=== PATIENT | male | born 1940 | race Caucasian/White ===

== ENCOUNTER 2020-01-30 09:49 | Observation (INO) ==
--- NOTE | 2020-01-30 10:21 | Emergency Department Note ---
Impression & Plan Atypical chest pain, HERNÁNDEZ (dyspnea on exertion), Hypophosphatemia, Hypocalcemia ED Provider Note NAME: JUAN FRANCISCO LOVE AGE: 79 SEX: M : 1940 ARRIVES VIA: Walk-In INFORMANT: Patient, ED PROVIDER(S): Puma Key MD Chief Complaint: Shortness of breath, fever HPI: Patient presents as he was concern for shortness of breath and the possibility of fever. The patient had initially gone to his chiropractor this morning for chronic low back pain for which she denies any change no bowel or bladder incontinence or urinary symptoms. He was told that he had a fever so [facility]. The patient states that he has had shortness of breath. Patient states he had chronic shortness of breath with difficulty I was getting the top of a set of stairs. More recently in the last 3 to 4 days though he has noticed that it is difficult he does take several steps and gets winded. Patient does have some chest tightness which she has noticed in the last 24 hours. He has had no lower extremity edema, increase in salt, or orthopnea. Patient does state he has had a mild productive cough that is colored in nature. Never smoker. No history DVT or PE or heart disease. Patient denies nausea vomiting or diaphoresis. Patient does not present with chills, coronavirus contacts, coronavirus testing, or recent travel. ROS: See HPI for pertinent positives and negatives. A total of 10 systems were reviewed and otherwise negative. Past medical history: See below Surgical history: See below Social history: See below Physical Exam: GENERAL: NAD, non-toxic. Wearing a mask. EYE EXAM: Normal conjunctiva. PERRL, no anisocoria and EOM's grossly intact w/o pain. NECK: Supple, no nuchal rigidity, no adenopathy, non-tender. No signs of meningismus. LUNGS: Clear to auscultation. Normal chest wall mechanics. HEART: NSR, no MRG. ABDOMEN: Abdomen soft, non-tender, normo-active bowel sounds, no masses, no rebound or guarding. BACK: No CVA TTP. SKIN: No rashes and no bruising. UPPER EXTREMITIES: Upper extremities are grossly normal. LOWER EXTREMITIES: Grossly normal, no edema. Negative Homans sign bilaterally. NEURO EXAM: A&O x3, cranial nerves II-XII grossly intact, normal speech, moves all 4 extremities on command w/o issue. Differential diagnoses: Reactive airway disease, pneumonia, pneumothorax, COPD, CHF, infections, cardiac ischemia, pulmonary embolism, musculoskeletal, gastrointestinal, as well as other pathologies. Course: Patient was seen and evaluated the bedside. Full history physical exam was performed. EKG: Indication: Shortness of breath Normal sinus rhythm, rate 82, normal intervals, left axis deviation, T wave inversion in aVL and V2. No obvious ST changes. T wave inversions are new from July 09, 1997 comparison EKG. Imaging Studies: Radiology results as stated below per my review in the radiologist's inte rpretation: XR chest 1V portable CLINICAL HISTORY: Dyspnea COMPARISON STUDY: No previous studies for comparison. FINDINGS: Kyphotic positioning is noted. Lung volumes are diminished. There is no evidence for pulmonary edema. No consolidation is identified. Linear right midlung opacity suggests atelectasis. IMPRESSION: 1. No acute findings. Linear right basilar opacity suggestive of atelectasis. 3. Low lung volumes. Kyphotic positioning. ACT 112: Negative or not required by law. Electronically signed by: Dylan Moscoso M.D. 01/30/2020 11:08 AM Dictated: 01/30/20 1107 Transcribed: 01/30/20 110 Cardiac monitoring: An order was placed for continuous cardiac monitoring. The monitor shows a rate of 84 with sinus rhythm. MDM: Patient does present with concern for shortness of breath and chest pain. Patient has clear breath sounds and not appear to be in heart failure. Blood work was obtained along with an EKG troponin and the patient did receive some aspirin given his chest tightness. Patient blood work shows a normal white count. Trace anemia is present. P atmeg has normal kidney function. Mild hypocalcemia and hypophosphatemia which were ordered for repleted. Patient states that he did feel improved upon reassessment after being given a full dose aspirin. EKG does show T wave inversion anteriorly and high laterally. These are new but the comparison EKG is quite old from 1996. Given the patient's exertional dyspnea and associated EKG changes with an elevated heart score I did speak with the medicine service agreed to further evaluate treat the patient. I did speak with Dr. Nely MD, [facility] hospitalist. He will further evaluate treat the patient. Patient was admitted to the medicine service. Past Med/Surg History Medical History (Updated 01/30/20 @ 13:06 by Puma Key MD) Hyperlipidemia Hypertension Surgical History (Updated 01/30/20 @ 12:50 by Puma Key MD) No pertinent past surgical history Social History (Updated 01/30/20 @ 12:50 by Puma Key MD) Preferred Language: Nepalese Communication Ability: Effective Current Living Situation: Spouse current occupational status: retired Feels Safe at Home: Yes Smoking Status: Former smoker Hx Alcohol Use: No Hx Substance Use: No Allergies Allergies Allergy/AdvReac Type Severity Reaction Status Date / Time No Known Allergies Allergy Unverified 01/30/20 11:18 Home Meds Home Medications Medication Instructions Recorded Confirmed aspirin [Aspir-81] 81 mg PO QA 01/30/20 01/30/20 docusate sodium [Stool Softener] 50 mg PO QA 01/30/20 01/30/20 gabapentin 300 mg PO BID 01/30/20 01/30/20 ibuprofen 200 mg PO Q6H PRN 01/30/20 01/30/20 levothyroxine 150 mcg PO DAILY@0630 01/30/20 01/30/20 lisinopril 10 mg PO QA 01/30/20 01/30/20 magnesium 250 mg PO [facility] 01/30/20 01/30/20 metoprolol tartrate 12.5 mg PO BID 01/30/20 01/30/20 omeprazole 20 mg PO BID 01/30/20 01/30/20 potassium gluconate 595 mg PO QA 01/30/20 01/30/20 prazosin 10 mg PO HS 01/30/20 01/30/20 sertraline 100 mg PO QAM 01/30/20 01/30/20 simvastatin 40 mg PO HS 01/30/20 01/30/20 trazodone 150 mg PO 01/30/20 01/30/20 Results & Data (ED) Vital Signs Vital Signs - 24 hr 01/30/20 10:00 01/30/20 11:33 01/30/20 11:34 Temperature 36.8 C Temperature Source Oral Pulse Rate 84 Pulse Rate [Apical] 63 Pulse Rhythm [Apical] Regular Respiratory Rate 20 18 Respiratory Effort / Characteristics Non-Labored Spontaneous Non-Labored Spontaneous Non-Labored Spontaneous Respiratory Depth Normal Normal Normal Respiratory Pattern Regular Blood Pressure 136/76 Blood Pressure [Right Arm] 137/73 Blood Pressure Mean 96 Blood Pressure Mean [Right Arm] 94 Blood Pressure Position Sitting Pulse Oximetry 96 94 Oxygen Delivery Method Room Air Room Air Room Air Sepsis Recent Fever Within 48 Hours No Sepsis Action Taken by Nursing No Action Required Home Medications Current Medication List: was personally reviewed by me Laboratory Data Attestation: I reviewed the patient's lab results. Result diagrams: 01/30/20 10:37 01/30/20 10:37 Lab Results 01/30/20 01/30/20 01/30/20 Range/Units 10:37 10:37 10:37 WBC 5.23 (4.8-10.8) K/uL RBC 4.31 L (4.7-6.1) M/uL Hgb 12.6 L (14.0-18.0) g/dL Hct 41.6 L (42-52) % MCV 96.5 (80-100) fL MCH 29.2 (25-34) pg MCHC 30.3 L (32-36) g/dL RDW Std Deviation 51.0 H (36.4-46.3) fL RDW Coeff of Bisi 14.3 (11.5-14.5) % Plt Count 168 (130-400) K/uL MPV 9.5 (7.4-10.4) fL Immature Gran % (Auto) 0.2 % Neut % (Auto) 71.3 % Lymph % (Auto) 17.8 % Buchanan % (Auto) 8.4 % Eos % (Auto) 2.1 % Baso % (Auto) 0.2 % Immature Gran # (Auto) 0.01 (0.00-0.02) K/uL Neut # (Auto) 3.73 (1.4-6.5) K/uL Lymph # (Auto) 0.93 L (1.2-3.4) K/uL Buchanan # (Auto) 0.44 (0.11-0.59) K/uL Eos # (Auto) 0.11 (0-0.5) K/uL Baso # (Auto) 0.01 (0-0.2) K/uL PT 10.7 (9.0-12.0) Seconds INR 1.0 (0.9-1.1) APTT 30.0 (21.0-31.0) Seconds PTT Ratio 1.1 Sodium 138 (136-145) mmol/L Potassium 4.5 (3.5-5.1) mmol/L Chloride 105 (98-107) mmol/L Carbon Dioxide 29 (21-32) mmol/L Anion Gap 4.0 (3-11) BUN 12 (7-18) mg/dl Creatinine 0.99 (0.6-1.4) mg/dl Est Cr Clr Drug Dosing 69.4 ml/min Est GFR ( Amer) 83.0 Est GFR (Non-Af Amer) 71.6 BUN/Creatinine Ratio 12.1 (10-20) Glucose 95 (70-99) mg/dl Calcium 8.3 L (8.5-10.1) mg/dl Phosphorus 2.2 L (2.5-4.9) mg/dl Magnesium 2.0 (1.8-2.4) mg/dl Total Bilirubin 0.4 (0.2-1) mg/dl AST 17 (15-37) U/L ALT 21 (12-78) U/L Alkaline Phosphatase 60 (45-117) U/L Troponin I < 0.015 (0-0.045) ng/ml Total Protein 6.9 (6.4-8.2) gm/dl Albumin 3.5 (3.4-5.0) gm/dl Globulin 3.4 (2.5-4.0) gm/dl Albumin/Globulin Ratio 1.0 (0.9-2) Administered Medications Discontinued Medications Aspirin (Aspirin) 324 mg PO NOW STA Stop: 01/30/20 10:57 Last Admin: 01/30/20 11:31 Dose: 324 mg Documented by: [id number] Discharge Plan Visit Data Chief Complaint: Shortness of Breath/Dyspnea Stated Complaint: SOB,HEADACHES,WEAKNESS ED Provider: Puma Key Discharge Problem: Atypical chest pain, HERNÁNDEZ (dyspnea on exertion), Hypophosphatemia, Hypocalcemia Forms Stand Alone Forms: [employer] Prescriptions Prescriptions: No Action sertraline 100 mg Tablet 100 mg PO QAM RF: 0 Stool Softener 50 mg Capsule 50 mg PO QAM RF: 0 aspirin [Aspir-81] 81 mg Tablet,Delayed Release (Dr/Ec) 81 mg PO QAM RF: 0 simvastatin 40 mg Tablet 40 mg PO HS RF: 0 prazosin 5 mg Capsule 10 mg PO HS RF: 0 trazodone 150 mg Tablet 150 mg PO HS RF: 0 lisinopril 10 mg Tablet 10 mg PO QAM RF: 0 levothyroxine 150 mcg Tablet 150 mcg PO DAILY@0630 RF: 0 ibuprofen 200 mg Tablet 200 mg PO Q6H PRN (Reason: Pain) RF: 0 gabapentin 300 mg Capsule 300 mg PO BID RF: 0 magnesium 250 mg Tablet 250 mg PO QAM RF: 0 potassium gluconate 595 mg (99 mg) Tablet 595 mg PO QAM RF: 0 omeprazole 20 mg Tablet,Delayed Release (Dr/Ec) 20 mg PO BID RF: 0 metoprolol tartrate 25 mg Tablet 12.5 mg PO BID RF: 0
[2020-01-30] MEDS ORDERED: ASPIRIN CHEW 324 MG PO STA (10:56)
--- NOTE | 2020-01-30 11:10 | XRay Report ---
XR chest 1V portable CLINICAL HISTORY: Dyspnea COMPARISON STUDY: No previous studies for comparison. FINDINGS: Kyphotic positioning is noted. Lung volumes are diminished. There is no evidence for pulmon kimmie edema. No consolidation is identified. Linear right midlung opacity suggests atelectasis. IMPRESSION: 1. No acute findings. Linear right basilar opacity suggestive of atelectasis. 3. Low lung volumes. Kyphotic positioning. ACT 112: Negative or not required by law. Electronically signed by: Dylan Moscoso M.D. 01/30/2020 11:08 AM
[2020-01-30 11:22] LABS: Basophils # (auto) 0.01 K/uL (0-0.2); Basophils % (auto) 0.2 %; Eosinophils # (auto) 0.11 K/uL (0-0.5); Eosinophils % (auto) 2.1 %; Hematocrit (blood only) 41.6 % (42-52); Hemoglobin 12.6 g/dL (14.0-18.0); Immature Granulocytes # (auto) 0.01 K/uL (0.00-0.02); Immature Granulocytes % (auto) 0.2 %; Lymphocytes # (auto) 0.93 K/uL (1.2-3.4); Lymphocytes % (auto) 17.8 %; Mean Corpuscular Hemoglobin 29.2 pg (25-34); Mean Corpuscular Hgb Conc 30.3 g/dL (32-36); Mean Corpuscular Volume 96.5 fL (80-100); Mean Platelet Volume 9.5 fL (7.4-10.4); Monocytes # (auto) 0.44 K/uL (0.11-0.59); Monocytes % (auto) 8.4 %; Neutrophils # (auto) 3.73 K/uL (1.4-6.5); Neutrophils % (auto) 71.3 %; Platelet Count 168 K/uL (130-400); RDW Coefficient of Variation 14.3 % (11.5-14.5); Red Blood Count 4.31 M/uL (4.7-6.1); White Blood Count 5.23 K/uL (4.8-10.8)
[2020-01-30 11:29] LABS: Alanine Aminotransferase 21 U/L (12-78); Albumin Level 3.5 gm/dl (3.4-5.0); BUN Creatinine Ratio 12.1 (10-20); Blood Urea Nitrogen 12 mg/dl (7-18); Calcium 8.3 mg/dl (8.5-10.1); Carbon Dioxide 29 mmol/L (21-32); Chloride 105 mmol/L (98-107); Creatinine Clr Calc Pharmacy 69.4 ml/min; Est GFR (Non-African American) 71.6; Glucose 95 mg/dl (70-99); Potassium 4.5 mmol/L (3.5-5.1); Sodium 138 mmol/L (136-145)
[2020-01-30 11:34] LABS: Partial Thromboplastin Ratio 1.1; Prothrombin Time 10.7 Seconds (9.0-12.0)
[2020-01-30 11:36] LABS: Alkaline Phosphatase 60 U/L (45-117); Aspartate Aminotransferase 17 U/L (15-37); Bilirubin,Total 0.4 mg/dl (0.2-1); Globulin 3.4 gm/dl (2.5-4.0); Phosphorus 2.2 mg/dl (2.5-4.9); Total Protein 6.9 gm/dl (6.4-8.2); Troponin I < 0.015 ng/ml (0-0.045)
[2020-01-30] MEDS ORDERED: CALCIUM CARBONATE 500 MG CHEWABLE TAB PO STA (12:47)
[2020-01-30] MEDS ORDERED: POT PHOSPHATE MONOBASIC W/ SOD TAB PO STA (12:47)
--- NOTE | 2020-01-30 13:49 | History & Physical Report ---
Date of Service January 30, 2020 Assessment & Plan (1) Atypical chest pain: Patient's chest pain is atypical but given his age and risk factors it could be cardiogenic in nature. The patient will have telemetry monitoring and serial troponin testing. Echocardiogram will be performed when available Patient is maintained on his chronic daily aspirin, patient continues on risk reduction Zocor therapy for dyslipidemia (2) HERNÁNDEZ (dyspnea on exertion): Patient is dyspnea on exertion could be related to unstable angina, systolic heart failure, or pulmonary infection. He has no other signs or symptoms such as productive cough. His fever is antidotal is with describe to providers offices and not recorded here but will continue to watch him for fever. He has no definite infiltrates on chest x-ray and has not had recent travel. However with dyspnea and a fever to physician offices we will check a COVID-19 test (3) Hypertension: Patient's hypertension is typically treated with metoprolol lisinopril the se will be maintained (4) Low back pain: Patient has chronic daily low back pain for which she takes gabapentin as needed oxycodone will be added (5) Depression: Patient continues on Zoloft and trazodone although trazodone has helpful for his insomnia (6) Hypothyroidism: Patient remains in his Synthroid at 150 mcg a day (7) DVT prophylaxis: Heparin will be chosen for DVT prevention (8) Hypophosphatemia: will augment his low potassium on admission History of Present Illness Chief Complaint: Fever, shortness of breath and chest pressure Primary Care Provider: NO PCP 79-year-old male presents emergency room after referral from 2 providers offices for fever. Patient initially was going to his chiropractor office for back pain when he was turned away due to high temperature and referred to his primary care office at the [facility]. At the [facility] the patient once again had a fever which was checked both in his forehead and in his ear he was then recommended to go to the emergency department. Patient's back pain was initial reason for his visit although he says he has been having feelings of being sick weak tired and fatigued over the last few days. Patient also has had some dyspnea which is been with associated chest tightness he is vague about the exact duration of the symptoms and there correlation with the feelings of generalized illness. Patient states that he has no nausea with his chest tightness and shortness of breath. He says that they are not always associated together the chest tightness and shortness of breath. And he has no diaphoresis associated with this. Patient does not have a tobacco use history but did have some secondhand smoke. Patient typically has dyslipidemia and hypertension. Patient denies travel out of the state or ill contacts he however was visiting [facility] to get his household supplies and did go to a [employer] market type setting in the last few days. In the ER he has negative laboratories he has some minor T wave inversions on EKG which are different from an EKG from 1997. He has some mild changes on his chest x-ray which are read as atelectasis Patient is agreeable to observation patient will have a COVID test Allergies Allergy/AdvReac Type Severity Reaction Status Date / Time No Known Allergies Allergy Unverified 01/30/20 11:18 Home Medications Home Medications Medication Instructions Recorded Confirmed Type Stool Softener 50 mg PO QAM 01/30/20 01/30/20 History aspirin [Aspir-81] 81 mg PO QA 01/30/20 01/30/20 History gabapentin 300 mg PO BID 01/30/20 01/30/20 History ibuprofen 200 mg PO Q6H PRN 01/30/20 01/30/20 History levothyroxine 150 mcg PO DAILY@0630 01/30/20 01/30/20 History lisinopril 10 mg PO QAM 01/30/20 01/30/20 History magnesium 250 mg PO QAM 01/30/20 01/30/20 History metoprolol tartrate 12.5 mg PO BID 01/30/20 01/30/20 History omeprazole 20 mg PO BID 01/30/20 01/30/20 History potassium gluconate 595 mg PO QAM 01/30/20 01/30/20 History prazosin 10 mg PO HS 01/30/20 01/30/20 History sertraline 100 mg PO QAM 01/30/20 01/30/20 History simvastatin 40 mg PO HS 01/30/20 01/30/20 History trazodone 150 mg PO HS 01/30/20 01/30/20 History Past Med/Surg History Medical History (Updated 01/30/20 @ 13:49 by All Mckay MD) Hyperlipidemia Hypertension Surgical History (Updated 01/30/20 @ 12:50 by Puma Key MD) No pertinent past surgical history Social History (Updated 01/30/20 @ 12:50 by Puma Key MD) Preferred Language: Omani Communication Ability: Effective 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 Beliefs That Will Affect Care: None marital status: Current Living Situation: Spouse current occupational status: retired Other Information That Helps Us Care for You: No Feels Safe at Home: Yes Safety Concerns: Feels Safe At This Time Smoking Status: Never smoker Hx Alcohol Use: No Hx Substance Use: No Review of Systems Review of Systems: Mild distress and fatigue no headache, blurry or double vision no speech or swallowing issues Complains of chest pressure no sensation of palpitations Dyspnea on exertion nonproductive cough but no wheezes no abdominal pain, nausea or vomiting, diarrhea or constipation no dysuria, hematuria or frequency no focal joint pain or swelling Low back pain which is chronic for him but no CVA tenderness or radicular pain no bruising, bleeding or rashes no focal signs of weakness or numbness or altered sensation no complaints or anxiety or depression Physical Exam Physical Exam: The patient appeared well nourished and normally developed. Vital signs as documented. Head exam is normocephalic atraumatic no scleral icterus Neck is without JVD, thyromegaly, or carotid bruits. Lungs are clear to auscultation, with exception of fine rales at the base Cardiac exam, Rhythm is regular.. No murmurs, rubs or gallops. Abdominal exam reveals normal bowel sounds, soft non tender, no masses Extremities are nonedematous and both pedal pulses are normal. Neurologic exam is alert and oriented, no focal loss of strength or sensation Skin is without bruises or rashes Psychologically is without concerns for anxiety or depression Results & Data Results & Data ([facility]) Vital Signs (Past 12 Hours) Vital Signs Negative troponin in the ER EKG nondiagnostic sinus rhythm Chest x-ray without infiltrates or overt heart failure Temp Pulse Pulse Resp BP BP Pulse Ox 01/30/20 13:00 73 20 153/86 H 94 01/30/20 11:33 63 18 137/73 94 01/30/20 10:00 98.2 F 84 20 136/76 96 Code Status & VTE Plan VTE Prophylaxis Plan VTE Prophylaxis will be ordered: Yes PG Care Time/CCT Total # of Minutes Spent Total Time Spent with Patient: Total time spent is greater than 50% in coordination of care (as documented) at patient's floor/unit and/or counseling patient: Coding Level of Care Code 38727 Initial Inpt Care Lvl 3 Diagnoses Atypical chest pain R07.89 HERNÁNDEZ (dyspnea on exertion) R06.00 Hypertension I10 Low back pain M54.5 Depression F32.9 Hypothyroidism E03.9 DVT prophylaxis Z29.9 Hypophosphatemia E83.39
--- NOTE | 2020-01-30 15:54 | Electrocardiogram Report ---
Test Reason : Blood Pressure : / mmHG Vent. Rate : 082 BPM Atrial Rate : 082 BPM P-R Int : 194 ms QRS Dur : 084 ms QT Int : 346 ms P-R-T Axes : 069 -40 084 degrees QTc Int : 404 ms Normal sinus rhythm Left axis deviation Abnormal ECG When compared with ECG of 09-JUL-1997 08:00, QRS axis Shifted left ST now depressed in Inferior leads T wave inversion now evident in Lateral leads Confirmed by Rashawn Sandhu ([id number]) on 01/30/2020 3:54:00 PM Referred By: REFERRED SELF Confirmed By:Fred Sandhu
[2020-01-30] MEDS ORDERED: NITROGLYCERIN SL 0.4 MG/TAB TAB SL PRN (16:21)
[2020-01-30] MEDS ORDERED: ACETAMINOPHEN 325 MG TAB PO PRN (16:21)
[2020-01-30] MEDS ORDERED: IBUPROFEN 200 MG TAB PO PRN (16:21)
[2020-01-30] MEDS ORDERED: ALUMINUM/MAGNESIUM SUSP 30 ML UDC PO PRN (16:21)
[2020-01-30] MEDS ORDERED: OXYCODONE HCL IR 5 MG TAB (IMMEDIATE RELEASE) PO PRN (16:21)
[2020-01-30] MEDS ORDERED: POLYETHYLENE (MIRALAX) 17 GM PACK PO PRN (16:21)
[2020-01-30] MEDS ORDERED: ONDANSETRON INJ 2 MG/ML 2 ML VIAL IV PRN (16:21)
[2020-01-30] MEDS ORDERED: POT PHOSPHATE MONOBASIC W/ SOD TAB PO ONE (16:21)
[2020-01-30] MEDS ORDERED: FUROSEMIDE 40 MG/4 ML VIAL IV ONE (16:21)
[2020-01-30] MEDS ORDERED: MoRPHine SULFATE 2 MG/ML CARP IV PRN (16:21)
[2020-01-30] MEDS ORDERED: FUROSEMIDE 20 MG in SYRINGE 0 ML IV ONE (17:00)
[2020-01-30] MEDS: METOPROLOL TARTRATE 25 MG TAB PO SCH (20:03)
[2020-01-30] MEDS: PANTOprazole 40 MG TAB PO SCH (20:03)
[2020-01-30] MEDS: GABAPENTIN 300 MG CAP PO SCH (20:04)
[2020-01-30] MEDS: HEPARIN SOD 5,000 UNIT/0.5 ML VIAL SQ SCH (20:06)
[2020-01-30] MEDS ORDERED: SIMVASTATIN 40 MG TAB PO SCH (21:00)
[2020-01-30] MEDS ORDERED: PRAZOSIN HCL 1 MG CAP PO SCH (21:00)
[2020-01-30] MEDS ORDERED: TRAZODONE HCL 50 MG TAB PO SCH (21:00)
[2020-01-31] MEDS ORDERED: LEVOTHYROXINE SODIUM 150 MCG TABLET PO SCH (06:30)
[2020-01-31] MEDS ORDERED: PERFLUTREN LIPID MICROSPHERE (DEFINITY) IV ONE (08:09)
[2020-01-31] MEDS: HEPARIN SOD 5,000 UNIT/0.5 ML VIAL SQ SCH (08:18)
[2020-01-31] MEDS: GABAPENTIN 300 MG CAP PO SCH (08:18)
[2020-01-31] MEDS: METOPROLOL TARTRATE 25 MG TAB PO SCH (08:18)
[2020-01-31] MEDS: PANTOprazole 40 MG TAB PO SCH (08:18)
[2020-01-31 08:30] LABS: Calcium 9.1 mg/dl (8.5-10.1); Creatinine Clr Calc Pharmacy 64.2 ml/min; Est GFR (African American) 75.6; Est GFR (Non-African American) 65.2; Potassium 4.7 mmol/L (3.5-5.1)
[2020-01-31] MEDS ORDERED: ASPIRIN 81 MG ECTAB PO SCH (09:00)
[2020-01-31] MEDS ORDERED: SERTRALINE HCL 100 MG TABLET PO SCH (09:00)
[2020-01-31] MEDS ORDERED: NON-FORMULARY MEDICATION (Potassium Gluconate 595 MG) PO SCH (09:00)
[2020-01-31] MEDS ORDERED: MAGNESIUM OXIDE 400 MG TAB PO SCH (09:00)
[2020-01-31] MEDS ORDERED: lisinopriL 10 MG TAB PO SCH (09:00)
[2020-01-31] MEDS ORDERED: DOCUSATE SODIUM SYRUP 20MG/5ML 480ML PO SCH (09:00)
--- NOTE | 2020-01-31 12:29 | XCELERA ---
[id number]
--- NOTE | 2020-01-31 17:17 | Discharge Summary ---
Date of Service I feel entirely discharged outMay 2019 Admission HPI Per Admitting Provider 79-year-old male presents emergency room after referral from 2 providers offices for fever. Patient initially was going to his chiropractor office for back pain when he was turned away due to high temperature and referred to his primary care office [facility] the [facility]. At the [facility] the patient once again had a fever which was checked both in his forehead and in his ear he was then recommended to go to the emergency department. Patient's back pain was initial reason for his visit although he says he has been having feelings of being sick weak tired and fatigued over the last few days. Patient also has had some dyspnea which is been with associated chest tightness he is vague about the exact duration of the symptoms and there correlation with the feelings of generalized illness. Patient states that he has no nausea with his chest tightness and shortness of breath. He says that they are not always associated together the chest tightness and shortness of breath. And he has no diaphoresis associated with this. Patient does not have a tobacco use history but did have some secondhand smoke. Patient typically has dyslipidemia and hypertension. Patient denies travel out of the state or ill contacts he however was visiting [facility] to get his household supplies and did go to a [employer] market type setting in the last few days. In the ER he has negative laboratories he has some minor T wave inversions on EKG which are different from an EKG from 1997. He has some mild changes on his chest x-ray which are read as atelectasis Patient is agreeable to observation patient will have a COVID test Principal Diagnosis non cardiac chest pain negative covid normal cardiac echo Discharge Exam The patient appeared well nourished and normally developed. Vital signs as documented. Head exam is normocephalic atraumatic no scleral icterus Neck is without JVD, thyromegaly, or carotid bruits. Lungs are clear to auscultation, no focal loss of breath sounds Cardiac exam, Rhythm is regular.. No murmurs, rubs or gallops. Abdominal exam reveals normal bowel sounds, soft non tender, no masses Extremities are nonedematous and both pedal pulses are normal. Discharge Data Allergies Allergy/AdvReac Type Severity Reaction Status Date / Time No Known Allergies Allergy Unverified 01/30/20 11:18 Consultations 01/30/20 12:47 ED Decision to Admit Stat Hospital Course (1) Atypical chest pain: Patient's chest pain is atypical but given his age and risk factors it could be cardiogenic in nature. negative troponon x 3 normal echocardiogram Patient is maintained on his chronic daily aspirin, patient continues on risk reduction Zocor therapy for dyslipidemia (2) HERNÁNDEZ (dyspnea on exertion): Patient is dyspnea on exertion negative COVID-19 test no pneumonia no further fever normal EF% (3) Hypertension: Patient's hypertension is typically treated with metoprolol lisinopril these will be maintained (4) Low back pain: Patient has chronic daily low back pain for which she takes gabapentin (5) Depression: Patient continues on Zoloft and trazodone (6) Hypothyroidism: Patient remains in his Synthroid at 150 mcg a day (7) Hypophosphatemia: will augment his low potassium on admission Total Time Total Time Spent Total Time Spent (In Minutes): greater than 30 minutes were required for discharge Discharge Plan Discharge Items Patient Disposition: Home - Self-Care Reason For Visit: CHEST PAIN Discharge Diagnosis: non typical chest pain negative COVID testing Activity: Per Instructions section Activity Comment: limit intentional exertion until you see your [facility] doctor Non-emergency contact: Primary Care Provider Call non-emergency contact if: you have any medication questions and your symptoms worsen Follow-up/Referrals: PCP,NO [Primary Care Provider] - Diet: Low Sodium (2gm) Addtl Attending Provider Instructions: Please follow up with your [facility] primary care doctor and consider discussing outpatient cardiac stress testing and pulmonary function testing Pending Studies at Discharge: No Stand-Alone Forms: My [employer], Smoking Cessation Medications and DC Order Prescriptions: Continued sertraline 100 mg Tablet 100 mg PO QAM RF: 0 Stool Softener 50 mg Capsule 50 mg PO QAM RF: 0 aspirin [Aspir-81] 81 mg Tablet,Delayed Release (Dr/Ec) 81 mg PO QAM RF: 0 simvastatin 40 mg Tablet 40 mg PO HS RF: 0 prazosin 5 mg Capsule 10 mg PO HS RF: 0 trazodone 150 mg Tablet 150 mg PO HS RF: 0 lisinopril 10 mg Tablet 10 mg PO QAM RF: 0 levothyroxine 150 mcg Tablet 150 mcg PO DAILY@0630 RF: 0 ibuprofen 200 mg Tablet 200 mg PO Q6H PRN (Reason: Pain) RF: 0 gabapentin 300 mg Capsule 300 mg PO BID RF: 0 magnesium 250 mg Tablet 250 mg PO QAM RF: 0 potassium gluconate 595 mg (99 mg) Tablet 595 mg PO QAM RF: 0 omeprazole 20 mg Tablet,Delayed Release (Dr/Ec) 20 mg PO BID RF: 0 metoprolol tartrate 25 mg Tablet 12.5 mg PO BID RF: 0 Discharge Orders: Discharge Order (Routine); Ordered 01/31/20 Ordered By: All Mckay Admission Data Admit Date/Time: 01/30/20 12:57 Attending Provider: All Mckay Admit Provider: All Mckay Primary Care Provider: PCP,NO Other Providers: All Mckay Other Interventions: Discharge Summary Assessment (RN) Last Done: 01/31/20 12:18 DC Date/Time DO NOT enter until pt leaves facility: 01/31/20 12:35 Coding Level of Care Code 75944 OBS Care - Discharge Diagnoses Atypical chest pain R07.89 HERNÁNDEZ (dyspnea on exertion) R06.00 Hypertension I10 Low back pain M54.5 Depression F32.9 Hypothyroidism E03.9 Hypophosphatemia E83.39
== END 2020-01-31 12:35 | disposition home or self-care (01) ==
LOC: 2S 09:49 → ED 09:49 → 2S 15:41

== ENCOUNTER 2022-06-11 11:42 | Inpatient (IN) ==
--- NOTE | 2022-05-08 15:38 | PAT Medication Instructions ---
Medication Instructions Date of Service May 08, 2022 Home Medications docusate sodium 50 mg capsule (Stool Softener) 50 mg PO QAM ibuprofen 200 mg tablet 200 mg PO Q6H PRN levothyroxine 150 mcg tablet 150 mcg PO DAILY magnesium 250 mg tablet 250 mg PO QAM prazosin 5 mg capsule 10 mg PO HS sertraline 100 mg tablet 100 mg PO QAM lidocaine 5 % topical patch 1 patch topical DAILY PRN lisinopril 10 mg tablet 10 mg PO QAM simvastatin 40 mg tablet 80 mg PO HS trazodone 100 mg tablet 200 mg PO HS albuterol sulfate 90 mcg/actuation breath activated powder inhaler 1 inh inhalation BID PRN naproxen 500 mg tablet,delayed release 500 mg PO BID PRN calcium 600 mg capsule 600 mg PO QAM cholecalciferol (vitamin D3) 25 mcg (1,000 unit) tablet (Vitamin D3) 25 mcg PO QPM fluticasone 500 mcg-salmeterol 50 mcg/dose blistr powdr for inhalation (Wixela Inhub) 1 inh inhalation BID [id number] tablet (Multivitamin 50 Plus tablet) 1 tab PO QAM potassium 99 mg tablet 99 mg PO QAM tiotropium bromide 2.5 mcg/actuation mist for inhalation 2 inh inhalation BID ASK your surgeon for instructions ibuprofen 200 mg tablet 200 mg PO Q6H PRN lidocaine 5 % topical patch 1 patch topical DAILY PRN (do not apply on or near surgical site) naproxen 500 mg tablet,delayed release 500 mg PO BID PRN DO NOT take the morning of surgery docusate sodium 50 mg capsule (Stool Softener) 50 mg PO QAM magnesium 250 mg tablet 250 mg PO QAM lisinopril 10 mg tablet 10 mg PO QAM calcium 600 mg capsule 600 mg PO QAM eqgqdicnqpmf-adkfoebr-osnces tablet (Multivitamin 50 Plus tablet) 1 tab PO QAM potassium 99 mg tablet 99 mg PO QAM Take morning of surgery With a small sip of water, OTHERWISE NOTHING TO EAT OR DRINK AFTER MIDNIGHT: levothyroxine 150 mcg tablet 150 mcg PO DAILY sertraline 100 mg tablet 100 mg PO QAM albuterol sulfate 90 mcg/actuation breath activated powder inhaler 1 inh inhalation BID PRN(use if needed; please bring with you to hospital day of surgery if possible) fluticasone 500 mcg-salmeterol 50 mcg/dose blistr powdr for inhalation (Wixela Inhub) 1 inh inhalation BID tiotropium bromide 2.5 mcg/actuation mist for inhalation 2 inh inhalation BID Take evening before surgery prazosin 5 mg capsule 10 mg PO HS simvastatin 40 mg tablet 80 mg PO HS trazodone 100 mg tablet 200 mg PO HS albuterol sulfate 90 mcg/actuation breath activated powder inhaler 1 inh inhalation BID PRN(if needed) cholecalciferol (vitamin D3) 25 mcg (1,000 unit) tablet (Vitamin D3) 25 mcg PO QPM fluticasone 500 mcg-salmeterol 50 mcg/dose blistr powdr for inhalation (Wixela Inhub) 1 inh inhalation BID tiotropium bromide 2.5 mcg/actuation mist for inhalation 2 inh inhalation BID Other Notes If you have any questions please call us at [phone] or [phone] or [phone] or [phone]
--- NOTE | 2022-05-15 11:40 | Anesthesiology Consultation ---
Date of Service May 15, 2022 Assessment & Plan (1) Encounter for pre-operative examination: - Patient acceptable risk for surgery pending surgeon-ordered PCP preop evaluation (Dr. Bell/[facility]). - COVID screening: Per assessment on 05/15: No known COVID-19 positive contacts or current COVID-19 related symptoms. Travel screen negative. Patient vaccinated. At surgeon discretion if preop Covid testing being done. - Outpatient joint assessment: Pt currently scheduled for inpatient pathway. If surgeon requests review for outpatient joint pathway, patient is not candidate for outpatient joint program from anesthesia standpoint. - Possible difficult intubation: d/t anatomy - Hemidiaphragm elevation: Preop CXR noted unchanged left hemidiaphragm elevation (same side as upcoming shoulder surgery). Chart Review Chart Review: Patient seen in Pre Admission Testing Teaching & Discussion Pre-Anesthesia Teaching/Discussion Notes: Instructed NPO after midnight before surgery,except medications with 15 cc of water. Medication instructions provided according to the PAT guidelines. History Surgery Operation Date: 06/11/22 12:05 Proposed Procedures p Left Total Shoulder Arthroplasty Reverse - Josep Ingram MD Height/Weight Height: 5 ft 7.5 in Weight: 96.8 kg Allergies Allergy/AdvReac Type Severity Reaction Status Date / Time No Known Allergies Allergy Verified 05/08/22 10:39 Medications Home Medications Medication Instructions Recorded Confirmed Last Taken docusate sodium 50 mg capsule 50 mg PO QAM 01/30/20 05/08/22 01/30/20 (Stool Softener) ibuprofen 200 mg tablet 200 mg PO Q6H PRN Pain 01/30/20 05/08/22 01/30/20 07:00 600 mg levothyroxine 150 mcg tablet 150 mcg PO DAILY@0630 01/30/20 05/08/22 01/30/20 magnesium 250 mg tablet 250 mg PO QAM 01/30/20 05/08/22 01/30/20 prazosin 5 mg capsule 10 mg PO HS 01/30/20 05/08/22 01/29/20 sertraline 100 mg tablet 100 mg PO QAM 01/30/20 05/08/22 01/30/20 lidocaine 5 % topical patch 1 patch topical DAILY PRN Pain 03/12/20 05/08/22 Unknown lisinopril 10 mg tablet 10 mg PO QAM 06/26/20 05/08/22 Unknown simvastatin 40 mg tablet 80 mg PO HS 06/26/20 05/08/22 Unknown trazodone 100 mg tablet 200 mg PO HS 12/11/20 05/08/22 Unknown albuterol sulfate 90 mcg/actuation 1 inh inhalation BID PRN sob 03/27/21 05/08/22 Unknown breath activated powder inhaler naproxen 500 mg tablet,delayed 500 mg PO BID PRN Pain 05/30/21 05/08/22 Unknown release calcium 600 mg capsule 600 mg PO QAM 05/08/22 05/08/22 Unknown cholecalciferol (vitamin D3) 25 25 mcg PO QPM 05/08/22 05/08/22 Unknown mcg (1,000 unit) tablet (Vitamin D3) fluticasone 500 mcg-salmeterol 50 1 inh inhalation BID 05/08/22 05/08/22 Unknown mcg/dose blistr powdr for inhalation (Wixela Inhub) [id number]-wrnsvreu-sgrqmr 1 tab PO QAM 05/08/22 05/08/22 Unknown tablet (Multivitamin 50 Plus tablet) potassium 99 mg tablet 99 mg PO QAM 05/08/22 05/08/22 Unknown tiotropium bromide 2.5 2 inh inhalation BID 05/08/22 05/08/22 Unknown mcg/actuation mist for inhalation Past Medical History Medical History Aneurysm Per remote [facility], hx of questionable [facility], no recent issues/not noted on 2019 echo COPD (chronic obstructive pulmonary disease) Stable DDD (degenerative disc disease) Hearing deficit Hyperlipidemia Hypertension Hypothyroidism Lumbar spondylosis Obesity Osteoarthritis Osteoporosis Sleep apnea No device Spinal stenosis of thoracolumbar region Spinal stenosis, lumbar region with neurogenic claudication Exercise / Class Metabolic Activity III < 4 Walking/Shop/Light housework Past Family History Family History Other No family history of adverse response to anesthesia Past Surgical History Surgical History History of cataract surgery R/L History of elbow surgery Right Past Anesthesia History No Hx of Anesthesia Complications History of PONV No Hx of PONV and No Hx of Motion Sickness Social History Smoking Status: Never smoker Do You Dip or Chew Tobacco: No Hx Alcohol Use: No Hx Substance Use: No substance use type: does not use Review of Systems Patient denies chest pain, shortness of breath, dyspnea on exertion, fever, chills, cough, wheezing, palpitations. Physical Exam Vital Signs VITALS BP 141/65 P 99-104 TEMP 98.3 SP02 97%RA RESP 16 PHYSICAL Full cervical extension range of motion. Full TMJ range of motion. TMD 3 finger breaths Mallampati Score 4 (small oral opening) Dentition: upper/lower dentures Lungs: clear throughout to auscultation Cardiac: regular rate and rhythm, no murmurs noted Spine: normal Carotid arteries: negative bruit Extremities: no edema Lab Results Anesthesia Preop Results Results Anesthesia Widget: WBC 5.83 K/ul (4.8-10.8) 05/15/22 Hgb 12.5 g/dl (14.0-18.0) L 05/15/22 Hct 39.6 % (40.1-51.0) L 05/15/22 Plt 182 K/uL (130-400) 05/15/22 Na 136 mmol/L (136-145) 05/15/22 K 5.0 mmol/L (3.5-5.1) 05/15/22 Cl 100 mmol/L (98-107) 05/15/22 CO2 33 mmol/L (21-32) H 05/15/22 BUN 16 mg/dl (6-23) 05/15/22 Creat 1.02 mg/dl (0.6-1.4) 05/15/22 Glucose Level 89 mg/dl (70-99(Fasting)) 05/15/22 PT 10.9 Seconds (9.0-12.0) 05/15/22 PTT 29.1 Seconds (21.0-31.0) 05/15/22 INR 1.0 (0.9-1.1) 05/15/22 HA1c 5.9 % (4.5-5.6) H 05/15/22 Urine Color Yellow 05/15/22 Urine Appearance Clear (Clear) 05/15/22 Urine pH 7.0 (4.5-7.5) 05/15/22 Urine Specific [place] 1.011 (1.000-1.030) 05/15/22 Urine Protein Negative (Negative) 05/15/22 Urine Glucose (UA) Negative (Negative) 05/15/22 Urine Ketones Negative (Negative) 05/15/22 Urine Blood Negative (Negative) 05/15/22 Urine Nitrite Negative (Negative) 05/15/22 Urine Bilirubin Negative (Negative) 05/15/22 Urine Urobilinogen Negative (Negative) 05/15/22 Urine Leukocyte Esterase Negative (Negative) 05/15/22 Blood Type O Negative 05/15/22 Antibody Screen NEGATIVE 05/15/22 Testing Electrocardiogram Date: 05/15/22 ST at 103bpm. Otherwise normal ECG. No significant change compared to 01/30/2020 per yard pilot review. Chest X-Ray Date: 05/15/22 FINDINGS: Lung volumes are diminished. This is unchanged. Elevation of the left hemidiaphragm is unchanged. No pneumothorax or pleural effusion is present. There is no evidence for pulmonary edema. No consolidation to suggest pneumonia. Cardiomediastinal silhouette is stable. IMPRESSION: No acute cardiopulmonary findings. No change in appearance of the chest. Echocardiogram Date: 01/31/20 EF 60-65%. No RWMA. Mild to moderate mitral annular calcification. No significant valvular disease. Moderate AV sclerosis. Mild aortic root dilatation. Stress Test Date: 09/01/21 Type: nuclear The SPECT perfusion images are considered to be within normal limits. Post-rest 74%. No significant ischemia/infarct. 71% MPHR. Negative ECG response to regadenoson. COVID-19 Risk Screen Screening Information COVID-19 Screen Date: 05/15/22 Exposure 21 Days Family/Household +COVID Last 21 Days: No Exposure 10 Days Any COVID Exposure Last 10 Days: No Symptoms Last 10 Days Experienced COVID Sx Last 10 Days: No + COVID 0-90 Days COVID + in Last 0-90 Days: No
--- NOTE | 2022-06-10 18:11 | History & Physical Report ---
Date of Service June 10, 2022 Assessment & Plan (1) Rotator cuff arthropathy of left shoulder: Plan: Treatment discussed with the patient. Recommend surgical intervention. Risks, benefits and alternatives to surgery including but not limited to infection, DVT, pain, stiffness, need for revision surgery, damage to blood vessels, damage to nerves, PE, , were discussed with the patient and they wish to proceed. Plan for left reverse total shoulder arthroplasty scheduled for June 11 at [facility] with Dr. Ingram. All questions answered. History of Present Illness Chief Complaint: Left shoulder Primary Care Provider: Stacy Alonso PA-C 82-year-old male with past medical history significant for COPD, hypothyroidism, hypertension who presents with ongoing left shoulder pain. He has significant difficulty with daily activities due to his pain. He has failed conservative measures. He would like to proceed with surgical intervention. Patient denies headaches, sweats, fevers, chills, double vision, blurred vision, cough, sore throat, dysphagia, chest pain, sob, wheezing, n/v/d/c, numbness, tingling, fatigue, urinary symptoms, mood disorders. ROS positive for left shoulder pain and stiffness. Allergies Allergy/AdvReac Type Severity Reaction Status Date / Time No Known Allergies Allergy Verified 05/08/22 10:39 Home Medications Medication Instructions Recorded Confirmed Type docusate sodium 50 mg capsule 50 mg PO [facility] 01/30/20 05/08/22 History (Stool Softener) ibuprofen 200 mg tablet 200 mg PO Q6H PRN Pain 01/30/20 05/08/22 History levothyroxine 150 mcg tablet 150 mcg PO DAILY@0630 01/30/20 05/08/22 History magnesium 250 mg tablet 250 mg PO QAM 01/30/20 05/08/22 History prazosin 5 mg capsule 10 mg PO HS 01/30/20 05/08/22 History sertraline 100 mg tablet 100 mg PO [facility] 01/30/20 05/08/22 History lidocaine 5 % topical patch 1 patch topical DAILY PRN Pain 03/12/20 05/08/22 History lisinopril 10 mg tablet 10 mg PO QA 06/26/20 05/08/22 History simvastatin 40 mg tablet 80 mg PO HS 06/26/20 05/08/22 History trazodone 100 mg tablet 200 mg PO HS 12/11/20 05/08/22 History albuterol sulfate 90 mcg/actuation 1 inh inhalation BID PRN sob 03/27/21 05/08/22 History breath activated powder inhaler naproxen 500 mg tablet,delayed 500 mg PO BID PRN Pain 05/30/21 05/08/22 History release calcium 600 mg capsule 600 mg PO QAM 05/08/22 05/08/22 History cholecalciferol (vitamin D3) 25 25 mcg PO QPM 05/08/22 05/08/22 History mcg (1,000 unit) tablet (Vitamin D3) fluticasone 500 mcg-salmeterol 50 1 inh inhalation BID 05/08/22 05/08/22 History mcg/dose blistr powdr for inhalation (Wixela Inhub) [id number]-[id number]-zeuqin 1 tab PO QAM 05/08/22 05/08/22 History tablet (Multivitamin 50 Plus tablet) potassium 99 mg tablet 99 mg PO QAM 05/08/22 05/08/22 History tiotropium bromide 2.5 2 inh inhalation BID 05/08/22 05/08/22 History mcg/actuation mist for inhalation Past Med/Surg History Medical History Aneurysm Per remote [facility], hx of questionable thoracic [facility], no recent issues/not noted on 2019 echo COPD (chronic obstructive pulmonary disease) Stable DDD (degenerative disc disease) Hearing deficit Hyperlipidemia Hypertension Hypothyroidism Lumbar spondylosis Obesity Osteoarthritis Osteoporosis Sleep apnea No device Spinal stenosis of thoracolumbar region Spinal stenosis, lumbar region with neurogenic claudication Surgical History History of cataract surgery R/L History of elbow surgery Right Family History Other No family history of adverse response to anesthesia Social History Smoking Status: Never smoker Tobacco Type: Pipe and Cigars Second Hand Exposure: No; Hx Alcohol Use: No Hx Substance Use: No Preferred Language: Andorran Communication Ability: Effective Visual Impairment: No Limitations Hearing Ability: Hard of Hearing Visual Communications Instructor Required: No Beliefs That Will Affect Care: None marital status: Current Living Situation: Spouse current occupational status: retired Feels Safe at Home: Yes Assistive Devices: Denture - Upper, Denture - Lower and Glasses Review of Systems All systems reviewed & are unremarkable except as noted in HPI & below Physical Exam Constitutional: well developed and well nourished; no acute distress Eyes: PERRL, conjunctivae normal, anicteric sclerae ENMT: external ear and nose normal, oropharynx normal Neck: trachea midline, no thyromegaly Respiratory: normal respiratory effort, lungs clear to auscultation Cardiovascular: RRR, no murmur, no edema Musculoskeletal: Left shoulder: Crepitation. Tenderness anterolateral acromion. He has positive impingement signs. Active painful range of motion. Active abduction to 90 degrees, rotate 90 degrees. Pain and weakness with strength testing. 3/5 abduction, 3+/5 external rotation, 5/5 internal rotation. Marked subacromial creoitation with rom. Skin: no rashes, warm and dry Neurologic: patellar DTR's 2+ bilat, sensation intact Psychiatric: A+Ox3, euthymic affect Results & Data ([place]) Diagnostic Findings Left shoulder radiographs and MRI demonstrates chronic rotator cuff tear with severe rotator cuff tendinopathy. Appears to be very poor tissue quality not amenable to repair. X-rays demonstrate mild to moderate degenerative changes in his shoulder. No significant humeral head elevation.
[~2022-06-11 11:42] MED LIST: ACETAMINOPHEN 500 MG TAB PO SCH; BUPIVACAINE 0.5 % 5 MG/1 ML PF 10ML VIAL ONE; CeleBREX 200 MG CAP PO SCH; FAMOTIDINE 20 MG TAB PO SCH; GABAPENTIN 300 MG CAP PO SCH; LIDOCAINE 2% 20 MG/ML 5 ML SYR IV ONE; LR 15ML/HR IV SCH; METOCLOPRAMIDE HCL 10 MG TABLET PO SCH; MIDAZOLAM HCL 1 MG/ML 2ML VIAL ONE; PROPOFOL IV EMULSION 10 MG/ML 20 ML VIAL IV ONE; ROCURONIUM BROMIDE 10 MG/ML 5 ML VIAL IV ONE; TRANEXAMIC ACID 1,000 MG **IV Intra-op IV SCH; TRANEXAMIC ACID 1,000 MG **IV Pre-op IV SCH; ceFAZolin 2000MG 2,000 MG/15 ML SYR IV SCH; dexAMETHasone 4 MG TAB PO SCH; fentaNYL citrate 100 MCG/2 ML VIAL ONE
[2022-06-11] MEDS ORDERED: ePHEDrine sulfate 50 MG/ML AMP IV PRN (12:45)
[2022-06-11] MEDS ORDERED: fentaNYL citrate 100 MCG/2 ML VIAL IV PRN (12:45)
[2022-06-11] MEDS ORDERED: ATROPINE SULFATE 0.1 MG/ML 10ML SYR IV PRN (12:45)
[2022-06-11] MEDS ORDERED: HYDROmorphone INJ 1 MG/ML SYRINGE IV PRN (12:45)
[2022-06-11] MEDS ORDERED: ONDANSETRON INJ 2 MG/ML 2 ML VIAL IV PRN ×2 (12:45→17:33)
--- NOTE | 2022-06-11 13:27 | History & Physical Bridge Note ---
Date of Service June 11, 2022 History & Physical Bridge Note I have examined the patient, reviewed the History & Physical and in the interval since the performance of the History & Physical I have noted the following changes of clinical significance: no changes noted
[2022-06-11] MEDS ORDERED: PROPOFOL IV EMULSION 10 MG/ML 20 ML VIAL IV ONE (15:21)
[2022-06-11] MEDS ORDERED: ROCURONIUM BROMIDE 10 MG/ML 5 ML VIAL IV ONE ×2 (15:21)
[2022-06-11] MEDS ORDERED: GLYCOPYRROLATE 0.2 MG/ML VIAL ONE (15:22)
[2022-06-11] MEDS ORDERED: ONDANSETRON INJ 2 MG/ML 2 ML VIAL ONE (15:22)
[2022-06-11] MEDS ORDERED: NEOSTIGMINE METHYLSULFATE 1 MG/ML 10ML VIAL ONE (15:22)
--- NOTE | 2022-06-11 16:13 | Operative Report ---
Post Operative Report Pre & Post Diagnosis Operation Date: 06/11/22 14:05 Pre-Op Diagnosis: Left shoulder rotator cuff and biceps tendinopathy, with irreparable rotator cuff tear. Post-Op Diagnosis: Left shoulder rotator cuff and biceps tendinopathy with irreparable rotator cuff tear I identified the patient and participated in the time-out.: Yes Procedure Operation Date: 06/11/22 14:05 Actual Procedures p Left reversed total Shoulder Arthroplasty, Biceps Tenodesis(Left) - Josep Ingram MD Surgeon Josep Ingram MD Engineering Project Manager Patrice ANTHONY Estimated Blood Loss 45 (per surgeon.) Findings Consistent with Post-Op Diagnosis Specimens Bone cuts Drains 2 Hemovac Anesthesia Type General Regional Complications none Disposition Disposition: Recovery Room Indications 82-year-old male with chronic left shoulder pain failed conservative management. X-rays and MRI demonstrate chronic rotator cuff tear with significant tendinopathy with poor prognosis for rotator cuff repair with the condition of the tendon tissue and patient's age. Patient also has biceps tendinopathy. Description of Procedure The patient was taken to the operating room and anesthetized under regional block and general anesthetic. The patient was positioned on the operating table in a 30 beach chair position with a towel roll under the medial border of the left scapula. The arm was draped free to be able to manipulate the shoulder as needed. The left upper extremity was prepped and draped in usual sterile fashion. Exam demonstrated moderately obese arm with forward flexion of 170 degrees abduction 90 degrees external rotation 60 degrees internal rotation 90 degrees. An anterior deltopectoral approach was performed. A longitudinal incision was made in the deltopectoral interval. The skin was incised sharply. Subcutaneous flaps were elevated off the fascia. The cephalic vein was dissected out and retracted lateral with the deltoid. The clavipectoral fascia was divided at the lateral margin of the conjoined tendon and extended up to the CA ligament. The following findings were noted: There was biceps tendinopathy from the bicipital groove down to the upper pec tendon. The biceps was scarred down into the bicipital groove proximally. The subscapularis tendon had tendinopathy and thinning partial intra-articular tearing of the upper border upper third. There is large rotator cuff tear with supraspinatus and infraspinatus torn and retracted with intact teres minor the rotator cuff tissue had tendinopathy.. The upper centimeter of the pectoralis was released for inferior exposure. A self-retaining retractor was placed. the biceps tendon was tenodesed to the pectoralis tendon with #2 FiberWire. The proximal biceps was resected. The subscapular muscle fibers were split longitudinally at the level of the circumflex vessels. The circumflex vessels were identified and tied off with silk ties and divided laterally. A Kitner elevator was used to free up the inferior fibers of the subscapularis off of the capsule. The axillary nerve was identified with a tug test and protected with a blunt Zora retractor between the nerve and the capsule. The subscapularis tendon was then taken down off of the lesser tuberosity subperiosteally, a Vicryl traction suture was placed and a subperiosteal dissection was performed along the neck of the humerus as the arm was gradually externally rotated exposing the humeral head. The humeral head findings demonstrated mild osteoarthritic changes with some superficial articular wear only. A Dos Santos elevator was used to assist in releasing the capsule of the neck of the humerus. The capsule was divided with Gardner scissors down to the glenoid released off the anterior glenoid and the rotator interval was released to meet the capsular release and a 360 release of the subscapularis was accomplished. A Fukuda retractor was placed into the joint retracting the humeral head posterior. Glenoid findings demonstrated intact articular surface with chronic superior labral degenerative tearing and remnants of the supraspinatus and infraspinatus tendon superiorly and intact articular cartilage on the glenoid surface. There was an absent biceps tendon. The labrum was resected. an anterior-inferior and posterior inferior capsular release were performed with electrocautery and a Dos Santos elevator on bone with the axillary nerve protected inferiorly by the retractor. Attention was then taken to the humeral preparation. The cutting guide was placed into the humeral head. It was positioned at 20 of retroversion. Oscillating saw was used to resect the humeral head giving the cut above the level of the posterior rotator cuff insertion site. The humerus was then prepared for the stem. I used the ascend flex stem from [employer]. The sizing broaches were used followed by trial broaches up to a size 5B long which had the appropriate fit and fill. The appropriate sized cut protector was placed. The humerus was then retracted posterior to the glenoid. The glenoid was sized for a 29 baseplate. The guide for the baseplate was positioned in a 10 inferior tilt and the central drill hole was made. The reamer for the 29 baseplate was used. The central drill was widened for the peg. The Tornier hydroxyapatite coated standard post length baseplate with hydroxyapatite coating was impacted into position. The base plate was transfixed with superior and inferior locking screws and anterior and posterior compression screws with stable fixation. The fan reamer was used for the 42 millimeter glenoid sphere. After irrigation the 42 glenoid sphere was impacted onto the baseplate and the security screw was tightened. Attention was taken back to the humerus. The cut protector was removed and the +0 high offset humeral tray trial was assembled to the trial stem rotated appropriately to get bony coverage and then screwed in position. A trial reduction was performed. A +6, 42 reversed trial insert demonstrated good stability and no shuck. The trials were removed. 3 drill holes are made into the harder bone in the bicipital groove area and 3 #5 FiberWire sutures were placed transosseously. The canal was irrigated with antibiotic solution with bacitracin. The final component was assembled. The final component was 5B long PTC ascend flex stem assembled to plus or high offset tray with a +6, 42 reversed polyethylene insert. This was then impacted into the humerus with a tight press-fit. It was reduced to the glenoid sphere. Stability was verified. Subscapularis was repaired with the #5 FiberWire sutures using Chema-Seamus suture technique. Lateral row soft tissue repair was performed with #2 FiberWire [id number] sutures both soft tissue and transosseous. The pectoralis was repaired with #2 FiberWire [id number] sutures reinforcing the biceps tendon tenodesis. The arm was taken through a range of motion which demonstrated 150 degrees forward flexion 90 degrees abduction and and 40 degrees external rotation and 80 degrees of internal rotation without tension on repair. The implant was stable through the range of motion tested. The wound was copiously irrigated. 2 Hemovac drains were placed. The deltopectoral interval was closed with [id number] #1 Vicryl sutures. The subcutaneous tissues were closed with 2-0 Vicryl sutures. The skin was closed with lindy. Sterile dressings were applied and a shoulder immobilizer. Patrice Oconnor my physician assistant analyst acted as certified first assistant throughout the procedure .He performed functions including patient positioning, arm positioning, prepping and draping, soft tissue retraction, instrument management, suture management and performed the subcutaneous and skin closure and will participate in the postoperative care of the patient. I attest to the content of the Intraoperative Record and any orders documented therein. Any exceptions are noted below.
--- NOTE | 2022-06-11 16:59 | Anesthesiology Progress Note ---
Date of Service June 11, 2022 Anesthesia Post Procedure Vital Signs Vital Signs: Temp Pulse Pulse Resp BP Pulse Ox O2 Del Method 06/11/22 16:45 36.9 C 95 H 22 119/85 97 Nasal Cannula 06/11/22 16:35 97 H 21 129/70 89 L Room Air 06/11/22 16:25 100 H 18 132/71 99 Oxymask 06/11/22 16:15 36.2 C L 99 H 23 134/88 94 Oxymask 06/11/22 12:06 37 C 106 H 20 149/99 H 96 Room Air O2 Flow Rate 06/11/22 16:45 2 06/11/22 16:35 06/11/22 16:25 6 06/11/22 16:15 6 06/11/22 12:06 Pain Intensity Left Shoulder: Pain Intensity: 4 Transfer of Care Handoff Completed per policy Notes Mental Status: alert / awake / arousable and participated in evaluation Patient Amnestic to Procedure: Yes Nausea / Vomiting: adequately controlled Pain: adequately controlled Airway Patency, RR, SpO2: stable & adequate BP & HR: stable & adequate Hydration State: stable & adequate Anesthetic Complications: no major complications apparent and Pt Satisfied with anesthetic care
[2022-06-11] MEDS ORDERED: NALOXONE HCL 0.4 MG/1 ML VIAL/CARP IV PRN (17:33)
[2022-06-11] MEDS ORDERED: HYDROmorphone INJ 0.5 MG/0.5 ML SYR IV PRN (17:33)
[2022-06-11] MEDS ORDERED: bisacodyL 10 MG SUPP PR PRN (17:33)
[2022-06-11] MEDS ORDERED: MAGNESIUM HYDROXIDE SUSP 30 ML UDC PO PRN (17:33)
[2022-06-11] MEDS ORDERED: METOCLOPRAMIDE HCL INJ 5 MG/ML 2 ML VIAL IV PRN (17:33)
[2022-06-11] MEDS ORDERED: TAMSULOSIN HCL 0.4 MG CAP PO PRN (17:33)
[2022-06-11] MEDS: SODIUM CHLORIDE 0.9% 1000ML 1,000 ML IV SCH (17:59)
[2022-06-11] MEDS ORDERED: ALBUTEROL HFA 8 GM INHALER INH PRN (18:14)
[2022-06-11] MEDS ORDERED: COUGH DROP (SUGAR FREE) LOZ 24 LOZ/1 BOX BUCCAL ONE (19:36)
[2022-06-11] MEDS: CHOLECALCIFEROL 1,000 UNITS 25 MCG TAB PO SCH (19:49)
[2022-06-11] MEDS: DOCUSATE SODIUM 100 MG CAP PO SCH (19:50)
[2022-06-11] MEDS: PRAZOSIN HCL 1 MG CAP PO SCH (19:50)
[2022-06-11] MEDS: SENNA 8.6 MG TAB PO SCH (19:50)
[2022-06-11] MEDS: traZODone HCL 100 MG TAB PO SCH (19:51)
[2022-06-11] MEDS: SIMVASTATIN 80 MG TAB PO SCH (19:51)
[2022-06-11] MEDS: oxyCODONE HCL IR 5 MG TAB (IMMEDIATE RELEASE) PO PRN (19:55)
--- NOTE | 2022-06-11 20:42 | Hospitalist Consultation ---
Date of Consultation June 11, 2022 Assessment & Plan (1) Rotator cuff arthropathy of left shoulder: - POD #0. EBL 45 cc. [address] No complications. Patient w/o any complaints - Pain/ABX/IVF/diet/drain management/transfusion needs/activity per primary team - Rescue Narcan ordered for over sedation PRN - VTE prophylaxis per primary service- SCDs in place - CBC and BMP in AM. - Baseline renal function: Cr 1.02, GFR 67 on 05/15/22 - Baseline Hgb: 12.5 on 05/15/22 (2) COPD (chronic obstructive pulmonary disease): - Severe emphysema. Also with JAH but CPAP intolerant. - No evidence of acute exacerbation. Still on NC, however weaning down and only on 1 L NC with SpO2 95%. No O2 requirement at home. - Without SOB or cough. - Continue home inhalers. - Encourage incentive spirometer. (3) Hypertension: - Ideally, would hold lisinopril until POD #2, however given adequate renal function on a.m. labs, may restart tomorrow POD #1 patient is significantly hypertensive. (4) Hypothyroidism: - Continue levothyroxine. Per medical clearance note from 05/20, patient's dose was to be reduced to 112 mcg daily. - TSH <0.1 on 05/15/2022. (5) CAD (coronary artery disease): - Moderate non-obstructive. - Continue statin, lisinopril to resume on POD#2. - [facility]op[facility], not on medication list here. Patient unsure if he takes this/what the dose may be. - Okay to miss this dose if he does take it as long as he is d'c'd home tomorrow and can resume home meds. (6) Hyperlipidemia: - Continue simvastatin 80 mg at night. (7) Osteoporosis: - Continue alendronate weekly, daily vitamin D and calcium supplementation. (8) Depression: - With insomnia/PTSD/nightmares. - Continue sertraline 100 mg daily. - Continue prazosin 2 mg and trazodone 200 mg at night. - Venlafaxine [facility] as medication [facility], patient unsure if he takes this/what dose he is on. Okay to miss this dose if he does take it as long as he is d'c'd home tomorrow and can resume home meds. (9) Tobacco dependence: - No longer smoking or chewing tobacco. Plan - Admitted to me/surg per primary team. - SCDs ordered per primary team. - Full Code. Supervising Physician Co-Signing Physician Notes I personally saw and examined the patient. I verified all burr points and agree with Felicita Nix PA-C with the following exceptions and/or additions: Discussed patient's medications and medical conditions with the patient. He is unsure the exact medications he is on. Reports doing well post operatively. No concerns or questions from the patient at this time. Will have to watch BP with his prazosin and agree with holding his lisinopril. Thanks you for the consult we will continue to follow this patient along with you. History of Present Illness Reason for Consultation: post op medication management Requesting Physician: Josep Ingram MD Attending Physician: Josep Ingram MD History of Present Illness Franci Veloz is an 82-year-old male with past medical history significant for COPD, hypertension, hyperlipidemia, hypothyroidism, obesity, sleep apnea, spinal stenosis who was admitted today, 06/11 for a left-sided shoulder arthroplasty reverse with Dr. Ingram after failing outpatient conservative management. Hospital service was consulted for post operative medical management. Today, he is POD#0 and feels well. He has been mildly tachycardic with HR 100s, still weaning off oxygen, currently 95% on 1 L. He is having low back pain, which is chronic and usual for him. He denies fever/chills, weakness, chest pain, palpitations, shortness of breath, cough, orthopnea, abdominal pain, nausea, vomiting. At the time of visit, patient is resting comfortably in bed. Of note, there are several medications listed on patient's medical clearance visit at the [facility] that are not listed on his medication list here. Those include metoprolol, venlafaxine, and Keppra. Patient is unable to confirm whether or not he takes these and what doses he is taking. He did tell me he takes a medication for "jerking movements", but denies seizure disorder. He thinks he might be "something with an L, maybe that" when I suggest levetiracetam. He is not confident that this is definitely the medication he is on and would not know thd margarette he takes regardless. If patient is discharged home tomorrow then he wou ld be able to resume home medications at that time and it would not be harmful for him to have missed one day's worth of these. If patient remains hospitalized, we will have to [facility] to obtain an accurate list of his current medications. Allergies Allergy/AdvReac Type Severity Reaction Status Date / Time No Known Allergies Allergy Verified 06/11/22 12:11 Home Medications Medication Instructions Recorded Confirmed Type docusate sodium 50 mg capsule 50 mg PO QAM 01/30/20 06/11/22 History (Stool Softener) ibuprofen 200 mg tablet 200 mg PO Q6H PRN Pain 01/30/20 06/11/22 History levothyroxine 150 mcg tablet 150 mcg PO DAILY@0630 01/30/20 06/11/22 History magnesium 250 mg tablet 250 mg PO QAM 01/30/20 06/11/22 History prazosin 5 mg capsule 10 mg PO HS 01/30/20 06/11/22 History sertraline 100 mg tablet 100 mg PO QAM 01/30/20 06/11/22 History lidocaine 5 % topical patch 1 patch topical DAILY PRN Pain 03/12/20 06/11/22 History lisinopril 10 mg tablet 10 mg PO QAM 06/26/20 06/11/22 History simvastatin 40 mg tablet 80 mg PO HS 06/26/20 06/11/22 History trazodone 100 mg tablet 200 mg PO HS 12/11/20 06/11/22 History albuterol sulfate 90 mcg/actuation 1 inh inhalation BID PRN sob 03/27/21 06/11/22 History breath activated powder inhaler naproxen 500 mg tablet,delayed 500 mg PO BID PRN Pain 05/30/21 06/11/22 History release calcium 600 mg capsule 600 mg PO QAM 05/08/22 06/11/22 History cholecalciferol (vitamin D3) 25 25 mcg PO QPM 05/08/22 06/11/22 History mcg (1,000 unit) tablet (Vitamin D3) fluticasone 500 mcg-salmeterol 50 1 inh inhalation BID 05/08/22 06/11/22 History mcg/dose blistr powdr for inhalation (Wixela Inhub) [id number] 1 tab PO QAM 05/08/22 06/11/22 History tablet (Multivitamin 50 Plus tablet) potassium 99 mg tablet 99 mg PO QAM 05/08/22 06/11/22 History tiotropium bromide 2.5 2 inh inhalation BID 05/08/22 06/11/22 History mcg/actuation mist for inhalation acetaminophen 500 mg tablet 1,000 mg PO Q8 14 days #84 tabs 06/12/22 Rx (Tylenol Extra Strength) aspirin 81 mg tablet,delayed 81 mg PO DAILY 30 days #30 tabs 06/12/22 Rx release (Ecotrin Low Strength) oxycodone 5 mg tablet 5 mg PO Q4H PRN pain #30 tabs 06/12/22 Rx metoprolol tartrate 25 mg tablet 25 mg PO BID 06/14/22 06/14/22 History venlafaxine 150 mg 150 mg PO QAM 06/14/22 06/14/22 History capsule,extended release 24 hr Patient History Medical History (Updated 06/14/22 @ 07:22 by Ronal Davis MD) Aneurysm Per remote [facility] records, hx of questionable thoracic aortic aneurysm [facility]-3 years, no recent issues/not noted on 2019 echo COPD (chronic obstructive pulmonary disease) Stable DDD (degenerative disc disease) Hearing deficit Hyperlipidemia Hypertension Hypothyroidism Lumbar spondylosis Obesity Osteoarthritis Osteoporosis Sleep apnea No device Spinal stenosis of thoracolumbar region Spinal stenosis, lumbar region with neurogenic claudication Surgical History History of cataract surgery R/L History of elbow surgery Right Family History Other No family history of adverse response to anesthesia Social History Smoking Status: Never smoker Tobacco Type: Pipe and Cigars Second Hand Exposure: No; Do You Dip or Chew Tobacco: No; Hx Alcohol Use: No Hx Substance Use: No Preferred Language: Vietnamese Communication Ability: Effective Visual Impairment: No Limitations Hearing Ability: Hard of Hearing Fisher Spear Required: No Beliefs That Will Affect Care: None marital status: Current Living Situation: Spouse current occupational status: retired Feels Safe at Home: Yes Safety Concerns: Feels Safe At This Time Assistive Devices: None Review of Systems Review of Systems: Constitutional: No fever/chills, weakness, fatigue, myalgias, anorexia, night sweats Eyes: No diplopia, no worsening or blurred vision ENT: normal hearing, no trouble swallowing Respiratory: No cough, sputum, dyspnea at rest or on exertion Cardiovascular: No chest pain, tightness or palpitations Abdomen: No pain, nausea, vomiting, diarrhea or constipation : Denies dysuria, hematuria, increased urgency/frequency, urinary retention Musculoskeletal: No joint pain, calf pain, swelling Neurologic: No weakness, numbness/tingling, or balance problems Psychiatric: No anxiety or depression Skin: No rash or itch Physical Exam Physical Exam: General: awake, alert, no apparent distress Head: Normocephalic, atraumatic ENT: PERRL, EOMI, no pharyngeal exudate, mucous membranes moist Chest: Clear to auscultation, on 1 L NC; mild, scattered wheezing heard in upper lung harris Cardiac: Regular rate and rhythm, no murmur, no JVD, normal peripheral pulses, good capillary refill Abdominal: NABS x 4 quadrants, soft, nontender to palpation, no rebound, guarding or tenderness Extremities: right arm in sling; movement in b/l UEs with pulses intact b/l and limbs warm; Normal inspection, no peripheral edema or erythema, calfs nontender to palpation Psych: Normal mood and affect Neuro: AAO x 3, strength intact bilaterally and rated 5/5, no motor deficits, speech is clear, no peripheral sensory deficits Skin: no rash or erythema Results & Data Results & Data ([facility]) Vital Signs (Past 12 Hours) Vital Signs Temp Pulse Pulse Resp BP Pulse Ox O2 Del Method 06/11/22 20:21 36.8 C 109 H 18 116/71 95 Nasal Cannula 06/11/22 19:21 105 H 20 95 Nasal Cannula 06/11/22 19:20 36.8 C 109 H 20 118/66 80 L Room Air 06/11/22 18:46 36.7 C 109 H 18 147/77 H 93 Room Air 06/11/22 17:33 Nasal Cannula 06/11/22 17:20 36.5 C 98 H 18 122/75 96 Nasal Cannula 06/11/22 17:15 101 H 20 132/81 94 Nasal Cannula 06/11/22 16:45 36.9 C 95 H 22 119/85 97 Nasal Cannula 06/11/22 16:35 97 H 21 129/70 89 L Room Air 06/11/22 16:25 100 H 18 132/71 99 Oxymask 06/11/22 16:15 36.2 C L 99 H 23 134/88 94 Oxymask 06/11/22 12:06 37 C 106 H 20 149/99 H 96 Room Air O2 Flow Rate 06/11/22 20:21 1.0 06/11/22 19:21 2.5 06/11/22 19:20 06/11/22 18:46 06/11/22 17:33 2 06/11/22 17:20 2 06/11/22 17:15 2 06/11/22 16:45 2 06/11/22 16:35 06/11/22 16:25 6 06/11/22 16:15 6 06/11/22 12:06 PG Care Time/CCT Total # of Minutes Spent Total Time Spent with Patient: Total time spent is greater than 50% in coordination of care (as documented) at patient's floor/unit and/or counseling patient: Coding Level of Care Code 61291 Inpt Consult Level 5 Diagnoses Rotator cuff arthropathy of left shoulder M12.812 COPD (chronic obstructive pulmonary disease) J44.9 Hypertension I10 Hypothyroidism E03.9 CAD (coronary artery disease) I25.10 Hyperlipidemia E78.5 Osteoporosis M81.0 Depression F32.9 Tobacco dependence F17.200
[2022-06-11] MEDS: ACETAMINOPHEN 500 MG TAB PO SCH (21:13)
[2022-06-11] MEDS: FLUTICASONE/VILANTEROL 200/25MCG 14 PUFFS/INHALER INH SCH (21:13)
[2022-06-11] MEDS: UMECLIDINIUM BROMIDE 62.5MCG/BLISTER 7 PUFFS/INHALER INH SCH (21:14)
[2022-06-11] MEDS: ceFAZolin 2000MG 2,000 MG/15 ML SYR IV SCH (21:14)
--- NOTE | 2022-06-11 21:49 | XRay Report ---
LEFT SHOULDER 2 VIEWS CLINICAL HISTORY: Postoperative examination. FINDINGS: 2 portable views of the left shoulder are obtained. The skeletal structures are osteopenic. A left shoulder arthroplasty is in near anatomic alignment. No acute fracture seen. Skin clips, a hassan rgical drain, soft tissue swelling, and subcutaneous gas overlying the shoulder are expected postoper ative changes. The visualized left lung parenchyma appears clear. IMPRESSION: Expected postoperative findings status post left shoulder arthroplasty. No fracture seen. Electronically signed by: Anthony Thornton M.D. 06/11/2022 9:47 PM
[2022-06-12] MEDS: SODIUM CHLORIDE 0.9% 1000ML 1,000 ML IV SCH (03:44)
[2022-06-12] MEDS: ACETAMINOPHEN 500 MG TAB PO SCH ×3 (05:41→21:49)
[2022-06-12] MEDS: ceFAZolin 2000MG 2,000 MG/15 ML SYR IV SCH (05:41)
[2022-06-12] MEDS: LEVOTHYROXINE SODIUM 112 MCG TABLET PO SCH (05:41)
[2022-06-12] MEDS ORDERED: LEVOTHYROXINE SODIUM 150 MCG TABLET PO SCH (06:30)
[2022-06-12 06:50] LABS: Basophils # (auto) 0.01 K/uL (0-0.2); Basophils % (auto) 0.1 %; Hematocrit (blood only) 33.6 % (40.1-51.0); Hemoglobin 11.3 g/dl (14.0-18.0); Immature Granulocytes # (auto) 0.02 K/uL (0.00-0.02); Immature Granulocytes % (auto) 0.2 %; Lymphocytes # (auto) 0.68 K/uL (1.2-3.4); Lymphocytes % (auto) 7.3 %; Mean Corpuscular Hemoglobin 32.3 pg (25.0-34.0); Mean Corpuscular Hgb Conc 33.6 g/dL (32.0-36.0); Mean Platelet Volume 9.4 fL (9.4-12.4); Monocytes # (auto) 0.81 K/uL (0.24-0.82); Monocytes % (auto) 8.7 %; Neutrophils # (auto) 7.84 K/uL (1.4-6.5); Neutrophils % (auto) 83.7 %; Platelet Count 151 K/uL (130-400); RDW Coefficient of Variation 14.5 % (11.5-14.5); RDW Standard Deviation 50.8 fL (36.4-46.3); White Blood Count 9.36 K/ul (4.8-10.8)
[2022-06-12 07:20] LABS: BUN Creatinine Ratio 17.1 (10-20); Creatinine Clr Calc Pharmacy 59.8 ml/min; Est GFR (African American) 75.7 ml/min; Est GFR (Non-African American) 65.3 ml/min; Potassium 5.1 mmol/L (3.5-5.1)
[2022-06-12] MEDS: CEROVITE ADV FORMULA TAB PO SCH (08:37)
[2022-06-12] MEDS: DOCUSATE SODIUM 100 MG CAP PO SCH ×2 (08:37→21:49)
[2022-06-12] MEDS: SERTRALINE HCL 100 MG TABLET PO SCH (08:37)
[2022-06-12] MEDS: CALCIUM CARBONATE 1250MG TAB PO SCH (08:37)
[2022-06-12] MEDS: MAGNESIUM OXIDE 400 MG TAB PO SCH (08:37)
[2022-06-12] MEDS ORDERED: lisinopril 10 MG TAB PO SCH (09:00)
[2022-06-12] MEDS ORDERED: MULTIVITAMIN TAB PO SCH (09:00)
[2022-06-12] MEDS ORDERED: NON-FORMULARY MEDICATION (Potassium 99 mg Tablet) PO SCH (09:00)
--- NOTE | 2022-06-12 09:50 | Orthopedic Progress Note ---
Date of Service June 12, 2022 Assessment & Plan (1) Rotator cuff arthropathy of left shoulder: Plan: Postop day 1 status post left reverse total shoulder arthroplasty. PT/OT protocols. Nonweightbearing left upper extremity. DVT prophylaxis-aspirin daily Pain management as written. Patient currently on 2 L of O2. Plan to recheck his O2 saturations level later this morning to make sure he is not requiring oxygen. DC planning-patient be discharged to home. No denies therapy at this time for the left shoulder. Patient will need to follow the action is for basic exercises at this time. Admission and Anticipated Discharge Date Admission Date: June 11, 2022 Subjective Postop day 1 Patient sitting in his chair at the bedside eating breakfast. Having some mild discomfort this morning in the shoulder but otherwise doing well. No other complaints this morning. He states that he is still using his oxygen and is hoping to get off of it. He is using his spirometry regularly. Denies using oxygen at home. We discussed the fact that the nerve block that he received could also be slightly affecting his breathing. Currently denies shortness of breath, chest pain, lightheadedness. Physical Exam Physical Exam: Dressings are clean, dry, and intact. He is moving his fingers well but has decreased sensation in most of them. Capillary refill is less than 2 seconds. He has good wrist range of motion at this time. Results & Data ([facility]) Vital Signs (Past 12 Hours) Vital Signs Temp Pulse Resp BP Pulse Ox O2 Del Method O2 Flow Rate 06/12/22 07:47 36.7 C 97 H 18 105/53 L 96 Nasal Cannula 2 06/12/22 03:04 36.8 C 95 H 16 102/61 92 Room Air Laboratory Results Laboratory Results WBC 9.36 K/ul (4.8-10.8) 06/12/22 06:23 RBC 3.50 M/uL (4.63-6.08) L 06/12/22 06:23 Hgb 11.3 g/dl (14.0-18.0) L 06/12/22 06:23 Hct 33.6 % (40.1-51.0) L 06/12/22 06:23 MCV 96.0 fL (80.0-100.0) 06/12/22 06:23 MCH 32.3 pg (25.0-34.0) 06/12/22 06:23 MCHC 33.6 g/dL (32.0-36.0) 06/12/22 06:23 RDW Std Deviation 50.8 fL (36.4-46.3) H 06/12/22 06:23 RDW Coeff of Bisi 14.5 % (11.5-14.5) 06/12/22 06:23 Plt Count 151 K/uL (130-400) 06/12/22 06:23 MPV 9.4 fL (9.4-12.4) 06/12/22 06:23 Immature Gran % (Auto) 0.2 % 06/12/22 06:23 Neut % (Auto) 83.7 % 06/12/22 06:23 Lymph % (Auto) 7.3 % 06/12/22 06:23 Noble % (Auto) 8.7 % 06/12/22 06:23 Eos % (Auto) 0.0 % 06/12/22 06:23 Baso % (Auto) 0.1 % 06/12/22 06:23 Neut # (Auto) 7.84 K/uL (1.4-6.5) H 06/12/22 06:23 Lymph # (Auto) 0.68 K/uL (1.2-3.4) L 06/12/22 06:23 Noble # (Auto) 0.81 K/uL (0.24-0.82) 06/12/22 06:23 Eos # (Auto) 0.00 K/uL (0-0.50) 06/12/22 06:23 Baso # (Auto) 0.01 K/uL (0-0.2) 06/12/22 06:23 Immature Gran # (Auto) 0.02 K/uL (0.00-0.02) 06/12/22 06:23 Sodium 131 mmol/L (136-145) L 06/12/22 06:23 Potassium 5.1 mmol/L (3.5-5.1) 06/12/22 06:23 Chloride 99 mmol/L (98-107) 06/12/22 06:23 Carbon Dioxide 29 mmol/L (21-32) 06/12/22 06:23 Anion Gap 3 (3-11) 06/12/22 06:23 BUN 18 mg/dl (6-23) 06/12/22 06:23 Creatinine 1.05 mg/dl (0.6-1.4) 06/12/22 06:23 Est Cr Clr Drug Dosing 59.8 ml/min 06/12/22 06:23 Est GFR ( Amer) 75.7 ml/min 06/12/22 06:23 Est GFR (Non-Af Amer) 65.3 ml/min 06/12/22 06:23 BUN/Creatinine Ratio 17.1 (10-20) 06/12/22 06:23 Glucose 121 mg/dl (70-99(Fasting)) H 06/12/22 06:23 Calcium 8.0 mg/dl (8.5-10.1) L 06/12/22 06:23 SARS-CoV-2, RNA, NAAT NEGATIVE (NEGATIVE) 06/11/22 12:00 Impressions Shoulder X-Ray 06/11/22 16:17 LEFT SHOULDER 2 VIEWS CLINICAL HISTORY: Postoperative examination. FINDINGS: 2 portable views of the left shoulder are obtained. The skeletal structures are osteopenic. A left shoulder arthroplasty is in near anatomic alignment. No acute fracture seen. Skin clips, a surgical drain, soft tissue swelling, and subcutaneous gas overlying the shoulder are expected postoperative changes. The visualized left lung parenchyma appears clear. IMPRESSION: Expected postoperative findings status post left shoulder arthroplasty. No fracture seen. Electronically signed by: Anthony Thornton M.D. 06/11/2022 9:47 PM
[2022-06-12] MEDS ORDERED: SODIUM CHLORIDE 0.9% 1000ML 500 ML IV ONE (11:13)
--- NOTE | 2022-06-12 12:09 | Hospitalist Progress Note ---
Date of Service June 12, 2022 Assessment & Plan (1) Rotator cuff arthropathy of left shoulder: Plan: - POD #0. EBL 45 cc. [address] No complications. Patient w/o any complaints - Pain/ABX/IVF/diet/drain management/transfusion needs/activity per primary team - Rescue Narcan ordered for over sedation PRN - VTE prophylaxis per primary service- SCDs in place - Baseline renal function: Cr 1.02, GFR 67 on 05/15/22 - Baseline Hgb: 12.5 on 05/15/22 (2) COPD (chronic obstructive pulmonary disease): Plan: - Severe emphysema. Also with JAH but CPAP intolerant. No wheezing on exam today. Weaning nasal cannula. No shortness of breath or cough Residual hypoxia with difficult wean, CXR pending - Continue home inhalers. - Encourage incentive spirometer. DuoNebs as needed for wheezing (3) Hypertension: Plan: - May restart lisinopril tomorrow (4) Hypothyroidism: Plan: - Continue levothyroxine. Per medical clearance note from 05/20, patient's dose was to be reduced to 112 mcg daily. - TSH <0.1 on 05/15/2022. (5) CAD (coronary artery disease): Plan: - Moderate non-obstructive. - Continue statin, lisinopril to resume on POD#2. - Metoprolol [facility], not on medication list here. Patient unsure if he takes this/what the dose may be. -Mildly hypotensive today, may resume when returning home if normotensive (6) Hyperlipidemia: Plan: - Continue simvastatin 80 mg at night. (7) Osteoporosis: Plan: - Continue alendronate weekly, daily vitamin D and calcium supplementation. (8) Depression: Plan: - With insomnia/PTSD/nightmares. - Continue sertraline 100 mg daily. - Continue prazosin 2 mg and trazodone 200 mg at night. - Venlafaxine listed as medication [facility], resume when home (9) Tobacco dependence: Plan: - No longer smoking or chewing tobacco. Plan - Admitted to me/surg per primary team. - SCDs ordered per primary team. - Full Code. Admission and Anticipated Discharge Date Admission Date: June 11, 2022 Subjective Seen at bedside, feels he is overall doing well. Had some numbness in his left fingertips, but this is quickly receding with only some residual tingling/numbness in his thumb and index finger. Denies shortness of breath/difficulty breathing while on oxygen, notes he does not use oxygen at home. Did ambulate to the bathroom this morning and felt generally okay and did well with PT. No desaturations with PT this morning. Denies fever, chills, cough, chest pain, chest pressure, lightheadedness, dizziness, nausea, vomiting. Denies leg swelling. Drain in place Review of Systems Review of Systems: All systems reviewed & are unremarkable except as noted in Subjective Physical Exam Physical Exam: General: A&Ox3. NAD. Cooperative. HEENT: Atraumatic, normocephalic. Vision/hearing grossly intact. Pulm: CTAB A&P. -wheezes, -rales, -rhonchi. Symmetrical chest rise. No increase in work of breathing. No respiratory distress. Cardiac: RRR, -mrg. Radial pulses intact and symmetrical. Abdominal: Nontender, nondistended, soft. BS present. Extremities: Left shoulder dressing C/D/I. Intact but decreased sensation of left hand digits 35, intact but greatly decreased sensation to soft touch in index finger and thumb. Radial pulses intact. Plant Electrician strength 5/5. No calf asymmetry. Results & Data Results & Data ([facility]) Vital Signs (Past 12 Hours) Vital Signs Temp Pulse Resp BP Pulse Ox O2 Del Method O2 Flow Rate 06/12/22 11:00 36.9 C 117 H 18 95/64 L 91 Room Air 06/12/22 07:15 Nasal Cannula 2 06/12/22 10:30 92 Room Air 06/12/22 07:47 36.7 C 97 H 18 105/53 L 96 Nasal Cannula 2 06/12/22 03:04 36.8 C 95 H 16 102/61 92 Room Air PG Care Time/CCT Total # of Minutes Spent Total Time Spent with Patient: Total time spent is greater than 50% in coordination of care (as documented) at patient's floor/unit and/or counseling patient: Coding Level of Care Code 87836 Subseq Hosp Care Lvl 2 Diagnoses Rotator cuff arthropathy of left shoulder M12.812 COPD (chronic obstructive pulmonary disease) J44.9 Hypertension I10 Hypothyroidism E03.9 CAD (coronary artery disease) I25.10 Hyperlipidemia E78.5 Osteoporosis M81.0 Depression F32.9 Tobacco dependence F17.200
--- NOTE | 2022-06-12 13:27 | XRay Report ---
XR chest 1V portable CLINICAL HISTORY: hypoxia TECHNIQUE: Single frontal radiograph of the chest was obtained. Comparison: Comparison is made to chest radiograph 05/15/2022 and shoulder radiographs 06/11/2022 FINDINGS: No lines and tubes are seen. The cardiomediastinal silhouette is stable. Lungs are underinflated but clear. Focal atelectasis is seen bilaterally. No evidence of pleural effusion or pneumothorax. Again noted are postsurgical changes of left shoulder reverse arthroplasty. IMPRESSION: Again noted is underinflation of the lungs without acute abnormality. Atelectasis versus scarring is seen bilaterally. ACT 112: Negative or not required by law. Electronically signed by: Ernie Brown M.D. 06/12/2022 1:26 PM
[2022-06-12] MEDS: oxyCODONE HCL IR 5 MG TAB (IMMEDIATE RELEASE) PO PRN ×2 (14:37→21:53)
[2022-06-12] MEDS ORDERED: OPTIRAY 300 500mL IV ONE (16:29)
--- NOTE | 2022-06-12 16:46 | CT Scan Report ---
CT angio chest PE protocol CLINICAL HISTORY: PE TECHNIQUE: Multidetector row helical CT of the chest was performed with angiographic protocol. Olvera l and sagittal reformations were obtained. Coronal and sagittal MIPS were obtained from the axial yolanda a set and were submitted for review. Automated dose lowering techniques and/or adjustment according to patient size were utilized for this exam. CT DOSE: 907.02 mGy.cm Comparison: Comparison is made to chest radiograph 06/12/2022 FINDINGS: Lungs and pleura: Atelectasis is noted in the bilateral lung bases. No suspicious nodules. Heart and pericardium: Heart size is normal. No pericardial effusion. Vessels: No evidence of pulmonary embolism. The pulmonary trunk measures 35 mm. Mediastinum and mary jo: Unremarkable. Chest wall and lower neck: Subcutaneous emphysema and soft tissue swelling is seen on the left. Abdomen: Right renal cysts are seen. Bones: Postsurgical changes of left reverse shoulder arthroplasty again seen. Compression deformities in the midthoracic spine noted. IMPRESSION: 1. No evidence of pulmonary embolism. 2. Postsurgical changes of left reverse arthroplasty. ACT 112: Negative or not required by law. Electronically signed by: Ernie Brown M.D. 06/12/2022 4:44 PM
[2022-06-12] MEDS: traZODone HCL 100 MG TAB PO SCH (21:43)
[2022-06-12] MEDS: SIMVASTATIN 80 MG TAB PO SCH (21:45)
[2022-06-12] MEDS: FLUTICASONE/VILANTEROL 200/25MCG 14 PUFFS/INHALER INH SCH (21:45)
[2022-06-12] MEDS: CHOLECALCIFEROL 1,000 UNITS 25 MCG TAB PO SCH (21:46)
[2022-06-12] MEDS: UMECLIDINIUM BROMIDE 62.5MCG/BLISTER 7 PUFFS/INHALER INH SCH (21:47)
[2022-06-12] MEDS: PRAZOSIN HCL 1 MG CAP PO SCH (21:49)
[2022-06-12] MEDS: SENNA 8.6 MG TAB PO SCH (21:50)
--- NOTE | 2022-06-12 22:27 | Electrocardiogram Report ---
Test Reason : Blood Pressure : / mmHG Vent. Rate : 106 BPM Atrial Rate : 106 BPM P-R Int : 184 ms QRS Dur : 094 ms QT Int : 334 ms P-R-T Axes : 051 -19 082 degrees QTc Int : 443 ms Sinus tachycardia When compared with ECG of 15-MAY-2022 12:04, No significant change Confirmed by Danis Fermin ([id number]) on 06/12/2022 10:27:11 PM Referred By: Josep Ingram Confirmed By:Danis Fermin
[2022-06-13] MEDS: oxyCODONE HCL IR 5 MG TAB (IMMEDIATE RELEASE) PO PRN ×2 (04:44→12:24)
[2022-06-13] MEDS: ACETAMINOPHEN 500 MG TAB PO SCH ×3 (05:58→21:18)
[2022-06-13] MEDS: LEVOTHYROXINE SODIUM 112 MCG TABLET PO SCH (05:58)
--- NOTE | 2022-06-13 06:08 | Orthopedic Progress Note ---
Date of Service June 13, 2022 Assessment & Plan (1) Rotator cuff arthropathy of left shoulder: Plan: Postop day 2 status post left reverse total shoulder arthroplasty. PT/OT protocols. Nonweightbearing left upper extremity. DVT prophylaxis-aspirin daily Pain management as written. monitor 02 sats this am, if remains stable can be d/c home DC planning-patient be discharged to home, patient reevaluated and has no significant pain and is breathing well off O2 with 90% sat. No substantial anemia or dehydration however still has tachycardia of 120 etiology unclear. Patient will need further evaluation by medical team prior to considering any discharge. Admission and Anticipated Discharge Date Admission Date: June 11, 2022 Subjective POD #2 s/p Left reversed total Shoulder Arthroplasty, Biceps Tenodesis Review of Systems Constitutional: no fever and no chills Respiratory: no cough and no dyspnea Cardiovascular: no chest pain, no dyspnea and no orthopnea Gastrointestinal: no abdominal pain, no nausea and no vomiting Physical Exam Physical Exam: Dressings are clean, dry, and intact. rad/med/uln nerves intact, rad +2, CR less than 2 seconds Results & Data ([facility]) Vital Signs (Past 12 Hours) Vital Signs Temp Pulse Resp BP Pulse Ox O2 Del Method 06/13/22 01:52 36.8 C 119 H 19 149/75 H 93 Room Air 06/12/22 21:29 37.0 C 121 H 17 154/79 H 94 Room Air
[2022-06-13] MEDS: SERTRALINE HCL 100 MG TABLET PO SCH (08:39)
[2022-06-13] MEDS: MAGNESIUM OXIDE 400 MG TAB PO SCH (08:39)
[2022-06-13] MEDS: CEROVITE ADV FORMULA TAB PO SCH (08:39)
[2022-06-13] MEDS: CALCIUM CARBONATE 1250MG TAB PO SCH (08:39)
[2022-06-13] MEDS: DOCUSATE SODIUM 100 MG CAP PO SCH ×2 (08:39→20:36)
[2022-06-13] MEDS ORDERED: lisinopril 10 MG TAB PO SCH (09:00)
--- NOTE | 2022-06-13 13:03 | Electrocardiogram Report ---
Test Reason : Blood Pressure : / mmHG Vent. Rate : 115 BPM Atrial Rate : 115 BPM P-R Int : 172 ms QRS Dur : 094 ms QT Int : 308 ms P-R-T Axes : 061 -25 094 degrees QTc Int : 426 ms Sinus tachycardia T wave abnormality, consider lateral ischemia Abnormal ECG When compared with ECG of 12-JUN-2022 12:21, Questionable change in initial forces of Septal leads Confirmed by Rashawn Sandhu ([id number] on 06/13/2022 1:03:40 PM Referred By: Josep Ingram Confirmed By:Fred Sandhu
[2022-06-13] MEDS ORDERED: SODIUM CHLORIDE 0.9% 1000ML 1,000 ML IV SCH (16:15)
[2022-06-13] MEDS: SIMVASTATIN 80 MG TAB PO SCH (20:36)
[2022-06-13] MEDS: CHOLECALCIFEROL 1,000 UNITS 25 MCG TAB PO SCH (20:36)
[2022-06-13] MEDS: SENNA 8.6 MG TAB PO SCH (20:37)
[2022-06-13] MEDS: PRAZOSIN HCL 1 MG CAP PO SCH (20:37)
[2022-06-13] MEDS: traZODone HCL 100 MG TAB PO SCH (20:37)
[2022-06-13] MEDS: FLUTICASONE/VILANTEROL 200/25MCG 14 PUFFS/INHALER INH SCH (20:38)
[2022-06-13] MEDS: UMECLIDINIUM BROMIDE 62.5MCG/BLISTER 7 PUFFS/INHALER INH SCH (20:38)
[2022-06-14] MEDS: ACETAMINOPHEN 500 MG TAB PO SCH ×3 (05:55→21:58)
[2022-06-14] MEDS: LEVOTHYROXINE SODIUM 112 MCG TABLET PO SCH (05:55)
--- NOTE | 2022-06-14 06:53 | Orthopedic Progress Note ---
Date of Service June 14, 2022 Assessment & Plan (1) Rotator cuff arthropathy of left shoulder: Plan: Postop day 3 status post left reverse total shoulder arthroplasty. PT/OT protocols. Nonweightbearing left upper extremity. DVT prophylaxis-aspirin daily Pain management as written. Patient O2 sats down to 77% earlier this morning on room air, he is currently on 2 L nasal cannula. We will continue to monitor. May need supplemental oxygen at home. Will await evaluation by medical team Admission and Anticipated Discharge Date Admission Date: June 11, 2022 Subjective POD #3 s/p Left reversed total Shoulder Arthroplasty, Biceps Tenodesis Physical Exam Physical Exam: Dressings are clean, dry, and intact. rad/med/uln nerves intact, rad +2, CR less than 2 seconds Results & Data ([facility]) Vital Signs (Past 12 Hours) Vital Signs Temp Pulse Resp BP Pulse Ox O2 Del Method O2 Flow Rate 06/13/22 21:00 Room Air 06/14/22 02:39 95 Nasal Cannula 2 06/14/22 02:36 77 L Room Air 06/13/22 20:38 97 H 21 92 Room Air 06/13/22 20:33 37.1 C 108 H 24 120/63 87 L Room Air
--- NOTE | 2022-06-14 07:20 | Hospitalist Progress Note ---
Date of Service June 13, 2022 Assessment & Plan (1) Rotator cuff arthropathy of left shoulder: Plan: - POD #2 EBL 45 cc. No complications. Patient w/o any complaints - Pain/ABX/IVF/diet/drain management/transfusion needs/activity per primary team - Rescue Narcan ordered for over sedation PRN - VTE prophylaxis per primary service- SCDs in place - CBC and BMP in AM. - Baseline renal function: Cr 1.02, GFR 67 on 05/15/22 - Baseline Hgb: 12.5 on 05/15/22 (2) Sinus tachycardia: Plan: This appears to be getting worse therefore would not advise discharge today. Unclear reason why but he was started on his lisinopril this morning therefore may justs be compensatory for his low blood pressure. No PE on CT angiogram. The patient is otherwise well and infection not suspected. He is not significantly anemic. I suspect it is somewhat just postoperative with a patient on prazosin which should continue for his mental health. Severe COPD also contributing and possibility of over treated thyroid given pre- op low TSH. Will give another 1L NSS overnight and reassess. (3) COPD (chronic obstructive pulmonary disease): Plan: Does not appear to be having an exacerbation with lungs clear to auscultation - Severe emphysema. Also with JAH but CPAP intolerant. - No evidence of acute exacerbation. Still on NC, however weaning down and only on 1 L NC with SpO2 95%. No O2 requirement at home. - Without SOB or cough. - Continue home inhalers. - Encourage incentive spirometer. (4) Hypertension: Plan: Will hold lisinopril as may be contributing towards sinus tachycardia (5) Hypothyroidism: Plan: - Continue levothyroxine. Per medical clearance note from 05/20, patient's dose was to be reduced to 112 mcg daily. - TSH <0.1 on 05/15/2022. (6) CAD (coronary artery disease): Plan: - Moderate non-obstructive. - Continue statin, lisinopril to resume on POD#2. - Metoprolol [facility] as medicine [facility], not on medication list here. Patient unsure if he takes this/what the dose may be. (7) Hyperlipidemia: Plan: - Continue simvastatin 80 mg at night. (8) Osteoporosis: Plan: - Continue alendronate weekly, daily vitamin D and calcium supplementation. (9) Depression: Plan: - With insomnia/PTSD/nightmares. - Continue sertraline 100 mg daily. - Continue prazosin 2 mg and trazodone 200 mg at night. - Venlafaxine listed as medication [facility] medical [facility], patient unsure if he takes this/what dose he is on. Okay to miss this dose if he does take it as long as he is d'c'd home tomorrow and can resume home meds. (10) Tobacco dependence: Plan: - No longer smoking or chewing tobacco. Plan - Admitted to med/surg per primary team. - SCDs ordered per primary team. - Full Code. Admission and Anticipated Discharge Date Admission Date: June 11, 2022 Subjective Patient reports no significant change in symptoms. He remains tachycardic in fact it has increased since yesterday - previously 90-100, now 120s. No pulmonary embolism on CT angio yesterday. He does report some mild chest pain which is worse on palpation. No leg swelling. He is chronically short of breth which is no worse than usual. Review of Systems Review of Systems: All systems reviewed & are unremarkable except as noted in HPI & below Physical Exam Constitutional: WD/WN, vitals as above ENMT: external ear and nose normal, oropharynx normal Respiratory: normal respiratory effort, lungs clear to auscultation Cardiovascular: Rate/Rhythm: regular rhythm and + tachycardic Heart Sounds: no murmur Results & Data Results & Data ([facility]) Vital Signs (Past 12 Hours) Vital Signs Temp Pulse Resp BP Pulse Ox O2 Del Method O2 Flow Rate 06/13/22 21:00 Room Air 06/14/22 02:39 95 Nasal Cannula 2 06/14/22 02:36 77 L Room Air 06/13/22 20:38 97 H 21 92 Room Air 06/13/22 20:33 37.1 C 108 H 24 120/63 87 L Room Air PG Care Time/CCT Total # of Minutes Spent Total Time Spent with Patient: Total time spent is greater than 50% in coordination of care (as documented) at patient's floor/unit and/or counseling patient: Coding Level of Care Code 52147 Subseq Hosp Care Lvl 2 Diagnoses Rotator cuff arthropathy of left shoulder M12.812 Sinus tachycardia R00.0 COPD (chronic obstructive pulmonary disease) J44.9 Hypertension I10 Hypothyroidism E03.9 CAD (coronary artery disease) I25.10 Hyperlipidemia E78.5 Osteoporosis M81.0 Depression F32.9 Tobacco dependence F17.200
[2022-06-14] MEDS: oxyCODONE HCL IR 5 MG TAB (IMMEDIATE RELEASE) PO PRN ×2 (07:29→14:44)
[2022-06-14 07:51] LABS: Hematocrit (blood only) 31.1 % (40.1-51.0); Hemoglobin 10.1 g/dl (14.0-18.0); Mean Corpuscular Hemoglobin 31.9 pg (25.0-34.0); Mean Corpuscular Hgb Conc 32.5 g/dL (32.0-36.0); Mean Corpuscular Volume 98.1 fL (80.0-100.0); Mean Platelet Volume 9.3 fL (9.4-12.4); Platelet Count 138 K/uL (130-400); RDW Coefficient of Variation 14.5 % (11.5-14.5); RDW Standard Deviation 52.8 fL (36.4-46.3); Red Blood Count 3.17 M/uL (4.63-6.08); White Blood Count 6.77 K/ul (4.8-10.8)
[2022-06-14 08:12] LABS: BUN Creatinine Ratio 20.1 (10-20); Calcium 8.4 mg/dl (8.5-10.1); Creatinine Clr Calc Pharmacy 40.8 ml/min; Est GFR (African American) 47.6 ml/min; Est GFR (Non-African American) 41.1 ml/min; Potassium 4.7 mmol/L (3.5-5.1)
[2022-06-14 08:18] LABS: Troponin I High Sensitivity 46.9 pg/ml (0-20)
[2022-06-14 08:28] LABS: Thyroid Stimulating Hormone 0.246 uIu/ml (0.300-4.500)
[2022-06-14 08:59] LABS: T4 Free Thyroxine 1.41 ng/dl (0.61-1.60)
[2022-06-14] MEDS ORDERED: METOPROLOL TARTRATE 25 MG TAB PO SCH ×2 (09:00)
[2022-06-14] MEDS: VENLAFAXINE HCL XR 150 MG CAPXR PO SCH (09:06)
[2022-06-14] MEDS: DOCUSATE SODIUM 100 MG CAP PO SCH ×2 (09:06→21:56)
[2022-06-14] MEDS: MAGNESIUM OXIDE 400 MG TAB PO SCH (09:06)
[2022-06-14] MEDS: CALCIUM CARBONATE 1250MG TAB PO SCH (09:06)
[2022-06-14] MEDS: CEROVITE ADV FORMULA TAB PO SCH (09:06)
[2022-06-14] MEDS ORDERED: SODIUM CHLORIDE 0.9% 1000ML 1,000 ML IV ONE (10:38)
--- NOTE | 2022-06-14 13:26 | Hospitalist Progress Note ---
Date of Service June 14, 2022 Assessment & Plan (1) Rotator cuff arthropathy of left shoulder: Plan: - POD #3 EBL 45 cc. No complications. Patient w/o any complaints - Pain/ABX/IVF/diet/drain management/transfusion needs/activity per primary team - Rescue Narcan ordered for over sedation PRN - VTE prophylaxis per primary service- SCDs in place - BMP in AM - Baseline renal function: Cr 1.02, GFR 67 on 05/15/22 - Baseline Hgb: 12.5 on 05/15/22 (2) Sinus tachycardia: Plan: No PE on CT angiogram. The patient is otherwise well and infection not suspected. He is not significantly anemic. Secondary to patient not receiving his usual metoprolol (was missed off pre-op med list), 25mg PO this morning dropped his BP so will reduce to 12.5mg PO BID (he is either taking 25 or 12.5mg at home) Cr up this morning. Will give another 1L NSS today bolus and repeat in AM. This may also be contributing Hold his usual prazosin - can likely restart with his PCP. Serial troponins elevated but stable - do not suspect ACS (3) Orthostatic hypotension: Plan: Stop lisinopril and prazosin 1L NSS bolus today (4) COPD (chronic obstructive pulmonary disease): Plan: Does not appear to be having an exacerbation with lungs clear to auscultation - Severe emphysema. Also with JAH but CPAP intolerant. - No evidence of acute exacerbation. - However patient likely with some atelectasis given his ongoing O2 requirement therefore will use incentive spirometer, flutter valve and le valbuterol/ipratropium nebs given his ongoing cough - If no ongoing improvement may benefit from a short course of prednisone (5) Hypertension: Plan: Will hold lisinopril as may be contributing towards sinus tachycardia and hypotension (6) Hypothyroidism: Plan: - Continue levothyroxine. Per medical clearance note from 05/20, patient's dose was to be reduced to 112 mcg daily. - TSH <0.1 on 05/15/2022. - TSH now improved to 0.246 - continue to follow up with PCP for this, no adjustments required this admission (7) CAD (coronary artery disease): Plan: - Moderate non-obstructive. - Continue statin - Metoprolol 12.5mg PO BID as above (8) Hyperlipidemia: Plan: - Continue simvastatin 80 mg at night. (9) Osteoporosis: Plan: - Continue alendronate weekly, daily vitamin D and calcium supplementation. (10) Depression: Plan: - With insomnia/PTSD/nightmares. - Continue sertraline 100 mg daily. - Continue prazosin 2 mg (on hold due to hypotension) and trazodone 200 mg at night. - He appears to be taking venlafaxine as far as I can tell and I can find no evidence except for the med rec he is taking sertraline, we will therefore make this switch (11) Tobacco dependence: Plan: - No longer smoking or chewing tobacco. (12) GLADYS (acute kidney injury): Plan: Repeat BMP with AM labs. Additional 1L NSS bolus given today. Plan - Admitted to med/surg per primary team. - SCDs ordered per primary team. - Full Code. Admission and Anticipated Discharge Date Admission Date: June 11, 2022 Subjective 2 step performed this morning with patient requiring 2 LPM O2 on exertion but none at rest. Has a productive cough or clear sputum. Short of breath on exertion he reports is only slightly worse than his baseline. No chest pain. Dizziness on standing. Extensive conversation with the patient, his over the phone and his daughter over the phone to try and get his medications right today. Still unclear the dosing of his metoprolol but he definitely seems to be taking this. 25mg PO given this morning appeared to drop his blood pressure. Review of Systems Review of Systems: All systems reviewed & are unremarkable except as noted in Subjective Physical Exam Constitutional: WD/WN, vitals as above ENMT: external ear and nose normal, oropharynx normal Respiratory: normal respiratory effort, lungs clear to auscultation Cardiovascular: Rate/Rhythm: regular rate and regular rhythm Heart Sounds: no murmur Extremities: no pedal edema Gastrointestinal (Abdomen): normal bowel sounds, soft, nontender, no hepatosplenomegaly Psychiatric: A+Ox3, euthymic affect Results & Data Results & Data ([facility]) Vital Signs (Past 12 Hours) Vital Signs Temp Pulse Pulse Pulse Pulse Pulse Resp 06/14/22 07:15 06/14/22 10:33 97 H 06/14/22 08:13 113 H 127 H 113 H 111 H 06/14/22 07:19 36.8 C 101 H 18 06/14/22 02:39 06/14/22 02:36 Resp Resp Resp Resp BP Pulse Ox Pulse Ox 06/14/22 07:15 06/14/22 10:33 89/57 L 97 06/14/22 08:13 24 24 18 18 92 06/14/22 07:19 106/62 97 06/14/22 02:39 95 06/14/22 02:36 77 L Pulse Ox Pulse Ox Pulse Ox O2 Del Method O2 Flow Rate O2 Flow Rate 06/14/22 07:15 Nasal Cannula 2 06/14/22 10:33 Nasal Cannula 2 06/14/22 08:13 85 L 92 94 2 06/14/22 07:19 Nasal Cannula 1.5 06/14/22 02:39 Nasal Cannula 2 06/14/22 02:36 Room Air PG Care Time/CCT Total # of Minutes Spent Total Time Spent: 70 Total Time Spent with Patient: Total time spent is greater than 50% in coordination of care (as documented) at patient's floor/unit and/or counseling patient: Coding Level of Care Code 35818 Subseq Hosp Care Lvl 3 Diagnoses Rotator cuff arthropathy of left shoulder M12.812 Sinus tachycardia R00.0 Orthostatic hypotension I95.1 COPD (chronic obstructive pulmonary disease) J44.9 Hypertension I10 Hypothyroidism E03.9 CAD (coronary artery disease) I25.10 Hyperlipidemia E78.5 Osteoporosis M81.0 Depression F32.9 Tobacco dependence F17.200 GLADYS (acute kidney injury) N17.9
[2022-06-14] MEDS: guaiFENesin 600 MG TABCR PO SCH ×2 (14:42→21:54)
[2022-06-14] MEDS: IPRATROPIUM BROMIDE NEB SOLN 0.02% 2.5 ML VIAL INH SCH ×2 (15:19→20:18)
[2022-06-14] MEDS: LEVALBUTEROL HCL 0.63 MG/3 ML NEB NEB SCH ×2 (15:19→20:18)
[2022-06-14 18:27] LABS: BUN Creatinine Ratio 23.2 (10-20); Calcium 8.3 mg/dl (8.5-10.1); Creatinine Clr Calc Pharmacy 40.5 ml/min; Est GFR (African American) 47.3 ml/min; Est GFR (Non-African American) 40.8 ml/min; Potassium 4.9 mmol/L (3.5-5.1)
[2022-06-14] MEDS ORDERED: XOPENEX/ATROVENT 0.63mg/0.5MG NEB COMBO NEB SCH (19:00)
[2022-06-14] MEDS: SENNA 8.6 MG TAB PO SCH (21:54)
[2022-06-14] MEDS: CHOLECALCIFEROL 1,000 UNITS 25 MCG TAB PO SCH (21:55)
[2022-06-14] MEDS: METOPROLOL TARTRATE 25 MG TAB PO SCH (21:55)
[2022-06-14] MEDS: traZODone HCL 100 MG TAB PO SCH (21:55)
[2022-06-14] MEDS: SIMVASTATIN 80 MG TAB PO SCH (21:56)
[2022-06-14] MEDS: UMECLIDINIUM BROMIDE 62.5MCG/BLISTER 7 PUFFS/INHALER INH SCH (21:57)
[2022-06-14] MEDS: FLUTICASONE/VILANTEROL 200/25MCG 14 PUFFS/INHALER INH SCH (21:57)
[2022-06-15] MEDS: IPRATROPIUM BROMIDE NEB SOLN 0.02% 2.5 ML VIAL INH SCH ×2 (01:00→07:53)
[2022-06-15] MEDS: LEVALBUTEROL HCL 0.63 MG/3 ML NEB NEB SCH ×2 (01:00→07:53)
[2022-06-15] MEDS: LEVOTHYROXINE SODIUM 112 MCG TABLET PO SCH (06:02)
[2022-06-15] MEDS: ACETAMINOPHEN 500 MG TAB PO SCH (06:02)
--- NOTE | 2022-06-15 06:59 | Orthopedic Progress Note ---
Date of Service June 15, 2022 Assessment & Plan (1) Rotator cuff arthropathy of left shoulder: Plan: Postop day 4 status post left reverse total shoulder arthroplasty. PT/OT protocols. Nonweightbearing left upper extremity. DVT prophylaxis-aspirin daily Pain management as written. Patient's shortness of breath is at baseline. Pain is controlled. His heart rate has improved. Patient hoping to go home today. We will plan on discharge if okay with medicine. Admission and Anticipated Discharge Date Admission Date: June 11, 2022 Subjective Patient is postop day 4 left reverse total shoulder arthroplasty. He is doing well this morning. States his shortness of breath is at his baseline. His heart rate has come down some was 90 overnight with O2 saturations at 93 on room air. Patient hoping to go home today. Denies chest pain, dizziness, lightheadedness, nausea/vomiting/diarrhea. Review of Systems Review of Systems: All systems reviewed & are unremarkable except as noted in HPI & below Physical Exam Physical Exam: Left Shoulder: Sling in place. Dressing is clean, dry and intact. Incision is well approximated with no erythema or drainage. Sensation to axillary nerve distribution intact. Distally patient's neurovascular status and sensation is intact. He has good blueprint processor strength. Constitutional: well developed and well nourished; no acute distress Results & Data ([facility]) Vital Signs (Past 12 Hours) Vital Signs Temp Pulse Resp BP Pulse Ox O2 Del Method 06/14/22 21:50 Room Air 06/14/22 21:52 36.8 C 90 20 102/65 93 Room Air
[2022-06-15 07:08] LABS: BUN Creatinine Ratio 26.7 (10-20); Calcium 8.4 mg/dl (8.5-10.1); Creatinine Clr Calc Pharmacy 54.1 ml/min; Est GFR (African American) 67.1 ml/min; Est GFR (Non-African American) 57.9 ml/min
[2022-06-15] MEDS ORDERED: SODIUM CHLORIDE 0.9% 1000ML 500 ML IV ONE (07:12)
[2022-06-15] MEDS: oxyCODONE HCL IR 5 MG TAB (IMMEDIATE RELEASE) PO PRN (07:47)
[2022-06-15 08:16] LABS: Hematocrit (blood only) 27.5 % (40.1-51.0); Hemoglobin 8.9 g/dl (14.0-18.0); Mean Corpuscular Hemoglobin 32.1 pg (25.0-34.0); Mean Corpuscular Hgb Conc 32.4 g/dL (32.0-36.0); Mean Corpuscular Volume 99.3 fL (80.0-100.0); Platelet Count 144 K/uL (130-400); RDW Coefficient of Variation 14.2 % (11.5-14.5); RDW Standard Deviation 52.3 fL (36.4-46.3); Red Blood Count 2.77 M/uL (4.63-6.08); White Blood Count 6.27 K/ul (4.8-10.8)
[2022-06-15] MEDS: VENLAFAXINE HCL XR 150 MG CAPXR PO SCH (08:25)
[2022-06-15] MEDS: DOCUSATE SODIUM 100 MG CAP PO SCH (08:26)
[2022-06-15] MEDS: METOPROLOL TARTRATE 25 MG TAB PO SCH (08:26)
[2022-06-15] MEDS: MAGNESIUM OXIDE 400 MG TAB PO SCH (08:27)
[2022-06-15] MEDS: CEROVITE ADV FORMULA TAB PO SCH (08:27)
[2022-06-15] MEDS: guaiFENesin 600 MG TABCR PO SCH (08:27)
[2022-06-15] MEDS: CALCIUM CARBONATE 1250MG TAB PO SCH (08:27)
--- NOTE | 2022-06-15 11:38 | Hospitalist Progress Note ---
Date of Service June 15, 2022 Assessment & Plan (1) Rotator cuff arthropathy of left shoulder: Plan: - POD #3 EBL 45 cc. No complications. Patient w/o any complaints - Pain/ABX/IVF/diet/drain management/transfusion needs/activity per primary team - Rescue Narcan ordered for over sedation PRN - VTE prophylaxis per primary service- SCDs in place - Baseline renal function: Cr 1.02, GFR 67 on 05/15/22 - Baseline Hgb: 12.5 on 05/15/22 Ok for discharge from an medical stand point - medical discharge instructions written and medication changes finalized (2) Sinus tachycardia: Plan: No PE on CT angiogram. The patient is otherwise well and infection not suspected. He is not significantly anemic. Secondary to patient not receiving his usual metoprolol (was missed off pre-op med list), 25mg PO this morning dropped his BP so will reduce to 12.5mg PO BID (he is either taking 25 or 12.5mg at home) Improved with restarting his usual metoprolol, stopping prazosin and lisinopril (3) Orthostatic hypotension: Plan: Stop lisinopril and prazosin on discharge. Only restart per his PCP on follow up if felt to be necessary (4) COPD (chronic obstructive pulmonary disease): Plan: Does not appear to be having an exacerbation with lungs clear to auscultation - Severe emphysema. Also with JAH but CPAP intolerant. - No evidence of acute exacerbation. - O2 LPM O2 on exertion on discharge - suspect due to post op atelectasis and likely to be able to come off this at his PCP follow up appointment (5) Hypertension: Plan: Will hold lisinopril as may be contributing towards sinus tachycardia and hypotension (6) Hypothyroidism: Plan: - Continue levothyroxine. Per medical clearance note from 05/20, patient's dose was to be reduced to 112 mcg daily. - TSH <0.1 on 05/15/2022. - TSH now improved to 0.246 - continue to follow up with PCP for this, no adjustments required this admission (7) CAD (coronary artery disease): Plan: - Moderate non-obstructive. - Continue statin - Metoprolol 12.5mg PO BID as above (8) Hyperlipidemia: Plan: - Continue simvastatin 80 mg at night. (9) Osteoporosis: Plan: - Continue alendronate weekly, daily vitamin D and calcium supplementation. (10) Depression: Plan: - With insomnia/PTSD/nightmares. - Continue sertraline 100 mg daily. - Continue prazosin 2 mg (on hold due to hypotension) and trazodone 200 mg at night. - He appears to be taking venlafaxine as far as I can tell and I can find no evidence except for the med rec he is taking sertraline, we will therefore make this switch (11) Tobacco dependence: Plan: - No longer smoking or chewing tobacco. (12) GLADYS (acute kidney injury): Plan: Repeat BMP with AM labs. Additional 1L NSS bolus given today. Plan - Admitted to med/surg per primary team. - SCDs ordered per primary team. - Full Code. Admission and Anticipated Discharge Date Admission Date: June 11, 2022 Physical Exam Constitutional: WD/WN, vitals as above ENMT: external ear and nose normal, oropharynx normal Respiratory: normal respiratory effort, lungs clear to auscultation Cardiovascular: Rate/Rhythm: regular rate, regular rhythm and + tachycardic Heart Sounds: no murmur Extremities: no pedal edema Gastrointestinal (Abdomen): normal bowel sounds, soft, nontender, no hepatosplenomegaly Psychiatric: A+Ox3, euthymic affect Results & Data Results & Data ([facility]) Vital Signs (Past 12 Hours) Vital Signs Temp Pulse Pulse Resp BP Pulse Ox O2 Del Method 06/15/22 10:50 36.9 C 82 90 19 144/71 H 92 06/15/22 08:00 Room Air 06/15/22 07:53 82 19 92 Room Air 06/15/22 07:23 36.9 C 83 16 144/71 H 91 Room Air PG Care Time/CCT Total # of Minutes Spent Total Time Spent with Patient: Total time spent is greater than 50% in coordination of care (as documented) at patient's floor/unit and/or counseling patient: Coding Diagnoses Rotator cuff arthropathy of left shoulder M12.812 Sinus tachycardia R00.0 Orthostatic hypotension I95.1 COPD (chronic obstructive pulmonary disease) J44.9 Hypertension I10 Hypothyroidism E03.9 CAD (coronary artery disease) I25.10 Hyperlipidemia E78.5 Osteoporosis M81.0 Depression F32.9 Tobacco dependence F17.200 GLADYS (acute kidney injury) N17.9
--- NOTE | 2022-06-15 14:24 | Discharge Summary ---
Date of Service June 15, 2022 Admission HPI Per Admitting Provider 82-year-old male with past medical history significant for COPD, hypothyroidism, hypertension who presents with ongoing left shoulder pain. He has significant difficulty with daily activities due to his pain. He has failed conservative measures. He would like to proceed with surgical intervention. Patient denies headaches, sweats, fevers, chills, double vision, blurred vision, cough, sore throat, dysphagia, chest pain, sob, wheezing, n/v/d/c, numbness, tingling, fatigue, urinary symptoms, mood disorders. ROS positive for left shoulder pain and stiffness. Admission Exam Per Admitting Provider Constitutional: well developed and well nourished; no acute distress Eyes: PERRL, conjunctivae normal, anicteric sclerae ENMT: external ear and nose normal, oropharynx normal Neck: trachea midline, no thyromegaly Respiratory: normal respiratory effort, lungs clear to auscultation Cardiovascular: RRR, no murmur, no edema Musculoskeletal: Left shoulder: Crepitation. Tenderness anterolateral acromion. He has positive impingement signs. Active painful range of motion. Active abduction to 90 degrees, rotate 90 degrees. Pain and weakness with strength testing. 3/5 abduction, 3+/5 external rotation, 5/5 internal rotation. Marked subacromial creoitation with rom. Skin: no rashes, warm and dry Neurologic: patellar DTR's 2+ bilat, sensation intact Psychiatric: A+Ox3, euthymic affect Principal Diagnosis left shoulder rotator cuff arthropathy Discharge Exam Left Shoulder: Sling in place. Dressing is clean, dry and intact. Incision is well approximated with no erythema or drainage. Sensation to axillary nerve distribution intact. Distally patient's neurovascular status and sensation is intact. He has good heel scorer strength. Constitutional well developed and well nourished; no acute distress Discharge Data Allergies Allergy/AdvReac Type Severity Reaction Status Date / Time No Known Allergies Allergy Verified 06/11/22 12:11 Consultations 06/09/22 10:05 Consult Hospitalist Routine Procedures Performed Operation Date: 06/11/22 14:05 Actual Procedures p Left Total Shoulder Arthroplasty Reverse, Biceps Tenodesis(Left) - Josep Ingram MD Ordered Studies 06/11/22 05:00 US - OR guided needle placemen Routine 06/12/22 15:36 CT angio chest PE protocol Urgent Hospital Course (1) Rotator cuff arthropathy of left shoulder: Postop day 4 status post left reverse total shoulder arthroplasty. PT/OT protocols. Nonweightbearing left upper extremity. DVT prophylaxis-aspirin daily Pain management as written. Patient's shortness of breath is at baseline. Pain is controlled. His heart rate has improved. Patient hoping to go home today. We will plan on discharge if okay with medicine. Postop day 3 status post left reverse total shoulder arthroplasty. PT/OT protocols. Nonweightbearing left upper extremity. DVT prophylaxis-aspirin daily Pain management as written. Patient O2 sats down to 77% earlier this morning on room air, he is currently on 2 L nasal cannula. We will continue to monitor. May need supplemental oxygen at home. Will await evaluation by medical team Postop day 2 status post left reverse total shoulder arthroplasty. PT/OT protocols. Nonweightbearing left upper extremity. DVT prophylaxis-aspirin daily Pain management as written. monitor 02 sats this am, if remains stable can be d/c home DC planning-patient be discharged to home, patient reevaluated and has no significant pain and is breathing well off O2 with 90% sat. No substantial anemia or dehydration however still has tachycardia of 120 etiology unclear. Patient will need further evaluation by medical team prior to considering any discharge. Postop day 1 status post left reverse total shoulder arthroplasty. PT/OT protocols. Nonweightbearing left upper extremity. DVT prophylaxis-aspirin daily Pain management as written. Patient currently on 2 L of O2. Plan to recheck his O2 saturations level later this morning to make sure he is not requiring oxygen. DC planning-patient be discharged to home. No denies therapy at this time for the left shoulder. Patient will need to follow the action is for basic exercises at this time. Lab Results 06/11/22 06/12/22 06/12/22 Range/Units 12:00 06:23 06:23 WBC 9.36 (4.8-10.8) K/ul RBC 3.50 L (4.63-6.08) M/uL Hgb 11.3 L (14.0-18.0) g/dl Hct 33.6 L (40.1-51.0) % MCV 96.0 (80.0-100.0) fL MCH 32.3 (25.0-34.0) pg MCHC 33.6 (32.0-36.0) g/dL RDW Std Deviation 50.8 H (36.4-46.3) fL RDW Coeff of Bisi 14.5 (11.5-14.5) % Plt Count 151 (130-400) K/uL MPV 9.4 (9.4-12.4) fL Immature Gran % (Auto) 0.2 % Neut % (Auto) 83.7 % Lymph % (Auto) 7.3 % [place] % (Auto) 8.7 % Eos % (Auto) 0.0 % Baso % (Auto) 0.1 % Neut # (Auto) 7.84 H (1.4-6.5) K/uL Lymph # (Auto) 0.68 L (1.2-3.4) K/uL [place] # (Auto) 0.81 (0.24-0.82) K/uL Eos # (Auto) 0.00 (0-0.50) K/uL Baso # (Auto) 0.01 (0-0.2) K/uL Immature Gran # (Auto) 0.02 (0.00-0.02) K/uL Sodium 131 L (136-145) mmol/L Potassium 5.1 (3.5-5.1) mmol/L Chloride 99 (98-107) mmol/L Carbon Dioxide 29 (21-32) mmol/L Anion Gap 3 (3-11) BUN 18 (6-23) mg/dl Creatinine 1.05 (0.6-1.4) mg/dl Est Cr Clr Drug Dosing 59.8 ml/min Est GFR ( Amer) 75.7 ml/min Est GFR (Non-Af Amer) 65.3 ml/min BUN/Creatinine Ratio 17.1 (10-20) Glucose 121 H (70-99(Fasting)) mg/dl Calcium 8.0 L (8.5-10.1) mg/dl Troponin I High Sens (0-20) pg/ml TSH (0.300-4.500) uIu/ml Free T4 (0.61-1.60) ng/dl Random Cortisol mcg/dl SARS-CoV-2, RNA, NAAT NEGATIVE (NEGATIVE) 06/14/22 06/14/22 06/14/22 Range/Units 07:28 07:28 07:28 WBC 6.77 (4.8-10.8) K/ul RBC 3.17 L (4.63-6.08) M/uL Hgb 10.1 L (14.0-18.0) g/dl Hct 31.1 L (40.1-51.0) % MCV 98.1 (80.0-100.0) fL MCH 31.9 (25.0-34.0) pg MCHC 32.5 (32.0-36.0) g/dL RDW Std Deviation 52.8 H (36.4-46.3) fL RDW Coeff of Bisi 14.5 (11.5-14.5) % Plt Count 138 (130-400) K/uL MPV 9.3 L (9.4-12.4) fL Immature Gran % (Auto) % Neut % (Auto) % Lymph % (Auto) % [place] % (Auto) % Eos % (Auto) % Baso % (Auto) % Neut # (Auto) (1.4-6.5) K/uL Lymph # (Auto) (1.2-3.4) K/uL [place] # (Auto) (0.24-0.82) K/uL Eos # (Auto) (0-0.50) K/uL Baso # (Auto) (0-0.2) K/uL Immature Gran # (Auto) (0.00-0.02) K/uL Sodium 130 L (136-145) mmol/L Potassium 4.7 (3.5-5.1) mmol/L Chloride 98 (98-107) mmol/L Carbon Dioxide 29 (21-32) mmol/L Anion Gap 3 (3-11) BUN 31 H (6-23) mg/dl Creatinine 1.54 H (0.6-1.4) mg/dl Est Cr Clr Drug Dosing 40.8 ml/min Est GFR ( Amer) 47.6 ml/min Est GFR (Non-Af Amer) 41.1 ml/min BUN/Creatinine Ratio 20.1 H (10-20) Glucose 141 H (70-99(Fasting)) mg/dl Calcium 8.4 L (8.5-10.1) mg/dl Troponin I High Sens 46.9 H (0-20) pg/ml TSH 0.246 L (0.300-4.500) uIu/ml Free T4 1.41 (0.61-1.60) ng/dl Random Cortisol mcg/dl SARS-CoV-2, RNA, NAAT (NEGATIVE) 06/14/22 06/14/22 06/14/22 Range/Units 10:52 10:52 17:40 WBC (4.8-10.8) K/ul RBC (4.63-6.08) M/uL Hgb (14.0-18.0) g/dl Hct (40.1-51.0) % MCV (80.0-100.0) fL MCH (25.0-34.0) pg MCHC (32.0-36.0) g/dL RDW Std Deviation (36.4-46.3) fL RDW Coeff of Bisi (11.5-14.5) % Plt Count (130-400) K/uL MPV (9.4-12.4) fL Immature Gran % (Auto) % Neut % (Auto) % Lymph % (Auto) % [place] % (Auto) % Eos % (Auto) % Baso % (Auto) % Neut # (Auto) (1.4-6.5) K/uL Lymph # (Auto) (1.2-3.4) K/uL [place] # (Auto) (0.24-0.82) K/uL Eos # (Auto) (0-0.50) K/uL Baso # (Auto) (0-0.2) K/uL Immature Gran # (Auto) (0.00-0.02) K/uL Sodium 130 L (136-145) mmol/L Potassium 4.9 (3.5-5.1) mmol/L Chloride 99 (98-107) mmol/L Carbon Dioxide 29 (21-32) mmol/L Anion Gap 2 L (3-11) BUN 36 H (6-23) mg/dl Creatinine 1.55 H (0.6-1.4) mg/dl Est Cr Clr Drug Dosing 40.5 ml/min Est GFR ( Amer) 47.3 ml/min Est GFR (Non-Af Amer) 40.8 ml/min BUN/Creatinine Ratio 23.2 H (10-20) Glucose 121 H (70-99(Fasting)) mg/dl Calcium 8.3 L (8.5-10.1) mg/dl Troponin I High Sens 50.2 H* 40.0 H D (0-20) pg/ml TSH (0.300-4.500) uIu/ml Free T4 (0.61-1.60) ng/dl Random Cortisol 11.53 mcg/dl SARS-CoV-2, RNA, NAAT (NEGATIVE) 06/15/22 06/15/22 Range/Units 05:46 05:49 WBC 6.27 (4.8-10.8) K/ul RBC 2.77 L (4.63-6.08) M/uL Hgb 8.9 L (14.0-18.0) g/dl Hct 27.5 L (40.1-51.0) % MCV 99.3 (80.0-100.0) fL MCH 32.1 (25.0-34.0) pg MCHC 32.4 (32.0-36.0) g/dL RDW Std Deviation 52.3 H (36.4-46.3) fL RDW Coeff of Bisi 14.2 (11.5-14.5) % Plt Count 144 (130-400) K/uL MPV 10.0 (9.4-12.4) fL Immature Gran % (Auto) % Neut % (Auto) % Lymph % (Auto) % [place] % (Auto) % Eos % (Auto) % Baso % (Auto) % Neut # (Auto) (1.4-6.5) K/uL Lymph # (Auto) (1.2-3.4) K/uL [place] # (Auto) (0.24-0.82) K/uL Eos # (Auto) (0-0.50) K/uL Baso # (Auto) (0-0.2) K/uL Immature Gran # (Auto) (0.00-0.02) K/uL Sodium 131 L (136-145) mmol/L Potassium 5.0 (3.5-5.1) mmol/L Chloride 99 (98-107) mmol/L Carbon Dioxide 31 (21-32) mmol/L Anion Gap 1 L (3-11) BUN 31 H (6-23) mg/dl Creatinine 1.16 D (0.6-1.4) mg/dl Est Cr Clr Drug Dosing 54.1 ml/min Est GFR ( Amer) 67.1 ml/min Est GFR (Non-Af Amer) 57.9 ml/min BUN/Creatinine Ratio 26.7 H (10-20) Glucose 109 H (70-99(Fasting)) mg/dl Calcium 8.4 L (8.5-10.1) mg/dl Troponin I High Sens (0-20) pg/ml TSH (0.300-4.500) uIu/ml Free T4 (0.61-1.60) ng/dl Random Cortisol mcg/dl SARS-CoV-2, RNA, NAAT (NEGATIVE) Total Time Total Time Spent Total Time Spent (In Minutes): 20 Discharge Plan Discharge Items Patient Disposition: Home - Self-Care Reason For Visit: [place] Complete Tear of Left Rotator Cuff Discharge Diagnosis: Left shoulder osteoarthritis/rotator cuff arthropathy Activity: Per Instructions section Weightbearing: Left non-weightbearing Non-emergency contact: Surgeon Call non-emergency contact if: you have any medication questions, your pain is not controlled, your temperature is above 101.5, your wound has increased redness and your wound has increased drainage Follow-up/Referrals: Josep Ingram MD [Surgeon] - (Follow-up with Dr. Ingram in 2 weeks from the day of your surgery for your first postoperative visit.) PCP,NO [Physician] - ([facility] PLEASE CALL TO MAKE A HOSPITAL FOLLOW UP APPOINTMENT IN 7-10 DAYS ) Diet: Regular Addtl Attending Provider Instructions: ACTIVITY RECOMMENDATIONS: SELF CARE INSTRUCTIONS AFTER TOTAL SHOULDER ARTHROPLASTY REVERSE A. You may do daily exercises as taught in physical therapy while in hospital. No lifting with the operative arm. B. You are to wear your sling/immobilizer at all times EXCEPT when performing your daily exercises and for hygiene purposes. C. You may perform dry, daily dressing changes. Please keep your incision covered. You may shower 48 hours after surgery. Do not apply soap or any ointment/lotions directly over incision. Do not soak incision in bath tub/swimming pool. D. You may use ice as needed to operative shoulder. SPECIAL CARE INSTRUCTIONS: VERY IMPORTANT TO READ AND REVIEW A. There are a few signs you need to watch for after you are home. Call [facility] at [phone] if you experience any of the followin. Increased severe shoulder pain. Some pain is expected especially when you exercise. 2. Increased swelling in you shoulder or arm; pain or swelling in either upper extremity. 3. Any fluid drainage from the incision. 4. Shortness of breath or chest pain. B. Please call [facility] at [phone] if you have any questions or concerns about your operation or recovery. C. Call your physician if: 1. Temperature is greater than 101 degrees (F). 2. Pain is not relieved by prescribed pain medications. 3. Increase drainage or redness from incision. 4. Unanswered questions or concerns. FOLLOW UP VISIT: Please call [facility] at [phone] to schedule a follow up appointment with Dr. Ingram or his PA in 12-14 days from your surgery date. Addtl Manager Of Sales Provider Instructions: Your home medication may be incorrect as both venlafaxine and metoprolol appear to have been missed off your medication list. Please resume all your usual medications other than lisinopril, prazosin, naproxen and ibuprofen. Please bring a list of all your updated [facility] medications with doses to your appointments. You also have some post operative low oxygen levels just on exertion. Suspect this will resolve with you continuing your incentive spirometer at home. Please follow up with your primary care physician to decide whether you need this longer term. On discharge you are requiring no oxygen at rest and 2 liters per minute on exertion. Pending Studies at Discharge: No Stand-Alone Forms: [facility], Opioid Pain Management, Smoking Cessation Medications and DC Order Prescriptions: New acetaminophen [Tylenol Extra Strength] 500 mg Tablet 1,000 mg PO Q8 14 Days Qty: 84 0RF aspirin [Ecotrin Low Strength] 81 mg tablet,delayed release (DR/EC) 81 mg PO DAILY 30 Days Qty: 30 0RF oxycodone 5 mg tablet 5 mg PO Q4H MDD 6 PRN (Reason: pain) Qty: 30 0RF Continued lidocaine 5 % adhesive patch,medicated 1 patch TOP DAILY PRN (Reason: Pain) trazodone 100 mg tablet 200 mg PO HS albuterol sulfate 90 mcg/actuation aerosol powdr breath activated 1 inh inhalation BID PRN (Reason: sob) Stool Softener 50 mg Capsule 50 mg PO QAM levothyroxine 150 mcg Tablet 150 mcg PO DAILY@0630 magnesium 250 mg Tablet 250 mg PO QAM simvastatin 40 mg tablet 80 mg PO HS calcium 600 mg Capsule 600 mg PO QAM potassium 99 mg Tablet 99 mg PO QAM fluticasone propion-salmeterol [Wixela Inhub] 500-50 mcg/dose Blister With Device 1 inh INHALATION BID Multivitamin 50 Plus Tablet 1 tab PO QAM cholecalciferol (vitamin D3) [Vitamin D3] 25 mcg (1,000 unit) Tablet 25 mcg PO QPM tiotropium bromide 2.5 mcg/actuation Mist 2 inh INHALATION BID metoprolol tartrate 25 mg Tablet 25 mg PO BID venlafaxine 150 mg Capsule,Extended Release 24hr 150 mg PO QAM Discontinued naproxen 500 mg tablet,delayed release (DR/EC) 500 mg PO BID PRN (Reason: Pain) prazosin 5 mg Capsule 10 mg PO HS ibuprofen 200 mg Tablet 200 mg PO Q6H PRN (Reason: Pain) lisinopril 10 mg tablet 10 mg PO QAM Discharge Orders: Discharge Order (Routine); Ordered 06/15/22 Ordered By: Michael Leavitt/Other Patient Handouts: Using Oxygen Safely, Using an Oxygen Tank at Home Admission Data Admit Date/Time: 06/11/22 16:17 Attending Provider: Josep Ingram Admit Provider: Josep Ingram Primary Care Provider: Ernie Whitaker Other Providers: Ronal Sosa Jonathan M. Other Interventions: Discharge Summary Assessment (RN) Last Done: 06/15/22 10:50
== END 2022-06-15 12:32 | disposition home or self-care (01) | DRG 483 ==
LOC: ASU 11:42 → 3E 16:17

== ENCOUNTER 2023-10-08 22:37 | Inpatient (IN) ==
[2023-10-08 23:08] LABS: iSTAT Creatinine 1.4 mg/dl (0.6-1.3); iSTAT Hemoglobin 10.9 g/dl (14.0-18.0); iSTAT Ionized Calcium 1.17 mmol/l (1.12-1.32); iSTAT Potassium 4.3 mmol/L (3.3-5.0)
[2023-10-08] MEDS ORDERED: ACETAMINOPHEN 1,000 MG/100 ML VIAL IV STA (23:12)
[2023-10-08] MEDS ORDERED: SODIUM CHLORIDE 0.9% 1,000 ML IV ONE (23:12)
[2023-10-08] MEDS ORDERED: OPTIRAY 320 125ml IV ONE (23:12)
[2023-10-08] MEDS ORDERED: SODIUM CHLORIDE 0.9% 1,000 ML IV STA (23:12)
[2023-10-08] MEDS ORDERED: STAT IV Infusion **Titration per Protocol STA (23:12)
[2023-10-08] MEDS ORDERED: ONDANSETRON INJ 2 MG/ML 2 ML VIAL IV STA (23:14)
[2023-10-08] MEDS ORDERED: FAMOTIDINE 20MG IV PUSH 20 MG/5 ML SYR IV STA (23:14)
[2023-10-08] MEDS ORDERED: PANTOprazole 80 MG in DEXTROSE 5% 100 ML IV STA (23:14)
[2023-10-08] MEDS: NOREPINEPHRINE/D5W 4 MG/250 ML PLCT IV SCH (23:38)
--- NOTE | 2023-10-08 23:54 | CT Scan Report ---
Exam(s): CTA CHEST W/WO Contrast IV Amt: 115 ml opti 320 EXAM: CT Angiography Chest With Intravenous Contrast CLINICAL HISTORY: Reason for exam: ? rupture AAA, severe abd pain, hypotension. TECHNIQUE: Axial computed tomographic angiography images of the chest with intravenous contrast. CTDI is 28.14 mGy and DLP is 2628.6 mGy-cm. Automated exposure control was utilized for the study. A dose lowering technique was utilized adhering to the principles of ALARA. MIP reconstructed images were created and reviewed. CONTRAST: Patient received 115 ml opti 320 of IV contrast COMPARISON: 06/12/2022. FINDINGS: Pulmonary arteries: Suboptimally opacified pulmonary arteries for evaluation of emboli with otherwise normal visualized enhancement. Aorta: Mild atherosclerotic disease of aorta with no aneurysm or dissection. Lungs: Bilateral lower lobe atelectasis. No mass. Pleural space: Unremarkable. No significant effusion. No pneumothorax. Heart: Unremarkable. No cardiomegaly. No significant pericardial effusion. No evidence of RV dysfunction. Normal cardiac size with coronary artery calcifications. Bones/joints: There is a compression fracture of T7 with increased sclerosis posteriorly, cannot exclude a lesion, unchanged in the interval. There is a left-sided shoulder prosthesis in place. No dislocation. Soft tissues: Unremarkable. Lymph nodes: Unremarkable. No enlarged lymph nodes. Intraperitoneal space: Upper abdomen is described in detail in the accompanying CT of the abdomen and pelvis report. Other findings: Multilevel disc degenerative disease of the thoracic spine. IMPRESSION: 1. No evidence of aortic dissection or aneurysm. 2. Mild bilateral lower lobe atelectasis otherwise no acute cardiopulmonary disease. 3. Abdomen please see accompanying CT of the abdomen and pelvis report. Electronically signed by: Shereen Killian MD 10/08/23 23:53 PM
--- NOTE | 2023-10-09 | CT Scan Report ---
Exam(s): CTA ABDOMEN + PELVIS With Contrast IV Amt: 115 ml opti 320 EXAM: CT Angiography Abdomen and Pelvis With Intravenous Contrast CLINICAL HISTORY: Reason for exam: ? rupture AAA, severe abd pain, hypotension. TECHNIQUE: Axial computed tomographic angiography images of the abdomen and pelvis with intravenous contrast. CTDI is 28.14 mGy and DLP is 2628.6 mGy-cm. Automated exposure control was utilized for the study. A dose lowering technique was utilized adhering to the principles of ALARA. MIP reconstructed images were created and reviewed. CONTRAST: Patient received 115 ml opti 320 of IV contrast COMPARISON: None. FINDINGS: VASCULATURE: Aorta: There is a [id number] thrombus within the distal aspect of the aorta with no aneurysmal dilatation, aorta measuring approximately 2.4 cm at this level. Diffuse atherosclerotic disease throughout the aorta with no aneurysm. No dissection. 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 Short segment severe stenosis involving the proximal superior mesenteric artery. Renal arteries: Ostial plaque at the origin of the right renal artery with mild to moderate stenosis. Normal left renal artery. Iliac arteries: Mild calcified atherosclerotic disease of the bilateral common iliac arteries with no focal stenosis or occlusion of the. Normal bilateral external iliac arteries with no focal stenosis or occlusion. Other arteries: Minimal plaque at the bilateral common femoral artery with no stenosis or occlusion. Normal bilateral proximal superficial femoral arteries. Lung bases: Mild bilateral lower lobe atelectasis. Heart: No significant pericardial effusion. Normal cardiac size with coronary artery calcifications. ABDOMEN: Liver: Unremarkable. No mass. Gallbladder and bile ducts: Unremarkable. No calcified stones. No ductal dilation. Pancreas: Unremarkable. No ductal dilation. No mass. Spleen: Unremarkable. No splenomegaly. Adrenals: Unremarkable. No mass. Kidneys and ureters: Multiple low-attenuation structures within the right kidney compatible with simple cyst, largest measuring 6.5 cm. Otherwise normal right kidney. Normal left kidney. Stomach and bowel: Nonspecific distention of the stomach with air- fluid level. Moderate to abundant fecal debris within the colon. Diverticulosis throughout the colon with no signs of diverticulitis. PELVIS: Appendix: Distinct appendix not seen with no inflammation by the cecum to suggest acute appendicitis. Bladder: Urinary bladder is decompressed, otherwise unremarkable. Reproductive: Mild to moderate prostate enlargement. ABDOMEN and PELVIS: Intraperitoneal space: Unremarkable. No significant fluid collection. No free air. Bones/joints: Diffuse osteopenia with multilevel degenerative disease of the spine. Scoliosis of the thoracolumbar spine. No acute fracture. No dislocation. Soft tissues: Bilateral fat-containing inguinal hernias. Lymph nodes: Unremarkable. No enlarged lymph nodes. IMPRESSION: 1. 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 2. Moderate to abundant fecal debris within the colon with diverticulosis, no signs of diverticulitis. No focal inflammatory process or signs of bowel obstruction. 3. Right-sided simple renal cysts with no further follow-up imaging recommended. Remainder of abdominal viscera unremarkable. Electronically signed by: Shereen Killian MD 10/08/23 23:59 PM
[2023-10-09 00:03] LABS: Basophils # (auto) 0.01 K/uL (0.00-0.20); Basophils % (auto) 0.1 %; Eosinophils # (auto) 0.09 K/uL (0.00-0.50); Eosinophils % (auto) 1.3 %; Hematocrit (blood only) 32.3 % (42.0-52.0); Hemoglobin 10.6 g/dl (14.0-18.0); Immature Granulocytes # (auto) 0.01 K/uL (0.01-0.20); Immature Granulocytes % (auto) 0.1 %; Lymphocytes # (auto) 1.43 K/uL (1.20-3.40); Lymphocytes % (auto) 21.1 %; Mean Corpuscular Hemoglobin 30.7 pg (25.0-34.0); Mean Corpuscular Hgb Conc 32.8 g/dL (32.0-36.0); Mean Corpuscular Volume 93.6 fL (80.0-100.0); Mean Platelet Volume 9.3 fL (9.4-12.4); Monocytes # (auto) 0.57 K/uL (0.11-0.59); Monocytes % (auto) 8.4 %; Neutrophils # (auto) 4.67 K/uL (1.40-6.50); Platelet Count 162 K/uL (130-400); RDW Coefficient of Variation 13.9 % (11.5-14.5); Red Blood Count 3.45 M/uL (4.70-6.10); White Blood Count 6.78 K/ul (4.8-10.8)
[2023-10-09] MEDS ORDERED: fentaNYL citrate PF 100 MCG/2 ML VIAL IV STA (00:10)
[2023-10-09 00:11] LABS: Albumin Globulin Ratio 1.7 (0.9-2); Albumin Level 3.3 gm/dl (3.4-5.0); BUN Creatinine Ratio 12.2 (10-20); Bilirubin,Total 0.5 mg/dl (0.2-1.0); Calcium 8.8 mg/dl (8.6-10.3); Creatinine Clr Calc Pharmacy 45.3 ml/min; Est GFR (African American) 57.5 ml/min; Est GFR (Non-African American) 49.6 ml/min; Globulin 1.9 gm/dl (2.5-4.0); Potassium 4.3 mmol/L (3.5-5.1); Total Protein 5.2 gm/dl (6.0-8.3)
[2023-10-09 00:17] LABS: Troponin I High Sensitivity 11.5 pg/ml (0-20)
[2023-10-09 00:31] LABS: Partial Thromboplastin Time 29 Seconds (21-31); Prothrombin Time 11.3 Seconds (9.0-12.0)
--- NOTE | 2023-10-09 01:01 | Emergency Department Note ---
History of Present Illness General Chief complaint: Hypotension Stated complaint: ALTERED MENTAL STATUS, CHANGED MEDS TODAY Time Seen by Provider: 10/08/23 22:52 History of Present Illness Maximum Pain Intensity: 10 This 83-year-old gentleman presents ER complaining of severe back and abdominal pain he was hypotensive coming from home today. [facility] and got [facility] today. He did not take any extra medicines. Patient has been having chronic back pain for a while and has a compression fracture at T7. Patient denies chest pain, dyspnea, fevers, vomiting, diarrhea, flulike illness. Pressure was 60/40 upon initial evaluation. Home Medications Medication Instructions Recorded Confirmed Type magnesium 250 mg tablet 250 mg PO QAM 01/30/20 10/08/23 History lidocaine 5 % topical patch 1 patch topical DAILY PRN Pain 03/12/20 10/08/23 History trazodone 100 mg tablet 200 mg PO HS 12/11/20 10/08/23 History albuterol sulfate 90 mcg/actuation 2 inh inhalation QID PRN Shortness 03/27/21 10/08/23 History breath activated powder inhaler Of Breath/COUGH/WHEEZING metoprolol tartrate 25 mg tablet See Rx Instructions .Route .COMPLEX 06/14/22 10/08/23 History venlafaxine 150 mg 150 mg PO QAM 06/14/22 10/08/23 History capsule,extended release 24 hr tiotropium bromide 2.5 2 inh inhalation DAILY 03/19/23 10/08/23 History mcg/actuation mist for inhalation diclofenac sodium 1 % topical gel 2 g topical QID 08/04/23 10/08/23 History (Arthritis Pain (diclofenac)) finasteride 5 mg tablet 5 mg PO DAILY 08/04/23 10/08/23 History lisinopril 10 mg tablet 10 mg PO DAILY 08/04/23 10/08/23 History meloxicam 15 mg tablet 15 mg PO BID 08/04/23 10/08/23 History roflumilast 500 mcg tablet 500 mcg PO DAILY 08/04/23 10/08/23 History ropinirole 0.25 mg tablet 0.25 mg PO TID 08/04/23 10/08/23 History budesonide 180 mcg/actuation 1 inh inhalation BID 10/08/23 10/08/23 History breath activated powder inhaler cholecalciferol (vitamin D3) 10 10 mcg PO DAILY 10/08/23 10/08/23 History mcg (400 unit) capsule (Vitamin D3) docusate sodium 50 mg capsule 50 mg PO DAILY PRN Constipation 10/08/23 10/08/23 History fluticasone 250 mcg-salmeterol 50 1 inh inhalation BID 10/08/23 10/08/23 History mcg/dose blistr powdr for inhalation (Wixela Inhub) gabapentin 300 mg capsule 900 mg PO DAILY 10/08/23 10/08/23 History levetiracetam 500 mg tablet See Rx Instructions .Route .COMPLEX 10/08/23 10/08/23 History (Keppra) levothyroxine 100 mcg tablet 100 mcg PO DAILYBB 10/08/23 10/08/23 History potassium citrate 99 mg capsule 99 mg PO DAILY 10/08/23 10/08/23 History prazosin 5 mg capsule 10 mg PO HS 10/08/23 10/08/23 History simvastatin 80 mg tablet 40 mg PO HS 10/08/23 10/08/23 History Allergies Allergy/AdvReac Type Severity Reaction Status Date / Time diclofenac [From Voltaren] All[facility] Verified 10/08/23 23:12 LIST Past Med/Surg History Medical History Obesity Osteoporosis Osteoarthritis DDD (degenerative disc disease) Hearing deficit Aneurysm Per remote [facility] records, hx of questionable thoracic aortic aneurysm [facility]3 [facility], no recent issues/not noted on 2019 echo Sleep apnea No device COPD (chronic obstructive pulmonary disease) Stable Spinal stenosis, lumbar region with neurogenic claudication Lumbar spondylosis Spinal stenosis of thoracolumbar region Hypothyroidism Hyperlipidemia Hypertension Surgical History History of elbow surgery Right History of cataract surgery R/L Family History Other No family history of adverse response to anesthesia Social History Smoking Status: Never smoker Tobacco Type: Pipe and Cigars Second Hand Exposure: No; Do You Dip or Chew Tobacco: No; Hx Alcohol Use: No Hx Substance Use: No Preferred Language: Macedonian Communication Ability: Effective Visual Impairment: No Limitations Hearing Ability: Hard of Hearing Legal Archivist Required: No Beliefs That Will Affect Care: None marital status: Current Living Situation: Spouse current occupational status: retired Feels Safe at Home: Yes Assistive Devices: None Review of Systems A total of 10 systems reviewed and were otherwise negative Physical Exam Vital Signs Vital Signs - 24 hr 10/08/23 22:45 10/08/23 22:45 10/08/23 22:49 Temperature Temperature Source Pulse Rate Pulse Rate [Apical] Pulse Rate [Finger] 82 Pulse Rate from SpO2 Sensor Respiratory Rate 16 Respiratory Effort / Characteristics Respiratory Depth Normal Respiratory Pattern Blood Pressure Blood Pressure [Right Arm] 61/49 L Blood Pressure Mean Blood Pressure Mean [Right Arm] 53 Blood Pressure Position [Right Arm] Pulse Oximetry 96 Oxygen Delivery Method Room Air Room Air Sepsis Recent Fever Within 48 Hours No Sepsis New/Unexplained Change in Mental Status No Sepsis Action Taken by Nursing No Action Required 10/08/23 22:53 10/08/23 23:10 10/08/23 23:12 Temperature Temperature Source Pulse Rate 82 Pulse Rate [Apical] 92 H Pulse Rate [Finger] 83 Pulse Rate from SpO2 Sensor Respiratory Rate 20 20 Respiratory Effort / Characteristics Non-Labored Spontaneous Respiratory Depth Normal Respiratory Pattern Regular Blood Pressure Blood Pressure [Right Arm] 68/40 L 86/43 L Blood Pressure Mean Blood Pressure Mean [Right Arm] 49 57 Blood Pressure Position [Right Arm] Lying Lying Pulse Oximetry 96 Oxygen Delivery Method Room Air Sepsis Recent Fever Within 48 Hours Sepsis New/Unexplained Change in Mental Status Sepsis Action Taken by Nursing 10/08/23 23:14 10/08/23 23:24 10/08/23 23:30 Temperature Temperature Source Pulse Rate 84 84 81 Pulse Rate [Apical] Pulse Rate [Finger] Pulse Rate from SpO2 Sensor 84 81 Respiratory Rate 20 19 23 Respiratory Effort / Characteristics Respiratory Depth Respiratory Pattern Blood Pressure 73/44 L 78/50 L Blood Pressure [Right Arm] Blood Pressure Mean 53 59 Blood Pressure Mean [Right Arm] Blood Pressure Position [Right Arm] Pulse Oximetry 96 94 93 Oxygen Delivery Method Room Air Room Air Room Air Sepsis Recent Fever Within 48 Hours Sepsis New/Unexplained Change in Mental Status Sepsis Action Taken by Nursing 10/08/23 23:36 10/08/23 23:45 10/09/23 00:01 Temperature Temperature Source Pulse Rate 93 H 97 H 91 H Pulse Rate [Apical] Pulse Rate [Finger] Pulse Rate from SpO2 Sensor 85 88 92 H Respiratory Rate 18 22 16 Respiratory Effort / Characteristics Respiratory Depth Respiratory Pattern Blood Pressure 63/46 L 96/47 L 77/47 L Blood Pressure [Right Arm] Blood Pressure Mean 51 63 57 Blood Pressure Mean [Right Arm] Blood Pressure Position [Right Arm] Pulse Oximetry 90 93 94 Oxygen Delivery Method Room Air Room Air Room Air Sepsis Recent Fever Within 48 Hours Sepsis New/Unexplained Change in Mental Status Sepsis Action Taken by Nursing 10/09/23 00:07 10/09/23 00:10 10/09/23 00:13 Temperature Temperature Source Pulse Rate 94 H 96 H 95 H Pulse Rate [Apical] Pulse Rate [Finger] Pulse Rate from SpO2 Sensor 94 H 94 H 95 H Respiratory Rate 15 17 24 Respiratory Effort / Characteristics Respiratory Depth Respiratory Pattern Blood Pressure 116/36 L 67/51 L 71/50 L Blood Pressure [Right Arm] Blood Pressure Mean 62 56 57 Blood Pressure Mean [Right Arm] Blood Pressure Position [Right Arm] Pulse Oximetry 96 95 97 Oxygen Delivery Method Room Air Room Air Room Air Sepsis Recent Fever Within 48 Hours Sepsis New/Unexplained Change in Mental Status Sepsis Action Taken by Nursing 10/09/23 00:21 10/09/23 00:30 10/09/23 00:45 Temperature Temperature Source Pulse Rate 94 H 97 H 97 H Pulse Rate [Apical] Pulse Rate [Finger] Pulse Rate from SpO2 Sensor 94 H 92 H 96 H Respiratory Rate 20 22 Respiratory Effort / Characteristics Respiratory Depth Respiratory Pattern Blood Pressure 88/53 L 88/49 L 105/58 L Blood Pressure [Right Arm] Blood Pressure Mean 64 62 73 Blood Pressure Mean [Right Arm] Blood Pressure Position [Right Arm] Pulse Oximetry 93 93 92 Oxygen Delivery Method Room Air Room Air Room Air Sepsis Recent Fever Within 48 Hours Sepsis New/Unexplained Change in Mental Status Sepsis Action Taken by Nursing 10/09/23 01:00 10/09/23 01:18 10/09/23 01:34 Temperature Temperature Source Pulse Rate 96 H 99 H 101 H Pulse Rate [Apical] Pulse Rate [Finger] Pulse Rate from SpO2 Sensor 93 H 99 H 101 H Respiratory Rate 19 20 22 Respiratory Effort / Characteristics Respiratory Depth Respiratory Pattern Blood Pressure 95/69 L 87/47 L 103/65 Blood Pressure [Right Arm] Blood Pressure Mean 77 60 77 Blood Pressure Mean [Right Arm] Blood Pressure Position [Right Arm] Pulse Oximetry 90 94 93 Oxygen Delivery Method Room Air Room Air Room Air Sepsis Recent Fever Within 48 Hours Sepsis New/Unexplained Change in Mental Status Sepsis Action Taken by Nursing 10/09/23 01:39 10/09/23 01:45 10/09/23 02:01 Temperature Temperature Source Pulse Rate 103 H 100 H Pulse Rate [Apical] 102 H Pulse Rate [Finger] Pulse Rate from SpO2 Sensor 104 H Respiratory Rate 19 22 Respiratory Effort / Characteristics Respiratory Depth Respiratory Pattern Blood Pressure 88/52 L 90/59 L Blood Pressure [Right Arm] 110/82 Blood Pressure Mean 64 69 Blood Pressure Mean [Right Arm] 91 Blood Pressure Position [Right Arm] Semi-fowlers Pulse Oximetry 93 Oxygen Delivery Method Room Air Sepsis Recent Fever Within 48 Hours Sepsis New/Unexplained Change in Mental Status Sepsis Action Taken by Nursing 10/09/23 02:06 10/09/23 02:15 10/09/23 02:30 Temperature 35.4 C L Temperature Source Rectal Pulse Rate 94 H 94 H Pulse Rate [Apical] Pulse Rate [Finger] Pulse Rate from SpO2 Sensor Respiratory Rate 17 17 Respiratory Effort / Characteristics Respiratory Depth Respiratory Pattern Blood Pressure 93/63 L 85/50 L Blood Pressure [Right Arm] Blood Pressure Mean 73 61 Blood Pressure Mean [Right Arm] Blood Pressure Position [Right Arm] Pulse Oximetry Oxygen Delivery Method Sepsis Recent Fever Within 48 Hours Sepsis New/Unexplained Change in Mental Status Sepsis Action Taken by Nursing 10/09/23 02:45 10/09/23 03:07 10/09/23 03:15 Temperature Temperature Source Pulse Rate 93 H 99 H Pulse Rate [Apical] Pulse Rate [Finger] Pulse Rate from SpO2 Sensor 97 H 93 H 98 H Respiratory Rate 20 15 16 Respiratory Effort / Characteristics Respiratory Depth Respiratory Pattern Blood Pressure 90/53 L 83/59 L 94/54 L Blood Pressure [Right Arm] Blood Pressure Mean 65 67 67 Blood Pressure Mean [Right Arm] Blood Pressure Position [Right Arm] Pulse Oximetry 93 100 97 Oxygen Delivery Method Room Air Nebulizer Room Air Sepsis Recent Fever Within 48 Hours Sepsis New/Unexplained Change in Mental Status Sepsis Action Taken by Nursing 10/09/23 03:17 Temperature 36.5 C Temperature Source Oral Pulse Rate Pulse Rate [Apical] Pulse Rate [Finger] Pulse Rate from SpO2 Sensor Respiratory Rate Respiratory Effort / Characteristics Respiratory Depth Respiratory Pattern Blood Pressure Blood Pressure [Right Arm] Blood Pressure Mean Blood Pressure Mean [Right Arm] Blood Pressure Position [Right Arm] Pulse Oximetry Oxygen Delivery Method Sepsis Recent Fever Within 48 Hours Sepsis New/Unexplained Change in Mental Status Sepsis Action Taken by Nursing VITALS: Vitals are noted on the nurse's note and reviewed by myself. Vital signs stable. GENERAL: White male writhing in pain hypotensive, in acute distress SKIN: Capillary reflex less than 2 seconds. HEENT: Normocephalic. PERRLA. EOMI. Nares patent. Mucous membranes moist. Neck is supple without nuchal rigidity. HEART: Regular rate and rhythm LUNGS: Clear to auscultation bilaterally without wheezes, rales or rhonchi. No retractions or accessory muscle use. ABDOMEN: Positive bowel sounds x 4. Normal tympanic percussion. Soft, tender lower abdomen r, without masses or organomegaly. Damon sign negative. No guarding or rebound tenderness. No CVA tenderness MUSCULOSKELETAL: No gross musculoskeletal defects. NEURO: Patient was alert and oriented to person place and time. No focal neurological deficits. Course Administered Medications Albuterol (Albut/Ipratrop 3mg/0.5mg Neb 3 Ml Vial) 3 ml NEB QIDR [facility]; Protocol Stop: 11/08/23 01:59 Last Admin: 10/09/23 02:48 Dose: 3 ml Documented By: Norepinephrine Bitartrate (Levophed/D5w) 4 mg in 250 mls @ 29.7 mls/hr IV .Q8H26M [facility]; Protocol Stop: 11/07/23 23:14 Last Titration: 10/09/23 01:38 Dose: 0.09 mcg/kg/min, 29.7 mls/hr Documented By: Titration: 10/09/23 00:31 Dose: 0.11 mcg/kg/min, 36.3 mls/hr Documented By: Titration: 10/09/23 00:14 Dose: 0.09 mcg/kg/min, 29.7 mls/hr Documented By: Titration: 10/09/23 00:04 Dose: 0.07 mcg/kg/min, 23.1 mls/hr Documented By: Admin: 10/08/23 23:38 Dose: 0.05 mcg/kg/min, 16.5 mls/hr Documented By: Co-signed By: PATRICA Albumin Human (Albumin 25%) 25 gm in 100 mls @ 50 mls/hr IV Q2H DELMAR Stop: 10/09/23 05:59 Last Admin: 10/09/23 02:41 Dose: 50 mls/hr Documented By: Hydrocortisone Sodium (Succinate 100 mg/ Syringe) 2 mls @ 4 mls/min IV Q8H DELMAR Stop: 11/08/23 01:59 Last Admin: 10/09/23 03:13 Dose: 4 mls/min Documented By: Discontinued Medications Fentanyl Citrate (Fentanyl Citrate Pf 100 Mcg/2 Ml Vial) 50 mcg IV NOW STA Stop: 10/09/23 00:11 Last Admin: 10/09/23 00:50 Dose: 50 mcg Documented By: Sodium Chloride (Nss) 1,000 mls @ 999 mls/hr IV .Q1H1M STA Stop: 10/09/23 00:12 Last Infusion: 10/09/23 00:11 Dose: Infused Documented By: Admin: 10/08/23 23:17 Dose: 999 mls/hr Documented By: Acetaminophen (Ofirmev) 1,000 mg in 100 mls @ 400 mls/hr IV NOW STA Stop: 10/08/23 23:26 Last Infusion: 10/08/23 23:41 Dose: Infused Documented By: Admin: 10/08/23 23:19 Dose: 400 mls/hr Documented By: Sodium Chloride (Nss) 1,000 mls @ 999 mls/hr IV .Q1H1M ONE Stop: 10/09/23 00:12 Last Infusion: 10/09/23 00:11 Dose: Infused Documented By: Admin: 10/08/23 23:17 Dose: 999 mls/hr Documented By: Pantoprazole Sodium 80 mg/ (Dextrose) 120 mls @ 480 mls/hr IV ONE STA Stop: 10/08/23 23:28 Last Infusion: 10/08/23 23:42 Dose: Infused Documented By: Admin: 10/08/23 23:23 Dose: 480 mls/hr Documented By: Famotidine (Pepcid 20mg Iv Push) 20 mg in 5 mls @ 2.5 mls/min IV NOW STA Stop: 10/08/23 23:15 Last Admin: 10/08/23 23:20 Dose: 2.5 mls/min Documented By: Ioversol (Optiray 320 125ml) 115 ml IV ONCE ONE Stop: 10/08/23 23:13 Last Admin: 10/08/23 23:12 Dose: 115 ml Documented By: CELIA Ondansetron HCl (Ondansetron Inj 2 Mg/Ml 2 Ml Vial) 4 mg IV NOW STA Stop: 10/08/23 23:15 Last Admin: 10/08/23 23:20 Dose: 4 mg Documented By: Critical Care Time Critical Care Time: Yes Total Critical Care Time: 35 I have personally spent 35 minutes of critical care time in the direct management of this patient. This includes bedside care, interpretation of diagnostic studies, and testing, discussion with consultants, patient, and family members, and other required patient management activities. This 35 minutes is in excess of all separately billable procedures. Medical Decision Making Medical Records Attestation: I reviewed the patient's medical records. Home Medications Current Medication List: was personally reviewed by me Laboratory Data Attestation: I reviewed the patient's lab results. 10/08/23 22:51 10/08/23 22:51 Lab Results 10/08/23 10/08/23 10/08/23 Range/Units 01:19 22:51 22:53 WBC 6.78 (4.8-10.8) K/ul RBC 3.45 L (4.70-6.10) M/uL Hgb 10.6 L (14.0-18.0) g/dl POC Hgb (14.0-18.0) g/dl Hct 32.3 L (42.0-52.0) % POC Hct (42-52) % MCV 93.6 (80.0-100.0) fL MCH 30.7 (25.0-34.0) pg MCHC 32.8 (32.0-36.0) g/dL RDW Std Deviation 47.0 H (36.4-46.3) fL RDW Coeff of Bisi 13.9 (11.5-14.5) % Plt Count 162 (130-400) K/uL MPV 9.3 L (9.4-12.4) fL Immature Gran % (Auto) 0.1 % Neut % (Auto) 69.0 % Lymph % (Auto) 21.1 % [place] % (Auto) 8.4 % Eos % (Auto) 1.3 % Baso % (Auto) 0.1 % Neut # (Auto) 4.67 (1.40-6.50) K/uL Lymph # (Auto) 1.43 (1.20-3.40) K/uL [place] # (Auto) 0.57 (0.11-0.59) K/uL Eos # (Auto) 0.09 (0.00-0.50) K/uL Baso # (Auto) 0.01 (0.00-0.20) K/uL Immature Gran # (Auto) 0.01 (0.01-0.20) K/uL PT 11.3 (9.0-12.0) Seconds INR 1.0 (0.9-1.1) APTT 29 (21-31) Seconds PTT Ratio 1.0 POC Sodium (135-144) mmol/L Sodium 129 L (136-145) mmol/L POC Potassium (3.3-5.0) mmol/L Potassium 4.3 (3.5-5.1) mmol/L POC Chloride (101-112) mmol/L Chloride 95 L (98-107) mmol/L Carbon Dioxide 27 (21-32) mmol/L POC Total CO2 (24-31) mmol/L Anion Gap 7 (3-11) POC Anion Gap (16-25) mmol/L POC BUN (7-18) mg/dl BUN 16 (6-23) mg/dl Creatinine 1.31 (0.6-1.4) mg/dl POC Creatinine (0.6-1.3) mg/dl Est Cr Clr Drug Dosing 45.3 ml/min Est GFR ( Amer) 57.5 ml/min Est GFR (Non-Af Amer) 49.6 ml/min BUN/Creatinine Ratio 12.2 (10-20) Glucose 127 H (70-99(Fasting)) mg/dl POC Glucose (other) (70-99) mg/dl Lactate (0.4-2.0) mmol/L Calcium 8.8 (8.6-10.3) mg/dl POC Ioniz Calcium Miguel (1.12-1.32) mmol/l Magnesium 1.7 (1.7-2.4) mg/dl Total Bilirubin 0.5 (0.2-1.0) mg/dl AST 19 (13-39) U/L ALT 15 (7-52) U/L Alkaline Phosphatase 49 (34-104) U/L Troponin I High Sens 11.5 (0-20) pg/ml Total Protein 5.2 L (6.0-8.3) gm/dl Albumin 3.3 L (3.4-5.0) gm/dl Globulin 1.9 L (2.5-4.0) gm/dl Albumin/Globulin Ratio 1.7 (0.9-2) Lipase 44 (11-82) U/L Procalcitonin < 0.05 (0-0.5) ng/ml TSH 17.286 H (0.300-4.500) uIu/ml Free T4 1.23 (0.61-1.60) ng/dl Urine Color Urine Appearance (Clear) Urine pH (4.5-7.5) Ur Specific [place] (1.000-1.030) Urine Protein (Negative) Urine Glucose (UA) (Negative) Urine Ketones (Negative) Urine Blood (Negative) Urine Nitrite (Negative) Urine Bilirubin (Negative) Urine Urobilinogen (Negative) Ur Leukocyte Esterase (Negative) Urine RBC (0-4) /hpf Urine WBC (0-5) /hpf Ur Epithelial Cells (0-5) /lpf Urine Bacteria (Negative) Urine Mucus (None Prsent) Blood Type O Negative Antibody Screen 10/08/23 10/08/23 10/08/23 Range/Units 22:53 22:53 22:55 WBC (4.8-10.8) K/ul RBC (4.70-6.10) M/uL Hgb (14.0-18.0) g/dl POC Hgb 10.9 L (14.0-18.0) g/dl Hct (42.0-52.0) % POC Hct 32 L (42-52) % MCV (80.0-100.0) fL MCH (25.0-34.0) pg MCHC (32.0-36.0) g/dL RDW Std Deviation (36.4-46.3) fL RDW Coeff of Bisi (11.5-14.5) % Plt Count (130-400) K/uL MPV (9.4-12.4) fL Immature Gran % (Auto) % Neut % (Auto) % Lymph % (Auto) % [place] % (Auto) % Eos % (Auto) % Baso % (Auto) % Neut # (Auto) (1.40-6.50) K/uL Lymph # (Auto) (1.20-3.40) K/uL [place] # (Auto) (0.11-0.59) K/uL Eos # (Auto) (0.00-0.50) K/uL Baso # (Auto) (0.00-0.20) K/uL Immature Gran # (Auto) (0.01-0.20) K/uL PT (9.0-12.0) Seconds INR (0.9-1.1) APTT (21-31) Seconds PTT Ratio POC Sodium 127 L (135-144) mmol/L Sodium (136-145) mmol/L POC Potassium 4.3 (3.3-5.0) mmol/L Potassium (3.5-5.1) mmol/L POC Chloride 92 L (101-112) mmol/L Chloride (98-107) mmol/L Carbon Dioxide (21-32) mmol/L POC Total CO2 26 (24-31) mmol/L Anion Gap (3-11) POC Anion Gap 14.0 L (16-25) mmol/L POC BUN 15 (7-18) mg/dl BUN (6-23) mg/dl Creatinine (0.6-1.4) mg/dl POC Creatinine 1.4 H (0.6-1.3) mg/dl Est Cr Clr Drug Dosing ml/min Est GFR ( Amer) ml/min Est GFR (Non-Af Amer) ml/min BUN/Creatinine Ratio (10-20) Glucose (70-99(Fasting)) mg/dl POC Glucose (other) 127 H (70-99) mg/dl Lactate (0.4-2.0) mmol/L Calcium (8.6-10.3) mg/dl POC Ioniz Calcium Miguel 1.17 (1.12-1.32) mmol/l Magnesium (1.7-2.4) mg/dl Total Bilirubin (0.2-1.0) mg/dl AST (13-39) U/L ALT (7-52) U/L Alkaline Phosphatase (34-104) U/L Troponin I High Sens (0-20) pg/ml Total Protein (6.0-8.3) gm/dl Albumin (3.4-5.0) gm/dl Globulin (2.5-4.0) gm/dl Albumin/Globulin Ratio (0.9-2) Lipase (11-82) U/L Procalcitonin (0-0.5) ng/ml TSH (0.300-4.500) uIu/ml Free T4 (0.61-1.60) ng/dl Urine Color Urine Appearance (Clear) Urine pH (4.5-7.5) Ur Specific [place] (1.000-1.030) Urine Protein (Negative) Urine Glucose (UA) (Negative) Urine Ketones (Negative) Urine Blood (Negative) Urine Nitrite (Negative) Urine Bilirubin (Negative) Urine Urobilinogen (Negative) Ur Leukocyte Esterase (Negative) Urine RBC (0-4) /hpf Urine WBC (0-5) /hpf Ur Epithelial Cells (0-5) /lpf Urine Bacteria (Negative) Urine Mucus (None Prsent) Blood Type Cancelled Antibody Screen NEGATIVE Cancelled 10/09/23 10/09/23 Range/Units 01:32 01:57 WBC (4.8-10.8) K/ul RBC (4.70-6.10) M/uL Hgb (14.0-18.0) g/dl POC Hgb (14.0-18.0) g/dl Hct (42.0-52.0) % POC Hct (42-52) % MCV (80.0-100.0) fL MCH (25.0-34.0) pg MCHC (32.0-36.0) g/dL RDW Std Deviation (36.4-46.3) fL RDW Coeff of Bisi (11.5-14.5) % Plt Count (130-400) K/uL MPV (9.4-12.4) fL Immature Gran % (Auto) % Neut % (Auto) % Lymph % (Auto) % [place] % (Auto) % Eos % (Auto) % Baso % (Auto) % Neut # (Auto) (1.40-6.50) K/uL Lymph # (Auto) (1.20-3.40) K/uL [place] # (Auto) (0.11-0.59) K/uL Eos # (Auto) (0.00-0.50) K/uL Baso # (Auto) (0.00-0.20) K/uL Immature Gran # (Auto) (0.01-0.20) K/uL PT (9.0-12.0) Seconds INR (0.9-1.1) APTT (21-31) Seconds PTT Ratio POC Sodium (135-144) mmol/L Sodium (136-145) mmol/L POC Potassium (3.3-5.0) mmol/L Potassium (3.5-5.1) mmol/L POC Chloride (101-112) mmol/L Chloride (98-107) mmol/L Carbon Dioxide (21-32) mmol/L POC Total CO2 (24-31) mmol/L Anion Gap (3-11) POC Anion Gap (16-25) mmol/L POC BUN (7-18) mg/dl BUN (6-23) mg/dl Creatinine (0.6-1.4) mg/dl POC Creatinine (0.6-1.3) mg/dl Est Cr Clr Drug Dosing ml/min Est GFR ( Amer) ml/min Est GFR (Non-Af Amer) ml/min BUN/Creatinine Ratio (10-20) Glucose (70-99(Fasting)) mg/dl POC Glucose (other) (70-99) mg/dl Lactate 1.5 (0.4-2.0) mmol/L Calcium (8.6-10.3) mg/dl POC Ioniz Calcium Miguel (1.12-1.32) mmol/l Magnesium (1.7-2.4) mg/dl Total Bilirubin (0.2-1.0) mg/dl AST (13-39) U/L ALT (7-52) U/L Alkaline Phosphatase (34-104) U/L Troponin I High Sens (0-20) pg/ml Total Protein (6.0-8.3) gm/dl Albumin (3.4-5.0) gm/dl Globulin (2.5-4.0) gm/dl Albumin/Globulin Ratio (0.9-2) Lipase (11-82) U/L Procalcitonin (0-0.5) ng/ml TSH (0.300-4.500) uIu/ml Free T4 (0.61-1.60) ng/dl Urine Color Yellow Urine Appearance Clear (Clear) Urine pH 6.5 (4.5-7.5) Ur Specific [place] 1.010 (1.000-1.030) Urine Protein 1+ H (Negative) Urine Glucose (UA) Negative (Negative) Urine Ketones Trace H (Negative) Urine Blood 1+ H (Negative) Urine Nitrite Negative (Negative) Urine Bilirubin Negative (Negative) Urine Urobilinogen Negative (Negative) Ur Leukocyte Esterase Negative (Negative) Urine RBC 5-10 H (0-4) /hpf Urine WBC 0-5 (0-5) /hpf Ur Epithelial Cells 0-5 (0-5) /lpf Urine Bacteria Negative (Negative) Urine Mucus Present A (None Prsent) Blood Type Antibody Screen Imaging Data Attestation: I personally reviewed and interpreted this imaging study as follows: Radiologist's Impression: Abdomen/Pelvis CTA 10/08/23 22:54 Exam(s): CTA ABDOMEN + PELVIS With Contrast IV Amt: 115 ml opti 320 EXAM: CT Angiography Abdomen and Pelvis With Intravenous Contrast CLINICAL HISTORY: Reason for exam: ? rupture AAA, severe abd pain, hypotension. TECHNIQUE: Axial computed tomographic angiography images of the abdomen and pelvis with intravenous contrast. CTDI is 28.14 mGy and DLP is 2628.6 mGy-cm. Automated exposure control was utilized for the study. A dose lowering technique was utilized adhering to the principles of ALARA. MIP reconstructed images were created and reviewed. CONTRAST: Patient received 115 ml opti 320 of IV contrast COMPARISON: None. FINDINGS: VASCULATURE: Aorta: There is a [id number] thrombus within the distal aspect of the aorta with no aneurysmal dilatation, aorta measuring approximately 2.4 cm at this level. Diffuse atherosclerotic disease throughout the aorta with no aneurysm. No dissection. 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 Short segment severe stenosis involving the proximal superior mesenteric artery. Renal arteries: Ostial plaque at the origin of the right renal artery with mild to moderate stenosis. Normal left renal artery. Iliac arteries: Mild calcified atherosclerotic disease of the bilateral common iliac arteries with no focal stenosis or occlusion of the. Normal bilateral external iliac arteries with no focal stenosis or occlusion. Other arteries: Minimal plaque at the bilateral common femoral artery with no stenosis or occlusion. Normal bilateral proximal superficial femoral arteries. Lung bases: Mild bilateral lower lobe atelectasis. Heart: No significant pericardial effusion. Normal cardiac size with coronary artery calcifications. ABDOMEN: Liver: Unremarkable. No mass. Gallbladder and bile ducts: Unremarkable. No calcified stones. No ductal dilation. Pancreas: Unremarkable. No ductal dilation. No mass. Spleen: Unremarkable. No splenomegaly. Adrenals: Unremarkable. No mass. Kidneys and ureters: Multiple low-attenuation structures within the right kidney compatible with simple cyst, largest measuring 6.5 cm. Otherwise normal right kidney. Normal left kidney. Stomach and bowel: Nonspecific distention of the stomach with air- fluid level. Moderate to abundant fecal debris within the colon. Diverticulosis throughout the colon with no signs of diverticulitis. PELVIS: Appendix: Distinct appendix not seen with no inflammation by the cecum to suggest acute appendicitis. Bladder: Urinary bladder is decompressed, otherwise unremarkable. Reproductive: Mild to moderate prostate enlargement. ABDOMEN and PELVIS: Intraperitoneal space: Unremarkable. No significant fluid collection. No free air. Bones/joints: Diffuse osteopenia with multilevel degenerative disease of the spine. Scoliosis of the thoracolumbar spine. No acute fracture. No dislocation. Soft tissues: Bilateral fat-containing inguinal hernias. Lymph nodes: Unremarkable. No enlarged lymph nodes. IMPRESSION: 1. 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 2. Moderate to abundant fecal debris within the colon with diverticulosis, no signs of diverticulitis. No focal inflammatory process or signs of bowel obstruction. 3. Right-sided simple renal cysts with no further follow-up imaging recommended. Remainder of abdominal viscera unremarkable. Electronically signed by: Shereen Killian MD 10/08/23 23:59 PM Chest CTA 10/08/23 22:54 Exam(s): CTA CHEST W/WO Contrast IV Amt: 115 ml opti 320 EXAM: CT Angiography Chest With Intravenous Contrast CLINICAL HISTORY: Reason for exam: ? rupture AAA, severe abd pain, hypotension. TECHNIQUE: Axial computed tomographic angiography images of the chest with intravenous contrast. CTDI is 28.14 mGy and DLP is 2628.6 mGy-cm. Automated exposure control was utilized for the study. A dose lowering technique was utilized adhering to the principles of ALARA. MIP reconstructed images were created and reviewed. CONTRAST: Patient received 115 ml opti 320 of IV contrast COMPARISON: 06/12/2022. FINDINGS: Pulmonary arteries: Suboptimally opacified pulmonary arteries for evaluation of emboli with otherwise normal visualized enhancement. Aorta: Mild atherosclerotic disease of aorta with no aneurysm or dissection. Lungs: Bilateral lower lobe atelectasis. No mass. Pleural space: Unremarkable. No significant effusion. No pneumothorax. Heart: Unremarkable. No cardiomegaly. No significant pericardial effusion. No evidence of RV dysfunction. Normal cardiac size with coronary artery calcifications. Bones/joints: There is a compression fracture of T7 with increased sclerosis posteriorly, cannot exclude a lesion, unchanged in the interval. There is a left-sided shoulder prosthesis in place. No dislocation. Soft tissues: Unremarkable. Lymph nodes: Unremarkable. No enlarged lymph nodes. Intraperitoneal space: Upper abdomen is described in detail in the accompanying CT of the abdomen and pelvis report. Other findings: Multilevel disc degenerative disease of the thoracic spine. IMPRESSION: 1. No evidence of aortic dissection or aneurysm. 2. Mild bilateral lower lobe atelectasis otherwise no acute cardiopulmonary disease. 3. Abdomen please see accompanying CT of the abdomen and pelvis report. Electronically signed by: Shereen Killian MD 10/08/23 23:53 PM MDM Narrative Prior records/ancillary studies reviewed and summarized above. Nursing notes reviewed. Additional history obtained from family The patient's history was concerning for severe back and abdominal pain he was hypotensive. Differential diagnosis: Etiologies such as dissection, volvulus, intra-abdominal, intrathoracic, rupture, metabolic, infection, hypo/hyperglycemia, electrolyte abnormalities, cardiac sources, intracerebral event, toxicologic, neurologic, as well as others were entertained. Physical examination: As above. ER treatment provided: IV Lock An order was placed for continuous cardiac monitoring. The monitor shows a rate of 60-100 with a sinus rhythm per my interpretation. IV fluids, Levophed, fentanyl, Tylenol Bear hugger, Zosyn was ordered for hypothermia On reassessment the patient felt better. Diagnostics interpretation by me: ECG: Ordered for hypotension EKG: Normal sinus, left axis, poor baseline, rate of 78. Impression normal sinus rhythm with a left axis poor baseline independently interpreted by myself The labs Independently Interpreted by myself revealed hyponatremia, mild anemia Blood cultures pending, negative procalcitonin Negative troponin Negative urine Imaging studies: Chest x-ray with no acute consolidation, pneumothorax or free air per my independent or potation CTAs of the chest abdomen pelvis reviewed myself and read by radiology as above Consultation: A consultation was placed with the hospitalist. The case was discussed and diagnostics were reviewed. The patient was evaluated in the ER for further treatment. Consultation was placed with vascular, Dr. White and states there is nothing to do with the mural thrombus present on imaging Consultation was placed with surgery, Dr. Adams and does not believe there is a bowel obstruction on imaging. Exam and history seem consistent with severe back abdominal pain with unclear etiology who is hypotensive and hypothermic. Patient was started on antibiotics and hydrated as above. Patient's blood pressure improved with fluids and Levophed. He is a full code. Medicine, vascular and surgery were consulted. Patient will be admitted to the medical service for further evaluation and workup. He was reassessed multiple times. Immediately 2 lines were placed i- STAT was ordered and he was sent down emergently to CAT scan for rule out rupture. Patient was medicated as above. Patient and family agreeable treatment plan. By the evaluation outlined above emergent etiologies such as cardiac sources, intracerebral event, toxologic, neurologic, abnormalities blood glucose, metabolic, as well as others were deemed relatively unlikely. The pt informed about the findings as listed above. All questions were answered and pleased with the treatment. The chart was completed utilizing [employer] Speech voice recognition software. Grammatical errors, random word insertions, pronoun errors, and incomplete sentences are an occassional consequence of this system due to software limitations, ambient noise, and hardware issues. Any formal questions or concerns about the content, text, or information contained within the body of this dictation should be directly addressed to the physician historian research assistant for clarification. Insert my drug Impression & Plan Acute hypotension, Back pain, Acute hyponatremia, Hypothermia Discharge Plan Visit Data Chief Complaint: Hypotension Stated Complaint: ALTERED MENTAL STATUS, CHANGED MEDS TODAY ED Provider: Marina Sanchez ED Midlevel Provider: Angeline Owens Discharge Problem: Acute hypotension, Back pain, Acute hyponatremia, Hypothermia Patient Disposition: Admitted As Inpatient Condition: Fair Forms Stand Alone Forms: My [facility] [employer] Prescriptions Prescriptions: No Action lidocaine 5 % adhesive patch,medicated 1 patch TOP DAILY PRN (Reason: Pain) trazodone 100 mg tablet 200 mg PO HS albuterol sulfate 90 mcg/actuation aerosol powdr breath activated 2 inh inhalation QID PRN (Reason: Shortness Of Breath/COUGH/WHEEZING) diclofenac sodium [Arthritis Pain (diclofenac)] 1 % gel 2 g topical QID Rx Instructions: APPLY 2 GRAMS TO BILATERAL SHOULDERS QID, TOTAL NOT TO EXCEED 8 GRAMS/24 HOURS, APPLY 4 GRAMS TO LOWER EXTERMITY, TOTAL NOT TO EXCEED 16 GRAMS/24 HOURS finasteride 5 mg tablet 5 mg PO DAILY lisinopril 10 mg tablet 10 mg PO DAILY meloxicam 15 mg tablet 15 mg PO BID roflumilast 500 mcg tablet 500 mcg PO DAILY ropinirole 0.25 mg tablet 0.25 mg PO TID magnesium 250 mg Tablet 250 mg PO QAM metoprolol tartrate 25 mg Tablet See Rx Instructions .ROUTE .COMPLEX Rx Instructions: TAKES 12.5 MG QAM, THEN 25 MG QPM. venlafaxine 150 mg Capsule,Extended Release 24hr 150 mg PO QAM tiotropium bromide 2.5 mcg/actuation mist 2 inh INHALATION DAILY fluticasone propion-salmeterol [Wixela Inhub] 250-50 mcg/dose Blister With Device 1 inh INHALATION BID levetiracetam [Keppra] 500 mg Tablet See Rx Instructions .ROUTE .COMPLEX Rx Instructions: TAKES 750 MG QAM, THEN 1,000 MG QPM. docusate sodium 50 mg Capsule 50 mg PO DAILY PRN (Reason: Constipation) simvastatin 80 mg Tablet 40 mg PO HS levothyroxine 100 mcg Tablet 100 mcg PO DAILYBB prazosin 5 mg Capsule 10 mg PO HS cholecalciferol (vitamin D3) [Vitamin D3] 10 mcg (400 unit) Capsule 10 mcg PO DAILY budesonide 180 mcg/actuation Aerosol Powdr Breath Activated 1 inh INHALATION BID potassium citrate 99 mg Capsule 99 mg PO DAILY gabapentin 300 mg capsule 900 mg PO DAILY Referrals Referrals: PCP,NO [Primary Care Provider] -
--- NOTE | 2023-10-09 01:16 | Emergency Department Note ---
ED Visit Note The patient was seen and examined with my MOISES, Angeline Owens PA-C. I personally saw the patient and we provided critical care to the patient for a total of [] minutes. These minutes are separate from any billable procedures. I provided a substantive portion of the care and the majority of the critical care time. I evaluated the patient at bedside, patient have a significantly tender abdomen. He is also hypotensive into the 60s systolic initially. He complains of new/worsening back pain. History of thoracic aortic aneurysm in the past. With patient's persistent and extreme pain, will proceed to CTA directly. I will accompany the patient directly to the CAT scanner and observe the images. No dissection was noted however there was significant bowel distention. Started Levophed at this time. Official radiology read does not reveal dissection, no obstruction. Had AP view discussed case with surgery as patient does have air-fluid levels in the abdomen. He is on surgical read, no definite obstruction or surgical process. Will still require admission for hypotension, back pain. .
[2023-10-09 01:24] LABS: Magnesium 1.7 mg/dl (1.7-2.4)
[2023-10-09 01:42] LABS: Appearance Urine Clear (Clear); Bilirubin Urine Negative (Negative); Blood Urine 1+ (Negative); Color Urine Yellow; Glucose Urine UA Negative (Negative); Ketones Urine Trace (Negative); Leukocyte Esterase Urine Negative (Negative); Nitrite Urine Negative (Negative); Protein Urine 1+ (Negative); Urobilinogen Urine Negative (Negative); pH Urine 6.5 (4.5-7.5)
[2023-10-09 01:43] LABS: Thyroid Stimulating Hormone 17.286 uIu/ml (0.300-4.500)
[2023-10-09 01:48] LABS: Bacteria Urine Negative (Negative); Epithelial Cell Urine 0-5 /lpf (0-5); WBC Urine 0-5 /hpf (0-5)
[2023-10-09 01:49] LABS: Mucus Urine Present (None Prsent)
[2023-10-09] MEDS ORDERED: PIPERACILLIN/TAZOBACTAM 4.5 GM/100 ML BAG IV STA (01:54)
[2023-10-09] MEDS ORDERED: HYDROCORTISONE SOD 100 MG in SYRINGE 0 ML IV SCH (02:00)
--- NOTE | 2023-10-09 02:03 | History & Physical Report ---
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 No obvious source of infection, but main symptom patient had was that of polyuria worsening over the past weeks to months Patient will be admitted to the ICU for continued IV fluid rehydration, pressor support and IV antibiotics. Follow urine culture sensitivity and blood culture and sensitivity Empiric Zosyn 4.5 g IV every 8 hours Pantoprazole 40 mg IV daily Zofran 4 mg IV every 6 hours as needed Acetaminophen 1 g IV every 8 hours as needed for mild pain or fever Consult to claim review medical director team/Dr. Villareal CTA chest was negative CTA abdomen pelvis showed a aortic posterior mural thrombus, that her vascular surgery did not require intervention Acute kidney injury/hyponatremia- Creatinine 1.31 and sodium 129 Follow serial CBC with differential, chemistry profile and magnesium levels Myoclonus/idiopathic polyneuropathy/positive AUSTIN/depression- Patient has been seen by neurology and rheumatology in the outpatient setting Continue gabapentin, Keppra, trazodone and venlafaxine COPD- Duonebs every 4 hours while awake and every 2 hours when necessary. Patient has been on a prednisone taper in the outpatient setting Hydrocortisone 100 mg IV every 8 hours Remaining orders per ICU History of Present Illness Chief Complaint: The patient was brought to the emergency department due to confusion, severe back abdominal pain, low blood pressure, after having been seen at the [facility] in [place], and had refilled some old medications that he had been without for a while. The HPI and ROS are somewhat difficult to obtain from the patient, and his family tries to fill in the gaps, but they are somewhat confused as well Primary Care Provider: NO PCP The patient is a an 83-year-old male with a past medical history including idiopathic polyneuropathy, AUSTIN positive, lumbar DDD and spinal stenosis, orthostatic hypotension, CAD, tobacco dependence, hyperlipidemia, hypertension, depression, COPD, T7 thoracic compression fracture and hypothyroidism. When the patient first arrived to the emergency department, his blood pressure was 60/40. He received 1 L normal saline, and was placed on Levophed infusion for pressure support while workup is being done. Trying to get the history from the patient and the family was a bit challenging. The main symptom that the patient appeared to be having was frequent urination, as attested to by the patient and family. He did have the addition of some medications that he been without for a while, including prazosin, and metoprolol tartrate, which he did take today prior to having symptoms of confusion and disorientation. The patient receives most of his primary care through the [facility], but has been seen by neurology on 07/26/2023, when an EMG revealed idiopathic polyneuropathy. He was also seen by rheumatology on 08/04/2023 for a positive AUSTIN, which he reportedly was sent to both offices due to an unexplained jerking sensation he had. Rheumatology could not relate any connective tissue disease with his symptoms. The patient was also seen by orthopedic spine surgery on 05/07/2023 to assess a T7 fracture, and was started on gabapentin at that time and referred to physical therapy. The patient presented to the emergency department today due to the development of confusion, and was found to be hypotensive, underwent workup and started on pressors, and referred to hospital medicine to be admitted to the ICU Allergies Allergy/AdvReac Type Severity Reaction Status Date / Time diclofenac [From Voltaren] Allergy [facility] Verified 10/08/23 23:12 LIST Home Medications Medication Instructions Recorded Confirmed Type magnesium 250 mg tablet 250 mg PO QAM 01/30/20 10/08/23 History lidocaine 5 % topical patch 1 patch topical DAILY PRN Pain 03/12/20 10/08/23 History trazodone 100 mg tablet 200 mg PO HS 12/11/20 10/08/23 History albuterol sulfate 90 mcg/actuation 2 inh inhalation QID PRN Shortness 03/27/21 10/08/23 History breath activated powder inhaler Of Breath/COUGH/WHEEZING metoprolol tartrate 25 mg tablet See Rx Instructions .Route .COMPLEX 06/14/22 10/08/23 History venlafaxine 150 mg 150 mg PO QAM 06/14/22 10/08/23 History capsule,extended release 24 hr tiotropium bromide 2.5 2 inh inhalation DAILY 03/19/23 10/08/23 History mcg/actuation mist for inhalation diclofenac sodium 1 % topical gel 2 g topical QID 08/04/23 10/08/23 History (Arthritis Pain (diclofenac)) finasteride 5 mg tablet 5 mg PO DAILY 08/04/23 10/08/23 History lisinopril 10 mg tablet 10 mg PO DAILY 08/04/23 10/08/23 History meloxicam 15 mg tablet 15 mg PO BID 08/04/23 10/08/23 History roflumilast 500 mcg tablet 500 mcg PO DAILY 08/04/23 10/08/23 History ropinirole 0.25 mg tablet 0.25 mg PO TID 08/04/23 10/08/23 History budesonide 180 mcg/actuation 1 inh inhalation BID 10/08/23 10/08/23 History breath activated powder inhaler cholecalciferol (vitamin D3) 10 10 mcg PO DAILY 10/08/23 10/08/23 History mcg (400 unit) capsule (Vitamin D3) docusate sodium 50 mg capsule 50 mg PO DAILY PRN Constipation 10/08/23 10/08/23 History fluticasone 250 mcg-salmeterol 50 1 inh inhalation BID 10/08/23 10/08/23 History mcg/dose blistr powdr for inhalation (Wixela Inhub) gabapentin 300 mg capsule 900 mg PO DAILY 10/08/23 10/08/23 History levetiracetam 500 mg tablet See Rx Instructions .Route .COMPLEX 10/08/23 10/08/23 History (Keppra) levothyroxine 100 mcg tablet 100 mcg PO DAILYBB 10/08/23 10/08/23 History potassium citrate 99 mg capsule 99 mg PO DAILY 10/08/23 10/08/23 History prazosin 5 mg capsule 10 mg PO HS 10/08/23 10/08/23 History simvastatin 80 mg tablet 40 mg PO HS 10/08/23 10/08/23 History Past Med/Surg History Medical History Obesity Osteoporosis Osteoarthritis DDD (degenerative disc disease) Hearing deficit Aneurysm Per remote [facility] records, hx of questionable thoracic aortic aneurysm [facility], no recent issues/not noted on 2019 echo Sleep apnea No device COPD (chronic obstructive pulmonary disease) Stable Spinal stenosis, lumbar region with neurogenic claudication Lumbar spondylosis Spinal stenosis of thoracolumbar region Hypothyroidism Hyperlipidemia Hypertension Surgical History History of elbow surgery Right History of cataract surgery R/L Family History Other No family history of adverse response to anesthesia Social History Smoking Status: Former smoker Tobacco Type: Pipe and Cigars Second Hand Exposure: No; Do You Dip or Chew Tobacco: No; Hx Alcohol Use: No Hx Substance Use: No Preferred Language: Finnish Communication Ability: Effective Visual Impairment: No Limitations Hearing Ability: Hard of Hearing Patient Manager Required: No Beliefs That Will Affect Care: None marital status: Current Living Situation: Spouse current occupational status: retired Feels Safe at Home: Yes Safety Concerns: Feels Safe At This Time Assistive Devices: Denture - Upper, Denture - Lower and Glasses Review of Systems Review of Systems: Review of systems is somewhat limited due to patient's mental status and family's ability to relate his history Physical Exam Physical Exam: The patient is awake, confused, well developed and well nourished, normocephalic and atraumatic, lying in bed and in no acute distress. HEENT--PERRL, EOMI, mucous membranes and oropharynx dry. Neck--supple. No JVD. No bruits. Thyroid normal, trachea midline, no adenopathy. Heart--normal S1 and S2. No murmurs, rubs or gallops. Lungs--overall diminished, with wheezes bilaterally. No respiratory distress, no accessory muscle use. Abdomen--normal bowel sounds and soft. Nontender. Nondistended. Obese. Extremities-- No edema. There are good distal pulses b/l. Dermatologic--normal skin turgor, normal color, no abnormal lymph nodes, no rash. Neurologic--cranial nerves II through XII grossly intact. Rheumatologic--normal range of motion. Psychiatric--mildly confused, not agitated Results & Data Results & Data Vital Signs (Past 12 Hours) Vital Signs Pulse Pulse Pulse Resp BP BP Pulse Ox 10/09/23 01:45 103 H 19 88/52 L 93 10/09/23 01:39 102 H 110/82 10/09/23 01:34 101 H 22 103/65 93 10/09/23 01:18 99 H 20 87/47 L 94 10/09/23 01:00 96 H 19 95/69 L 90 10/09/23 00:45 97 H 22 105/58 L 92 10/09/23 00:30 97 H 88/49 L 93 10/09/23 00:21 94 H 20 88/53 L 93 10/09/23 00:13 95 H 24 71/50 L 97 10/09/23 00:10 96 H 17 67/51 L 95 10/09/23 00:07 94 H 15 116/36 L 96 10/09/23 00:01 91 H 16 77/47 L 94 10/08/23 23:45 97 H 22 96/47 L 93 10/08/23 23:36 93 H 18 63/46 L 90 10/08/23 23:30 81 23 78/50 L 93 10/08/23 23:24 84 19 73/44 L 94 10/08/23 23:14 84 20 96 10/08/23 23:12 92 H 20 86/43 L 10/08/23 23:10 83 20 68/40 L 96 10/08/23 22:53 82 10/08/23 22:45 82 16 61/49 L 96 10/08/23 22:45 O2 Del Method 10/09/23 01:45 Room Air 10/09/23 01:39 10/09/23 01:34 Room Air 10/09/23 01:18 Room Air 10/09/23 01:00 Room Air 10/09/23 00:45 Room Air 10/09/23 00:30 Room Air 10/09/23 00:21 Room Air 10/09/23 00:13 Room Air 10/09/23 00:10 Room Air 10/09/23 00:07 Room Air 10/09/23 00:01 Room Air 10/08/23 23:45 Room Air 10/08/23 23:36 Room Air 10/08/23 23:30 Room Air 10/08/23 23:24 Room Air 10/08/23 23:14 Room Air 10/08/23 23:12 10/08/23 23:10 Room Air 10/08/23 22:53 10/08/23 22:45 Room Air 10/08/23 22:45 Room Air Laboratory Results Laboratory Results WBC 5.96 K/ul (4.8-10.8) 10/09/23 05:25 RBC 3.06 M/uL (4.70-6.10) L 10/09/23 05:25 Hgb 9.2 g/dl (14.0-18.0) L 10/09/23 05:25 POC Hgb 10.9 g/dl (14.0-18.0) L 10/08/23 22:55 Hct 28.6 % (42.0-52.0) L 10/09/23 05:25 POC Hct 32 % (42-52) L 10/08/23 22:55 MCV 93.5 fL (80.0-100.0) 10/09/23 05:25 MCH 30.1 pg (25.0-34.0) 10/09/23 05:25 MCHC 32.2 g/dL (32.0-36.0) 10/09/23 05:25 RDW Std Deviation 47.2 fL (36.4-46.3) H 10/09/23 05:25 RDW Coeff of Bisi 13.9 % (11.5-14.5) 10/09/23 05:25 Plt Count 142 K/uL (130-400) 10/09/23 05:25 MPV 9.0 fL (9.4-12.4) L 10/09/23 05:25 Immature Gran % (Auto) 0.1 % 10/08/23 22:51 Neut % (Auto) 69.0 % 10/08/23 22:51 Lymph % (Auto) 21.1 % 10/08/23 22:51 Ritchie % (Auto) 8.4 % 10/08/23 22:51 Eos % (Auto) 1.3 % 10/08/23 22:51 Baso % (Auto) 0.1 % 10/08/23 22:51 Neut # (Auto) 4.67 K/uL (1.40-6.50) 10/08/23 22:51 Lymph # (Auto) 1.43 K/uL (1.20-3.40) 10/08/23 22:51 Ritchie # (Auto) 0.57 K/uL (0.11-0.59) 10/08/23 22:51 Eos # (Auto) 0.09 K/uL (0.00-0.50) 10/08/23 22:51 Baso # (Auto) 0.01 K/uL (0.00-0.20) 10/08/23 22:51 Immature Gran # (Auto) 0.01 K/uL (0.01-0.20) 10/08/23 22:51 PT 11.3 Seconds (9.0-12.0) 10/08/23 22:51 INR 1.0 (0.9-1.1) 10/08/23 22:51 APTT 29 Seconds (21-31) 10/08/23 22:51 PTT Ratio 1.0 10/08/23 22:51 POC Sodium 127 mmol/L (135-144) L 10/08/23 22:55 Sodium 129 mmol/L (136-145) L 10/08/23 22:51 POC Potassium 4.3 mmol/L (3.3-5.0) 10/08/23 22:55 Potassium 4.3 mmol/L (3.5-5.1) 10/08/23 22:51 POC Chloride 92 mmol/L (101-112) L 10/08/23 22:55 Chloride 95 mmol/L (98-107) L 10/08/23 22:51 Carbon Dioxide 27 mmol/L (21-32) 10/08/23 22:51 POC Total CO2 26 mmol/L (24-31) 10/08/23 22:55 Anion Gap 7 (3-11) 10/08/23 22:51 POC Anion Gap 14.0 mmol/L (16-25) L 10/08/23 22:55 POC BUN 15 mg/dl (7-18) 10/08/23 22:55 BUN 16 mg/dl (6-23) 10/08/23 22:51 Creatinine 1.31 mg/dl (0.6-1.4) 10/08/23 22:51 POC Creatinine 1.4 mg/dl (0.6-1.3) H 10/08/23 22:55 Est Cr Clr Drug Dosing 45.3 ml/min 10/08/23 22:51 Est GFR ( Amer) 57.5 ml/min 10/08/23 22:51 Est GFR (Non-Af Amer) 49.6 ml/min 10/08/23 22:51 BUN/Creatinine Ratio 12.2 (10-20) 10/08/23 22:51 Glucose 127 mg/dl (70-99(Fasting)) H 10/08/23 22:51 POC Glucose (other) 127 mg/dl (70-99) H 10/08/23 22:55 Lactate 1.5 mmol/L (0.4-2.0) 10/09/23 01:57 Calcium 8.8 mg/dl (8.6-10.3) 10/08/23 22:51 POC Ioniz Calcium Miguel 1.17 mmol/l (1.12-1.32) 10/08/23 22:55 Magnesium 1.7 mg/dl (1.7-2.4) 10/08/23 22:51 Total Bilirubin 0.5 mg/dl (0.2-1.0) 10/08/23 22:51 AST 19 U/L (13-39) 10/08/23 22:51 ALT 15 U/L (7-52) 10/08/23 22:51 Alkaline Phosphatase 49 U/L (34-104) 10/08/23 22:51 Troponin I High Sens 11.5 pg/ml (0-20) 10/08/23 22:51 Total Protein 5.2 gm/dl (6.0-8.3) L 10/08/23 22:51 Albumin 3.3 gm/dl (3.4-5.0) L 10/08/23 22:51 Globulin 1.9 gm/dl (2.5-4.0) L 10/08/23 22:51 Albumin/Globulin Ratio 1.7 (0.9-2) 10/08/23 22:51 Lipase 44 U/L (11-82) 10/08/23 22:51 Procalcitonin < 0.05 ng/ml (0-0.5) 10/08/23 01:19 TSH 17.286 uIu/ml (0.300-4.500) H 10/08/23 22:51 Free T4 1.23 ng/dl (0.61-1.60) 10/08/23 22:51 Urine Color Yellow 10/09/23 01:32 Urine Appearance Clear (Clear) 10/09/23 01:32 Urine pH 6.5 (4.5-7.5) 10/09/23 01:32 Ur Specific [place] 1.010 (1.000-1.030) 10/09/23 01:32 Urine Protein 1+ (Negative) H 10/09/23 01:32 Urine Glucose (UA) Negative (Negative) 10/09/23 01:32 Urine Ketones Trace (Negative) H 10/09/23 01:32 Urine Blood 1+ (Negative) H 10/09/23 01:32 Urine Nitrite Negative (Negative) 10/09/23 01:32 Urine Bilirubin Negative (Negative) 10/09/23 01:32 Urine Urobilinogen Negative (Negative) 10/09/23 01:32 Ur Leukocyte Esterase Negative (Negative) 10/09/23 01:32 Urine RBC 5-10 /hpf (0-4) H 10/09/23 01:32 Urine WBC 0-5 /hpf (0-5) 10/09/23 01:32 Ur Epithelial Cells 0-5 /lpf (0-5) 10/09/23 01:32 Urine Bacteria Negative (Negative) 10/09/23 01:32 Urine Mucus Present (None Prsent) A 10/09/23 01:32 Nasal Screen MRSA (PCR) Negative (Negative) 10/09/23 04:15 Blood Type Cancelled 10/08/23 22:53 Blood Type O Negative 10/08/23 22:53 Antibody Screen Cancelled 10/08/23 22:53 Antibody Screen NEGATIVE 10/08/23 22:53 Impressions Abdomen/Pelvis CTA 10/08/23 22:54 Exam(s): CTA ABDOMEN + PELVIS With Contrast IV Amt: 115 ml opti 320 EXAM: CT Angiography Abdomen and Pelvis With Intravenous Contrast CLINICAL HISTORY: Reason for exam: ? rupture AAA, severe abd pain, hypotension. TECHNIQUE: Axial computed tomographic angiography images of the abdomen and pelvis with intravenous contrast. CTDI is 28.14 mGy and DLP is 2628.6 mGy-cm. Automated exposure control was utilized for the study. A dose lowering technique was utilized adhering to the principles of ALARA. MIP reconstructed images were created and reviewed. CONTRAST: Patient received 115 ml opti 320 of IV contrast COMPARISON: None. FINDINGS: VASCULATURE: Aorta: There is a [id number] thrombus within the distal aspect of the aorta with no aneurysmal dilatation, aorta measuring approximately 2.4 cm at this level. Diffuse atherosclerotic disease throughout the aorta with no aneurysm. No dissection. 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 Short segment severe stenosis involving the proximal superior mesenteric artery. Renal arteries: Ostial plaque at the origin of the right renal artery with mild to moderate stenosis. Normal left renal artery. Iliac arteries: Mild calcified atherosclerotic disease of the bilateral common iliac arteries with no focal stenosis or occlusion of the. Normal bilateral external iliac arteries with no focal stenosis or occlusion. Other arteries: Minimal plaque at the bilateral common femoral artery with no stenosis or occlusion. Normal bilateral proximal superficial femoral arteries. Lung bases: Mild bilateral lower lobe atelectasis. Heart: No significant pericardial effusion. Normal cardiac size with coronary artery calcifications. ABDOMEN: Liver: Unremarkable. No mass. Gallbladder and bile ducts: Unremarkable. No calcified stones. No ductal dilation. Pancreas: Unremarkable. No ductal dilation. No mass. Spleen: Unremarkable. No splenomegaly. Adrenals: Unremarkable. No mass. Kidneys and ureters: Multiple low-attenuation structures within the right kidney compatible with simple cyst, largest measuring 6.5 cm. Otherwise normal right kidney. Normal left kidney. Stomach and bowel: Nonspecific distention of the stomach with air- fluid level. Moderate to abundant fecal debris within the colon. Diverticulosis throughout the colon with no signs of diverticulitis. PELVIS: Appendix: Distinct appendix not seen with no inflammation by the cecum to suggest acute appendicitis. Bladder: Urinary bladder is decompressed, otherwise unremarkable. Reproductive: Mild to moderate prostate enlargement. ABDOMEN and PELVIS: Intraperitoneal space: Unremarkable. No significant fluid collection. No free air. Bones/joints: Diffuse osteopenia with multilevel degenerative disease of the spine. Scoliosis of the thoracolumbar spine. No acute fracture. No dislocation. Soft tissues: Bilateral fat-containing inguinal hernias. Lymph nodes: Unremarkable. No enlarged lymph nodes. IMPRESSION: 1. 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 2. Moderate to abundant fecal debris within the colon with diverticulosis, no signs of diverticulitis. No focal inflammatory process or signs of bowel obstruction. 3. Right-sided simple renal cysts with no further follow-up imaging recommended. Remainder of abdominal viscera unremarkable. Electronically signed by: Shereen Killian MD 10/08/23 23:59 PM Chest CTA 10/08/23 22:54 Exam(s): CTA CHEST W/WO Contrast IV Amt: 115 ml opti 320 EXAM: CT Angiography Chest With Intravenous Contrast CLINICAL HISTORY: Reason for exam: ? rupture AAA, severe abd pain, hypotension. TECHNIQUE: Axial computed tomographic angiography images of the chest with intravenous contrast. CTDI is 28.14 mGy and DLP is 2628.6 mGy-cm. Automated exposure control was utilized for the study. A dose lowering technique was utilized adhering to the principles of ALARA. MIP reconstructed images were created and reviewed. CONTRAST: Patient received 115 ml opti 320 of IV contrast COMPARISON: 06/12/2022. FINDINGS: Pulmonary arteries: Suboptimally opacified pulmonary arteries for evaluation of emboli with otherwise normal visualized enhancement. Aorta: Mild atherosclerotic disease of aorta with no aneurysm or dissection. Lungs: Bilateral lower lobe atelectasis. No mass. Pleural space: Unremarkable. No significant effusion. No pneumothorax. Heart: Unremarkable. No cardiomegaly. No significant pericardial effusion. No evidence of RV dysfunction. Normal cardiac size with coronary artery calcifications. Bones/joints: There is a compression fracture of T7 with increased sclerosis posteriorly, cannot exclude a lesion, unchanged in the interval. There is a left-sided shoulder prosthesis in place. No dislocation. Soft tissues: Unremarkable. Lymph nodes: Unremarkable. No enlarged lymph nodes. Intraperitoneal space: Upper abdomen is described in detail in the accompanying CT of the abdomen and pelvis report. Other findings: Multilevel disc degenerative disease of the thoracic spine. IMPRESSION: 1. No evidence of aortic dissection or aneurysm. 2. Mild bilateral lower lobe atelectasis otherwise no acute cardiopulmonary disease. 3. Abdomen please see accompanying CT of the abdomen and pelvis report. Electronically signed by: Shereen Killian MD 10/08/23 23:53 PM Code Status & VTE Plan Code Status Conditional code: No chest compressions or shocks. Would except artificial ventilation and intubation VTE Prophylaxis Plan VTE Prophylaxis will be ordered: Yes Critical Care Time 45 minutes PG Care Time/CCT Total # of Minutes Spent Total Time Spent with Patient: Total time spent is greater than 50% in coordination of care (as documented) at patient's floor/unit and/or counseling patient: Coding Level of Care Code 58647 INT INP/OBS CARE 75MIN Diagnoses Admitted to intensive care unit Z78.9 Hypothermia T68.XXXA Acute hypotension I95.9 Urinary retention due to benign prostatic hyperplasia N40.1; R33.8 BPH w urinary obs/LUTS N40.1; N13.8 Acute hyponatremia E87.1 Idiopathic polyneuropathy G60.9 CAD (coronary artery disease) I25.10 Thoracic compression fracture S22.000A GLADYS (acute kidney injury) N17.9 Tobacco dependence F17.200 Depression F32.9 Myoclonus G25.3 COPD (chronic obstructive pulmonary disease) J44.9
[2023-10-09] MEDS ORDERED: ALBUT/IPRATROP 3MG/0.5MG NEB 3 ML VIAL NEB PRN (02:10)
[2023-10-09 02:18] LABS: T4 Free Thyroxine 1.23 ng/dl (0.61-1.60)
[2023-10-09] MEDS: ALBUMIN 25% 25 GM/100 ML VIAL IV SCH ×2 (02:41→04:11)
[2023-10-09] MEDS: ALBUT/IPRATROP 3MG/0.5MG NEB 3 ML VIAL NEB SCH ×5 (02:48→20:07)
[2023-10-09] MEDS ORDERED: DOCUSATE SODIUM 100 MG CAP PO PRN (04:29)
[2023-10-09 05:45] LABS: Hematocrit (blood only) 28.6 % (42.0-52.0); Hemoglobin 9.2 g/dl (14.0-18.0); Mean Corpuscular Hemoglobin 30.1 pg (25.0-34.0); Mean Corpuscular Hgb Conc 32.2 g/dL (32.0-36.0); Mean Corpuscular Volume 93.5 fL (80.0-100.0); Platelet Count 142 K/uL (130-400); RDW Coefficient of Variation 13.9 % (11.5-14.5); RDW Standard Deviation 47.2 fL (36.4-46.3); Red Blood Count 3.06 M/uL (4.70-6.10); White Blood Count 5.96 K/ul (4.8-10.8)
[2023-10-09] MEDS ORDERED: SOD PHOSPHATE/SOD BIPHOSPHATE ENEMA 132 ML BTL PR PRN (06:02)
--- NOTE | 2023-10-09 06:02 | Billing Data ---
Date of Service October 09, 2023 Coding Level of Care Code 90850 CRITICAL CARE
[2023-10-09 06:09] LABS: Albumin Globulin Ratio 2.3 (0.9-2); Albumin Level 3.7 gm/dl (3.4-5.0); BUN Creatinine Ratio 12.6 (10-20); Bilirubin,Total 0.6 mg/dl (0.2-1.0); Calcium 7.8 mg/dl (8.6-10.3); Creatinine Clr Calc Pharmacy 54.3 ml/min; Est GFR (African American) 70.3 ml/min; Est GFR (Non-African American) 60.7 ml/min; Globulin 1.6 gm/dl (2.5-4.0); Potassium 4.7 mmol/L (3.5-5.1); Total Protein 5.3 gm/dl (6.0-8.3)
[2023-10-09] MEDS: LEVOTHYROXINE SODIUM 100 MCG TABLET PO SCH (06:10)
[2023-10-09 06:16] LABS: Prothrombin Time 11.4 Seconds (9.0-12.0)
--- NOTE | 2023-10-09 06:18 | Critical Care Consultation ---
Date of Consultation October 09, 2023 Assessment & Plan (1) Acute hypotension: Reason Critically Ill: 83-year-old male presents to the ICU with hypotension of unknown etiology and currently review requiring vasopressor support with Levophed drip Neuro - [facility]: Negative Neuropathysecondary to lumbar radiculopathy and T7 compression fracture. Previously underwent L5-S1 medial branch radiofrequency ablations as well as T7- T8 8 interlaminar epidural steroid injections without sustained relief. Has followed up with pain clinic. -Continue with gabapentin, Effexor -Fentanyl as needed for breakthrough pain -Will add lidocaine patch Cardiac - Hypotensionunsure of etiology at this time. On evaluation patient does not appear to be septic -CTA negative for acute PE or aortic dissection -CT abdomen pelvis unremarkable -Unable to obtain random cortisol now as patient has been stress dose with hydrocortisone. Continue steroids for now as he recently did discontinue prednisone taper. Unsure of dose -TTE pending -Troponin negative -Hold antihypertensives -Received 2 L crystalloid bolus in ED. Mildly hyponatremic on lab work. Continue with IV fluid resuscitation for now -Continue Levophed drip to maintain MAP greater than 65. Currently at low- dose but would consider placing central line if requirements increase -Continuous monitoring on telemetry HLDsimvastatin Respiratory - COPDpatient with mild wheeze on exam but no indication for acute exacerbation at this time. Started on DuoNeb. Continue home regimen meds -Continuous monitoring pulse ox GI - ConstipationCT abdomen and pelvis with extensive amount of stool with diverticulosis. Patient reports 3 days without bowel movement. Currently n.p.o. for now -Will add bowel regimen with MiraLAX and Colace -Give Fleet enema RENAL/LYTES - Creatinine within normal limits, monitor routine BMPs and replete electrolytes as indicated - BPHFoley inserted for strict I's and O's. Continue for finasteride ENDO - ICU hyperglycemic protocol HypothyroidismTSH significantly elevated with normal T4. Patient does reported going without his home medications which were recently refilled today. Continue with Synthroid HEME - H&H stable, monitor routine CBC ID - No clear indication for septic etiology at this time although we will continue with empiric Zosyn for now. -Urinalysis unremarkable. Blood cultures currently pending -No leukocytosis, fevers, Pro-Jose normal, lactate normal -Trend fever curve LINES/IV ACCESS - Peripheral IVs. Low threshold for inserting CVC if hemodynamics do not improve and continued use of vasopressor support DVT PROPHYLAXIS - SCDs (2) Idiopathic polyneuropathy: (3) Thoracic compression fracture: (4) Hypothyroidism: (5) COPD (chronic obstructive pulmonary disease): (6) Hyperlipidemia: (7) CAD (coronary artery disease): Supervising Physician Co-Signing Physician Notes I saw and evaluated the patient with DERRELL Vega, and agree with findings and plan as documented in the note. 83-year-old male present to the hospital with generalized lethargy. He was found to be hypotensive in the ED He was given 2 L of crystalloid bolus but still pressure was low this reason he was transferred to the ICU. He just started to take metoprolol as well as BPH Pill after a long break. At the time of examination patient was on 0.07 of Levophed with MAP in the 80s. I was able to go down to 0.03 by the time I left the room with MAP still in the 70s. Patient says that he is feeling much better since coming to the hospital Denies any nausea vomiting No dizziness. He does have involuntary move went of the left shoulder and left leg which seems to be a tic. Denies any abdominal pain. Constitutional: No acute distress HEENT: EOMI, PERRLA Respiratory system: Decreased air entry bilaterally, no wheeze, rhonchi, mild crackles bilateral lower lobes CVS: S1-S2 positive, no murmurs or gallops Abdomen: Soft, nontender, nondistended, positive bowel sounds x4 Extremities: +2 pulses bilaterally radialis/ dorsalis pedis, no cyanosis, no edema Neuro: Awake alert oriented x3 Psych: Normal mood and affect G/U: Positive [place] --Prophylaxis VTE: Heparin GI: None Lines: Peripheral Diet: Cardiac Plan: In/out: +2.3 L, urine output [address] chest patient does have bilateral elevated diaphragm, L>R Clinically patient seems to be getting better. Would recommend to titrate off the vasopressors if possible. Will decrease hydrocortisone to 50 mg Q8. Given the potassium of 5.1, I will give the patient Lokelma. Magnesium being replaced Patient does have normocytic anemia. Hemoglobin is around usually 10-9. I expect the hemoglobin to drop given the IV fluids that he got. Keep a close eye on it. There is no clear source of infection, CT a of the chest does not show any pneumonia. Urine is clean. No abdominal pain. Continue with broad-spectrum antibiotic for 48 hours and if blood culture is negative can discontinue them Case was discussed with primary team I have personally spent 48 minutes of critical care time in the direct management of this patient. This is a life/limb threatening event. This includes time spent evaluating patient, direct bedside care, chart review, placing orders, interpretation of diagnostic studies, discussion with consultants, patient, and family members, as well as other required patient management activities. This time is exclusive of all separately billable procedures, and teaching time and separate from and in addition to any other critical care service time. Please note the above document was generated using voice recognition software. It may contain grammatical, syntax or spelling errors. History of Present Illness Attending Physician: Lucas Vazquez MD History of Present Illness Patient is a 83-year-old male past medical history CAD, COPD, HTN, hy pothyroidism, and T7 compression fracture who presented to the emergency department earlier this evening with complaints of severe back and abdominal pain. Patient was found to be hypotensive in the ED and was given 2 L crystalloid bolus, but remained hypotensive and required vasopressor support. Patient reports that [facility] and had to get them ref[facility] today but did not take any extra medications. On evaluation he is alert and oriented and without acute distress. His major complaint is back pain at this time. He denies recent illness or fevers, headache or dizziness, syncopal episodes, shortness of breath, cough, chest pain or palpitations, nausea vomiting or diarrhea, swelling in hands or feet. He denies any or weakness, or changes in gait. He does report being constipated for about 3 days. His abdominal exam is benign. Patient did undergo CTA chest which was without evidence of aortic dissection or aneurysm. CTA abdomen did show ather osclerotic disease of aorta with posterior mural thrombus but otherwise no aneurysm, or significant stenosis or dissection, moderate to abundant fecal debris within the colon with diverticulosis. Vascular surgery was notified, and no intervention indicated at this time. Lactic acid and procalcitonin were also within normal limits and patient did not exhibit leukocytosis and is afebrile. Due to hypotension he was started empirically on Zosyn and blood cultures were drawn. Urinalysis does not appear concerning for UTI. Patient was recently diagnosed with RSV as well and was given steroid taper with prednisone for which she states he recently completed. He was stress dose with hydrocortisone in the emergency department. CODE STATUS was discussed with the patient and he would not want compressions or socks in the event of cardiac arrest but is okay with intubation if needed. He is now being admitted to ICU for further management at this time. Allergies Allergy/AdvReac Type Severity Reaction Status Date / Time diclofenac [From Voltaren] Allergy Unknown [facility] Verified 10/08/23 23:12 LIST Home Medications Medication Instructions Recorded Confirmed Type magnesium 250 mg tablet 250 mg PO QAM 01/30/20 10/08/23 History lidocaine 5 % topical patch 1 patch topical DAILY PRN Pain 03/12/20 10/08/23 History trazodone 100 mg tablet 200 mg PO HS 12/11/20 10/08/23 History albuterol sulfate 90 mcg/actuation 2 inh inhalation QID PRN Shortness 03/27/21 10/08/23 History breath activated powder inhaler Of Breath/COUGH/WHEEZING metoprolol tartrate 25 mg tablet See Rx Instructions .Route .COMPLEX 06/14/22 10/08/23 History venlafaxine 150 mg 150 mg PO QAM 06/14/22 10/08/23 History capsule,extended release 24 hr tiotropium bromide 2.5 2 inh inhalation DAILY 03/19/23 10/08/23 History mcg/actuation mist for inhalation diclofenac sodium 1 % topical gel 2 g topical QID 08/04/23 10/08/23 History (Arthritis Pain (diclofenac)) finasteride 5 mg tablet 5 mg PO DAILY 08/04/23 10/08/23 History lisinopril 10 mg tablet 10 mg PO DAILY 08/04/23 10/08/23 History meloxicam 15 mg tablet 15 mg PO BID 08/04/23 10/08/23 History roflumilast 500 mcg tablet 500 mcg PO DAILY 08/04/23 10/08/23 History ropinirole 0.25 mg tablet 0.25 mg PO TID 08/04/23 10/08/23 History budesonide 180 mcg/actuation 1 inh inhalation BID 10/08/23 10/08/23 History breath activated powder inhaler cholecalciferol (vitamin D3) 10 10 mcg PO DAILY 10/08/23 10/08/23 History mcg (400 unit) capsule (Vitamin D3) docusate sodium 50 mg capsule 50 mg PO DAILY PRN Constipation 10/08/23 10/08/23 History fluticasone 250 mcg-salmeterol 50 1 inh inhalation BID 10/08/23 10/08/23 History mcg/dose blistr powdr for inhalation (Wixela Inhub) gabapentin 300 mg capsule 900 mg PO DAILY 10/08/23 10/08/23 History levetiracetam 500 mg tablet See Rx Instructions .Route .COMPLEX 10/08/23 10/08/23 History (Keppra) levothyroxine 100 mcg tablet 100 mcg PO DAILYBB 10/08/23 10/08/23 History potassium citrate 99 mg capsule 99 mg PO DAILY 10/08/23 10/08/23 History prazosin 5 mg capsule 10 mg PO HS 10/08/23 10/08/23 History simvastatin 80 mg tablet 40 mg PO HS 10/08/23 10/08/23 History Patient History Medical History Obesity Osteoporosis Osteoarthritis DDD (degenerative disc disease) Hearing deficit Aneurysm Per remote [facility], hx of questionable thoracic aortic [facility], no recent issues/not noted on 2019 echo Sleep apnea No device COPD (chronic obstructive pulmonary disease) Stable Spinal stenosis, lumbar region with neurogenic claudication Lumbar spondylosis Spinal stenosis of thoracolumbar region Hypothyroidism Hyperlipidemia Hypertension Surgical History History of elbow surgery Right History of cataract surgery R/L Family History Other No family history of adverse response to anesthesia Social History Smoking Status: Former smoker Tobacco Type: Pipe and Cigars Second Hand Exposure: No; Do You Dip or Chew Tobacco: No; Hx Alcohol Use: No Hx Substance Use: No Preferred Language: Serbian Communication Ability: Effective Visual Impairment: No Limitations Hearing Ability: Hard of Hearing Seed Cutter Required: No Beliefs That Will Affect Care: None marital status: Current Living Situation: Spouse current occupational status: retired Feels Safe at Home: Yes Safety Concerns: Feels Safe At This Time Assistive Devices: Denture - Upper, Denture - Lower and Glasses Review of Systems Review of Systems: All systems reviewed & are unremarkable except as noted in HPI & below Physical Exam Constitutional: cooperative; no acute distress Eyes: PERRL, conjunctivae normal, anicteric sclerae ENMT: external ear and nose normal, oropharynx normal Neck: trachea midline, no thyromegaly Respiratory: Nonlabored respiratory effort with symmetrical chest wall movement and normal respiratory rate. Mild wheeze auscultated over bronchus, lungs otherwise clear to auscultation Cardiovascular: Rate/Rhythm: regular rate and regular rhythm; not tachycardic Heart Sounds: normal S1 and normal S2 Vessels: no JVD Extremities: no edema Gastrointestinal (Abdomen): normal bowel sounds, soft, nontender, no hepatosplenomegaly Musculoskeletal: Full strength in lower and upper extremities. No musculoskeletal deformities noted on exam Skin: no rashes, warm and dry Neurologic: PERRL, EOMI, accommodation nl, no face palsy, no dysarthria Psychiatric: A+Ox3, euthymic affect Results & Data Results & Data Vital Signs (Past 12 Hours) Vital Signs Temp Pulse Pulse Pulse Resp BP BP 10/09/23 04:22 36.6 C 107 H 22 99/49 L 10/09/23 04:15 10/09/23 03:42 104 H 20 91/60 L 10/09/23 03:34 96 H 16 78/45 L 10/09/23 03:30 97 H 15 63/44 L 10/09/23 03:17 36.5 C 10/09/23 03:15 99 H 16 94/54 L 10/09/23 03:07 93 H 15 83/59 L 10/09/23 02:45 20 90/53 L 10/09/23 02:30 94 H 17 85/50 L 10/09/23 02:15 94 H 17 93/63 L 10/09/23 02:06 35.4 C L 10/09/23 02:01 100 H 22 90/59 L 10/09/23 01:45 103 H 19 88/52 L 10/09/23 01:39 102 H 110/82 10/09/23 01:34 101 H 22 103/65 10/09/23 01:18 99 H 20 87/47 L 10/09/23 01:00 96 H 19 95/69 L 10/09/23 00:45 97 H 22 105/58 L 10/09/23 00:30 97 H 88/49 L 10/09/23 00:21 94 H 20 88/53 L 10/09/23 00:13 95 H 24 71/50 L 10/09/23 00:10 96 H 17 67/51 L 10/09/23 00:07 94 H 15 116/36 L 10/09/23 00:01 91 H 16 77/47 L 10/08/23 23:45 97 H 22 96/47 L 10/08/23 23:36 93 H 18 63/46 L 10/08/23 23:30 81 23 78/50 L 10/08/23 23:24 84 19 73/44 L 10/08/23 23:14 84 20 10/08/23 23:12 92 H 20 86/43 L 10/08/23 23:10 83 20 68/40 L 10/08/23 22:53 82 10/08/23 22:45 82 16 61/49 L 10/08/23 22:45 Pulse Ox O2 Del Method 10/09/23 04:22 95 Room Air 10/09/23 04:15 Room Air 10/09/23 03:42 92 Room Air 10/09/23 03:34 92 Room Air 10/09/23 03:30 10/09/23 03:17 10/09/23 03:15 97 Room Air 10/09/23 03:07 100 Nebulizer 10/09/23 02:45 93 Room Air 10/09/23 02:30 10/09/23 02:15 10/09/23 02:06 10/09/23 02:01 10/09/23 01:45 93 Room Air 10/09/23 01:39 10/09/23 01:34 93 Room Air 10/09/23 01:18 94 Room Air 10/09/23 01:00 90 Room Air 10/09/23 00:45 92 Room Air 10/09/23 00:30 93 Room Air 10/09/23 00:21 93 Room Air 10/09/23 00:13 97 Room Air 10/09/23 00:10 95 Room Air 10/09/23 00:07 96 Room Air 10/09/23 00:01 94 Room Air 10/08/23 23:45 93 Room Air 10/08/23 23:36 90 Room Air 10/08/23 23:30 93 Room Air 10/08/23 23:24 94 Room Air 10/08/23 23:14 96 Room Air 10/08/23 23:12 10/08/23 23:10 96 Room Air 10/08/23 22:53 10/08/23 22:45 96 Room Air 10/08/23 22:45 Room Air Diagnostic Findings EXAM: CT Angiography Chest With Intravenous Contrast CLINICAL HISTORY: Reason for exam: ? rupture AAA, severe abd pain, hypotension. TECHNIQUE: Axial computed tomographic angiography images of the chest with intravenous contrast. CTDI is 28.14 mGy and DLP is 2628.6 mGy-cm. Automated exposure control was utilized for the study. A dose lowering technique was utilized adhering to the principles of ALARA. MIP reconstructed images were created and reviewed. CONTRAST: Patient received 115 ml opti 320 of IV contrast COMPARISON: 06/12/2022. FINDINGS: Pulmonary arteries: Suboptimally opacified pulmonary arteries for evaluation of emboli with otherwise normal visualized enhancement. Aorta: Mild atherosclerotic disease of aorta with no aneurysm or dissection. Lungs: Bilateral lower lobe atelectasis. No mass. Pleural space: Unremarkable. No significant effusion. No pneumothorax. Heart: Unremarkable. No cardiomegaly. No significant pericardial effusion. No evidence of RV dysfunction. Normal cardiac size with coronary artery calcifications. Bones/joints: There is a compression fracture of T7 with increased sclerosis posteriorly, cannot exclude a lesion, unchanged in the interval. There is a left-sided shoulder prosthesis in place. No dislocation. Soft tissues: Unremarkable. Lymph nodes: Unremarkable. No enlarged lymph nodes. Intraperitoneal space: Upper abdomen is described in detail in the accompanying CT of the abdomen and pelvis report. Other findings: Multilevel disc degenerative disease of the thoracic spine. IMPRESSION: 1. No evidence of aortic dissection or aneurysm. 2. Mild bilateral lower lobe atelectasis otherwise no acute cardiopulmonary disease. 3. Abdomen please see accompanying CT of the abdomen and pelvis report. Electronically signed by: Shereen Killian MD 10/08/23 23:53 PM EXAM: CT Angiography Abdomen and Pelvis With Intravenous Contrast CLINICAL HISTORY: Reason for exam: ? rupture AAA, severe abd pain, hypotension. TECHNIQUE: Axial computed tomographic angiography images of the abdomen and pelvis with intravenous contrast. CTDI is 28.14 mGy and DLP is 2628.6 mGy-cm. Automated exposure control was utilized for the study. A dose lowering technique was utilized adhering to the principles of ALARA. MIP reconstructed images were created and reviewed. CONTRAST: Patient received 115 ml opti 320 of IV contrast COMPARISON: None. FINDINGS: VASCULATURE: Aorta: There is a likjonby-wiov-mvi thrombus within the distal aspect of the aorta with no aneurysmal dilatation, aorta measuring approximately 2.4 cm at this level. Diffuse atherosclerotic disease throughout the aorta with no aneurysm. No dissection. 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 Short segment severe stenosis involving the proximal superior mesenteric artery. Renal arteries: Ostial plaque at the origin of the right renal artery with mild to moderate stenosis. Normal left renal artery. Iliac arteries: Mild calcified atherosclerotic disease of the bilateral common iliac arteries with no focal stenosis or occlusion of the. Normal bilateral external iliac arteries with no focal stenosis or occlusion. Other arteries: Minimal plaque at the bilateral common femoral artery with no stenosis or occlusion. Normal bilateral proximal superficial femoral arteries. Lung bases: Mild bilateral lower lobe atelectasis. Heart: No significant pericardial effusion. Normal cardiac size with coronary artery calcifications. ABDOMEN: Liver: Unremarkable. No mass. Gallbladder and bile ducts: Unremarkable. No calcified stones. No ductal dilation. Pancreas: Unremarkable. No ductal dilation. No mass. Spleen: Unremarkable. No splenomegaly. Adrenals: Unremarkable. No mass. Kidneys and ureters: Multiple low-attenuation structures within the right kidney compatible with simple cyst, largest measuring 6.5 cm. Otherwise normal right kidney. Normal left kidney. Stomach and bowel: Nonspecific distention of the stomach with air- fluid level. Moderate to abundant fecal debris within the colon. Diverticulosis throughout the colon with no signs of diverticulitis. PELVIS: Appendix: Distinct appendix not seen with no inflammation by the cecum to suggest acute appendicitis. Bladder: Urinary bladder is decompressed, otherwise unremarkable. Reproductive: Mild to moderate prostate enlargement. ABDOMEN and PELVIS: Intraperitoneal space: Unremarkable. No significant fluid collection. No free air. Bones/joints: Diffuse osteopenia with multilevel degenerative disease of the spine. Scoliosis of the thoracolumbar spine. No acute fracture. No dislocation. Soft tissues: Bilateral fat-containing inguinal hernias. Lymph nodes: Unremarkable. No enlarged lymph nodes. IMPRESSION: 1. 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 2. Moderate to abundant fecal debris within the colon with diverticulosis, no signs of diverticulitis. No focal inflammatory process or signs of bowel obstruction. 3. Right-sided simple renal cysts with no further follow-up imaging recommended. Remainder of abdominal viscera unremarkable. Electronically signed by: Shereen Killian MD 10/08/23 23:59 PM Coding Level of Care Code 20767 CRITICAL CARE 1ST 30-74M Diagnoses Acute hypotension I95.9 Idiopathic polyneuropathy G60.9 Thoracic compression fracture S22.000A Hypothyroidism E03.9 COPD (chronic obstructive pulmonary disease) J44.9 Hyperlipidemia E78.5 CAD (coronary artery disease) I25.10 Time Spent (min) 48
[2023-10-09] MEDS ORDERED: fentaNYL citrate PF 100 MCG/2 ML VIAL IV PRN (06:25)
[2023-10-09 06:27] LABS: Basophils # (auto) 0.01 K/uL (0.00-0.20); Basophils % (auto) 0.2 %; Immature Granulocytes # (auto) 0.02 K/uL (0.01-0.20); Immature Granulocytes % (auto) 0.3 %; Lymphocytes # (auto) 0.25 K/uL (1.20-3.40); Lymphocytes % (auto) 4.2 %; Monocytes % (auto) 3.4 %; Neutrophils # (auto) 5.48 K/uL (1.40-6.50); Neutrophils % (auto) 91.9 %
[2023-10-09] MEDS: NOREPINEPHRINE/D5W 4 MG/250 ML PLCT IV SCH (06:36)
[2023-10-09 07:14] LABS: Hematocrit (blood only) 29.3 % (42.0-52.0); Hemoglobin 9.9 g/dl (14.0-18.0); Mean Corpuscular Hemoglobin 31.1 pg (25.0-34.0); Mean Corpuscular Hgb Conc 33.8 g/dL (32.0-36.0); Mean Corpuscular Volume 92.1 fL (80.0-100.0); Mean Platelet Volume 9.1 fL (9.4-12.4); Platelet Count 139 K/uL (130-400); RDW Coefficient of Variation 13.9 % (11.5-14.5); RDW Standard Deviation 47.3 fL (36.4-46.3); Red Blood Count 3.18 M/uL (4.70-6.10); White Blood Count 6.01 K/ul (4.8-10.8)
[2023-10-09] MEDS: ICU Protocol for HYPERglycemia SCH ×2 (07:15→11:27)
[2023-10-09 07:19] LABS: Albumin Level 3.9 gm/dl (3.4-5.0); Bilirubin,Total 0.7 mg/dl (0.2-1.0); Calcium 8.4 mg/dl (8.6-10.3); Magnesium 1.7 mg/dl (1.7-2.4); Potassium 5.1 mmol/L (3.5-5.1)
[2023-10-09 07:25] LABS: Albumin Globulin Ratio 2.3 (0.9-2); BUN Creatinine Ratio 13.9 (10-20); Creatinine Clr Calc Pharmacy 55.9 ml/min; Est GFR (African American) 72.7 ml/min; Est GFR (Non-African American) 62.7 ml/min; Globulin 1.7 gm/dl (2.5-4.0); Phosphorus 3.6 mg/dl (2.5-4.9); Total Protein 5.6 gm/dl (6.0-8.3)
[2023-10-09 07:44] LABS: Immature Granulocytes # (auto) 0.02 K/uL (0.01-0.20); Immature Granulocytes % (auto) 0.3 %; Monocytes # (auto) 0.21 K/uL (0.11-0.59); Monocytes % (auto) 3.5 %; Neutrophils # (auto) 5.48 K/uL (1.40-6.50); Neutrophils % (auto) 91.2 %
[2023-10-09] MEDS: MAGNESIUM SULFATE / D5W 1 GM/100 ML BAG IV SCH ×3 (08:08→11:39)
[2023-10-09] MEDS: PIPERACILLIN/TAZOBACTAM 4.5 GM in DEXTROSE 5% MINI-B 100 ML IV SCH ×2 (08:10→16:18)
[2023-10-09] MEDS: CHOLECALCIFEROL 10 MCG (400 UNITS) TAB PO SCH (08:58)
[2023-10-09] MEDS: FINASTERIDE 5 MG TAB PO SCH (08:59)
[2023-10-09] MEDS: DOCUSATE SODIUM 100 MG CAP PO SCH ×2 (08:59→20:02)
[2023-10-09] MEDS ORDERED: lisinopril 10 MG TAB PO SCH (09:00)
[2023-10-09] MEDS ORDERED: GABAPENTIN 300 MG CAP PO SCH (09:00)
[2023-10-09] MEDS: FLUTICASONE FUROATE 100MCG 14 PUFFS/INHALER INH SCH (09:00)
[2023-10-09] MEDS: ROFLUMILAST 500 MCG TAB PO SCH (09:01)
[2023-10-09] MEDS: POLYETHYLENE (MIRALAX) 17 GM PACK PO SCH (09:01)
[2023-10-09] MEDS: LIDOCAINE 5% 1 PATCH TD SCH (09:01)
[2023-10-09] MEDS: UMECLIDINIUM BROMIDE 62.5MCG/BLISTER 7 PUFFS/INHALER INH SCH (09:02)
[2023-10-09] MEDS: rOPINIRole HCL 0.25 MG TABLET PO SCH ×2 (09:02→13:31)
[2023-10-09] MEDS: VENLAFAXINE HCL XR 150 MG CAPXR PO SCH (09:02)
--- NOTE | 2023-10-09 10:20 | Electrocardiogram Report ---
Test Reason : Blood Pressure : / mmHG Vent. Rate : 078 BPM Atrial Rate : 078 BPM P-R Int : 204 ms QRS Dur : 088 ms QT Int : 402 ms P-R-T Axes : 062 -33 049 degrees QTc Int : 458 ms Normal sinus rhythm Left axis deviation Abnormal ECG When compared with ECG of 21-SEP-2023 12:10, QT has lengthened Confirmed by Stu Chance ([id number]) on 10/09/2023 10:20:12 AM Referred By: REFERRED SELF Confirmed By:Stu Chance
--- NOTE | 2023-10-09 10:33 | XRay Report ---
XR chest 1V portable CLINICAL HISTORY: Chest pain, nonspecific TECHNIQUE: Single frontal radiograph of the chest was obtained. Comparison: Comparison is made to chest radiograph 09/21/2023 FINDINGS: No lines and tubes are seen. Calcified aortic knob is seen. Lungs are underinflated but clear. No kevin dence of pleural effusion or pneumothorax. IMPRESSION: No acute chest disease. ACT 112: Negative or not required by law. Electronically signed by: Ernie Brown M.D. 10/09/2023 10:32 AM
[2023-10-09] MEDS: HEPARIN SOD 5,000 UNIT/0.5 ML VIAL SC SCH ×2 (10:47→19:58)
[2023-10-09] MEDS ORDERED: SODIUM ZIRCONIUM CYCLOSILICATE 10 GM PACKET PO SCH (11:00)
[2023-10-09] MEDS ORDERED: HYDROCORTISONE SOD 50 MG in SYRINGE 0 ML IV SCH (11:00)
[2023-10-09] MEDS ORDERED: GLUCOSE 10 TAB/TUBE PO PRN (11:25)
[2023-10-09] MEDS ORDERED: CARBOHYDRATES FOR HYPOGLYCEMIA PO PRN (11:25)
[2023-10-09] MEDS ORDERED: GLUCAGON FOR INJ 1 MG VIAL SQ PRN (11:25)
[2023-10-09] MEDS ORDERED: DEXTROSE 50% 50 ML SYRINGE IV PRN (11:25)
[2023-10-09] MEDS ORDERED: GLUCOSE 40% GEL 15 GM TUBE PO PRN (11:25)
[2023-10-09] MEDS: INSULIN ASPART PER UNIT CHARGE SC SCH ×3 (11:44→20:13)
--- NOTE | 2023-10-09 13:29 | XCELERA ---
[id number] \\[id number]___[id number]
--- NOTE | 2023-10-09 14:54 | Communication Note ---
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 was also given steroids Further history obtained from family at bedside - last night took several meds that he had run out of and been off for months: metoprolol 25 bid, prazosin 10 mg HS also gabapentin, levetiracetam, levothyroxine Continue pip-tazo for now but stop if hypotension resolves and cultures remain negative. Stop hydrocortisone Muscle jerks Myoclonus or akathisia vs behavioral - hold meds: pramipexole, gabapentin, levetiracetam GLADYS improved DC bebeto Transfer to medical unit Discussed with: RN, patient, family at bedside, Dr. Villareal
[2023-10-09] MEDS ORDERED: COUGH DROP (SUGAR FREE) LOZ 24 LOZ/1 BOX BUCCAL PRN (16:18)
[2023-10-09] MEDS: ACETAMINOPHEN 325 MG TAB PO PRN (16:46)
[2023-10-09] MEDS: traZODone HCL 100 MG TAB PO SCH (19:57)
[2023-10-09] MEDS: SIMVASTATIN 40 MG TAB PO SCH (19:58)
[2023-10-09] MEDS ORDERED: levETIRAcetam 500 MG TAB PO SCH (21:00)
[2023-10-10] MEDS: PIPERACILLIN/TAZOBACTAM 4.5 GM in DEXTROSE 5% MINI-B 100 ML IV SCH ×2 (02:00→08:06)
[2023-10-10] MEDS: ACETAMINOPHEN 325 MG TAB PO PRN ×2 (05:28→19:58)
[2023-10-10] MEDS: LEVOTHYROXINE SODIUM 100 MCG TABLET PO SCH (05:28)
[2023-10-10 06:58] LABS: Basophils # (auto) 0.01 K/uL (0.00-0.20); Basophils % (auto) 0.2 %; Eosinophils # (auto) 0.05 K/uL (0.00-0.50); Eosinophils % (auto) 0.8 %; Hematocrit (blood only) 26.4 % (42.0-52.0); Hemoglobin 8.9 g/dl (14.0-18.0); Immature Granulocytes # (auto) 0.01 K/uL (0.01-0.20); Immature Granulocytes % (auto) 0.2 %; Lymphocytes # (auto) 0.83 K/uL (1.20-3.40); Lymphocytes % (auto) 13.7 %; Mean Corpuscular Hemoglobin 30.3 pg (25.0-34.0); Mean Corpuscular Hgb Conc 33.7 g/dL (32.0-36.0); Mean Corpuscular Volume 89.8 fL (80.0-100.0); Mean Platelet Volume 9.4 fL (9.4-12.4); Monocytes # (auto) 0.59 K/uL (0.11-0.59); Monocytes % (auto) 9.7 %; Neutrophils # (auto) 4.57 K/uL (1.40-6.50); Neutrophils % (auto) 75.4 %; Platelet Count 140 K/uL (130-400); Red Blood Count 2.94 M/uL (4.70-6.10); White Blood Count 6.06 K/ul (4.8-10.8)
[2023-10-10 07:25] LABS: Albumin Globulin Ratio 2.1 (0.9-2); Albumin Level 3.4 gm/dl (3.4-5.0); BUN Creatinine Ratio 11.7 (10-20); Bilirubin,Total 0.5 mg/dl (0.2-1.0); Calcium 8.4 mg/dl (8.6-10.3); Creatinine Clr Calc Pharmacy 64.2 ml/min; Est GFR (African American) 85.9 ml/min; Est GFR (Non-African American) 74.2 ml/min; Globulin 1.6 gm/dl (2.5-4.0); Magnesium 2.1 mg/dl (1.7-2.4); Potassium 4.3 mmol/L (3.5-5.1)
[2023-10-10] MEDS: ALBUT/IPRATROP 3MG/0.5MG NEB 3 ML VIAL NEB SCH ×4 (07:43→19:30)
[2023-10-10] MEDS: INSULIN ASPART PER UNIT CHARGE SC SCH (08:03)
[2023-10-10] MEDS ORDERED: SODIUM CHLORIDE 0.65% NA SOLN 45 ML (OCEAN) PRN (08:05)
[2023-10-10] MEDS: FLUTICASONE FUROATE 100MCG 14 PUFFS/INHALER INH SCH (08:07)
--- NOTE | 2023-10-10 08:07 | Hospitalist Progress Note ---
Date of Service October 10, 2023 Assessment & Plan (1) Acute hypotension: Plan: Presented with severe hypotension and was admitted to ICU, treated with IV fluids, broad-spectrum antibiotics, stress dose steroids since he had recently been on a taper, required norepinephrine the first night of admission No longer hypotensive since a.m. of 10/09. Steroids stopped. CTA chest was negative CTA abdomen pelvis showed a aortic posterior mural thrombus, that her vascular surgery did not require intervention The night of admission he took several meds that he had run out of and been off for months: metoprolol 25 bid, prazosin 10 mg HS also gabapentin, levetiracetam, levothyroxine Sepsis ruled out, stop antibiotics, follow-up blood cultures returned no growth to date. Hypotension was caused by medications Stop prazosin -discussed with him he has not been on it for months and did not notice any difference in his nightmares while not taking it. This may have been the main culprit since his dose was 10 mg at bedtime Resume metoprolol tonight at reduced dose 12.5 mg twice daily (2) Urinary retention due to benign prostatic hyperplasia: Plan: [place] catheter was removed without difficulty (3) BPH w urinary obs/LUTS: Plan: Has been able to void spontaneously despite not taking paresis and for several months. Stopped prazosin, continue finasteride follow-up in primary care (4) Acute hyponatremia: Plan: Acute on chronic hyponatremia. Baseline around 130. 119 on admission, improved to 125 -general diet -not on diuretic -AM BMP (5) Idiopathic polyneuropathy: Plan: B12 500s, B1 pending follow up with his outpatient neurologist His main symptom is that hands and feet feel cold, does not seem the gabapentin helps his symptoms and induces myoclonus, therefore we are stopping it as I discussed with him (6) CAD (coronary artery disease): Plan: Unclear whether he has history of this, continue metoprolol (7) Thoracic compression fracture: Plan: T7, chronic mid back pain related to this. 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 No evidence of acute bleeding. Usually around 30. Presume dilutional. Added iron studies which are reviewed and he is not deficient. B12 normal. Am Hct check, hold SQ heparin -Follow-up in primary care Glucose 100 this am. Had steroids in ICU, stopped 10/09. Stop insulin/glucose checks. polyneuropathy-recently evaluated by neurologist, thought to have idiopathic polyneuropathy -B12 normal, B1 level pending positive AUSTIN-recently evaluated by bailer tenders supervisor, not thought to have rheumatologic condition Patient has been seen by neurology and rheumatology in the outpatient setting Continue gabapentin, Keppra, trazodone and venlafaxine Hoping for discharge tomorrow Admission and Anticipated Discharge Date Admission Date: October 09, 2023 Subjective Doing MUCH better, sitting in chair by window and had a big lunch. Has some tremor of both hands but no asterixis or myoclonus. No limb or chest wall jerking movements today. No shortness of breath, baseline cough from COPD unchanged. No abdominal or chest pain. Physical Exam 2 Physical Exam: PHYSICAL EXAMINATION Last 24h vital signs reviewed, see documentation in flowsheet General: comfortable appearing, no distress HEENT: Normocephalic, atraumatic, pupils round and equal, sclerae anicteric, no conjunctival injection, moist mucus membranes Lungs: Normal respiratory effort. Prolonged expiratory phase Heart: Deferred Abdomen: Soft, nondistended. Extremities: Warm, dry, well-perfused. No extremity edema. Neuro: Alert and oriented x 4, face symmetric, moves 4 extremities well, no evidence of asterixis or myoclonus, fine tremor of both hands Psych: Normal affect and behavior Results & Data Results & Data Vital Signs (Past 12 Hours) Vital Signs Temp Pulse Pulse Resp BP Pulse Ox O2 Del Method 10/10/23 07:46 85 18 96 Nasal Cannula 10/10/23 07:12 36.8 C 90 18 144/78 H 99 Room Air 10/09/23 21:15 36.8 C 86 16 123/68 96 Nasal Cannula 10/09/23 20:08 88 18 98 Nasal Cannula O2 Flow Rate 10/10/23 07:46 1 10/10/23 07:12 10/09/23 21:15 1.0 10/09/23 20:08 1 Laboratory Results 10/10/23 05:55 10/10/23 05:55 PG Care Time/CCT Total # of Minutes Spent Total Time Spent with Patient: Total time spent is greater than 50% in coordination of care (as documented) at patient's floor/unit and/or counseling patient: Coding Level of Care Code 19765 SUB INP/OBS CARE 2/35MIN Diagnoses Acute hypotension I95.9 Urinary retention due to benign prostatic hyperplasia N40.1; R33.8 BPH w urinary obs/LUTS N40.1; N13.8 Acute hyponatremia E87.1 Idiopathic polyneuropathy G60.9 CAD (coronary artery disease) I25.10 Thoracic compression fracture S22.000A GLADYS (acute kidney injury) N17.9 Tobacco dependence F17.200 Depression F32.9 Myoclonus G25.3 COPD (chronic obstructive pulmonary disease) J44.9
[2023-10-10] MEDS: UMECLIDINIUM BROMIDE 62.5MCG/BLISTER 7 PUFFS/INHALER INH SCH (08:08)
[2023-10-10] MEDS: ROFLUMILAST 500 MCG TAB PO SCH (08:08)
[2023-10-10] MEDS: VENLAFAXINE HCL XR 150 MG CAPXR PO SCH (08:08)
[2023-10-10] MEDS: CHOLECALCIFEROL 10 MCG (400 UNITS) TAB PO SCH (08:08)
[2023-10-10] MEDS: POLYETHYLENE (MIRALAX) 17 GM PACK PO SCH (08:09)
[2023-10-10] MEDS: HEPARIN SOD 5,000 UNIT/0.5 ML VIAL SC SCH (08:09)
[2023-10-10] MEDS: LIDOCAINE 5% 1 PATCH TD SCH (08:09)
[2023-10-10] MEDS: FINASTERIDE 5 MG TAB PO SCH (08:10)
[2023-10-10] MEDS: DOCUSATE SODIUM 100 MG CAP PO SCH ×2 (08:10→19:59)
[2023-10-10 08:44] LABS: Ferritin 76.9 ng/ml (8-388)
[2023-10-10] MEDS ORDERED: ALBUT/IPRATROP 3MG/0.5MG NEB 3 ML VIAL ONE ×2 (15:13→19:21)
[2023-10-10] MEDS: METOPROLOL TARTRATE 25 MG TAB PO SCH (19:59)
[2023-10-10] MEDS: traZODone HCL 100 MG TAB PO SCH (20:01)
[2023-10-10] MEDS: SIMVASTATIN 40 MG TAB PO SCH (20:02)
[2023-10-10] MEDS ORDERED: PRAZOSIN HCL 1 MG CAP PO SCH (21:00)
[2023-10-10] MEDS ORDERED: IPRATROPIUM BROMIDE NASAL SPRAY 0.06% 15ML NAE PRN (21:39)
[2023-10-11] MEDS: ACETAMINOPHEN 325 MG TAB PO PRN (06:15)
[2023-10-11] MEDS: LEVOTHYROXINE SODIUM 100 MCG TABLET PO SCH (06:15)
[2023-10-11] MEDS: ALBUT/IPRATROP 3MG/0.5MG NEB 3 ML VIAL NEB SCH (07:06)
[2023-10-11 07:32] LABS: Basophils # (auto) 0.02 K/uL (0.00-0.20); Basophils % (auto) 0.4 %; Eosinophils # (auto) 0.07 K/uL (0.00-0.50); Eosinophils % (auto) 1.3 %; Hematocrit (blood only) 33.2 % (42.0-52.0); Hemoglobin 10.9 g/dl (14.0-18.0); Immature Granulocytes # (auto) 0.01 K/uL (0.01-0.20); Immature Granulocytes % (auto) 0.2 %; Lymphocytes # (auto) 0.84 K/uL (1.20-3.40); Lymphocytes % (auto) 15.8 %; Mean Corpuscular Hemoglobin 30.5 pg (25.0-34.0); Mean Corpuscular Hgb Conc 32.8 g/dL (32.0-36.0); Mean Platelet Volume 9.2 fL (9.4-12.4); Monocytes # (auto) 0.48 K/uL (0.11-0.59); Neutrophils # (auto) 3.91 K/uL (1.40-6.50); Neutrophils % (auto) 73.3 %; Platelet Count 166 K/uL (130-400); RDW Coefficient of Variation 14.2 % (11.5-14.5); RDW Standard Deviation 48.5 fL (36.4-46.3); Red Blood Count 3.57 M/uL (4.70-6.10); White Blood Count 5.33 K/ul (4.8-10.8)
[2023-10-11] MEDS: LIDOCAINE 5% 1 PATCH TD SCH (07:35)
[2023-10-11] MEDS: METOPROLOL TARTRATE 25 MG TAB PO SCH (07:35)
[2023-10-11] MEDS: VENLAFAXINE HCL XR 150 MG CAPXR PO SCH (07:36)
[2023-10-11] MEDS: CHOLECALCIFEROL 10 MCG (400 UNITS) TAB PO SCH (07:36)
[2023-10-11] MEDS: FINASTERIDE 5 MG TAB PO SCH (07:36)
[2023-10-11] MEDS: ROFLUMILAST 500 MCG TAB PO SCH (07:36)
[2023-10-11] MEDS: UMECLIDINIUM BROMIDE 62.5MCG/BLISTER 7 PUFFS/INHALER INH SCH (07:37)
[2023-10-11] MEDS: FLUTICASONE FUROATE 100MCG 14 PUFFS/INHALER INH SCH (07:38)
[2023-10-11] MEDS: POLYETHYLENE (MIRALAX) 17 GM PACK PO SCH (07:38)
[2023-10-11] MEDS: DOCUSATE SODIUM 100 MG CAP PO SCH (07:39)
[2023-10-11 07:48] LABS: BUN Creatinine Ratio 10.6 (10-20); Calcium 9.1 mg/dl (8.6-10.3); Creatinine Clr Calc Pharmacy 64.2 ml/min; Est GFR (African American) 85.9 ml/min; Est GFR (Non-African American) 74.2 ml/min; Potassium 4.3 mmol/L (3.5-5.1)
--- NOTE | 2023-10-11 19:14 | Discharge Summary ---
Date of Service October 11, 2023 Admission HPI Per Admitting Provider The patient is a an 83-year-old male with a past medical history including idiopathic polyneuropathy, AUSTIN positive, lumbar DDD and spinal stenosis, orthostatic hypotension, CAD, tobacco dependence, hyperlipidemia, hypertension, depression, COPD, T7 thoracic compression fracture and hypothyroidism. When the patient first arrived to the emergency department, his blood pressure was 60/40. He received 1 L normal saline, and was placed on Levophed infusion for pressure support while workup is being done. Trying to get the history from the patient and the family was a bit challenging. The main symptom that the patient appeared to be having was frequent urination, as attested to by the patient and family. He did have the addition of some medications that he been without for a while, including prazosin, and metoprolol tartrate, which he did take today prior to having symptoms of confusion and disorientation. [facility], but has been seen by neurology on 07/26/2023, when an EMG revealed idiopathic polyneuropathy. He was also seen by rheumatology on 08/04/2023 for a positive AUSTIN, which he reportedly was sent to both offices due to an unexplained jerking sensation he had. Rheumatology could not relate any connective tissue disease with his symptoms. The patient was also seen by orthopedic spine surgery on 05/07/2023 to assess a T7 fracture, and was started on gabapentin at that time and referred to physical therapy. The patient presented to the emergency department today due to the development of confusion, and was found to be hypotensive, underwent workup and started on pressors, and referred to hospital medicine to be admitted to the ICU Principal Diagnosis Severe hypotension due to medications Discharge Exam PHYSICAL EXAMINATION Last 24h vital signs reviewed, see documentation in flowsheet exam unchanged 10/11 General: sitting up in chair HEENT: Normocephalic, atraumatic, pupils round and equal, sclerae anicteric, no conjunctival injection, moist mucus membranes Lungs: Normal respiratory effort. Heart: Deferred Abdomen: Soft, nondistended. Extremities: Warm, dry, well-perfused. No extremity edema. Neuro: Alert and oriented x 4, face symmetric, moves 4 extremities well, no evidence of asterixis or myoclonus, fine tremor of both hands Psych: Normal affect and behavior Discharge Data Allergies Allergy/AdvReac Type Severity Reaction Status Date / Time diclofenac [From Voltaren] Allergy Unknown [facility] Verified 10/08/23 23:12 LIST Consultations 10/09/23 01:01 ED Decision to Admit Stat 10/09/23 04:09 Consult Guide Routine Ordered Studies 10/08/23 22:54 CT angio chest dissec wo/w con Stat CTA abdomen pelvis w con [CT angio abdomen pelvis w con] Stat Abdomen/Pelvis CTA 10/08/23 22:54 Exam(s): CTA ABDOMEN + PELVIS With Contrast IV Amt: 115 ml opti 320 EXAM: CT Angiography Abdomen and Pelvis With Intravenous Contrast CLINICAL HISTORY: Reason for exam: ? rupture AAA, severe abd pain, hypotension. TECHNIQUE: Axial computed tomographic angiography images of the abdomen and pelvis with intravenous contrast. CTDI is 28.14 mGy and DLP is 2628.6 mGy-cm. Automated exposure control was utilized for the study. A dose lowering technique was utilized adhering to the principles of ALARA. MIP reconstructed images were created and reviewed. CONTRAST: Patient received 115 ml opti 320 of IV contrast COMPARISON: None. FINDINGS: VASCULATURE: Aorta: There is a [id number] thrombus within the distal aspect of the aorta with no aneurysmal dilatation, aorta measuring approximately 2.4 cm at this level. Diffuse atherosclerotic disease throughout the aorta with no aneurysm. No dissection. 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 Short segment severe stenosis involving the proximal superior mesenteric artery. Renal arteries: Ostial plaque at the origin of the right renal artery with mild to moderate stenosis. Normal left renal artery. Iliac arteries: Mild calcified atherosclerotic disease of the bilateral common iliac arteries with no focal stenosis or occlusion of the. Normal bilateral external iliac arteries with no focal stenosis or occlusion. Other arteries: Minimal plaque at the bilateral common femoral artery with no stenosis or occlusion. Normal bilateral proximal superficial femoral arteries. Lung bases: Mild bilateral lower lobe atelectasis. Heart: No significant pericardial effusion. Normal cardiac size with coronary artery calcifications. ABDOMEN: Liver: Unremarkable. No mass. Gallbladder and bile ducts: Unremarkable. No calcified stones. No ductal dilation. Pancreas: Unremarkable. No ductal dilation. No mass. Spleen: Unremarkable. No splenomegaly. Adrenals: Unremarkable. No mass. Kidneys and ureters: Multiple low-attenuation structures within the right kidney compatible with simple cyst, largest measuring 6.5 cm. Otherwise normal right kidney. Normal left kidney. Stomach and bowel: Nonspecific distention of the stomach with air- fluid level. Moderate to abundant fecal debris within the colon. Diverticulosis throughout the colon with no signs of diverticulitis. PELVIS: Appendix: Distinct appendix not seen with no inflammation by the cecum to suggest acute appendicitis. Bladder: Urinary bladder is decompressed, otherwise unremarkable. Reproductive: Mild to moderate prostate enlargement. ABDOMEN and PELVIS: Intraperitoneal space: Unremarkable. No significant fluid collection. No free air. Bones/joints: Diffuse osteopenia with multilevel degenerative disease of the spine. Scoliosis of the thoracolumbar spine. No acute fracture. No dislocation. Soft tissues: Bilateral fat-containing inguinal hernias. Lymph nodes: Unremarkable. No enlarged lymph nodes. IMPRESSION: 1. 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 2. Moderate to abundant fecal debris within the colon with diverticulosis, no signs of diverticulitis. No focal inflammatory process or signs of bowel obstruction. 3. Right-sided simple renal cysts with no further follow-up imaging recommended. Remainder of abdominal viscera unremarkable. Electronically signed by: Shereen Killian MD 10/08/23 23:59 PM Chest CTA 10/08/23 22:54 Exam(s): CTA CHEST W/WO Contrast IV Amt: 115 ml opti 320 EXAM: CT Angiography Chest With Intravenous Contrast CLINICAL HISTORY: Reason for exam: ? rupture AAA, severe abd pain, hypotension. TECHNIQUE: Axial computed tomographic angiography images of the chest with intravenous contrast. CTDI is 28.14 mGy and DLP is 2628.6 mGy-cm. Automated exposure control was utilized for the study. A dose lowering technique was utilized adhering to the principles of ALARA. MIP reconstructed images were created and reviewed. CONTRAST: Patient received 115 ml opti 320 of IV contrast COMPARISON: 06/12/2022. FINDINGS: Pulmonary arteries: Suboptimally opacified pulmonary arteries for evaluation of emboli with otherwise normal visualized enhancement. Aorta: Mild atherosclerotic disease of aorta with no aneurysm or dissection. Lungs: Bilateral lower lobe atelectasis. No mass. Pleural space: Unremarkable. No significant effusion. No pneumothorax. Heart: Unremarkable. No cardiomegaly. No significant pericardial effusion. No evidence of RV dysfunction. Normal cardiac size with coronary artery calcifications. Bones/joints: There is a compression fracture of T7 with increased sclerosis posteriorly, cannot exclude a lesion, unchanged in the interval. There is a left-sided shoulder prosthesis in place. No dislocation. Soft tissues: Unremarkable. Lymph nodes: Unremarkable. No enlarged lymph nodes. Intraperitoneal space: Upper abdomen is described in detail in the accompanying CT of the abdomen and pelvis report. Other findings: Multilevel disc degenerative disease of the thoracic spine. IMPRESSION: 1. No evidence of aortic dissection or aneurysm. 2. Mild bilateral lower lobe atelectasis otherwise no acute cardiopulmonary disease. 3. Abdomen please see accompanying CT of the abdomen and pelvis report. Electronically signed by: Shereen Killian MD 10/08/23 23:53 PM Chest X-Ray 10/08/23 23:12 XR chest 1V portable CLINICAL HISTORY: Chest pain, nonspecific TECHNIQUE: Single frontal radiograph of the chest was obtained. Comparison: Comparison is made to chest radiograph 09/21/2023 FINDINGS: No lines and tubes are seen. Calcified aortic knob is seen. Lungs are underinflated but clear. No evidence of pleural effusion or pneumothorax. IMPRESSION: No acute chest disease. ACT 112: Negative or not required by law. Electronically signed by: Ernie Brown M.D. 10/09/2023 10:32 AM Hospital Course (1) Acute hypotension: Presented with severe hypotension and was admitted to ICU, treated with IV fluids, broad-spectrum antibiotics, stress dose steroids since he had recently been on a taper, required norepinephrine the first night of admission CTA chest was negative CTA abdomen pelvis showed a aortic posterior mural thrombus, that per vascular surgery did not require intervention The night of admission he took several meds that he had run out of and been off for months: metoprolol 25 bid, prazosin 10 mg HS also gabapentin, levetiracetam, levothyroxine in addition takes lisinopril No longer hypotensive since a.m. of 10/09. Steroids stopped. Sepsis ruled out, stopped antibiotics, follow-up blood cultures returned no growth to date. Hypotension was caused by medications and did not recur Tolerated reintroduction of metoprolol at previous dose Stop prazosin -discussed with him he has not been on it for months and did not notice any difference in his nightmares while not taking it. This may have been the main culprit since his dose was 10 mg at bedtime He will hold his lisinopril until he follows up in primary care. Repeat BMP recommended at that time. (2) Urinary retention due to benign prostatic hyperplasia: [place] catheter was removed without difficulty (3) BPH w urinary obs/LUTS: Has been able to void spontaneously despite not taking prazosin for several months. Stopped prazosin, continue finasteride follow-up in primary care (4) Acute hyponatremia: Acute on chronic hyponatremia. Baseline around 130. 119 on admission, improved to 125 then 133 -general diet -not on diuretic (5) Idiopathic polyneuropathy: B12 500s, B1 pending follow up with his outpatient neurologist His main symptom is that hands and feet feel cold, does not seem the gabapentin helps his symptoms and induces myoclonus, therefore we are stopping it as I discussed with him (6) CAD (coronary artery disease): Unclear whether he has history of this, continue metoprolol (7) Thoracic compression fracture: T7, chronic mid back pain related to this. 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 He HAD dose of gabapentin prior evening and that morning. Well known side effect of gabapentin which was stopped. -No evidence of myoclonus today and 10/11, has fine intention tremor bilateral upper extremities (12) COPD (chronic obstructive pulmonary disease): Stable, at baseline not in exacerbation Continue bronchodilators, control inhaler Plan Acute on chronic anemia - Hct dropped to 26. No evidence of acute bleeding. Usually around 30. Presume dilutional, next day was back to 33. Added iron studies which are reviewed and he is not deficient. B12 normal. -Follow-up in primary care polyneuropathy-recently evaluated by neurologist, thought to have idiopathic [place] yneuropathy -B12 normal, B1 level pending positive AUSTIN-recently evaluated by sales promotion coordinator, not thought to have rheumatologic condition Hypothyoridism - TSH was elevated but he had not been taking his levothyroxine for months. Resumed at home dose, counseled he really needs to take this Total Time Total Time Spent Total Time Spent (In Minutes): I personally spent: 35 minutes today on clinical care activities including: reviewing chart notes and vital signs reviewing labs examining and counseling the patient discharge instructions writing orders documentation Discharge Plan Discharge Items Patient Disposition: Home - Self-Care Reason For Visit: SEPSIS DUE TO UTI Discharge Diagnosis: Low blood pressure due to medications Condition on Discharge: Good Activity: Resume your previous activity Non-emergency contact: Primary Care Provider Call non-emergency contact if: you have any medication questions and your symptoms worsen Follow-up/Referrals: PCP,NO [Primary Care Provider] - Diet: Regular Addtl Attending Provider Instructions: You were treated for severe low blood pressure This appears to have been from restarting all of your medications at once I think that prazosin was the main culprit It is ok to go back on your usual dose of metoprolol HOLD lisiniopril until you follow up in primary care - they should check your blood pressure and kidney labs (basic metabolic panel) STOP prazosin It is really important that you take your thyroid (levothyroxine) every morning 30 minutes before meals I definitely think you should also stop gabapentin - I think it is causing or exacerbating the muscle jerking I think you should also stop the levetiracetam and ropinarole. I do not think these are helping you and they could cause similar side effect. Lucina Vegas MD Pending Studies at Discharge: Yes (blood cultures negative at 48h, will finalize at 5 days) Stand-Alone Forms: My [facility], Smoking Cessation Medications and DC Order Prescriptions: Continued lidocaine 5 % adhesive patch,medicated 1 patch TOP DAILY PRN (Reason: Pain) trazodone 100 mg tablet 200 mg PO HS albuterol sulfate 90 mcg/actuation aerosol powdr breath activated 2 inh inhalation QID PRN (Reason: Shortness Of Breath/COUGH/WHEEZING) diclofenac sodium [Arthritis Pain (diclofenac)] 1 % gel 2 g topical QID Rx Instructions: APPLY 2 GRAMS TO BILATERAL SHOULDERS QID, TOTAL NOT TO EXCEED 8 GRAMS/24 HOURS, APPLY 4 GRAMS TO LOWER EXTERMITY, TOTAL NOT TO EXCEED 16 GRAMS/24 HOURS finasteride 5 mg tablet 5 mg PO DAILY meloxicam 15 mg tablet 15 mg PO BID roflumilast 500 mcg tablet 500 mcg PO DAILY magnesium 250 mg Tablet 250 mg PO QAM metoprolol tartrate 25 mg Tablet See Rx Instructions .ROUTE .COMPLEX Rx Instructions: TAKES 12.5 MG QAM, THEN 25 MG QPM. venlafaxine 150 mg Capsule,Extended Release 24hr 150 mg PO QAM tiotropium bromide 2.5 mcg/actuation mist 2 inh INHALATION DAILY fluticasone propion-salmeterol [Wixela Inhub] 250-50 mcg/dose Blister With Device 1 inh INHALATION BID docusate sodium 50 mg Capsule 50 mg PO DAILY PRN (Reason: Constipation) simvastatin 80 mg Tablet 40 mg PO HS levothyroxine 100 mcg Tablet 100 mcg PO DAILYBB cholecalciferol (vitamin D3) [Vitamin D3] 10 mcg (400 unit) Capsule 10 mcg PO DAILY budesonide 180 mcg/actuation Aerosol Powdr Breath Activated 1 inh INHALATION BID potassium citrate 99 mg Capsule 99 mg PO DAILY Held lisinopril 10 mg tablet 10 mg PO DAILY Hold Instructions: Resume on 11/08/23. hold until you are seen in the primary care clinic for blood pressure check and kidney labs Discontinued ropinirole 0.25 mg tablet 0.25 mg PO TID levetiracetam [Keppra] 500 mg Tablet See Rx Instructions .ROUTE .COMPLEX Rx Instructions: TAKES 750 MG QAM, THEN 1,000 MG QPM. prazosin 5 mg Capsule 10 mg PO HS gabapentin 300 mg capsule 900 mg PO DAILY Discharge Orders: Discharge Order (Routine); Ordered 10/11/23 Ordered By: Lucina Leavitt/Other Patient Handouts: Preventing Deep Vein Thrombosis Admission Data Admit Date/Time: 10/09/23 02:01 Attending Provider: Lucina Vegas Admit Provider: Lucas Vazquez Primary Care Provider: PCP,NO Other Providers: Lucas Vazquez; Jumana Villareal; [facility] Other Interventions: Discharge Summary Assessment (RN) Last Done: 10/11/23 10:42 Coding Level of Care Code 39020 INP/OBS DISCH >30 MIN Diagnoses Acute hypotension I95.9 Urinary retention due to benign prostatic hyperplasia N40.1; R33.8 BPH w urinary obs/LUTS N40.1; N13.8 Acute hyponatremia E87.1 Idiopathic polyneuropathy G60.9 CAD (coronary artery disease) I25.10 Thoracic compression fracture S22.000A GLADYS (acute kidney injury) N17.9 Tobacco dependence F17.200 Depression F32.9 Myoclonus G25.3 COPD (chronic obstructive pulmonary disease) J44.9
== END 2023-10-11 11:14 | disposition home or self-care (01) | DRG 312 ==
LOC: ED 22:37 → SUATTDRO 10-09 02:01 → 1E 10-09 02:01 → 3N 10-09 20:40

== ENCOUNTER 2024-04-14 11:31 | Inpatient (IN) ==
--- NOTE | 2024-04-14 11:58 | Emergency Department Note ---
Impression & Plan Generalized weakness, Acute dehydration, Prostate cancer metastatic to multiple sites ED Provider Note NAME: JUAN FRANCISCO LOVE AGE: 84 SEX: Male INFORMANT: Patient ED PROVIDER(S): Michael Fields MD CHIEF COMPLAINT: Weakness PLAN: Disposition: Admitted Outpatient prescription management: none Referral: None MEDICAL DECISION MAKING: Patient presented due to generalized weakness. He was not doing well at home. Workup was initiated. He was mildly tachycardic. ECG did not reveal any acute ischemia. His CBC and chemistry panel did not reveal any significant problems. Head CT imaging was negative. Patient was hydrated. Urinalysis unremarkable. Record review from the previous visit. He had extensive CT imaging of the chest abdomen and pelvis done. These were not repeated. Family did present and noted that he was generally very weak and not doing well at home. Given his cancer history and the fact that he is not doing well at home I discussed further management and evaluation in the hospital. They were in agreement. They are requesting admission. [facility]. Patient was evaluated in the ER and admitted for further management. 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 Triage Nursing notes: reviewed and agree them. Vital Signs: reviewed and remarkable for tachycardia and hypertension Additional History obtained from: Family. They note patient has not eating and drinking well. He is generally weak and not doing well at home. Chronic Medical/Social Conditions affecting care: Prostate cancer Prior/ Outside/ External records reviewed: Prior ED visit record reviewed. No acute findings were noted on CT imaging of the chest, abdomen or pelvis. Patient did have a leukocytosis but otherwise no other acute problems were noted. Differential Diagnosis: Infection, dehydration, metabolic abnormality, hypo/hyperglycemia, electrolyte disturbance, anemia, hypoxia, cardiac sources, intracerebral event, toxicologic, neurologic, as well as other pathologies. Diagnostics, independently interpreted by me: ECG: Twelve-lead ECG was sinus tachycardia 103 bpm. Left axis deviation. No ST elevation or depression. Cardiac Monitoring: Cardiac monitoring ordered by me: The patient was placed on continuous cardiac monitoring and observed. It revealed a sinus tachycardia at 115 bpm with occasional PACs Medical decision rules: none Imaging studies: Head CT: A noncontrast CT scan of the head was performed and was negative for tumor, fracture, intracranial hemorrhage, or other acute pathology. Chest x-ray. Findings: A chest x-ray was performed and revealed no pneumothorax, effusion, infiltrate, pulmonary edema, free air under the diaphragm, or wide mediastinum. Impression: No acute disease. HPI: 84 year old Male arrives for evaluation of weakness and feeling ill. This started over the last week and is worsening over the last 48 hours. The patient also notes the following associated symptoms, feeling dehydrated, poor p.o. intake, very anxious, tremors, poor sleep, mild confusion. Patient has a history of metastatic prostate cancer. He was in the ED and had a workup including a chest abdomen pelvis CT scan which did not reveal any acute findings. Patient states his health has worsened and EMS was summoned today. And route patient was tachycardic and occasionally tachypneic. He was given a fluid bolus and EMS noted that did help with his tachycardia. Current pain is rated as 0/10. Pt denies LOC, headache, runny nose, sore throat, fevers, chills, diaphoresis, visual changes, neck pain, chest pain, breathing difficulties, nausea, vomiting, abdominal pain, back pain, melena, hematochezia, urinary symptoms, numbness,lymphadenopathy, rash, or other complaints.. PAST MEDICAL HISTORY: See Below, metastatic prostate cancer PAST SURGICAL HISTORY: See Below, SOCIAL HISTORY: See Below, HOME MEDICATIONS: See Below ALLERGIES: See Below VITALS: See Below PHYSICAL EXAMINATION: GENERAL: Awake, alert, anxious-appearing, in no distress HENT: Normocephalic, atraumatic. Oropharynx unremarkable. EYES: Normal conjunctiva. Sclera non-icteric. NECK: Inspection normal. Non-tender. Supple. No nuchal rigidity. FROM. No masses. RESPIRATORY: Clear to auscultation. No wheezes. No rales. Normal respiratory effort. CARDIAC: Borderline tachycardic rate. Normal rhythm. No murmurs. No rubs. Extremities warm and well perfused. Pulses equal. No JVD. GI: Soft, non-distended. No tenderness to palpation. No rebound or guarding. No masses. RECTAL: Deferred. MUSCULOSKELETAL: Atraumatic. Chest examination reveals no tenderness. The back is symmetrical on inspection without obvious abnormality. There is no CVA tenderness to palpation. No joint edema. LOWER EXTREMITIES: Calves are equal size bilaterally and non-tender. No edema. No discoloration. NEURO: Normal sensorium. No sensory or motor deficits noted. SKIN: No rash or jaundice noted. 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 02/10/24) Thoracic compression fracture T7 Thoracic spine pain BPH w urinary obs/LUTS Back pain (Acute) [place] positive Idiopathic polyneuropathy Disc degeneration, lumbar Scoliosis of lumbar region due to degenerative disease of spine in adult Orthostatic hypotension Sinus tachycardia CAD (coronary artery disease) Tobacco dependence Osteoporosis Hyperlipidemia Rotator cuff arthropathy of left shoulder Encounter for pre-operative examination Atypical chest pain (Acute) HERNÁNDEZ (dyspnea on exertion) (Acute) Hypophosphatemia (Acute) Hypocalcemia (Acute) Hypertension Low back pain Depression Myoclonus COPD (chronic obstructive pulmonary disease) Spinal stenosis, lumbar region with neurogenic claudication Lumbar spondylosis Spinal stenosis of thoracolumbar region Hypothyroidism Medical History (Updated 04/14/24 @ 11:58 by Michael Fields MD) Obesity Osteoarthritis DDD (degenerative disc disease) Hearing deficit Aneurysm Per remote [facility] records, hx of questionable thoracic aortic aneurysm [facility], no recent issues/not noted on 2019 echo Sleep apnea No device COPD (chronic obstructive pulmonary disease) Stable Hypertension Surgical History (Updated 02/29/24 @ 08:16 by Karen Gutierrez RN) History of shoulder replacement Left History of laminectomy (02/16/24) 1) posterior thoracic segmental fusion with pedicle screws: Thoracic 5, 6, 7, 8, 9 levels 2) Cement augmentation of thoracic pedicle screws, thoracic 5, 6, 8, 9 3) Laminectomy, thoracic 7 and 8 4) Partial laminectomy, thoracic 6 5) Facetectomy bilaterally, thoracic 6-7, and 7-8 6) Pediculectomy bilaterally, thoracic 7 7) Partial corpectomy, thoracic 7 8) open reduction of thoracic fracture, thoracic 7 level 9) Arthrodesis, thoracic 5, 6, 7, 8, 9 10) use of allograft 11) use of intraoperative neurophysiologic monitoring 12) Use of intraoperative ultrasonography 13) use of fluoroscopy Surgeon: Oumar Rosa Co-surgeon: Renan Lopez Electric Stop Installer: Ramses Sheppard History of elbow surgery Right History of cataract surgery R/L Family History (Updated 02/29/24 @ 08:18 by Karen Gutierrez RN) Father No problems noted. Mother No problems noted. Brother Breast cancer Surgery Brother No problems noted. Sister No problems noted. Sister No problems noted. Daughter No problems noted. Son No problems noted. Son No problems noted. Other No family history of adverse response to anesthesia Social History (Updated 02/29/24 @ 08:21 by Karen Gutierrez RN) Smoking Status: Never smoker Second Hand Exposure: No; Do You Dip or Chew Tobacco: No; Hx Alcohol Use: No Hx Substance Use: No Preferred Language: Zimbabwean Communication Ability: Effective Visual Impairment: No Limitations Hearing Ability: Hard of Hearing Shoe Repairman Required: No Beliefs That Will Affect Care: None marital status: Current Living Situation: Spouse Current Living Situation Comment: Currently at [facility] current occupational status: retired How many Children do You have: 3 Feels Safe at Home: Yes Childhood Exposure to Second-Hand Smoke: No Diet: regular caffeine: Yes during the past year weight has: decreased > 10 lbs Dental Care, Regularly: No Assistive Devices: Walker Allergies Allergies Allergy/AdvReac Type Severity Reaction Status Date / Time diclofenac [From Voltaren] Allergy Unknown [facility] Verified 04/14/24 14:55 LIST Home Meds Home Medications Medication Instructions Recorded Confirmed magnesium 250 mg tablet 250 mg PO QAM 01/30/20 04/14/24 lidocaine 5 % topical patch 1 patch topical DAILY PRN Pain 03/12/20 04/14/24 trazodone 100 mg tablet 200 mg PO HS 12/11/20 04/14/24 venlafaxine 150 mg 150 mg PO QAM 06/14/22 04/14/24 capsule,extended release 24 hr tiotropium bromide 2.5 2 inh inhalation DAILY 03/19/23 04/14/24 mcg/actuation mist for inhalation diclofenac sodium 1 % topical gel 2 g topical QID 08/04/23 04/14/24 (Arthritis Pain (diclofenac)) finasteride 5 mg tablet 5 mg PO DAILY 08/04/23 04/14/24 roflumilast 500 mcg tablet 500 mcg PO DAILY 08/04/23 04/14/24 levothyroxine 100 mcg tablet 100 mcg PO DAILYBB 10/08/23 04/14/24 potassium citrate 99 mg capsule 99 mg PO DAILY 10/08/23 04/14/24 simvastatin 80 mg tablet 40 mg PO HS 10/08/23 04/14/24 acetaminophen 325 mg tablet 975 mg PO TID 02/29/24 04/14/24 albuterol sulfate 90 mcg/actuation 2 puff inhalation Q4H PRN 02/29/24 04/14/24 aerosol inhaler (Proventil HFA) Shortness Of Breath Or Wheezing docusate sodium 50 mg/5 mL oral 100 mg PO DAILY PRN Constipation 02/29/24 04/14/24 liquid fluticasone 250 mcg-salmeterol 50 1 inh inhalation BID 02/29/24 04/14/24 mcg/dose blistr powdr for inhalation (Advair Diskus) gabapentin 300 mg capsule 300 mg PO BID 02/29/24 04/14/24 levetiracetam 500 mg tablet 500 mg PO BID 02/29/24 04/14/24 morphine 15 mg tablet,extended 15 mg PO Q8H 02/29/24 04/14/24 release (MS Contin) sennosides 8.6 mg tablet (Senokot) 17.2 mg PO DAILY 02/29/24 04/14/24 tamsulosin 0.4 mg capsule 0.4 mg PO DAILY 02/29/24 04/14/24 ascorbate calcium (vitamin C) 500 500 mg PO DAILY 04/03/24 04/14/24 mg tablet bicalutamide 50 mg tablet 50 mg PO DAILY 04/03/24 04/14/24 cholecalciferol (vitamin D3) 10 10 mcg PO DAILY 04/03/24 04/14/24 mcg (400 unit) capsule fluticasone propionate 50 1 spray intranasal BID 04/03/24 04/14/24 mcg/actuation nasal spray,suspension food supplemt, lactose-reduced 1 ea PO DAILY 04/03/24 04/14/24 (Ensure oral liquid) lisinopril 10 mg tablet 10 mg PO DAILY 04/03/24 04/14/24 meloxicam 15 mg tablet 15 mg PO DAILY PRN Pain 04/03/24 04/14/24 metoprolol tartrate 25 mg tablet 12.5 mg PO QAM 04/03/24 04/14/24 metoprolol tartrate 25 mg tablet 25 mg PO HS 04/03/24 04/14/24 morphine 10 mg/5 mL oral solution 10 mg PO Q4H PRN Pain, Severe 04/03/24 04/14/24 ondansetron HCl 4 mg tablet 4 mg PO Q8H PRN NAUSEA/VOMITING 04/03/24 04/14/24 polyethylene glycol 3350 17 gram 17 g PO DAILY PRN Constipation 04/03/24 04/14/24 oral powder packet (Miralax) thiamine HCl (vitamin B1) 100 mg 100 mg PO DAILY 04/03/24 04/14/24 tablet Previous Rx's Medication Instructions Recorded dexamethasone 4 mg tablet 4 mg PO BID #60 tabs 04/03/24 Results & Data (ED) Vital Signs Vital Signs - 24 hr 04/14/24 11:39 04/14/24 11:55 04/14/24 11:56 Temperature 36.4 C L Temperature Source Oral Pulse Rate 114 H 120 H Respiratory Rate 20 Respiratory Effort / Characteristics Spontaneous Blood Pressure 159/115 H Blood Pressure Mean 129 Pulse Oximetry 97 97 Oxygen Delivery Method Room Air Room Air Sepsis Recent Fever Within 48 Hours No Sepsis New/Unexplained Change in Mental Status No Sepsis Action Taken by Nursing No Action Required 04/14/24 12:00 04/14/24 13:30 04/14/24 14:00 Temperature Temperature Source Pulse Rate 108 H 97 H 90 Respiratory Rate 27 H 23 18 Respiratory Effort / Characteristics Blood Pressure 148/106 H 158/109 H 181/117 H Blood Pressure Mean 126 144 152 Pulse Oximetry 98 98 98 Oxygen Delivery Method Sepsis Recent Fever Within 48 Hours Sepsis New/Unexplained Change in Mental Status Sepsis Action Taken by Nursing Laboratory Data 04/15/24 05:24 04/15/24 05:24 Lab Results 04/14/24 04/14/24 Range/Units 11:50 11:59 WBC 11.05 H (4.8-10.8) K/ul RBC 4.48 L (4.70-6.10) M/uL Hgb 12.6 L (14.0-18.0) g/dl Hct 38.8 L (42.0-52.0) % MCV 86.6 (80.0-100.0) fL MCH 28.1 (25.0-34.0) pg MCHC 32.5 (32.0-36.0) g/dL RDW Std Deviation 47.8 H (36.4-46.3) fL RDW Coeff of Bisi 15.0 H (11.5-14.5) % Plt Count 335 (130-400) K/uL MPV 9.1 L (9.4-12.4) fL Immature Gran % (Auto) 0.3 % Neut % (Auto) 81.8 % Lymph % (Auto) 8.8 % [place] % (Auto) 9.0 % Eos % (Auto) 0.1 % Baso % (Auto) 0.0 % Neut # (Auto) 9.04 H (1.40-6.50) K/uL Lymph # (Auto) 0.97 L (1.20-3.40) K/uL [place] # (Auto) 1.00 H (0.11-0.59) K/uL Eos # (Auto) 0.01 (0.00-0.50) K/uL Baso # (Auto) 0.00 (0.00-0.20) K/uL Immature Gran # (Auto) 0.03 (0.01-0.20) K/uL Sodium 130 L (136-145) mmol/L Potassium 4.2 (3.5-5.1) mmol/L Chloride 94 L (98-107) mmol/L Carbon Dioxide 28 (21-32) mmol/L Anion Gap 8 (3-11) BUN 14 (6-23) mg/dl Creatinine 0.68 (0.6-1.4) mg/dl Est Cr Clr Drug Dosing 76.8 ml/min Est GFR ( Amer) 100.9 ml/min Est GFR (Non-Af Amer) 87.1 ml/min BUN/Creatinine Ratio 20.6 H (10-20) Glucose 113 H (70-99(Fasting)) mg/dl Calcium 8.7 (8.6-10.3) mg/dl Magnesium 1.7 (1.7-2.4) mg/dl Total Bilirubin 0.9 (0.2-1.0) mg/dl AST 25 (13-39) U/L ALT 30 (7-52) U/L Alkaline Phosphatase 78 (34-104) U/L Troponin I High Sens 11.6 (0-20) pg/ml Total Protein 6.3 (6.0-8.3) gm/dl Albumin 3.8 (3.4-5.0) gm/dl Globulin 2.5 (2.5-4.0) gm/dl Albumin/Globulin Ratio 1.5 (0.9-2) TSH 3.876 (0.300-4.500) uIu/ml Adenovirus (PCR) Not Detected (NotDetected) B. pertussis DNA (PCR) Not Detected (NotDetected) B.parapertussis DNA PCR Not Detected (NotDetected) C. pneumoniae DNA (PCR) Not Detected (NotDetected) Coronavirus OC43 (PCR) Not Detected (NotDetected) Coronavirus HKU1 (PCR) Not Detected (NotDetected) Coronavirus 229E (PCR) Not Detected (NotDetected) SARS-CoV-2 (PCR) Not Detected (NotDetected) Coronavirus NL63 (PCR) Not Detected (NotDetected) Human Metapneumovir PCR Not Detected (NotDetected) Influenza Type A (PCR) Not Detected (NotDetected) Influenza Type B (PCR) Not Detected (NotDetected) M. pneumoniae (PCR) Not Detected (NotDetected) Parainfluenza 1 (PCR) Not Detected (NotDetected) Parainfluenza 2 (PCR) Not Detected (NotDetected) Parainfluenza 3 (PCR) Not Detected (NotDetected) Parainfluenza 4 (PCR) Not Detected (NotDetected) RSV (PCR) Not Detected (NotDetected) Entero/Rhino (PCR) Not Detected (NotDetected) Administered Medications Gabapentin (Gabapentin 300 Mg Cap) 300 mg PO BID [facility] Stop: 05/14/24 20:59 Last Admin: 04/14/24 20:10 Dose: 300 mg Documented By: LY Heparin Sodium (Porcine) (Heparin Sod 5,000 Unit/0.5 Ml Vial) 5,000 units SQ Q8 DELMAR Stop: 05/14/24 21:59 Last Admin: 08/03/24 05:36 Dose: 5,000 units Documented By: Admin: 04/14/24 20:10 Dose: 5,000 units Documented By: CARY Levetiracetam (Levetiracetam 500 Mg Tab) 500 mg PO BID [facility]MAR Stop: 05/14/24 20:59 Last Admin: 04/14/24 20:10 Dose: 500 mg Documented By: CARY Levothyroxine Sodium (Levothyroxine Sodium 100 Mcg Tablet) 100 mcg PO DAILYBB DELMAR Stop: 05/15/24 06:29 Last Admin: 04/15/24 05:36 Dose: 100 mcg Documented By: CARY Lisinopril (Lisinopril 10 Mg Tab) 10 mg PO DAILY DELMAR Stop: 05/14/24 16:22 Last Admin: 04/14/24 17:30 Dose: 10 mg Documented By: RASHID Metoprolol Tartrate (Metoprolol Tartrate 25 Mg Tab) 25 mg PO [facility] Stop: 05/14/24 20:59 Last Admin: 04/14/24 20:10 Dose: 25 mg Documented By: CARY Morphine Sulfate (Morphine Sulfate Cr 15 Mg Tabcr) 15 mg PO Q8H DELMAR Stop: 04/28/24 16:59 Last Admin: 04/15/24 00:11 Dose: 15 mg Documented By: Admin: 04/14/24 17:56 Dose: 15 mg Documented By: RASHID Trazodone HCl (Trazodone Hcl 100 Mg Tab) 200 mg PO HS [facility] Stop: 05/14/24 20:59 Last Admin: 04/14/24 20:10 Dose: 200 mg Documented By: CARY Discontinued Medications Alprazolam (Alprazolam 0.5 Mg Tablet) 0.5 mg PO NOW STA Stop: 04/14/24 14:52 Last Admin: 04/14/24 15:21 Dose: 0.5 mg Documented By: AINSLEY Sodium Chloride (Nss) 1,000 mls @ 125 mls/hr IV .Q8H DELMAR Stop: 04/14/24 19:59 Last Infusion: 04/14/24 20:42 Dose: Infused Documented By: Admin: 04/14/24 12:41 Dose: 125 mls/hr Documented By: AMALIA Sodium Chloride (Nss) 500 mls @ 999 mls/hr IV .Q31M DELMAR Stop: 04/14/24 12:30 Last Infusion: 04/14/24 12:38 Dose: Infused Documented By: Admin: 04/14/24 12:00 Dose: 999 mls/hr Documented By: NRShad Discharge Plan Visit Data Chief Complaint: Illness ED Provider: Michael Fields Discharge Problem: Generalized weakness, Acute dehydration, Prostate cancer metastatic to multiple sites Patient Disposition: Admitted As Inpatient Discharge Instructions Interventions: ED Discharge Assessment Last Done: 04/14/24 16:03
[2024-04-14] MEDS: SODIUM CHLORIDE 0.9% 500 ML IV SCH (12:00)
[2024-04-14 12:07] LABS: Eosinophils # (auto) 0.01 K/uL (0.00-0.50); Eosinophils % (auto) 0.1 %; Hematocrit (blood only) 38.8 % (42.0-52.0); Hemoglobin 12.6 g/dl (14.0-18.0); Immature Granulocytes # (auto) 0.03 K/uL (0.01-0.20); Immature Granulocytes % (auto) 0.3 %; Lymphocytes # (auto) 0.97 K/uL (1.20-3.40); Lymphocytes % (auto) 8.8 %; Mean Corpuscular Hemoglobin 28.1 pg (25.0-34.0); Mean Corpuscular Hgb Conc 32.5 g/dL (32.0-36.0); Mean Corpuscular Volume 86.6 fL (80.0-100.0); Mean Platelet Volume 9.1 fL (9.4-12.4); Neutrophils # (auto) 9.04 K/uL (1.40-6.50); Neutrophils % (auto) 81.8 %; Platelet Count 335 K/uL (130-400); RDW Standard Deviation 47.8 fL (36.4-46.3); Red Blood Count 4.48 M/uL (4.70-6.10); White Blood Count 11.05 K/ul (4.8-10.8)
[2024-04-14 12:23] LABS: Albumin Globulin Ratio 1.5 (0.9-2); Albumin Level 3.8 gm/dl (3.4-5.0); BUN Creatinine Ratio 20.6 (10-20); Bilirubin,Total 0.9 mg/dl (0.2-1.0); Calcium 8.7 mg/dl (8.6-10.3); Creatinine Clr Calc Pharmacy 76.8 ml/min; Est GFR (African American) 100.9 ml/min; Est GFR (Non-African American) 87.1 ml/min; Globulin 2.5 gm/dl (2.5-4.0); Magnesium 1.7 mg/dl (1.7-2.4); Potassium 4.2 mmol/L (3.5-5.1); Total Protein 6.3 gm/dl (6.0-8.3)
--- NOTE | 2024-04-14 12:32 | XRay Report ---
XR chest 1V portable HISTORY: weakness COMPARISON: Chest CTA 04/11/2024. Chest x-ray 10/09/2023. FINDINGS: No pneumothorax. No pleural effusions. There are low lung volumes with bibasilar linear den sities suggesting subsegmental atelectasis. Gaseous distention of the bowel remains unchanged. The he art is normal in size. No evidence for pulmonary edema. No new focal lung consolidations to suggest a pneumonia. There is a left shoulder prosthesis and thoracic spinal fusion hardware is noted. IMPRESSION: 1. Low lung volumes with bibasilar linear densities suggesting subsegmental atelectasis. 2. Postoperative changes as described above. 3. Mild gaseous distention of the bowel, unchanged. ACT 112: Negative or not required by law. Electronically signed by: Alexandre Mcfarland M.D. 04/14/2024 12:30 PM
[2024-04-14 12:36] LABS: Thyroid Stimulating Hormone 3.876 uIu/ml (0.300-4.500)
[2024-04-14] MEDS: SODIUM CHLORIDE 0.9% 1,000 ML IV SCH (12:41)
--- NOTE | 2024-04-14 12:44 | CT Scan Report ---
CT head/brain wo con CLINICAL HISTORY: 84 years-old Male with Confusion, hx of prostate ca. Acutely altered mental status TECHNIQUE: Multiple axial CT images of the head were obtained without contrast. A dose lowering tech nique was utilized adhering to the principles of ALARA. CT DOSE: 1499.97 mGy.cm COMPARISON: None. FINDINGS: No acute intracranial hemorrhage, midline shift, intracranial mass, hydrocephalus, territorial ischem ia or abnormal extra-axial collection. Chronic microvascular ischemic disease. The calvarium is intact. The paranasal sinuses, mastoid air cells, and middle ear cavities are clear . IMPRESSION: No acute intracranial abnormality ACT 112: Negative or not required by law. The above report was generated using voice recognition software. It may contain grammatical, syntax o r spelling errors. Electronically signed by: Braden Burnett M.D. 04/14/2024 12:42 PM
[2024-04-14 12:57] LABS: Adenovirus PCR Not Detected (NotDetected); Bordetella parapertussis PCR Not Detected (NotDetected); Bordetella pertussis PCR Not Detected (NotDetected); Chlamydia pneumoniae PCR Not Detected (NotDetected); Coronavirus 229E PCR Not Detected (NotDetected); Coronavirus CoV-2 (COVID19)PCR Not Detected (NotDetected); Coronavirus HKU1 PCR Not Detected (NotDetected); Coronavirus NL63 PCR Not Detected (NotDetected); Coronavirus OC43PCR Not Detected (NotDetected); Human Metapneumovirus PCR Not Detected (NotDetected); Influenza A PCR Not Detected (NotDetected); Influenza B PCR Not Detected (NotDetected); Mycoplasma pneumoniae PCR Not Detected (NotDetected); Parainfluenza Virus 1 PCR Not Detected (NotDetected); Parainfluenza Virus 2 PCR Not Detected (NotDetected); Parainfluenza Virus 3 PCR Not Detected (NotDetected); Parainfluenza Virus 4 PCR Not Detected (NotDetected); Respiratory Syncytial VirusPCR Not Detected (NotDetected); Rhinovirus/Enterovirus PCR Not Detected (NotDetected)
[2024-04-14 14:36] LABS: Appearance Urine Clear (Clear); Bilirubin Urine Negative (Negative); Blood Urine Negative (Negative); Color Urine Yellow; Glucose Urine UA Negative (Negative); Ketones Urine Negative (Negative); Leukocyte Esterase Urine Negative (Negative); Nitrite Urine Negative (Negative); Protein Urine Negative (Negative); Specific Gravity Urine 1.013 (1.000-1.030); Urobilinogen Urine Negative (Negative); pH Urine 7.5 (4.5-7.5)
[2024-04-14 14:43] LABS: Troponin I High Sensitivity 11.6 pg/ml (0-20)
--- NOTE | 2024-04-14 15:00 | History & Physical Report ---
Date of Service April 14, 2024 Assessment & Plan (1) Generalized weakness: Plan: Generalized weakness is probably multifactorial due to poor oral intake of food and water and also from the underlying metastatic prostate cancer Will start IV fluid normal saline 100 cc/h Nutritional supplements with Ensure (2) Prostate cancer metastatic to multiple sites: Plan: Patient was diagnosed with metastatic prostate cancer in March 2024 Has been undergoing radiation therapy Next scheduled therapy is on Wednesday (3) Idiopathic polyneuropathy: Plan: On gabapentin at home, will continue (4) Hypertension: Plan: Blood pressure is elevated Will resume his home medicine, he is on lisinopril May add a second agent if the blood pressure is not under better control. (5) Depression: Plan: Anxiety and depression, patient seems to be very anxious Resume his home medicine, give him a dose of Xanax 0.5 mg once Plan Admits to general surgery Full code PT eval History of Present Illness Chief Complaint: Generalized weakness, poor appetite, poor oral intake. Primary Care Provider: [facility] Is an 84-year-old male with a history of metastatic prostate cancer, idiopathic polyneuropathy, myoclonus, COPD who presents to the hospital today on account of worsening generalized weakness poor oral intake poor appetite. Some of the history was obtained from the patient and also from the and the daughter who are at the bedside. Patient was diagnosed with metastatic prostate cancer in March 2024 and has been getting radiation therapy however over the past several days he noticed that he was getting weak and tired with poor appetite and poor intake. He came to the emergency department a couple of days ago on April 11, 2024 after being sent from the [facility]. In the emergency departme nt a lot of investigations and workup were done including CT scan chest x-ray and the reason for his chest pain was not examined. The chest pain resolved and was discharged. However he comes back to the hospital today through ambulance for worsening weakness shortness of breath and poor appetite. WBC was 11,000, hemoglobin 12.6 sodium 130 glucose 113 the rest of the lab works are within normal limits. [employer] was also negative CT scan of the head negative chest x-ray was negative. Patient will be admitted to the hospital for further management. Allergies Allergy/AdvReac Type Severity Reaction Status Date / Time diclofenac [From Voltaren] Allergy Unknown ON [place] [facility] Verified 04/14/24 14:55 LIST Home Medications Medication Instructions Recorded Confirmed Type magnesium 250 mg tablet 250 mg PO QAM 01/30/20 04/11/24 History lidocaine 5 % topical patch 1 patch topical DAILY PRN Pain 03/12/20 04/11/24 History trazodone 100 mg tablet 200 mg PO HS 12/11/20 04/11/24 History venlafaxine 150 mg 150 mg PO QAM 06/14/22 04/11/24 History capsule,extended release 24 hr tiotropium bromide 2.5 2 inh inhalation DAILY 03/19/23 04/11/24 History mcg/actuation mist for inhalation diclofenac sodium 1 % topical gel 2 g topical QID 08/04/23 04/11/24 History (Arthritis Pain (diclofenac)) finasteride 5 mg tablet 5 mg PO DAILY 08/04/23 04/11/24 History roflumilast 500 mcg tablet 500 mcg PO DAILY 08/04/23 04/11/24 History levothyroxine 100 mcg tablet 100 mcg PO DAILYBB 10/08/23 04/11/24 History potassium citrate 99 mg capsule 99 mg PO DAILY 10/08/23 04/11/24 History simvastatin 80 mg tablet 40 mg PO HS 10/08/23 04/11/24 History acetaminophen 325 mg tablet 975 mg PO TID 02/29/24 04/11/24 History albuterol sulfate 90 mcg/actuation 2 puff inhalation Q4H PRN 02/29/24 04/11/24 History aerosol inhaler (Proventil HFA) Shortness Of Breath Or Wheezing docusate sodium 50 mg/5 mL oral 100 mg PO DAILY PRN Constipation 02/29/24 04/11/24 History liquid fluticasone 250 mcg-salmeterol 50 1 inh inhalation BID 02/29/24 04/11/24 History mcg/dose blistr powdr for inhalation (Advair Diskus) gabapentin 300 mg capsule 300 mg PO BID 02/29/24 04/11/24 History levetiracetam 500 mg tablet 500 mg PO BID 02/29/24 04/11/24 History morphine 15 mg tablet,extended 15 mg PO Q8H 02/29/24 04/11/24 History release (MS Contin) sennosides 8.6 mg tablet (Senokot) 17.2 mg PO DAILY 02/29/24 04/11/24 History tamsulosin 0.4 mg capsule 0.4 mg PO DAILY 02/29/24 04/11/24 History ascorbate calcium (vitamin C) 500 500 mg PO DAILY 04/03/24 04/11/24 History mg tablet bicalutamide 50 mg tablet 50 mg PO DAILY 04/03/24 04/11/24 History cholecalciferol (vitamin D3) 10 10 mcg PO DAILY 04/03/24 04/11/24 History mcg (400 unit) capsule dexamethasone 4 mg tablet 4 mg PO BID #60 tabs 04/03/24 04/11/24 Rx fluticasone propionate 50 1 spray intranasal BID 04/03/24 04/11/24 History mcg/actuation nasal spray,suspension food supplemt, lactose-reduced 1 ea PO DAILY 04/03/24 04/11/24 History (Ensure oral liquid) lisinopril 10 mg tablet 10 mg PO DAILY 04/03/24 04/11/24 History meloxicam 15 mg tablet 15 mg PO DAILY PRN Pain 04/03/24 04/11/24 History metoprolol tartrate 25 mg tablet 12.5 mg PO QAM 04/03/24 04/11/24 History metoprolol tartrate 25 mg tablet 25 mg PO HS 04/03/24 04/11/24 History morphine 10 mg/5 mL oral solution 10 mg PO Q4H PRN Pain, Severe 04/03/24 04/11/24 History ondansetron HCl 4 mg tablet 4 mg PO Q8H PRN NAUSEA/VOMITING 04/03/24 04/11/24 History polyethylene glycol 3350 17 gram 17 g PO DAILY PRN Constipation 04/03/24 04/11/24 History oral powder packet (Miralax) thiamine HCl (vitamin B1) 100 mg 100 mg PO DAILY 04/03/24 04/11/24 History tablet Past Med/Surg History Problem List (Updated 04/14/24 @ 11:58 by Michael Fields MD) Prostate cancer metastatic to multiple sites (Acute) Acute dehydration (Acute) Generalized weakness (Acute) Prostate cancer (Acute) Chest pain (Acute) 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) (Chronic 02/10/24) Thoracic compression fracture T7 Thoracic spine pain BPH w urinary obs/LUTS Back pain (Acute) [place] positive Idiopathic polyneuropathy Disc degeneration, lumbar Scoliosis of lumbar region due to degenerative disease of spine in adult Orthostatic hypotension Sinus tachycardia CAD (coronary artery disease) Tobacco dependence Osteoporosis Hyperlipidemia Rotator cuff arthropathy of left shoulder Encounter for pre-operative examination Atypical chest pain (Acute) HERNÁNDEZ (dyspnea on exertion) (Acute) Hypophosphatemia (Acute) Hypocalcemia (Acute) Hypertension Low back pain Depression Myoclonus COPD (chronic obstructive pulmonary disease) Spinal stenosis, lumbar region with neurogenic claudication Lumbar spondylosis Spinal stenosis of thoracolumbar region Hypothyroidism Medical History (Updated 04/14/24 @ 11:58 by Michael Fields MD) Obesity Osteoarthritis DDD (degenerative disc disease) Hearing deficit Aneurysm Per remote [facility] records, hx of questionable thoracic aortic [facility], no recent issues/not noted on 2019 echo Sleep apnea No device COPD (chronic obstructive pulmonary disease) Stable Hypertension Surgical History (Updated 02/29/24 @ 08:16 by Karen Gutierrez, YONI) History of shoulder replacement Left History of laminectomy (02/16/24) 1) posterior thoracic segmental fusion with pedicle screws: Thoracic 5, 6, 7, 8, 9 levels 2) Cement augmentation of thoracic pedicle screws, thoracic 5, 6, 8, 9 3) Laminectomy, thoracic 7 and 8 4) Partial laminectomy, thoracic 6 5) Facetectomy bilaterally, thoracic 6-7, and 7-8 6) Pediculectomy bilaterally, thoracic 7 7) Partial corpectomy, thoracic 7 8) open reduction of thoracic fracture, thoracic 7 level 9) Arthrodesis, thoracic 5, 6, 7, 8, 9 10) use of allograft 11) use of intraoperative neurophysiologic monitoring 12) Use of intraoperative ultrasonography 13) use of fluoroscopy Surgeon: Oumar Rosa Co-surgeon: Renan Lopez Production Officer: Ramses Sheppard History of elbow surgery Right History of cataract surgery R/L Family History (Updated 02/29/24 @ 08:18 by Karen Gutierrez, YONI) Father No problems noted. Mother No problems noted. Brother Breast cancer Surgery Brother No problems noted. Sister No problems noted. Sister No problems noted. Daughter No problems noted. Son No problems noted. Son No problems noted. Other No family history of adverse response to anesthesia Social History (Updated 02/29/24 @ 08:21 by Karen Gutierrez RN) Smoking Status: Never smoker Tobacco Type: Pipe and Cigars Second Hand Exposure: No; Do You Dip or Chew Tobacco: No; Hx Alcohol Use: No Hx Substance Use: No Preferred Language: Kinyarwanda Communication Ability: Effective Visual Impairment: No Limitations Hearing Ability: Hard of Hearing Dock Supervisor Required: No Beliefs That Will Affect Care: None marital status: Current Living Situation: Spouse Current Living Situation Comment: Currently at [facility] current occupational status: retired How many Children do You have: 3 Feels Safe at Home: Yes Childhood Exposure to Second-Hand Smoke: No Diet: regular caffeine: Yes during the past year weight has: decreased > 10 lbs Dental Care, Regularly: No Assistive Devices: Walker Review of Systems Review of Systems: All systems reviewed are negative, apart from the ones contained in the history. Physical Exam Physical Exam: The patient is awake, alert and oriented 3, well developed and well nourished, normocephalic and atraumatic, lying in bed and in no acute distress. HEENT--PERRL, EOMI, mucous membranes and oropharynx mildly dry Neck--supple. No JVD. No bruits. Thyroid normal, trachea midline, no adenopathy. Heart--normal S1 and S2. No murmurs, rubs or gallops. Lungs--clear bilaterally, no respiratory distress, no accessory muscle use. Abdomen--normal bowel sounds and soft. Extremities--no cyanosis or clubbing. No edema. Dermatologic--normal skin turgor, normal color, no abnormal lymph nodes, no rash. Neurologic--cranial nerves II through XII grossly intact. Rheumatologic--normal range of motion. Psychiatric--Anxious. Results & Data Results & Data Vital Signs (Past 12 Hours) Vital Signs Temp Pulse Resp BP Pulse Ox O2 Del Method 04/14/24 14:00 90 18 181/117 H 98 04/14/24 13:30 97 H 23 158/109 H 98 04/14/24 12:00 108 H 27 H 148/106 H 98 04/14/24 11:56 120 H 04/14/24 11:55 97 Room Air 04/14/24 11:39 97.5 F L 114 H 20 159/115 H 97 Room Air Code Status & VTE Plan VTE Prophylaxis Plan VTE Prophylaxis will be ordered: Yes PG Care Time/CCT Total # of Minutes Spent Total Time Spent with Patient: Total time spent is greater than 50% in coordination of care (as documented) at patient's floor/unit and/or counseling patient: Coding Level of Care Code 89838 INT INP/OBS CARE 3/75MIN Diagnoses Generalized weakness R53.1 Prostate cancer metastatic to multiple sites C61 Idiopathic polyneuropathy G60.9 Hypertension I10 Depression F32.9 Time Spent (min) 75
[2024-04-14] MEDS: ALPRAZolam 0.5 MG TABLET PO STA (15:21)
--- OUTSIDE RECORDS SUMMARY | 2024-04-14 16:09 | External Medical Summary | Summary of Care ---
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[employer] * Evaluate & Treat - Unlimited Visits (Within 30 days (routine)) - Authorized Specialty Diagnoses / Procedures Referred By Edgar mac Referred To Contact Hematology Oncology Diagnoses evaluate and treat Procedures evaluate and treat Krystal Meredith CRNP [address] [place] [address] Hem/Onc [address] [address] Referral ID Status Reason Start Date Expiration Date Visits Requested Visits Authorized [id number] Authorized Specialty Services Required 03/15/2024 09/23/2024 [id number] Encounter Details Date Type Department Care Team (Late st Contact Info) Description 04/12/2024 1:00 PM EDT Office Visit Palliative Medicine [address] [address] Anne-Marie Ceron, PAMerleC [address] [place] [id number] Prostate cancer metastatic to bone (HCC)*; Cancer related pain; Palliative care encounter; Goals of care, counseling/discussio n Allergies Active Allergy Reactions Criticality Noted Date Comments Diclofenac Sodium Rash 05/20/2022 Not sure documented as of this encounter (statuses as of 04/12/2024) Medications Medication Sig Dispensed Refills Start Date End Date Status LISINOPRIL 10 MG PO TABS Take 1 Tablet by mouth in the morning. 30 Tab 11 09/17/2014 Active albuterol (PROVENTIL HFA) 108 (90 BASE) MCG/ACT inhalerIndications:CO PD (chronic obstructive pulmonary disease) (HCC) Inhale 2 Puffs by mouth every 4 hours as needed for Wheezing. 1 Inhaler 5 08/20/2015 Active Saw Carney 450 MG Capsule Take 1 Capsule by mouth in the morning. 1 Cap 04/30/2017 Active Magnesium 250 MG Tablet Take 1 Tablet by mouth in the morning. 1 Tab 04/30/2017 Active traMADol (ULTRAM) 50 MG TabletIndications:Ost eoarthritis of spine with radiculopathy, cervical region Take 1 Tab by mouth 3 times a day as needed for Pain or Pain, Moderate. 60 Tab 04/28/2018 Active Docusate Sodium 100 MG/10ML Oral Liquid TAKE 1 CAPSULE BY MOUTH EVERY DAY NEEDED Active Lidocaine 5 % External Patch (Lidoderm) Place 1 Patch topically on the skin daily. Active Tiotropium Leon Monohydrate 2.5 MCG/ACT Inhalation Aerosol Solution (Spiriva Respimat) Inhale 2 Puffs by mouth in the morning. Active Finasteride 5 MG Oral Tablet (Proscar) Take 1 Tablet by mouth in the morning. Active levETIRAcetam 500 MG Oral Tablet Disintegrating Soluble (Spritam) Take 500 mg by mouth in the morning and 500 mg before bedtime. Active Potassium 99 MG Oral Tablet Take 1 Tablet by mouth in the morning. Active Venlafaxine HCl ER 150 MG Oral Capsule Extended Release 24 Hour (Effexor XR) Take 1 Capsule by mouth in the morning. Active Budesonide-Formoterol Fumarate 160-4.5 MCG/ACT Inhalation Aerosol (Symbicort) Inhale 2 Puffs by mouth in the morning and 2 Puffs before bedtime. Active Diclofenac Sodium 2 % External Solution Apply 1 Application topically to affected area every 6 hours as needed for Other (Shoulder pain). Apply to shoulder as needed Active Fluticasone-Salmetero l 250-50 MCG/ACT Inhalation Aerosol Powder Breath Activated (Advair Diskus) Inhale 1 Puff by mouth in the morning and 1 Puff before bedtime. Active Roflumilast 500 MCG Oral Tablet (Daliresp) Take 1 Tablet by mouth in the morning. For COPD. Active Simvastatin 80 MG Oral Tablet (Zocor) Take 0.5 Tablets by mouth every evening. Active Tamsulosin HCl 0.4 MG Oral Capsule (Flomax) Take 1 Capsule by mouth at bedtime. Active traZODone HCl 100 MG Oral Tablet (Desyrel) Take 2 Tablets by mouth at bedtime. Active Levothyroxine Sodium 100 MCG Oral Tablet (Levoxyl) Take 1 Tablet by mouth daily first thing in the morning. (at least 30 min prior to breakfast or other meds) Active Mouth Kote Mouth/Throat Solution Take 4 Sprays by mouth every 2 hours as needed (Dry mouth). 59 mL 02/23/2024 Active Acetaminophen 325 MG Oral Tablet (Tylenol) Take 3 Tablets by mouth in the morning and 3 Tablets at noon and 3 Tablets in the evening. 30 Tablet 02/23/2024 Active Polyethylene Glycol 3350 17 GM Oral Packet (Miralax) Take 1 Packet by mouth in the morning. 30 Each 02/23/2024 Active Sennosides 8.6 MG Oral Tablet (Senokot) Take 2 Tablets by mouth in the morning. 60 Tablet 02/23/2024 Active dexAMETHasone 4 MG Oral Tablet Take 0.5 Tablets by mouth 2 times a day with morning and evening meals. 2 Tablet 02/23/2024 Active dexAMETHasone 4 MG Oral Tablet Take 0.5 Tablets by mouth in the morning. Do not start before February 25, 2024. 2 Tablet 02/25/2024 Active Bicalutamide 50 MG Oral Tablet (Casodex)Indications: Prostate cancer (HCC) Take 1 Tablet by mouth in the morning. 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 Neoplasm related pain 03/03/2024 Prostate cancer metastatic to bone 02/23/2024 SIADH (syndrome of inappropriate ADH production) 02/22/2024 Prostate cancer 02/21/2024 Palliative care encounter 02/10/2024 Cancer related pain 02/10/2024 Chronic pain syndrome 02/10/2024 Lesion of thoracic vertebra 02/09/2024 Cataract 02/08/2024 Overview: Feb 19, 2022 Entered By: ABHILASH MEDEROS Comment: - Cataract extraction and IOL, [facility], [facility] of coronary artery 02/08/2024 Overview: Aug 29, 2018 Entered By: SANDRA WELLER Comment: non obstructive cad [facility] cath 08/29/18, medical management Benign prostatic hyperplasia 02/08/2024 Wedge compression fracture of T7 vertebra 2023 Leg weakness, bilateral 02/08/2024 Ambulatory dysfunction 02/08/2024 Midline low back pain without sciatica 8 COPD, severity to be determined 10/05/2017 Osteoarthritis of spine with radiculopathy, cerv ical region 10/05/2017 Uropathy, obstructive 10/05/2017 HTN, goal below 140/90 02/24/2016 Overview: Per HTN Protocol Macular puckering 12/21/2013 Hypothyroid Hyperlipidemia GERD (gastroesophageal reflux disease) Sleep disorder documented as of this encounter (statuses as of 04/12/2024) Resolved Problems Problem Noted Date Diagnosed Date Resolved Date Multiple falls 02/08/2024 02/09/2024 COPD (chronic obstructive pulmonary disease) 5 10/05/2017 Hypertension 02/27/2016 Overview: Per HTN Protocol documented as of this encounter (statuses as of 04/12/2024) Immunizations Name Administration Dates Next Due Pneumococcal Conjugate Vacc, 13 Valent (Prevnar) 06/13/2015 Pneumococcal Polysaccharide PPV23 (Pneumovax) 09/22/2017,10/31/2003 Seasonal Influenza, QUAD, wi th Preserv, 6 mons & Above, 0.5 mL, IM 06/12/2017 Seasonal Influenza, Quadriva lent, No Preserve, IM 06/30/2018 Seasonal Influenza, Split, I IV3, With Preserve, Inj 06/02/2016,06/13/2015,08/08/2014 TD - Tetanus/Diptheria (ADULT) 12/02/2011 TDAP (age 10 and older)(Boostrix) 09/17/2014 09/17/2024 Varicella Zoster Vaccine (Adult) 02/28/2011 Zoster Vaccine Recombinant (Shingrix) 06/30/2018 documented as of this encounter Social History Tobacco Use Types Packs/Day Years Used Date Smoking Tobacco: Former Pipe Smokeless Tobacco: Former Quit: 1979 Tobacco Cessation:Counseling Given: Not Answered Alcohol Use Standard Drinks/Week Comments No 0 (1 standard drink = 0.6 oz pur e alcohol) Personal Safety Answer Date Recorded Do you feel unsafe or have concerns for your saf ety? No 02/08/2024 Do you have concerns for you r family's safety? (Household - for ages 0-17 years) Not on file 02/08/2024 Utilities Answer Date Recorded Do you have trouble paying y our heating, water, or electric bill? No 02/08/2024 Is your family able to pay t he heat, water, or electric bill? (Household - for ages 0-17 years) Not on file 02/08/2024 Does your family have access to good internet? (Household - for ages 0-17 years) Not on file 02/08/2024 Social Connections Answer Date Recorded How often do you feel lonely or isolated from those around you? (Adult - for ages 18 years and over) Not on file 02/29/2024 Transportation Needs Answer Date Record ed READ ONLY Do you have troubl e getting a ride to medical visits or work? Never True 02/08/2024 Does your family have a hard time getting a ride to doctors visits? (Household - for ages 0-17 years) Not on file 02/08/2024 Has lack of transportation k ept you from medical appointments, meetings, work, or from getting things needed for daily living? Check all that apply. (Adult - for ages 18 years and over) Not on file 02/08/2024 Do you (or your family) have trouble finding or paying for a ride (transportation)? (Household - for ages 0-17 years) Not on file 02/08/2024 Housing Stability Answer Date Recorded Do you currently live in a s helter or have no steady place to sleep at night? (Adult - for ages 18 years and over) Not on file 02/08/2024 READ ONLY Do you think you a re at risk of becoming homeless? No 02/08/2024 Does your family worry about paying for your home or becoming homeless? (Household - for ages 0-17 years) Not on file 0 02/08/2024 Are you homeless or worried that you might be in the future? (Adult - for ages 18 years and over) Not on file Are you (or your family) fernanda eless or worried that you might be in the future? (Household - for ages 0-17 years) Not on file Food Insecurity Answer Date Recorded Do you need food for this week? No 02/08/2024 Are you able to get enough f ood for your family? (Household - for ages 0-17 years) Not on file 02/08/2024 Does your family need food t his week? (Household - for ages 0-17 years) Not on file 02/08/2024 Do you always have enough fo od for your family? (Household - for ages 0-17 years) Not on file 02/08/2024 Sex and Gender Information Value Date Recorded Sex Assigned at Not on file Gender Identity Not on file Sexual Orientation Not on file Job Start Date Occupation Industry Not on file Not on file Not on file documented as of this encounter Last Filed Vital Signs Vital Sign Reading Time Taken Comments Blood Pressure 145/76 04/12/2024 12:52 PM EDT Pulse 119 04/12/2024 12:52 PM EDT Temperature 36.7 C (98.1 F) 04/12/2024 1 2:52 PM EDT Respiratory Rate - - Oxygen Saturation 94% 04/12/2024 12: 52 PM EDT Inhaled Oxygen Concentration - - Weight 74.3 kg (163 lb 11.2 oz) 024 12:52 PM EDT Height 172.7 cm (5' 8") 04/12/2024 12:5 2 PM EDT Body Mass Index 24.89 04/12/2024 12:52 PM EDT documented in this encounter Functional Status Functional Status Response Date of Assess ment Are you deaf or do you have serious difficulty hearing? No 02/08/2024 Are you blind or do you have serious difficulty seeing, even when wearing glasses? No 02/08/2024 Do you have serious difficul ty walking or climbing stairs? (5 years old or older) Yes 02/08/2024 Do you have difficulty dress ing or bathing? (5 years old or older) No 02/08/2024 Because of a physical, menta l, or emotional condition, do you have difficulty doing errands alone such as visiting a doctor s office or shopping? (15 years old or older) Yes-currently and dtr drive him d/t legs giving out this past week 02/08/2024 Cognitive Status Response Date of Assessm ent Because of a physical, menta l, or emotional condition, do you have serious difficulty concentrating, remembering, or making decisions? (5 years old or older) No 02/08/2024 documented as of this encounter Patient Instructions * Patient Instructions* Anne-Marie Ceron PA-C - 04/12/2024 1:43 PM EDT Follow up May [address] Rock. No changes in pain regimen today. Start Senna and/or Miralax daily for constipation. Our Palliative Medicine Clinic is available Wednesday through Wednesday during business hours, so we are unavailable on weekends and holidays. Please ensure that you request refills early in the week as itmay take 1-2 days for them to be addressed and filled, for authorizations to be approved, or for the pharmacy to order them if needed. You can contact our office at [phone], which is our clinic in [place], or you can message us on [employer]. If you have an emergency outside of these hours, we recommend calling your primary care clinic, Oncology office, or going to the ER if you have a medical emergency. documented in this encounter Nursing Notes * Stacy Basilio, MED ASSIST - 04/12/2024 12:54 PM EDT Patient identifed by name and birthdate Do you have any concerns about pain management for today's visit? Yes. Patient instructed to discuss pain concerns with provider during the visit today Living Will or Advance Directive for Health Care as noted on the problem list. [facility] is a way you can talk to your provider on line through e-mail. Would you like to sign up? I can activate it for you? ALREADY ACTIVE Filed Vitals: 04/12/24 1252 BP: 145/76 Pulse: 119 Temp: 36.7 C (98.1 F) TempSrc: Tympanic SpO2: 94% Weight: 74.3 kg (163 lb 11.2 oz) Height: 1.727 m (5' 8") Patient was instructed to not get up on the exam table/exam chair until directed and assisted by their provider; patient is to remain seated in the chair/ wheelchair/ exam table/ exam chair for fall prevention and safety reasons. Patient is aware to have assistance to step down off exam table/exam chair with personnel. Patient voiced full comprehension of instructions. documented in this encounter Plan of Treatment Upcoming Encounters Date Type Department Care Team (Late st Contact Info) Description 04/26/2024 2:30 PM EDT Office Visit Hematology/Oncology [facility] [address] [place] [phone] Lisandro Montes MD [address] [place] [address] 05/03/2024 2:00 PM EDT Office Visit Palliative Medicine [facility] [address] [place] [phone] Brissa Rock MD [address] [place] [address] 05/04/2024 1:30 PM EDT Office Visit Urology, [facility] [address] [place] [address] Jessica Marie MD [address] [place] [address] Health Maintenance Due Date Last Done Comments COVID-19 Vaccine (#1) 1945 Depression Screening 06/22/2018 06/22/2017 Influenza Vaccine (FLU shot) (#1) 2024 06/24/2019, 06/30/2018, 06/30/2018, Additional history exists O2 ASSESSMENT COMPLETED IN P AST YEAR FOR COPD 02/15/2025 02/16/2024 TSH 02/16/2025 02/17/2024, 09/14, 07/12/2017, Additional history exists Zoster Vaccines Completed 12/09/2018, 06/13, 02/28/2011, Additional history exists documented as of this encounter Medical Devices Implanted Type Area Event Security Officer Device Identifier Shelf Expiration Date Model / Serial / Lot Coil Emboli Donn [id number] - [id number] Implanted:Qty : 1 on 02/16/2024 at [facility] [employer] [id number] 09/24/2028 [id number] / / [id number] Set Screw Poly Atr [place] - [id number] Implanted:Qty : 8 on 02/16/2024 by Oumar Rosa MD at OR [facility] N/A: Spine Thoracic SADA : SPINE [id number] / / Vitoss Bimodal Foam Pack 10cc - [id number] Implanted:Qty : 6 on 02/16/2024 by Oumar Rosa MD at OR [facility] N/A: Spine Thoracic SADA : SPINE [id number] / / Screw Poly 5.5x40mm Canltd Xt - [id number] Implanted:Qty : 2 on 02/16/2024 by Oumar Rosa MD at OR [facility] N/A: Spine Thoracic SADA : SPINE [id number] 40 / / Screw Poly 5.5x45mm Canltd Xt - [id number] Implanted:Qty : 2 on 02/16/2024 by Oumar Rosa MD at OR [facility] N/A: Spine Thoracic SADA : SPINE [id number] 45 / / [place] M: Xt Screw 6.5x40 Implanted:Qty : 2 on 02/16/2024 by Oumar Rosa MD at OR [facility] N/A: Spine Thoracic SADA [id number] 40 / / Screw Poly 6.5x45mm Canltd Xt - [id number] Implanted:Qty : 2 on 02/16/2024 by Oumar Rosa MD at OR [facility] N/A: Spine Thoracic SADA : SPINE [id number] 45 / / documented as of this encounter Visit Diagnoses Diagnosis Prostate cancer metastatic to bone (HCC)- Primary Cancer related pain Neoplasm related pain (acute) (chronic) Palliative care encounter Encounter for palliative care Goals of care, counseling/discussion Other specified counseling documented in this encounter Advance Directives Documents on File Type Date 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 Question Answer Comments Discussion of Advance Direct jodie occurred with: Not Discussed due to patient's condition * No Code Date Activated Date Inactivated Comments 02/16/2024 3:20 PM 02/16/2024 3:40 PM This order ref lects the patients wishes and were consensually agreed upon. Question Answer Comments Discussion of Advance Directives occurred with: Not Discussed due to patient's condition Pt s/p anesthesia, continuation of current order * No Code Date Activated Date Inactivated Comments 02/08/2024 10:54 PM 02/16/2024 3:20 PM This order r eflects the patients wishes and were consensually agreed upon. Question Answer Comments Discussion of Advance Directives occurred with: Patient
--- OUTSIDE RECORDS SUMMARY | 2024-04-14 16:09 | External Medical Summary | Summary of Care ---
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 * Evaluate & Treat - Unlimited Visits (Within 30 days (routine)) - Authorized Specialty Diagnoses / Procedures Referred By Edgar mac Referred To Contact Hematology Oncology Diagnoses evaluate and treat Procedures evaluate and treat Krystal Meredith CRNP [address] [place] [address] Hem/Onc [address] [address] Referral ID Status Reason Start Date Expiration Date Visits Requested Visits Authorized [id number] Authorized Specialty Services Required 03/15/2024 09/23/2024 [id number] Encounter Details Date Type Department Care Team (Late st Contact Info) Description 04/12/2024 1:00 PM EDT Office Visit Palliative Medicine [address] [address] Anne-Marie Ceron, PAMerleC [address] [place] [address] Prostate cancer metastatic to bone (HCC)*; [...] Wheezing. 1 Inhaler 5 08/20/2015 Active Saw Lyndora 450 MG Capsule Take 1 Capsule by [...] topically on the skin daily. Active Tiotropium [place] Monohydrate 2.5 MCG/ACT Inhalation Aerosol Solution (Spiriva [...] Cataract extraction and IOL, [facility], [facility] of coronary artery 02/08/2024 Overview: Aug 29, [...] needed. You can contact our office at [phone], which is our clinic in [place], or you can message us on [employer]. If you have an emergency outside of [...] 04/26/2024 2:30 PM EDT Office Visit Hematology/Oncology [facility] [address] [place] [address] Lisandro Montes MD [address] [place] [address] 05/03/2024 2:00 PM EDT Office Visit Palliative Medicine [facility] [address] [place] [address] Brissa Rock MD [address] [place] [address] 05/04/2024 1:30 PM EDT Office Visit Urology, [facility] [address] [place] [address] Jessica Marie MD [address] [place] [address] Health Maintenance Due Date Last Done Comments [...] this encounter Medical Devices Implanted Type Area Jacquard Loom Card Changer Device Identifier Shelf Expiration Date Model / Serial / Lot Coil Emboli Donn [id number] - [id number] Implanted:Qty : 1 on 02/16/2024 at [facility] [employer] [id number] 09/24/2028 [id number] / / [id number] Set Screw Poly Atr [place] - [id number] Implanted:Qty : 8 on 02/16/2024 by Oumar Rosa MD at OR [facility] N/A: Spine Thoracic SADA : SPINE [id number] 1 / / Vitoss Bimodal Foam Pack 10cc - [id number] Implanted:Qty : 6 on 02/16/2024 by Oumar Rosa MD at OR [facility] N/A: Spine Thoracic SADA : SPINE [id number] / / Screw Poly 5.5x40mm Canltd Xt - [id number] Implanted:Qty : 2 on 02/16/2024 by Oumar Rosa MD at OR [facility] N/A: Spine Thoracic SADA : SPINE [id number] 40 / / Screw Poly 5.5x45mm Canltd Xt - [id number] Implanted:Qty : 2 on 02/16/2024 by Oumar Rosa MD at OR [facility] N/A: Spine Thoracic SADA : SPINE [id number] 45 / / [place] M: Xt Screw 6.5x40 Implanted:Qty : 2 on 02/16/2024 by Oumar Rosa MD at OR [facility] N/A: Spine Thoracic SADA [id number] 40 / / Screw Poly 6.5x45mm Canltd Xt - [id number] Implanted:Qty : 2 on 02/16/2024 by Oumar Rosa MD at OR [facility] N/A: Spine Thoracic SADA : SPINE [id number] 45 / / documented as of this encounter Visit Diagnoses Diagnosis Prostate cancer metastatic to bone (HCC)- Primary Cancer related pain Neoplasm related pain (acute) (chronic) Palliative care encounter Encounter for palliative care Goals of care, counseling/discussion Other specified counseling documented in this encounter Advance Directives Documents on File Type Date Recorded Patient Api Developer Expl anation Advance Directives and Living Will [...]
[2024-04-14] MEDS: lisinopril 10 MG TAB PO SCH (17:30)
[2024-04-14] MEDS: MoRPHine SULFATE CR 15 MG TABCR PO SCH (17:56)
[2024-04-14] MEDS: levETIRAcetam 500 MG TAB PO SCH (20:10)
[2024-04-14] MEDS: METOPROLOL TARTRATE 25 MG TAB PO SCH (20:10)
[2024-04-14] MEDS: GABAPENTIN 300 MG CAP PO SCH (20:10)
[2024-04-14] MEDS: HEPARIN SOD 5,000 UNIT/0.5 ML VIAL SQ SCH (20:10)
[2024-04-14] MEDS: traZODone HCL 100 MG TAB PO SCH (20:10)
--- NOTE | 2024-04-14 22:12 | Electrocardiogram Report ---
Test Reason : Blood Pressure : / mmHG Vent. Rate : 103 BPM Atrial Rate : 103 BPM P-R Int : 160 ms QRS Dur : 094 ms QT Int : 328 ms P-R-T Axes : 056 -32 098 degrees QTc Int : 429 ms Sinus tachycardia Left axis deviation T wave abnormality, consider lateral ischemia Anterior infarct Abnormal ECG When compared with ECG of 11-APR-2024 15:16, Premature ventricular complexes are no longer Present RSR' pattern in V1 is no longer Present Confirmed by Danis Fermin ([id number]) on 04/14/2024 10:11:36 PM Referred By: REFERRED SELF Confirmed By:Danis Fermin
[2024-04-15] MEDS: LEVOTHYROXINE SODIUM 100 MCG TABLET PO SCH (05:36)
[2024-04-15 06:42] LABS: Hematocrit (blood only) 34.4 % (42.0-52.0); Hemoglobin 11.1 g/dl (14.0-18.0); Mean Corpuscular Hemoglobin 28.3 pg (25.0-34.0); Mean Corpuscular Hgb Conc 32.3 g/dL (32.0-36.0); Mean Corpuscular Volume 87.8 fL (80.0-100.0); Platelet Count 272 K/uL (130-400); RDW Coefficient of Variation 15.3 % (11.5-14.5); RDW Standard Deviation 48.7 fL (36.4-46.3); Red Blood Count 3.92 M/uL (4.70-6.10); White Blood Count 8.01 K/ul (4.8-10.8)
[2024-04-15 06:52] LABS: Albumin Level 3.3 gm/dl (3.4-5.0); Bilirubin Direct 0.2 mg/dl (0-0.2); Bilirubin,Total 0.7 mg/dl (0.2-1.0); Calcium 8.4 mg/dl (8.6-10.3); Potassium 4.3 mmol/L (3.5-5.1)
[2024-04-15 06:58] LABS: Albumin Globulin Ratio 1.5 (0.9-2); Creatinine Clr Calc Pharmacy 80.3 ml/min; Est GFR (African American) 104.8 ml/min; Est GFR (Non-African American) 90.5 ml/min; Globulin 2.2 gm/dl (2.5-4.0); Total Protein 5.5 gm/dl (6.0-8.3)
[2024-04-15] MEDS: ASCORBIC ACID 500 MG TAB PO SCH (09:17)
[2024-04-15] MEDS: BICALUTAMIDE 50 MG TAB PO SCH (09:17)
[2024-04-15] MEDS: CHOLECALCIFEROL 10 MCG (400 UNITS) TAB PO SCH (09:18)
[2024-04-15] MEDS: FINASTERIDE 5 MG TAB PO SCH (09:18)
[2024-04-15] MEDS: VENLAFAXINE HCL XR 150 MG CAPXR PO SCH (09:22)
[2024-04-15] MEDS: TAMSULOSIN HCL 0.4 MG CAP PO SCH (09:22)
[2024-04-15] MEDS: THIAMINE HCL 100 MG TAB PO SCH (09:22)
[2024-04-15] MEDS: METOPROLOL TARTRATE 25 MG TAB PO SCH (09:22)
--- NOTE | 2024-04-15 12:00 | Hospitalist Progress Note ---
Date of Service April 15, 2024 Assessment & Plan (1) Generalized weakness: Plan: Generalized weakness is probably multifactorial due to poor oral intake and from the underlying metastatic prostate cancer He feels a little better today following IV fluid and nutritional supplements, will continue Awaiting physical therapy evaluation. (2) Prostate cancer metastatic to multiple sites: Plan: Patient was diagnosed with metastatic prostate cancer in March 2024 Has been undergoing radiation therapy Next scheduled therapy is on Wednesday (3) Idiopathic polyneuropathy: Plan: On gabapentin at home, will continue (4) Hypertension: Plan: Blood pressure is elevated Will resume his home medicine, he is on lisinopril May add a second agent if the blood pressure is not under better control. (5) Depression: Plan: Anxiety and depression, patient seems to be very anxious Resume his home medicine, give him a dose of Xanax 0.5 mg once Plan Admits to general surgery, Continue hospitalization Full code PT eval Admission and Anticipated Discharge Date Admission Date: April 14, 2024 Subjective Patient seen and examined, feels a little better, still appears anxious Review of Systems Review of Systems: All systems reviewed are negative, apart from the ones contained in the history. Physical Exam Physical Exam: The patient is awake, alert and oriented 3, well developed and well nourished, normocephalic and atraumatic, lying in bed and in no acute distress. HEENT--PERRL, EOMI, mucous membranes and oropharynx mildly dry Neck--supple. No JVD. No bruits. Thyroid normal, trachea midline, no adenopathy. Heart--normal S1 and S2. No murmurs, rubs or gallops. Lungs--clear bilaterally, no respiratory distress, no accessory muscle use. Abdomen--normal bowel sounds and soft. Extremities--no cyanosis or clubbing. No edema. Dermatologic--normal skin turgor, normal color, no abnormal lymph nodes, no rash. Neurologic--cranial nerves II through XII grossly intact. Rheumatologic--normal range of motion. Psychiatric--Anxious. Results & Data Results & Data Vital Signs (Past 12 Hours) Vital Signs Temp Pulse Resp BP Pulse Ox O2 Del Method 04/15/24 06:56 97.5 F L 76 17 151/91 H 96 Room Air PG Care Time/CCT Total # of Minutes Spent Total Time Spent with Patient: Total time spent is greater than 50% in coordination of care (as documented) at patient's floor/unit and/or counseling patient: Coding Level of Care Code 14012 SUB INP/OBS CARE 2/35MIN Diagnoses Generalized weakness R53.1 Prostate cancer metastatic to multiple sites C61 Idiopathic polyneuropathy G60.9 Hypertension I10 Depression F32.9 Time Spent (min) 35
[2024-04-15] MEDS: MELATONIN 3 MG TAB PO SCH (21:10)
[2024-04-16 07:27] LABS: Hematocrit (blood only) 28.6 % (42.0-52.0); Mean Corpuscular Hemoglobin 28.1 pg (25.0-34.0); Mean Corpuscular Hgb Conc 31.5 g/dL (32.0-36.0); Mean Corpuscular Volume 89.4 fL (80.0-100.0); Mean Platelet Volume 9.4 fL (9.4-12.4); Platelet Count 200 K/uL (130-400); RDW Coefficient of Variation 15.3 % (11.5-14.5); White Blood Count 7.49 K/ul (4.8-10.8)
[2024-04-16 07:53] LABS: Calcium 8.1 mg/dl (8.6-10.3); Creatinine Clr Calc Pharmacy 67.3 ml/min; Est GFR (African American) 97.5 ml/min; Est GFR (Non-African American) 84.1 ml/min
[2024-04-16] MEDS: POLYETHYLENE (MIRALAX) 17 GM PACK PO PRN (09:55)
--- NOTE | 2024-04-16 12:09 | Hospitalist Progress Note ---
Date of Service April 16, 2024 Assessment & Plan (1) Generalized weakness: Plan: Generalized weakness is probably multifactorial due to poor oral intake and from the underlying metastatic prostate cancer He feels a little better today following IV fluid and nutritional supplements, will continue Awaiting physical therapy evaluation. (2) Prostate cancer metastatic to multiple sites: Plan: Patient was diagnosed with metastatic prostate cancer in March 2024 Has been undergoing radiation therapy Next scheduled therapy is on Wednesday (3) Idiopathic polyneuropathy: Plan: On gabapentin at home, will continue (4) Hypertension: Plan: Blood pressure is elevated Will resume his home medicine, he is on lisinopril May add a second agent if the blood pressure is not under better control. (5) Depression: Plan: Anxiety and depression, patient seems to be very anxious Resume his home medicine, give him a dose of Xanax 0.5 mg once Plan Admits to general surgery, Continue hospitalization, For radiotherapy on Wednesday Full code PT eval Admission and Anticipated Discharge Date Admission Date: April 14, 2024 Subjective Patient seen and examined, feels a little better, still appears anxious, But states that he slept better overnight Review of Systems Review of Systems: All systems reviewed are negative, apart from the ones contained in the history. Physical Exam Physical Exam: The patient is awake, alert and oriented 3, well developed and well nourished, normocephalic and atraumatic, lying in bed and in no acute distress. HEENT--PERRL, EOMI, mucous membranes and oropharynx mildly dry Neck--supple. No JVD. No bruits. Thyroid normal, trachea midline, no adenopathy. Heart--normal S1 and S2. No murmurs, rubs or gallops. Lungs--clear bilaterally, no respiratory distress, no accessory muscle use. Abdomen--normal bowel sounds and soft. Extremities--no cyanosis or clubbing. No edema. Dermatologic--normal skin turgor, normal color, no abnormal lymph nodes, no rash. Neurologic--cranial nerves II through XII grossly intact. Rheumatologic--normal range of motion. Psychiatric--Anxious. Results & Data Results & Data Vital Signs (Past 12 Hours) Vital Signs Temp Pulse Resp BP Pulse Ox O2 Del Method 04/16/24 07:30 97.7 F 102 H 18 103/62 96 Room Air PG Care Time/CCT Total # of Minutes Spent Total Time Spent with Patient: Total time spent is greater than 50% in coordination of care (as documented) at patient's floor/unit and/or counseling patient: Coding Level of Care Code 25188 SUB INP/OBS CARE 2/35MIN Diagnoses Generalized weakness R53.1 Prostate cancer metastatic to multiple sites C61 Idiopathic polyneuropathy G60.9 Hypertension I10 Depression F32.9 Time Spent (min) 35
[2024-04-16] MEDS: bisacodyL 10 MG SUPP PR STA (14:59)
[2024-04-17 08:21] LABS: Hemoglobin 9.6 g/dl (14.0-18.0); Mean Corpuscular Volume 87.5 fL (80.0-100.0); Mean Platelet Volume 9.4 fL (9.4-12.4); Platelet Count 210 K/uL (130-400); RDW Coefficient of Variation 15.8 % (11.5-14.5); Red Blood Count 3.43 M/uL (4.70-6.10); White Blood Count 7.44 K/ul (4.8-10.8)
[2024-04-17 08:39] LABS: Calcium 8.7 mg/dl (8.6-10.3); Potassium 4.7 mmol/L (3.5-5.1)
[2024-04-17 08:44] LABS: BUN Creatinine Ratio 24.3 (10-20); Creatinine Clr Calc Pharmacy 71.2 ml/min; Est GFR (African American) 99.7 ml/min; Est GFR (Non-African American) 86.1 ml/min
[2024-04-17] MEDS: ACETAMINOPHEN 325 MG TAB PO PRN (10:47)
--- NOTE | 2024-04-17 11:12 | Hospitalist Progress Note ---
Date of Service April 17, 2024 Assessment & Plan (1) Generalized weakness: Plan: Generalized weakness is probably multifactorial due to poor oral intake and from the underlying metastatic prostate cancer He feels a little better today following IV fluid and nutritional supplements, will continue Awaiting physical therapy evaluation. (2) Prostate cancer metastatic to multiple sites: Plan: Patient was diagnosed with metastatic prostate cancer in March 2024 Has been undergoing radiation therapy Next scheduled therapy is Today, 04/17/2024 (3) Idiopathic polyneuropathy: Plan: On gabapentin at home, will continue (4) Hypertension: Plan: Blood pressure is elevated Will resume his home medicine, he is on lisinopril May add a second agent if the blood pressure is not under better control. (5) Depression: Plan: Anxiety and depression, patient seems to be very anxious Resume his home medicine, give him a dose of Xanax 0.5 mg once Plan Yet to be evaluated by physical therapy, however patient is leaning towards going back home Full code PT eval Admission and Anticipated Discharge Date Admission Date: April 14, 2024 Subjective Patient seen and examined, feels overall better, still appears anxious, But states that he slept better overnight And his energy level is up Review of Systems Review of Systems: All systems reviewed are negative, apart from the ones contained in the history. Physical Exam Physical Exam: The patient is awake, alert and oriented 3, well developed and well nourished, normocephalic and atraumatic, lying in bed and in no acute distress. HEENT--PERRL, EOMI, mucous membranes and oropharynx mildly dry Neck--supple. No JVD. No bruits. Thyroid normal, trachea midline, no adenopathy. Heart--normal S1 and S2. No murmurs, rubs or gallops. Lungs--clear bilaterally, no respiratory distress, no accessory muscle use. Abdomen--normal bowel sounds and soft. Extremities--no cyanosis or clubbing. No edema. Dermatologic--normal skin turgor, normal color, no abnormal lymph nodes, no rash. Neurologic--cranial nerves II through XII grossly intact. Rheumatologic--normal range of motion. Psychiatric--Anxious. Results & Data Results & Data Vital Signs (Past 12 Hours) Vital Signs Temp Pulse Resp BP Pulse Ox O2 Del Method 04/17/24 10:43 97.5 F L 04/17/24 09:28 Room Air 04/17/24 08:11 84 19 117/77 98 Room Air PG Care Time/CCT Total # of Minutes Spent Total Time Spent with Patient: Total time spent is greater than 50% in coordination of care (as documented) at patient's floor/unit and/or counseling patient: Coding Level of Care Code 11985 SUB INP/OBS CARE 2/35MIN Diagnoses Generalized weakness R53.1 Prostate cancer metastatic to multiple sites C61 Idiopathic polyneuropathy G60.9 Hypertension I10 Depression F32.9 Time Spent (min) 35
[2024-04-18 07:11] LABS: Hematocrit (blood only) 31.1 % (42.0-52.0); Hemoglobin 9.9 g/dl (14.0-18.0); Mean Corpuscular Hemoglobin 27.9 pg (25.0-34.0); Mean Corpuscular Hgb Conc 31.8 g/dL (32.0-36.0); Mean Corpuscular Volume 87.6 fL (80.0-100.0); Mean Platelet Volume 9.9 fL (9.4-12.4); Platelet Count 232 K/uL (130-400); RDW Coefficient of Variation 15.8 % (11.5-14.5); RDW Standard Deviation 50.5 fL (36.4-46.3); Red Blood Count 3.55 M/uL (4.70-6.10); White Blood Count 7.37 K/ul (4.8-10.8)
[2024-04-18 07:30] LABS: BUN Creatinine Ratio 18.4 (10-20); Calcium 9.2 mg/dl (8.6-10.3); Creatinine Clr Calc Pharmacy 57.2 ml/min; Est GFR (African American) 91.2 ml/min; Est GFR (Non-African American) 78.7 ml/min; Potassium 4.6 mmol/L (3.5-5.1)
--- NOTE | 2024-04-18 08:32 | Hospitalist Progress Note ---
Date of Service April 18, 2024 Assessment & Plan (1) Generalized weakness: Plan: Generalized weakness is probably multifactorial due to poor oral intake and from the underlying metastatic prostate cancer He feels a little better today following IV fluid and nutritional supplements, will continue Awaiting physical therapy evaluation.-- seen 04/17, ok for home B1 level back in Sep 2023 low @7, will give dose IV replacement then plan to increase PO to 200mg BID at dc if wanting to go today however feels not ready/unstady Will make 200mg IV TID for today Bowel regimen added as hasn't moved bowels in several days Monitor response to IV thiamine/bowel regimen, but suspect possible dc in AM. Does report improvement in PO intake/appetite. Was given miralax x 1 on 04/17 Will also order dose of relistor to see if opiate related constipation/relief given chronic opiate use Reports improvement in PO intake, no significant dehydration on exam today CTA chest neg for central PE on admission, but does note moderate pathologic compression deformity at T7 again noted. Likely corresponds to patient's known metastatic disease. consider calcitonin nasal spray if needed but denies at this time Did have thoracic MRI in January which noted: * Chronic pathologic T7 compression fracture demonstrates unchanged vertebral body height loss. There is however increased size of the marrow replacing heterogeneously enhancing lesion at T7 with extension into the posterior elements suspicious for a slowly growing malignancy. * The marrow replacing vertebral body lesion demonstrates enhancing soft tissue extending into the paravertebral tissues and epidural space resulting in severe central canal stenosis at T7. * Abnormal thickening and heterogeneity of the thoracic spinal cord at the level of T6-T7 suggestive of cord involvement. Did get radiation on 04/17 Obtaining MRI brain w/w/o to eval for metastatic disease/weakness but suspect from back findings as well Dispo: PT/OT evals rec for home, however patient does not feel able at this time and will monitor overnight, continue thiamine IV replacement/bowel regimen and f/u MRI brain (2) Prostate cancer metastatic to multiple sites: Plan: Patient was diagnosed with metastatic prostate cancer in March 2024, has been undergoing radiation therapy for thoracic spine as well Last radiation 04/17, continued (3) Idiopathic polyneuropathy: Plan: On gabapentin at home, will continue check B12 w/ AM labs but was normal in September (4) Hypertension: Plan: Blood pressure is elevated on admission, continued lisinopril but borderline and will place on hold check orthostatic Vs for completeness, cortisol AM given hyponatremia (5) Depression: Plan: Anxiety and depression, patient seems to be very anxious Resume his home medicine, give him a dose of Xanax 0.5 mg once and can monitor/consider low dose for repeat but will hold off for now to prevent confusion given baseline opiates/morphine use Plan PT/OT consulted -- consideration for ongoing acute PT while in hospital but if able to meet goals can consider home w/ . ongoing inpatient stay for now thiamine replacement as above, MRI brain for completeness Admission and Anticipated Discharge Date Admission Date: April 14, 2024 Supervising Physician Co-Signing Physician Notes The patient was not seen by me. The chart was reviewed. Case discussed with RAJ Ty. Agree with assessment and plan Subjective Eval this morning, awoken from sleep. He does report some memory issues/forgetfulness at times. Reports feeling a little anxious/unsteady this morning but improvement in appetite. Passing some gas but having hard time getting his bowels moving. PT eval yesterday and recs for home but patient feels not ready. Will work on getting his bowels moving and discussed IV thiamine replacement and possible dc next 24-48 hours depending response. Questions/concerns addressed at this time. Physical Exam Physical Exam: 84yo male sitting in bed resting, NAD, b ut reporting fatigue/anxious at times Head atraumatic, normocephalic,mmm, trachea midline Resp: even/unlabored, no w/c/r, on room air CV: RRR, no significant m/r/g, no pitting edema/calf tenderness GI: +BS, soft/slight distension, nontender : no tate MSK/Neuro: nonfocal, but generalized weakness, forgetful at times but answering questions appropriately Psych: alert to person/place/time, intermittent forgetfulness/anxious at times Results & Data Results & Data Vital Signs (Past 12 Hours) Vital Signs Temp Pulse Resp BP Pulse Ox O2 Del Method 04/18/24 07:41 36.5 C 78 20 97/60 L 95 Room Air 04/17/24 21:00 Room Air Laboratory Results 04/18/24 Range/Units 06:29 WBC 7.37 (4.8-10.8) K/ul RBC 3.55 L (4.70-6.10) M/uL Hgb 9.9 L (14.0-18.0) g/dl Hct 31.1 L (42.0-52.0) % MCV 87.6 (80.0-100.0) fL MCH 27.9 (25.0-34.0) pg MCHC 31.8 L (32.0-36.0) g/dL RDW Std Deviation 50.5 H (36.4-46.3) fL RDW Coeff of Bisi 15.8 H (11.5-14.5) % Plt Count 232 (130-400) K/uL MPV 9.9 (9.4-12.4) fL Sodium 130 L (136-145) mmol/L Potassium 4.6 (3.5-5.1) mmol/L Chloride 94 L (98-107) mmol/L Carbon Dioxide 31 (21-32) mmol/L Anion Gap 5 (3-11) BUN 16 (6-23) mg/dl Creatinine 0.87 (0.6-1.4) mg/dl Est Cr Clr Drug Dosing 57.2 ml/min Est GFR ( Amer) 91.2 ml/min Est GFR (Non-Af Amer) 78.7 ml/min BUN/Creatinine Ratio 18.4 (10-20) Glucose 94 (70-99(Fasting)) mg/dl Calcium 9.2 (8.6-10.3) mg/dl PG Care Time/CCT Total # of Minutes Spent Total Time Spent with Patient: Total time spent is greater than 50% in coordination of care (as documented) at patient's floor/unit and/or counseling patient: Coding Level of Care Code 51172 SUB INP/OBS CARE 3/50MIN Diagnoses Generalized weakness R53.1 Prostate cancer metastatic to multiple sites C61 Idiopathic polyneuropathy G60.9 Hypertension I10 Depression F32.9
[2024-04-18] MEDS: THIAMINE HCL 200 MG in SODIUM CHLORIDE 0.9% 50 ML IV SCH ×2 (09:05→13:28)
[2024-04-18] MEDS: DOCUSATE SODIUM 100 MG CAP PO SCH (09:54)
[2024-04-18] MEDS: ALPRAZolam 0.25 MG TABLET PO ONE (09:54)
[2024-04-18] MEDS: DOCUSATE SODIUM/SENNA 50/8.6MG TAB PO SCH (09:54)
[2024-04-18] MEDS: METHYLNALTREXONE BROMIDE 12 MG/0.6 ML VIAL SQ SCH (11:37)
[2024-04-18] MEDS: GADOBUTROL 65ML VIAL IV ONE (14:34)
--- NOTE | 2024-04-18 15:29 | Magnetic Resonance Report ---
MR brain wo/w con CLINICAL HISTORY: weakness, metastatic prostate ca, eval for mets TECHNIQUE: Multiplanar and multisequence MR images of the brain were obtained prior to and following administration of gadolinium contrast. Comparison: None available at the time of this dictation. FINDINGS: Limited exam due to patient motion. No abnormal restricted diffusion is identified. Foci of T2 and FL AIR hyperintensity are noted in the paraventricular areas consistent with chronic small vessel ischem ic disease. The ventricular system is normal in appearance. No mass or abnormal enhancement is seen. There is no mass effect or midline shift. There is no evidence of acute intraparenchymal hemorrhage. No extra axial fluid collections are seen. The corpus callosum, pituitary gland, and cerebellar tonsi ls appear grossly unremarkable. Flow voids of the major intracranial arterial vessels are identified. The imaged portions of the para nasal sinuses, mastoid air cells, and orbits are unremarkable. IMPRESSION: Limited exam, without evidence of metastatic disease or other acute abnormalities. ACT 112: Negative or not required by law. Electronically signed by: Ernie Brown M.D. 04/18/2024 3:28 PM
--- NOTE | 2024-04-19 07:52 | Hospitalist Progress Note ---
Date of Service April 19, 2024 Assessment & Plan (1) Generalized weakness: Plan: Generalized weakness is probably multifactorial due to poor oral intake and from the underlying metastatic prostate cancer Feeling a little better today following IV fluid and nutritional supplements CTA negative for PE, does moderate pathologic compression fx T7, corresponding to known metastatic disease Thoracic MRI in january w/ findings in this area and is undergoing radiation (last tx 04/19) ?steroid benefit B1 level reviewed -- in September 2023, LOW @ 7 --> Thiamine 200mg IV TID added Bowel regimen -- +BM 04/17. Started relistor for opiate related constipation and will continue MRI brain w/w/o given metastatic prostate ca- NEGATIVE Orthostatic VS POSITIVE, NSS 250cc bolus x 1. Monitor repeat orthostatic vitals. BP/lisinopril placed on HOLD Na 130, around baseline however checked TSH/cortisol TSH elevation 6.033, checking T4/T3 and if low would increase his Synthroid (currently on 100mcg daily) Cortisol NOT deficient B12 pending Mag checked, 1.6 - IV replacement ordered and monitor level on repeat Checking UA/cx given reports of burning with urination today. Has been afebrile/WBC 5.56k Monitor repeat PT/OT evals to see if able to go home. F/u B12 level and T4/T3, orthostatic vitals. If improved therapy evals can consider dc in AM (2) Prostate cancer metastatic to multiple sites: Plan: Patient was diagnosed with metastatic prostate cancer in March 2024, has been undergoing radiation therapy for thoracic spine as well Last radiation today 04/19, continued (3) Idiopathic polyneuropathy: Plan: On gabapentin at home, will continue B12 level pending (was normal in September) (4) Hypertension: Plan: Blood pressure is elevated on admission, continued lisinopril but borderline and will place on hold (got AM 04/18) Orthostatic VS + as above, NSS bolus and monitor repeat. TSH elevation/checking T3/T4. Cortisol AM level without deficiency (5) Depression: Plan: Anxiety and depression, patient seems to be very anxious at times. Did get a dose of xanax x 1 and could repeat but will hold off as appears stable. On morphine at baseline and memory issues and wanting to avoid. Support provided Plan continued inpatient stay, monitor repeat orthostatic VS. Checking UA/cx, abx if indicated but holding off for now as no fever/leukocytosis F/u T3/T4, B12 levels - adjustment to Synthroid/B12 replacement as indicated Repeat therapy evals pending but if able to meet goals, possible dc in AM Admission and Anticipated Discharge Date Admission Date: April 14, 2024 Supervising Physician Co-Signing Physician Notes The patient was not seen by me. The chart was reviewed. Case discussed with RAJ Ty. Agree with assessment and plan Subjective Evaluated this morning following radiation. Patient reports new symptom of burning with urination since last evening. Discussed obtaining UA, has not given sample. Orthostatic VS positive and ordered NSS 250cc bolus x 1, however denies lightheaded/dizziness when standing. TSH elevated, and discussed checking T4/T3 and if low may need increase his Synthroid dosing. Discussed MRI brain negative for acute CVA or metastasis. Repeat therapy evals pending to see if able to return home but does not feel comfortable at this time. Continued inpatient stay, possible dc tomorrow pending UA/repeat eval. Questions/concerns addressed at this time. Physical Exam Physical Exam: 84yo male sitting in bed resting, NAD, b ut reporting pain with urination Head atraumatic, normocephalic,mm slightly dry, trachea midline Resp: even/unlabored, diminished in the bases but no wheezing/rales, on room air CV: RRR, no significant m/r/g, no pitting edema/calf tenderness GI: +BS, soft, nontender : no tate MSK/Neuro: nonfocal, but generalized weakness, forgetful at times but answering questions appropriately Psych: alert to person/place/time, intermittent forgetfulness/anxious at times Results & Data Results & Data Vital Signs (Past 12 Hours) Vital Signs Temp Pulse Resp BP Pulse Ox O2 Del Method 04/19/24 07:04 36.9 C 97 H 16 91/54 L 92 Room Air 04/18/24 20:24 36.6 C 73 18 106/67 96 Room Air Laboratory Results 04/19/24 Range/Units 07:10 WBC 5.56 (4.8-10.8) K/ul RBC 2.97 L (4.70-6.10) M/uL Hgb 8.5 L (14.0-18.0) g/dl Hct 25.8 L (42.0-52.0) % MCV 86.9 (80.0-100.0) fL MCH 28.6 (25.0-34.0) pg MCHC 32.9 (32.0-36.0) g/dL RDW Std Deviation 50.0 H (36.4-46.3) fL RDW Coeff of Bisi 15.9 H (11.5-14.5) % Plt Count 203 (130-400) K/uL MPV 9.9 (9.4-12.4) fL Sodium 130 L (136-145) mmol/L Potassium 4.4 (3.5-5.1) mmol/L Chloride 96 L (98-107) mmol/L Carbon Dioxide 31 (21-32) mmol/L Anion Gap 3 (3-11) BUN 17 (6-23) mg/dl Creatinine 0.82 (0.6-1.4) mg/dl Est Cr Clr Drug Dosing 60.7 ml/min Est GFR ( Amer) 93.5 ml/min Est GFR (Non-Af Amer) 80.6 ml/min BUN/Creatinine Ratio 20.7 H (10-20) Glucose 102 H (70-99(Fasting)) mg/dl Calcium 8.7 (8.6-10.3) mg/dl Magnesium 1.6 L (1.7-2.4) mg/dl Vitamin B12 Pending TSH 6.033 H (0.300-4.500) uIu/ml Free T4 1.13 (0.61-1.60) ng/dl Free T3 Pending Cortisol AM Sample 9.53 (6.2-22.6) mcg/dl Lyme Disease Screen Negative (Negative) Diagnostic Findings Brain MRI 04/18/24 12:51 MR brain wo/w con CLINICAL HISTORY: weakness, metastatic prostate ca, eval for mets TECHNIQUE: Multiplanar and multisequence MR images of the brain were obtained prior to and following administration of gadolinium contrast. Comparison: None available at the time of this dictation. FINDINGS: Limited exam due to patient motion. No abnormal restricted diffusion is identified. Foci of T2 and FLAIR hyperintensity are noted in the paraventricular areas consistent with chronic small vessel ischemic disease. The ventricular system is normal in appearance. No mass or abnormal enhancement is seen. There is no mass effect or midline shift. There is no evidence of acute intraparenchymal hemorrhage. No extra axial fluid collections are seen. The corpus callosum, pituitary gland, and cerebellar tonsils appear grossly unremarkable. Flow voids of the major intracranial arterial vessels are identified. The imaged portions of the paranasal sinuses, mastoid air cells, and orbits are unremarkable. IMPRESSION: Limited exam, without evidence of metastatic disease or other acute abnormalities. ACT 112: Negative or not required by law. Electronically signed by: Ernie Brown M.D. 04/18/2024 3:28 PM PG Care Time/CCT Total # of Minutes Spent Total Time Spent with Patient: Total time spent is greater than 50% in coordination of care (as documented) at patient's floor/unit and/or counseling patient: Coding Level of Care Code 88324 SUB INP/OBS CARE 3/50MIN Diagnoses Generalized weakness R53.1 Prostate cancer metastatic to multiple sites C61 Idiopathic polyneuropathy G60.9 Hypertension I10 Depression F32.9
[2024-04-19 07:57] LABS: BUN Creatinine Ratio 20.7 (10-20); Calcium 8.7 mg/dl (8.6-10.3); Creatinine Clr Calc Pharmacy 60.7 ml/min; Est GFR (African American) 93.5 ml/min; Est GFR (Non-African American) 80.6 ml/min; Hematocrit (blood only) 25.8 % (42.0-52.0); Hemoglobin 8.5 g/dl (14.0-18.0); Magnesium 1.6 mg/dl (1.7-2.4); Mean Corpuscular Hemoglobin 28.6 pg (25.0-34.0); Mean Corpuscular Hgb Conc 32.9 g/dL (32.0-36.0); Mean Corpuscular Volume 86.9 fL (80.0-100.0); Mean Platelet Volume 9.9 fL (9.4-12.4); Platelet Count 203 K/uL (130-400); Potassium 4.4 mmol/L (3.5-5.1); RDW Coefficient of Variation 15.9 % (11.5-14.5); Red Blood Count 2.97 M/uL (4.70-6.10); White Blood Count 5.56 K/ul (4.8-10.8)
[2024-04-19 08:11] LABS: Thyroid Stimulating Hormone 6.033 uIu/ml (0.300-4.500)
[2024-04-19] MEDS: SODIUM CHLORIDE 0.9% 250 ML IV ONE ×2 (08:22→11:10)
[2024-04-19 08:46] LABS: T4 Free Thyroxine 1.13 ng/dl (0.61-1.60)
[2024-04-19] MEDS: MAGNESIUM SULFATE / D5W 1 GM/100 ML BAG IV ONE (09:50)
[2024-04-19] MEDS: CYANOCOBALAMIN 1000 MCG/ML VIAL IM ONE (11:10)
[2024-04-19 14:42] LABS: Appearance Urine Clear (Clear); Bilirubin Urine Negative (Negative); Blood Urine Negative (Negative); Color Urine Yellow; Glucose Urine UA Negative (Negative); Ketones Urine Negative (Negative); Leukocyte Esterase Urine Negative (Negative); Nitrite Urine Negative (Negative); Protein Urine Negative (Negative); Specific Gravity Urine 1.014 (1.000-1.030); Urobilinogen Urine Negative (Negative); pH Urine 5.5 (4.5-7.5)
[2024-04-19] MEDS: MoRPHine SULFATE IR 15 MG TAB (IMMEDIATE RELEASE) PO PRN (19:09)
[2024-04-20] MEDS: NITROGLYCERIN SL 0.4 MG/TAB TAB SL STA (01:40)
[2024-04-20 07:55] LABS: Hematocrit (blood only) 24.9 % (42.0-52.0); Hemoglobin 7.9 g/dl (14.0-18.0); Mean Corpuscular Hemoglobin 28.1 pg (25.0-34.0); Mean Corpuscular Hgb Conc 31.7 g/dL (32.0-36.0); Mean Corpuscular Volume 88.6 fL (80.0-100.0); Mean Platelet Volume 9.8 fL (9.4-12.4); Platelet Count 197 K/uL (130-400); RDW Standard Deviation 51.9 fL (36.4-46.3); Red Blood Count 2.81 M/uL (4.70-6.10); White Blood Count 6.31 K/ul (4.8-10.8)
[2024-04-20 08:21] LABS: BUN Creatinine Ratio 18.3 (10-20); Calcium 8.4 mg/dl (8.6-10.3); Creatinine Clr Calc Pharmacy 60.7 ml/min; Est GFR (African American) 93.5 ml/min; Est GFR (Non-African American) 80.6 ml/min; Magnesium 1.7 mg/dl (1.7-2.4); Potassium 4.7 mmol/L (3.5-5.1)
[2024-04-20 08:40] LABS: Ferritin 54.8 ng/ml (8-388)
[2024-04-20] MEDS: CYANOCOBALAMIN (B-12) 500 MCG TABLET PO SCH (09:22)
[2024-04-20] MEDS: MEGESTROL ACETATE 40 MG TAB PO SCH (10:46)
[2024-04-20] MEDS: bisacodyL 10 MG SUPP PR STA (10:46)
[2024-04-20] MEDS: THIAMINE HCL 100 MG TAB PO SCH (10:46)
--- NOTE | 2024-04-20 11:36 | Hospitalist Progress Note ---
Date of Service April 20, 2024 Assessment & Plan (1) Generalized weakness: Plan: Continue OT and PT. He probably will need SNF placement at the time of discharge. Chest CTA negative for PE. He does have pathologic compression fx T7 (2) Prostate cancer metastatic to multiple sites: Plan: diagnosed with metastatic prostate cancer in March 2024. Has been undergoing radiation therapy for metastatic disease involving thoracic spine as well. Brain MRI scan fortunately negative for metastatic disease. (3) Hypertension: Plan: Stable. Continue current medical management (4) Depression: Plan: Supportive care. Continue current medical management (5) Thiamine deficiency: Plan: IV thiamine switched to oral dosing todayApril 20 Plan He is worried about going home and failing. He probably will need SNF placement for a while. Continue OT and PT while hospitalized Admission and Anticipated Discharge Date Admission Date: April 14, 2024 Subjective The patient was seen after he returned from radiation therapy today, April 20. His and son are at the bedside. He is very concerned that he is going to fail at home. OT and PT ordered. It appears he will need SNF placement for a while. Low-dose megestrol has been started to help with anorexia. If he tolerates the low-dose, it can be increased to 400 mg suspension daily, probably tomorrow, April 21. Review of Systems 2 Review of Systems: Constitutional-no fever or chills ENT-no blurred vision, no double vision, no epistaxis, no sore throat Respiratory-no cough, no wheezing, no shortness of breath Cardiac-no palpitations, no chest pain, no syncope GI-no nausea, vomiting, diarrhea, melena, hematochezia -no urinary retention, no urinary incontinence, no dysuria, no hematuria Musculoskeletal-metastatic bone pain. Skin-no bruising, no rashes, no pruritus Neuro-generalized weakness. No focal deficits Psych-flat affect Physical Exam 2 Physical Exam: General-alert and oriented x3, no fever, no chills HEENT-head atraumatic and normocephalic, pupils equal and reactive to light, extraocular muscles intact Neck-no lymphadenopathy or thyromegaly, trachea midline Chest-clear to auscultation. No rales, wheezing or rhonchi Cardiac-regular rate and rhythm, normal S1 and S2 Abdomen-normal bowel sounds, no hepatosplenomegaly Extremities-no cyanosis, clubbing, or edema Neuro-cranial nerves II through XII intact, motor and sensory function within normal limits, strength symmetrical with generalized weakness, no focal deficits Psych-flat affect Results & Data Results & Data Vital Signs (Past 12 Hours) Vital Signs Temp Pulse Pulse Resp BP Pulse Ox O2 Del Method 04/20/24 07:05 36.6 C 95 H 16 110/70 92 Room Air 04/20/24 02:34 37.0 C 104 H 04/20/24 00:55 37.6 C H 106 H Laboratory Results 04/20/24 07:26 04/20/24 07:26 PG Care Time/CCT Total # of Minutes Spent Total Time Spent with Patient: Total time spent is greater than 50% in coordination of care (as documented) at patient's floor/unit and/or counseling patient: Coding Level of Care Code 48320 SUB INP/OBS CARE 3/50MIN Diagnoses Generalized weakness R53.1 Prostate cancer metastatic to multiple sites C61 Hypertension I10 Depression F32.9 Thiamine deficiency E51.9
--- NOTE | 2024-04-20 14:21 | Electrocardiogram Report ---
Test Reason : Blood Pressure : */* mmHG Vent. Rate : 135 BPM Atrial Rate : 135 BPM P-R Int : 170 ms QRS Dur : 84 ms QT Int : 262 ms P-R-T Axes : 30 -22 112 degrees QTcB Int : 393 ms Sinus tachycardia Abnormal ECG When compared with ECG of 14-Apr-2024 11:40, No significant change was found Confirmed by Rashawn Sandhu ([id number] on 04/20/2024 2:21:13 PM Referred By: REFERRED SELF Confirmed By: Rashawn Sandhu
[2024-04-21] MEDS: MAGNESIUM HYDROXIDE SUSP 30 ML UDC PO ONE (07:25)
[2024-04-21] MEDS: MAGNESIUM HYDROXIDE SUSP 30 ML UDC ONE (07:25)
[2024-04-21] MEDS: MEGESTROL ACETATE SUSP 400 MG/10 ML UDC PO SCH (10:32)
--- NOTE | 2024-04-21 12:08 | Hospitalist Progress Note ---
Date of Service April 21, 2024 Assessment & Plan (1) Generalized weakness: Plan: Continue OT and PT. He will need SNF or IPR placement at the time of discharge. Chest CTA negative for PE. He does have pathologic compression fx T7 (2) Prostate cancer metastatic to multiple sites: Plan: diagnosed with metastatic prostate cancer in March 2024. Has been undergoing radiation therapy for metastatic disease involving thoracic spine as well. Brain MRI scan fortunately negative for metastatic disease. Megestrol uptitrated today, April 21, for appetite support (3) Hypertension: Plan: Stable. Continue current medical management (4) Depression: Plan: Supportive care. Continue current medical management (5) Thiamine deficiency: Plan: IV thiamine switched to oral dosing today, April 20 Plan He is worried about going home and failing. He probably will need SNF or IPR placement for a while. Continue OT and PT while hospitalized. Case management is working on placement Admission and Anticipated Discharge Date Admission Date: April 14, 2024 Subjective Alert and oriented. He is complaining of not having a bowel movement for several days. He is on scheduled dosing of Colace, senna, MiraLAX. Currently his back pain is mild. Placement is pending. Review of Systems 2 Review of Systems: Constitutional-no fever or chills ENT-no blurred vision, no double vision, no epistaxis, no sore throat Respiratory-no cough, no wheezing, no shortness of breath Cardiac-no palpitations, no chest pain, no syncope GI-no nausea, vomiting, diarrhea, melena, hematochezia -no urinary retention, no urinary incontinence, no dysuria, no hematuria Musculoskeletal-metastatic bone pain. Skin-no bruising, no rashes, no pruritus Neuro-generalized weakness. No focal deficits Psych-flat affect Physical Exam 2 Physical Exam: General-alert and oriented x3, no fever, no chills HEENT-head atraumatic and normocephalic, pupils equal and reactive to light, extraocular muscles intact Neck-no lymphadenopathy or thyromegaly, trachea midline Chest-clear to auscultation. No rales, wheezing or rhonchi Cardiac-regular rate and rhythm, normal S1 and S2 Abdomen-normal bowel sounds, no hepatosplenomegaly Extremities-no cyanosis, clubbing, or edema Neuro-cranial nerves II through XII intact, motor and sensory function within normal limits, strength symmetrical with generalized weakness, no focal deficits Psych-flat affect Results & Data Results & Data Vital Signs (Past 12 Hours) Vital Signs Temp Pulse Resp BP Pulse Ox O2 Del Method 04/21/24 08:00 Room Air 04/21/24 06:59 36.8 C 92 H 16 163/73 H 96 Room Air Laboratory Results 04/20/24 07:26 04/20/24 07:26 PG Care Time/CCT Total # of Minutes Spent Total Time Spent with Patient: Total time spent is greater than 50% in coordination of care (as documented) at patient's floor/unit and/or counseling patient: Coding Level of Care Code 60827 SUB INP/OBS CARE 3/50MIN Diagnoses Generalized weakness R53.1 Prostate cancer metastatic to multiple sites C61 Hypertension I10 Depression F32.9 Thiamine deficiency E51.9
[2024-04-21] MEDS: POLYETHYLENE (MIRALAX) 17 GM PACK PO SCH (13:01)
[2024-04-21] MEDS: HEPARIN SOD 5,000 UNIT/0.5 ML VIAL SQ SCH (21:28)
[2024-04-22 07:14] LABS: Eosinophils # (auto) 0.16 K/uL (0.00-0.50); Eosinophils % (auto) 3.4 %; Hematocrit (blood only) 28.2 % (42.0-52.0); Hemoglobin 9.2 g/dl (14.0-18.0); Immature Granulocytes # (auto) 0.03 K/uL (0.01-0.20); Immature Granulocytes % (auto) 0.6 %; Lymphocytes # (auto) 0.86 K/uL (1.20-3.40); Lymphocytes % (auto) 18.1 %; Mean Corpuscular Hemoglobin 28.1 pg (25.0-34.0); Mean Corpuscular Hgb Conc 32.6 g/dL (32.0-36.0); Mean Corpuscular Volume 86.2 fL (80.0-100.0); Mean Platelet Volume 9.8 fL (9.4-12.4); Monocytes # (auto) 0.37 K/uL (0.11-0.59); Monocytes % (auto) 7.8 %; Neutrophils # (auto) 3.34 K/uL (1.40-6.50); Neutrophils % (auto) 70.1 %; Platelet Count 230 K/uL (130-400); RDW Coefficient of Variation 16.4 % (11.5-14.5); RDW Standard Deviation 51.3 fL (36.4-46.3); Red Blood Count 3.27 M/uL (4.70-6.10); White Blood Count 4.76 K/ul (4.8-10.8)
[2024-04-22 08:30] LABS: Calcium 9.5 mg/dl (8.6-10.3); Potassium 4.6 mmol/L (3.5-5.1)
[2024-04-22] MEDS: MAGNESIUM HYDROXIDE SUSP 30 ML UDC PO PRN (08:33)
[2024-04-22] MEDS: SENNA 8.6 MG TAB PO SCH (08:34)
[2024-04-22 08:35] LABS: BUN Creatinine Ratio 22.7 (10-20); Creatinine Clr Calc Pharmacy 66.4 ml/min; Est GFR (African American) 96.9 ml/min; Est GFR (Non-African American) 83.6 ml/min
[2024-04-22] MEDS: bisacodyL 5 MG TABEC PO ONE (11:28)
[2024-04-22] MEDS: MAGNESIUM CITRATE 296 ML/BTL PO STA (11:29)
--- NOTE | 2024-04-22 14:47 | Hospitalist Progress Note ---
Date of Service April 22, 2024 Assessment & Plan (1) Generalized weakness: Plan: Continue OT and PT. He will need SNF or IPR placement at the time of discharge. Chest CTA negative for PE. He does have pathologic compression fx T7 (2) Prostate cancer metastatic to multiple sites: Plan: diagnosed with metastatic prostate cancer in March 2024. Has been undergoing radiation therapy for metastatic disease involving thoracic spine as well. Brain MRI scan fortunately negative for metastatic disease. Megestrol uptitrated today, April 21, for appetite support (3) Hypertension: Plan: Stable. Continue current medical management (4) Depression: Plan: Supportive care. Continue current medical management (5) Thiamine deficiency: Plan: IV thiamine switched to oral dosing today, April 20 Plan Iron def anemia Constipation Started bowel regimen Admission and Anticipated Discharge Date Admission Date: April 14, 2024 Subjective c/o gen weakness, says able to ambulate with the help of a walker but can't stand for too long, no BM in 8 days Physical Exam Physical Exam: Walking with a walker, appears fatigued and pale Lungs clear to auscultation bilaterally Heart RRR AAO#3 Skin no rash Results & Data Results & Data Vital Signs (Past 12 Hours) Vital Signs Temp Pulse Resp BP Pulse Ox O2 Del Method 04/22/24 08:00 Room Air 04/22/24 07:08 36.5 C 75 16 123/72 96 Room Air PG Care Time/CCT Total # of Minutes Spent Total Time Spent with Patient: Total time spent is greater than 50% in coordination of care (as documented) at patient's floor/unit and/or counseling patient: Coding Level of Care Code 21796 SUB INP/OBS CARE 2/35MIN Diagnoses Generalized weakness R53.1 Prostate cancer metastatic to multiple sites C61 Hypertension I10 Depression F32.9 Thiamine deficiency E51.9
--- NOTE | 2024-04-22 16:59 | XRay Report ---
KUB CLINICAL HISTORY: Abdominal distention. COMPARISON STUDY: CT of the abdomen pelvis April 11, 2024. FINDINGS: Left shoulder arthroplasty and thoracic spine internal fixation with multilevel vertebropla sty are incidentally noted. Low lung volumes are present. Left basilar opacity favors atelectasis. Ma rked gaseous distention of the stomach has increased. There is no evidence for small or large bowel o bstruction. There is mild gaseous distention of the right colon. Moderate amount of stool within the colon and rectum is present. IMPRESSION: 1. Marked gaseous distention of the stomach. 2. Mild gaseous distention of the right colon without convincing evidence for a small or large bowel obstruction. 3. Moderate amount of stool within the colon and rectum. ACT 112: Negative or not required by law. Electronically signed by: Dylan Moscoso M.D. 04/22/2024 4:58 PM
[2024-04-22] MEDS: IRON SUCROSE 200 MG in 0.9 % SODIUM CHLORIDE 100 ML IV ONE (17:02)
[2024-04-22] MEDS: ONDANSETRON INJ 2 MG/ML 2 ML VIAL IV PRN (17:19)
[2024-04-23] MEDS: MINERAL OIL ENEMA 133 ML BTL PR ONE (04:45)
[2024-04-23 06:13] LABS: Hematocrit (blood only) 28.2 % (42.0-52.0); Hemoglobin 9.3 g/dl (14.0-18.0); Mean Corpuscular Hemoglobin 28.9 pg (25.0-34.0); Mean Corpuscular Volume 87.6 fL (80.0-100.0); Mean Platelet Volume 9.6 fL (9.4-12.4); Platelet Count 234 K/uL (130-400); RDW Coefficient of Variation 16.1 % (11.5-14.5); RDW Standard Deviation 51.7 fL (36.4-46.3); Red Blood Count 3.22 M/uL (4.70-6.10); White Blood Count 5.49 K/ul (4.8-10.8)
[2024-04-23 06:30] LABS: BUN Creatinine Ratio 24.2 (10-20); Calcium 9.3 mg/dl (8.6-10.3); Creatinine Clr Calc Pharmacy 54.7 ml/min; Est GFR (African American) 88.8 ml/min; Est GFR (Non-African American) 76.6 ml/min; Potassium 5.4 mmol/L (3.5-5.1)
[2024-04-23 06:44] LABS: Thyroid Stimulating Hormone 9.319 uIu/ml (0.300-4.500)
[2024-04-23 07:19] LABS: T4 Free Thyroxine 1.05 ng/dl (0.61-1.60)
[2024-04-23] MEDS: SODIUM CHLORIDE 0.9% 500 ML IV SCH (10:23)
[2024-04-23] MEDS ORDERED: MINERAL OIL ENEMA 133 ML BTL PR PRN (11:22)
[2024-04-23] MEDS: bisacodyL 5 MG TABEC PO ONE (12:16)
[2024-04-23] MEDS: LAVAGE SOLUTION 4000ML PO ONE (12:16)
--- NOTE | 2024-04-23 15:56 | Hospitalist Progress Note ---
Date of Service April 23, 2024 Assessment & Plan (1) Generalized weakness: Plan: Continue OT and PT. He will need SNF or IPR placement at the time of discharge. Chest CTA negative for PE. He does have pathologic compression fx T7 (2) Prostate cancer metastatic to multiple sites: Plan: diagnosed with metastatic prostate cancer in March 2024. Has been undergoing radiation therapy for metastatic disease involving thoracic spine as well. Brain MRI scan fortunately negative for metastatic disease. Megestrol uptitrated today, April 21, for appetite support (3) Hypertension: Plan: Stable. Continue current medical management (4) Depression: Plan: Supportive care. Continue current medical management (5) Thiamine deficiency: Plan: IV thiamine switched to oral dosing today, April 20 Plan Iron def anemia - didn't tolerate IV Venofer Constipation Started bowel regimen - no result Start clear liq diet - until has a BM Half gallon Golytely and mineral oil enema, dulcolax PO If continues to be constipated - GI eval KUB With mild right colon dilation monitor and replete electrolytes Hyponatremia / Increased bicarb Hemoconcentration IVF Gen weakness Multifactorial but TSH almost 10 / takes levothy 100mcg Rec outpatient recheck TSH and if needed up titrate dose - discussed with patient Admission and Anticipated Discharge Date Admission Date: April 14, 2024 Subjective still no BM, c/o abd distension , belching, appetite not adequate Physical Exam Physical Exam: resting Lungs clear to auscultation bilaterally Heart RRR AAO#3 Skin no rash Results & Data Results & Data Vital Signs (Past 12 Hours) Vital Signs Temp Pulse Resp BP Pulse Ox O2 Del Method O2 Flow Rate 04/23/24 07:13 36.6 C 100 H 16 122/66 97 Room Air 04/23/24 06:15 91 H 92 Nasal Cannula 2 PG Care Time/CCT Total # of Minutes Spent Total Time Spent with Patient: Total time spent is greater than 50% in coordination of care (as documented) at patient's floor/unit and/or counseling patient: Coding Level of Care Code 75065 SUB INP/OBS CARE 2/35MIN Diagnoses Generalized weakness R53.1 Prostate cancer metastatic to multiple sites C61 Hypertension I10 Depression F32.9 Thiamine deficiency E51.9
[2024-04-23] MEDS: ALBUTEROL HFA 8 GM INHALER INH PRN (20:37)
[2024-04-24 07:18] LABS: Hematocrit (blood only) 27.5 % (42.0-52.0); Hemoglobin 8.7 g/dl (14.0-18.0); Mean Corpuscular Hgb Conc 31.6 g/dL (32.0-36.0); Mean Corpuscular Volume 88.4 fL (80.0-100.0); Mean Platelet Volume 9.8 fL (9.4-12.4); Platelet Count 218 K/uL (130-400); RDW Coefficient of Variation 16.3 % (11.5-14.5); RDW Standard Deviation 52.8 fL (36.4-46.3); Red Blood Count 3.11 M/uL (4.70-6.10); White Blood Count 6.86 K/ul (4.8-10.8)
[2024-04-24 07:32] LABS: BUN Creatinine Ratio 26.7 (10-20); Creatinine Clr Calc Pharmacy 66.4 ml/min; Est GFR (African American) 96.9 ml/min; Est GFR (Non-African American) 83.6 ml/min; Magnesium 1.9 mg/dl (1.7-2.4); Potassium 5.2 mmol/L (3.5-5.1)
[2024-04-24] MEDS ORDERED: MoRPHine SULFATE IR 15 MG TAB (IMMEDIATE RELEASE) PO PRN (11:19)
--- NOTE | 2024-04-24 11:22 | Hospitalist Progress Note ---
Date of Service April 24, 2024 Assessment & Plan (1) Generalized weakness: Plan: Present with generalized weakness after undergoing 1 week of radiation therapy for bony metastases with prostate cancer. He is also severely constipated and was placed back on morphine orally here but had actually weaned off of that as an outpatient TSH is elevated at 9, B12 normal, brain MRI negative for mets No focal neurological deficits. With myoclonic jerks likely medication related He does have some anemia which is slowly worsening down to 8.7 from baseline of -. Hyponatremia slightly worse and he may be volume overloaded today with wheezing and hypoxia Continue PT OT Discontinue morphine and gabapentin (2) Constipation: Plan: Severe, no BM in 9 days except very small amount. With marked gaseous distention of the stomach and bowel on x-rays Give another bisacodyl suppository, continue MiraLAX, add senna/docusate Follow Keep clear liquids diet until moving bowels more regularly Increasing levothyroxine to 112 mcg Discontinue all opioids (3) Acute respiratory failure with hypoxia: Plan: Left hypoxia tachypnea and wheezing on the morning of 04/24. Chest x-ray appears to have some fluid in the fissure and evidence of pulmonary edema Will give Lasix 20 Mg IV x 1 This will also help his mild hyperkalemia and worsening hyponatremia which may be from volume overload Continue DuoNebs as needed as he does have a history of COPD (4) Anemia: Plan: Hemoglobin trending down to 8.7 from baseline of 06-23, normocytic B12 is normal, TSH abnormal at 9-increasing levothyroxine Was somewhat iron deficient-apparently did not tolerate IV Venofer Folate is normal No evidence of bleeding from anywhere Follow CBC Heart murmur is a flow murmur which could be related to worsening anemia as recent echocardiogram was normal (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 Discontinue gabapentin Follow clinically (6) Prostate cancer metastatic to multiple sites: Plan: diagnosed with metastatic prostate cancer in March 2024. Has been undergoing radiation therapy for metastatic disease involving thoracic spine as well. Brain MRI scan fortunately negative for metastatic disease. He has had weight loss which is probably more lean mass from poor appetite Megace was started but given new onset twitching, will discontinue at this time Can use low-dose liquid immediate release morphine for breakthrough pain Tylenol for pain Continue radiation while in house Continue bicalutamide, Flomax, finasteride (7) Hypertension: Plan: Stable. Continue current medical management but he actually takes metoprolol tartrate 12.5 Mg p.o. twice daily-change dosing (8) Depression: Plan: Supportive care. Continue current medical management with venlafaxine, trazodone (9) Thiamine deficiency: Plan: Replaced with IV thiamine and now on oral thiamine therapy (10) COPD (chronic obstructive pulmonary disease): Plan: New bronchodilators (11) Hypothyroidism: Plan: TSH Normal Increase levothyroxine 112 mcg daily Follow TSH in 6 weeks (12) Idiopathic polyneuropathy: Plan: Disc and gabapentin due to muscle twitching (13) Hyponatremia: Plan: Sodium lower today 127, likely from volume overload Giving Lasix Follow BMP Plan DVT prophylaxis-add on Lovenox SQ Disposition-continued stay, eventually home with home health but will see how he does with physical therapy Admission and Anticipated Discharge Date Admission Date: April 14, 2024 Subjective Patient only had a very small amount of bowel movement yesterday and this morning after bowel regimen was increased. He still having a lot of gaseous bl oating and distention in his abdomen but no abdominal pain. No nausea or vomiting. He was wheezing and having some tachypnea and difficulty breathing this morning which improved with a nebulizer treatment. He also complains of jerking uncontrollable motions of his arms and legs at times on both sides while he is conscious. Review of the record shows that he has had this in the past The patient and his report that he was weaned completely off of long-acting morphine as an outpatient and they were surprised to learn that he is back on it here as an inpatient which I believe was a medication reconciliation mishap. He also does not believe he is still taking gabapentin but yet this is also on his medication list. This was discontinued at an admission earlier this year for causing tremors Physical Exam Constitutional: WD/WN, vitals as above Respiratory: normal respiratory effort Auscultation: + rales (5 days) and + wheezes (Bilateral expiratory wheezes); no rhonchi Cardiovascular: Rate/Rhythm: regular rate and regular rhythm Heart Sounds: + murmur (2/6 holosystolic murmur at left sternal border) Extremities: no edema Gastrointestinal (Abdomen): Inspection/Auscultation: abdomen normal to inspection, + abdomen distended (Mild) and normal bowel sounds Percussion/P alpation: + abdomen tender (Only minimal in the upper abdomen without guarding or rebound) and abdomen soft Neurologic: Occasional myoclonic jerks of the arms and legs Psychiatric: A+Ox3, euthymic affect Results & Data Results & Data Vital Signs (Past 12 Hours) Vital Signs Temp Pulse Resp BP Pulse Ox O2 Del Method O2 Flow Rate 04/24/24 10:00 Nasal Cannula 2 04/24/24 07:31 37.0 C 60 22 122/72 95 Nasal Cannula 2 Laboratory Results CBC, BMP, magnesium reviewed Diagnostic Findings Chest imaging reviewed PG Care Time/CCT Total # of Minutes Spent Total Time Spent with Patient: Total time spent is greater than 50% in coordination of care (as documented) at patient's floor/unit and/or counseling patient: Coding Level of Care Code 70430 SUB INP/OBS CARE 3/50MIN Diagnoses Generalized weakness R53.1 Constipation K59.00 Acute respiratory failure with hypoxia J96.01 Anemia D64.9 Myoclonus G25.3 Prostate cancer metastatic to multiple sites C61 Hypertension I10 Depression F32.9 Thiamine deficiency E51.9 COPD (chronic obstructive pulmonary disease) J44.9 Hypothyroidism E03.9 Idiopathic polyneuropathy G60.9 Hyponatremia E87.1
[2024-04-24] MEDS: FUROSEMIDE INJ 20 MG/2 ML VIAL IV ONE (11:42)
[2024-04-24] MEDS: bisacodyL 10 MG SUPP PR STA (11:45)
--- NOTE | 2024-04-24 11:46 | XRay Report ---
XR chest 1V portable CLINICAL HISTORY: hypoxia,wheezing TECHNIQUE: Single frontal radiograph of the chest was obtained. Comparison: Comparison is made to chest radiograph 04/14/2024 FINDINGS: Posterior fixation hardware is seen in the thoracic spine. Left reverse shoulder arthroplasty is seen . The cardiomediastinal silhouette is normal. Lungs are underinflated but clear. No evidence of pleur al effusion or pneumothorax. IMPRESSION: No acute chest disease. ACT 112: Negative or not required by law. Electronically signed by: Ernie Brown M.D. 04/24/2024 11:44 AM
[2024-04-24] MEDS: SENNA 8.6 MG TAB PO SCH (12:25)
[2024-04-24] MEDS: METOPROLOL TARTRATE 25 MG TAB PO SCH (20:15)
[2024-04-25] MEDS: LEVOTHYROXINE SODIUM 112 MCG TABLET PO SCH (05:31)
[2024-04-25 07:18] VITALS: TEMP 98.6; O2SAT 94
[2024-04-25 08:01] LABS: Basophils # (auto) 0.01 K/uL (0.00-0.20); Basophils % (auto) 0.2 %; Eosinophils # (auto) 0.11 K/uL (0.00-0.50); Eosinophils % (auto) 2.2 %; Hematocrit (blood only) 23.9 % (42.0-52.0); Hemoglobin 7.9 g/dl (14.0-18.0); Immature Granulocytes # (auto) 0.03 K/uL (0.01-0.20); Immature Granulocytes % (auto) 0.6 %; Lymphocytes # (auto) 0.51 K/uL (1.20-3.40); Lymphocytes % (auto) 10.4 %; Mean Corpuscular Hemoglobin 28.2 pg (25.0-34.0); Mean Corpuscular Hgb Conc 33.1 g/dL (32.0-36.0); Mean Corpuscular Volume 85.4 fL (80.0-100.0); Mean Platelet Volume 10.1 fL (9.4-12.4); Monocytes # (auto) 0.38 K/uL (0.11-0.59); Monocytes % (auto) 7.8 %; Neutrophils # (auto) 3.85 K/uL (1.40-6.50); Neutrophils % (auto) 78.8 %; Platelet Count 197 K/uL (130-400); White Blood Count 4.89 K/ul (4.8-10.8)
[2024-04-25 08:20] LABS: BUN Creatinine Ratio 16.7 (10-20); Calcium 8.8 mg/dl (8.6-10.3); Creatinine Clr Calc Pharmacy 69.3 ml/min; Est GFR (African American) 98.6 ml/min; Est GFR (Non-African American) 85.1 ml/min; Magnesium 1.6 mg/dl (1.7-2.4); Poikilocytosis Present; Polychromasia 1+; Potassium 4.2 mmol/L (3.5-5.1)
[2024-04-25] MEDS: MAGNESIUM SULFATE / D5W 1 GM/100 ML BAG IV SCH (10:36)
--- NOTE | 2024-04-25 11:47 | Discharge Summary ---
Discharge Summary Date of Service April 25, 2024 Principal Dx & Hospital Course #1 = Principal Diagnosis (1) Generalized weakness: Present with generalized weakness after undergoing 1 week of radiation therapy for bony metastases with prostate cancer. He is also severely constipated and was placed back on morphine orally here but had actually weaned off of that as an outpatient. Furthermore, he was stopped from gabapentin for causing tremors during a previous admission, but then it was prescribed again upon discharge from rehab. Because he was having tremors again, this has again been stopped. TSH is elevated at 9, B12 normal, brain MRI negative for mets No focal neurological deficits. With myoclonic jerks likely medication related now improving with stopping gabapentin and morphine He does have some iron deficiency anemia which is slowly worsening down to 7.9 from baseline of 06-23. With chronic hyponatremia not likely contributing and is mild BPs also low on admission--> lisinopril stopped and metoprolol lowered to 12.5mg po bid Continue PT OT at home-he was walking in halls with walker and no assistance otherwise before discharge Discontinued morphine and gabapentin Started Fe pills for anemia (2) Constipation: Severe, no BM in 9 days except very small amount. With marked gaseous distention of the stomach and bowel on x-rays Gave bisacodyl suppositories, MiraLAX, senna/docusate, Relistor, and had several large BMs prior to discharge, felt improved Follow as outpt tolerating regular food No further opioids Increased levothyroxine to 112 mcg (3) Acute respiratory failure with hypoxia: Left hypoxia tachypnea and wheezing on the morning of 04/24. Chest x-ray appears to have some fluid in the fissure and evidence of pulmonary edema Gave Lasix 20 Mg IV x 1 and had improvement, no further wheezing, weaned off O2 at rest and with exertion This also helped his mild hyperkalemia and worsening hyponatremia which was from volume overload Continue inhalers as he does have a history of COPD (4) Anemia: Hemoglobin trending down to 7.9 from baseline of 06-23, normocytic B12 is normal, TSH abnormal at 9-increasing levothyroxine Was iron deficient with transferrin sat of only 7%, ferritin 54-apparently did not tolerate IV Venofer Folate is normal No evidence of bleeding from anywhere Follow CBC as outpt start po Fe, take laxatives Heart murmur is a flow murmur which could be related to worsening anemia as recent echocardiogram was normal (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 Discontinued gabapentin Follow clinically-had great improvement prior to discharge (6) Prostate cancer metastatic to multiple sites: Diagnosed with metastatic prostate cancer in March 2024. Has been undergoing radiation therapy for metastatic disease involving thoracic spine as well. Brain MRI scan fortunately negative for metastatic disease. He has had weight loss which is probably more lean mass from poor appetite Megace was started but given new onset twitching, discontinued at this time Tylenol for pain Continued radiation while in house and resume as outpt after discharge Continue bicalutamide, Flomax, finasteride F/u with Oncology as scheduled (7) Hypertension: BPs low on admission metoprolol tartrate lowered to 12.5 Mg p.o. twice daily Stopped lisinopril BPs now normal (8) Depression: Supportive care. Continue current medical management with venlafaxine, tra zodone (9) Thiamine deficiency: Replaced with IV thiamine and now on oral thiamine therapy (10) COPD (chronic obstructive pulmonary disease): Continue maintenance inhalers (11) Hypothyroidism: TSH Normal Increase levothyroxine to 112 mcg daily Follow TSH in 6 weeks with PCP (12) Idiopathic polyneuropathy: Discontinued gabapentin due to muscle twitching follow as outpt (13) Hyponatremia: Sodium down to 127, likely from volume overload--> was given lasix and improved with 129 which is around his baseline of 130 Follow BMP as outpt Plan DVT prophylaxis-heparin SQ Disposition-dc to home with home health Notes For Next Care Provider Follow CBC, BMP as outpt Medication Changes From Visit Added FeSO4 325mg po daily Added Miralax daily rather than prn Made docusate bid scheduled rather than prn Stopped lisinopril Lowered metoprolol to 12.5mg po bid Stopped Morphine Stopped gabapentin Admission HPI Per Admitting Provider Is an 84-year-old male with a history of metastatic prostate cancer, idiopathic polyneuropathy, myoclonus, COPD who presents to the hospital today on account of worsening generalized weakness poor oral intake poor appetite. Some of the history was obtained from the patient and also from the and the daughter who are at the bedside. Patient was diagnosed with metastatic prostate cancer in March 2024 and has been getting radiation therapy however over the past several days he noticed that he was getting weak and tired with poor appetite and poor intake. He came to the emergency department a couple of days ago on April 11, 2024 after being sent from the [facility]. In the emergency departme a lot of investigations and workup were done including CT scan chest x-ray and the reason for his chest pain was not examined. The chest pain resolved and was discharged. However he comes back to the hospital today through ambulance for worsening weakness shortness of breath and poor appetite. WBC was 11,000, hemoglobin 12.6 sodium 130 glucose 113 the rest of the lab works are within normal limits. BioFire was also negative CT scan of the head negative chest x-ray was negative. Patient will be admitted to the hospital for further management. Discharge Exam Constitutional WD/WN, vitals as above Respiratory normal respiratory effort, lungs clear to auscultation Cardiovascular Rate/Rhythm: regular rate and regular rhythm Heart Sounds: + murmur (2/6 holosystolic murmur at left sternal border) Extremities: no edema Gastrointestinal (Abdomen) Inspection/Auscultation: abdomen normal to inspection and normal bowel sounds Percussion/Palpation: + abdomen tender (Only minimal in the upper abdomen without guarding or rebound) and abdomen soft Psychiatric A+Ox3, euthymic affect Updated Medication List Medication Instructions Recorded Confirmed Type magnesium 250 mg tablet 250 mg PO QAM 01/30/20 04/14/24 History lidocaine 5 % topical patch 1 patch topical DAILY PRN Pain 03/12/20 04/14/24 History trazodone 100 mg tablet 200 mg PO HS 12/11/20 04/14/24 History venlafaxine 150 mg 150 mg PO QAM 06/14/22 04/14/24 History capsule,extended release 24 hr tiotropium bromide 2.5 2 inh inhalation DAILY 03/19/23 04/14/24 History mcg/actuation mist for inhalation diclofenac sodium 1 % topical gel 2 g topical QID 08/04/23 04/14/24 History (Arthritis Pain (diclofenac)) finasteride 5 mg tablet 5 mg PO DAILY 08/04/23 04/14/24 History roflumilast 500 mcg tablet 500 mcg PO DAILY 08/04/23 04/14/24 History simvastatin 80 mg tablet 40 mg PO HS 10/08/23 04/14/24 History acetaminophen 325 mg tablet 975 mg PO TID 02/29/24 04/14/24 History albuterol sulfate 90 mcg/actuation 2 puff inhalation Q4H PRN 02/29/24 04/14/24 History aerosol inhaler (Proventil HFA) Shortness Of Breath Or Wheezing fluticasone 250 mcg-salmeterol 50 1 inh inhalation BID 02/29/24 04/14/24 History mcg/dose blistr powdr for inhalation (Advair Diskus) levetiracetam 500 mg tablet 500 mg PO BID 02/29/24 04/14/24 History sennosides 8.6 mg tablet (Senokot) 17.2 mg PO DAILY 02/29/24 04/14/24 History tamsulosin 0.4 mg capsule 0.4 mg PO DAILY 02/29/24 04/14/24 History ascorbate calcium (vitamin C) 500 500 mg PO DAILY 04/03/24 04/14/24 History mg tablet bicalutamide 50 mg tablet 50 mg PO DAILY 04/03/24 04/14/24 History cholecalciferol (vitamin D3) 10 10 mcg PO DAILY 04/03/24 04/14/24 History mcg (400 unit) capsule fluticasone propionate 50 1 spray intranasal BID 04/03/24 04/14/24 History mcg/actuation nasal spray,suspension food supplemt, lactose-reduced 1 ea PO DAILY 04/03/24 04/14/24 History (Ensure oral liquid) ondansetron HCl 4 mg tablet 4 mg PO Q8H PRN NAUSEA/VOMITING 04/03/24 04/14/24 History thiamine HCl (vitamin B1) 100 mg 100 mg PO DAILY 04/03/24 04/14/24 History tablet cyanocobalamin (vitamin B-12) 1,000 mcg PO DAILY #30 caps 04/25/24 Rx 1,000 mcg capsule docusate sodium 50 mg/5 mL oral 100 mg (10 mL) PO BID #473 mL 04/25/24 04/14/24 Rx liquid ferrous sulfate 325 mg (65 mg 325 mg PO DAILY #30 tabs 04/25/24 Rx iron) tablet levothyroxine 112 mcg tablet 112 mcg PO DAILYBB #30 tabs 04/25/24 Rx (Synthroid) metoprolol tartrate 25 mg tablet 12.5 mg (1/2 x 25 mg) PO BID #30 04/25/24 04/14/24 Rx tabs polyethylene glycol 3350 17 gram 17 g PO DAILY Constipation #30 ea 04/25/24 04/14/24 Rx oral powder packet (Miralax) Hospital Stay Data Consultations 04/14/24 14:11 ED Decision to Admit Stat Diagnostic Imagining Performed 04/14/24 11:50 CT head/brain wo con Stat 04/18/24 12:51 MRI Brain [MR brain wo/w con] Routine Pending Results Patient Have Any Pending Studies at Discharge: No Discharge Instructions Given to Patient (Per Discharging Provider) You were admitted with weakness which may be related to your radiation treatments and also found to have constipation, and uncontrolled hypothyroidism. You had improvement and your thyroid medication dose was increased. Please continue on the laxatives to keep your bowels moving regularly, but now that you're no longer taking morphine, you do not need to continue on the Relistor shots for constipation. Your blood pressures were a bit low and your lisinopril was stopped. Your metoprolol dose should only be 12.5mg (1/2 tab) twice a day. Your gabapentin and morphine were also stopped as they are causing you to have tremors. Your potassium pill was stopped because your potassium levels were too high. Your PCP can follow your levels as an outpatient. You are iron deficient and vitamin B1 deficient. The iron deficiency is causing you to be anemic. You can take iron pills but these can also cause constipation so you'll need to keep taking the laxatives. Please also continue taking a vitamin B1 (thiamine) supplement. Your oncologist can follow your blood counts and iron levels. Your Vitamin B12 level was borderline low and you were also started on a B12 supplement. Total Time Total Time Spent Total Time Spent (In Minutes): 40 min Total Time Includes: Examination of the Patient, Discharge Planning and Medication Reconciliation Coding Level of Care Code 81295 INP/OBS DISCH >30 MIN Diagnoses Generalized weakness R53.1 Constipation K59.00 Acute respiratory failure with hypoxia J96.01 Anemia D64.9 Myoclonus G25.3 Prostate cancer metastatic to multiple sites C61 Hypertension I10 Depression F32.9 Thiamine deficiency E51.9 COPD (chronic obstructive pulmonary disease) J44.9 Hypothyroidism E03.9 Idiopathic polyneuropathy G60.9 Hyponatremia E87.1
[2024-04-25] MEDS: SIMETHICONE 80 MG CHEW PO ONE (11:49)
[2024-04-25 12:05] VITALS: BP 128/69; PULSE 106; RESP 20
--- NOTE | 2024-04-27 11:26 | Coding Query ---
MALNUTRITION To promote full compliance with coding requirements relating to patient care, physician participation is requested in all cases of human service specialist uncertainty. Please assist us with the question(s) below: 04/14 NOTE: SEVERE malnutrition- Current wt = 74.2 kg 04/14/24 Wt hx in EMR: 81.4 kg 01/28/24, 91.3 kg 10/11/23; down 18.7% in 6 mos, significant 04/20 IM PN Low-dose megestrol has been started to help with anorexia. 04/21 IM PN Megestrol uptitrated today, April 21, for appetite support Please place an X within the parenthesis (x). If other, please document: "Malnutrition" is documented in this record. If possible, please check the box that provides a more specific diagnosis: ( ) Mild malnutrition ( ) Moderate malnutrition ( ) Severe malnutrition ( ) Protein malnutrition (kwashiorkor) (x ) Severe protein calorie malnutrition ( ) Protein calorie malnutrition, unspecified ( ) Other (please specify): Was this diagnosis present on admission? Please place an X within the parenthesis (x). ( x) Present on admission ( ) Not present on admission ( ) Unable to be clinically determined Thank you Thi SPARKS
== END 2024-04-25 13:41 | disposition home health service (06) | DRG 722 ==
LOC: ED 11:31 → 3N 14:34 → SUATTDRO 14:34 → 3N 16:03

== ENCOUNTER 2024-04-27 09:19 | Inpatient (IN) ==
--- NOTE | 2024-04-27 09:47 | Emergency Department Note ---
Impression & Plan Tachycardia, Acute dehydration, Anemia, Weakness, Hyponatremia ED Provider Note NAME: JUAN FRANCISCO LOVE AGE: 84 SEX: M : 1940 ARRIVES VIA: Walk-In INFORMANT: [Patient] ED PROVIDER(S): [Anthony Beatty MD] CHIEF COMPLAINT: Abnormal laboratories HISTORY OF PRESENT ILLNESS: The patient is an 84-year-old male who was discharged from our hospital about 2 days ago. He was in for constipation. During his stay, he was found to be anemic with a lower magnesium. The patient was at radiation oncology today. He states that he was referred over because he was weak, shaky and somewhat tachycardic. The patient states that his legs have been jumping and this has caused him to lose sleep. He did not sleep at all last night. The patient does feel shaky and chilled as well. There has been no cough or congestion. No shortness of breath. No vomiting. Patient does admit to some black stools but states, he thinks this is fairly typical. No blood in the stool. He denies any history of previous GI bleeding. PMHx/PSHx/Social Hx: See Below PHYSICAL EXAM: GENERAL: Patient is in no acute distress. Some shivering noted. HEENT: No acute trauma, normocephalic atraumatic, mucous membranes moist, no nasal congestion. NECK: No stridor, no adenopathy, no meningismus, trachea is midline. LUNGS: Clear to auscultation bilaterally, no wheeze, no rhonchi, breath sounds equal. HEART: Mildly tachycardic with a somewhat irregular rhythm, no obvious murmur. ABDOMEN: Soft, nontender, no peritonitis. EXTREMITIES: No cyanosis, full range of motion of all the joints without pain or difficulty. NEUROLOGIC: Oriented x 3, no acute motor or sensory deficits, no focal weakness. SKIN: No jaundice, no diaphoresis. Rectal: Dark brown stool, heme-negative. DIFFERENTIAL DIAGNOSIS: Bacteremia or sepsis, GI bleeding, anemia, electrolyte imbalance, UTI, dehydration, among others. EMERGENCY DEPARTMENT PROCEDURES: MEDICAL DECISION MAKING: There is no leukocytosis. The patient is anemic however, his hemoglobin is improved compared to the value from a few days ago. Of note, I did perform a rectal exam, stool was dark brown but heme-negative. There was a normal platelet count. Sodium was low however, this is a chronic issue. There was no renal failure. Lactic acid level was not elevated making sepsis less likely. There was no concerning liver enzyme elevation. Total CK was not elevated making rhabdomyolysis unlikely. TSH was slightly high however, the T4 was normal. ECG showed a sinus tachycardia, no acute ST elevation. Cardiac enzyme testing x 1 was not consistent with acute cardiac injury. Urinalysis showed some dehydration, no infection. Chest film showed a poor inspiratory effort, no pneumonia. On exam, patient appeared dehydrated, he was tachycardic. He was shivering when I walked into the room. Patient received IV saline, 1 L. He was given IV magnesium. He received IV Ativan and IV Benadryl for what seemed like anxiety. With the above treatment, the patient's heart rate has improved, he feels better and is resting more comfortably. Patient is not doing well outpatient. He was just in our hospital recently and presents back dehydrated and weak. He is not eating or drinking well as per his family. Given the circumstances, hospitalization is warranted. I did speak with the patient and his family, I spoke with case management, the on-call hospitalist was consulted. Prior/Outside records/notes reviewed: Discharge summary note from 04/25/2024 describing his presentation, care and plan at discharge. ECG per my interpretation: Indication was tachycardia. The ECG shows a sinus tachycardia with frequent PVCs. The rate is 107. There is diffuse nonspecific ST change. There is an incomplete right bundle branch block. There is no acute ST elevation. QTc is 459. Continuous Cardiac Monitoring per my interpretation: An order was placed for continuous cardiac monitoring. The monitor shows a rate of 106 with sinus tachycardia with PVCs. Imaging/x-ray results per my interpretation: Chest x-ray shows a poor inspiratory effort, there was no pneumonia or CHF. Chronic Medical/Social conditions affecting care: Recent hospitalization, advanced age, history of metastatic prostate cancer. Care/Management discussed with: Case management, the on-call hospitalist. 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) Thoracic compression fracture T7 Thoracic spine pain BPH w urinary obs/LUTS Back pain (Acute) [place] positive Idiopathic polyneuropathy Disc degeneration, lumbar Scoliosis of lumbar region due to degenerative disease of spine in adult Orthostatic hypotension Sinus tachycardia CAD (coronary artery disease) Tobacco dependence Osteoporosis Hyperlipidemia Rotator cuff arthropathy of left shoulder Encounter for pre-operative examination Atypical chest pain (Acute) HERNÁNDEZ (dyspnea on exertion) (Acute) Hypophosphatemia (Acute) Hypocalcemia (Acute) Hypertension Low back pain Depression Myoclonus COPD (chronic obstructive pulmonary disease) Spinal stenosis, lumbar region with neurogenic claudication Lumbar spondylosis Spinal stenosis of thoracolumbar region Hypothyroidism Medical History Obesity Osteoarthritis DDD (degenerative disc disease) Hearing deficit Aneurysm Per remote [facility] records, hx of questionable thoracic aortic aneurysm [facility], no recent issues/not noted on 2019 echo Sleep apnea No device COPD (chronic obstructive pulmonary disease) Stable Hypertension Surgical History History of shoulder replacement Left History of laminectomy (02/16/24) 1) posterior thoracic segmental fusion with pedicle screws: Thoracic 5, 6, 7, 8, 9 levels 2) Cement augmentation of thoracic pedicle screws, thoracic 5, 6, 8, 9 3) Laminectomy, thoracic 7 and 8 4) Partial laminectomy, thoracic 6 5) Facetectomy bilaterally, thoracic 6-7, and 7-8 6) Pediculectomy bilaterally, thoracic 7 7) Partial corpectomy, thoracic 7 8) open reduction of thoracic fracture, thoracic 7 level 9) Arthrodesis, thoracic 5, 6, 7, 8, 9 10) use of allograft 11) use of intraoperative neurophysiologic monitoring 12) Use of intraoperative ultrasonography 13) use of fluoroscopy Surgeon: Oumar Rosa Co-surgeon: Renan Lopez Gis Coordinator: Ramses Sheppard History of elbow surgery Right History of cataract surgery R/L Family History (Updated 02/29/24 @ 08:18 by Karen Gutierrez RN) Father No problems noted. Mother No problems noted. Brother Breast cancer Surgery Brother No problems noted. Sister No problems noted. Sister No problems noted. Daughter No problems noted. Son No problems noted. Son No problems noted. Other No family history of adverse response to anesthesia Social History Smoking Status: Former smoker Second Hand Exposure: No; Do You Dip or Chew Tobacco: No; Hx Alcohol Use: No Hx Substance Use: No Preferred Language: Faroese Communication Ability: Effective Visual Impairment: No Limitations Hearing Ability: Hard of Hearing Hearing Impaired Teacher Required: No Beliefs That Will Affect Care: None marital status: Current Living Situation: Spouse Current Living Situation Comment: Currently at [facility] current occupational status: retired How many Children do You have: 3 Feels Safe at Home: Yes Childhood Exposure to Second-Hand Smoke: No Diet: regular caffeine: Yes during the past year weight has: decreased > 10 lbs Dental Care, Regularly: No Assistive Devices: Walker Allergies Allergies Allergy/AdvReac Type Severity Reaction Status Date / Time diclofenac [From Voltaren] Allergy Unknown [facility] Verified 04/14/24 14:55 LIST Home Meds Home Medications Medication Instructions Recorded Confirmed magnesium 250 mg tablet 250 mg PO QAM 01/30/20 04/27/24 lidocaine 5 % topical patch 1 patch topical DAILY PRN Pain 03/12/20 04/27/24 trazodone 100 mg tablet 200 mg PO HS 12/11/20 04/27/24 venlafaxine 150 mg 150 mg PO QAM 06/14/22 04/27/24 capsule,extended release 24 hr tiotropium bromide 2.5 2 inh inhalation DAILY 03/19/23 04/27/24 mcg/actuation mist for inhalation diclofenac sodium 1 % topical gel 2 g topical QID 08/04/23 04/27/24 (Arthritis Pain (diclofenac)) finasteride 5 mg tablet 5 mg PO DAILY 08/04/23 04/27/24 roflumilast 500 mcg tablet 500 mcg PO DAILY 08/04/23 04/27/24 simvastatin 80 mg tablet 40 mg PO HS 10/08/23 04/27/24 acetaminophen 325 mg tablet 975 mg PO TID 02/29/24 04/27/24 albuterol sulfate 90 mcg/actuation 2 puff inhalation Q4H PRN 02/29/24 04/27/24 aerosol inhaler (Proventil HFA) Shortness Of Breath Or Wheezing fluticasone 250 mcg-salmeterol 50 1 inh inhalation BID 02/29/24 04/27/24 mcg/dose blistr powdr for inhalation (Advair Diskus) levetiracetam 500 mg tablet 500 mg PO BID 02/29/24 04/27/24 sennosides 8.6 mg tablet (Senokot) 17.2 mg PO DAILY 02/29/24 04/27/24 tamsulosin 0.4 mg capsule 0.4 mg PO DAILY 02/29/24 04/27/24 ascorbate calcium (vitamin C) 500 500 mg PO DAILY 04/03/24 04/27/24 mg tablet bicalutamide 50 mg tablet 50 mg PO DAILY 04/03/24 04/27/24 cholecalciferol (vitamin D3) 10 10 mcg PO DAILY 04/03/24 04/27/24 mcg (400 unit) capsule fluticasone propionate 50 1 spray intranasal BID 04/03/24 04/27/24 mcg/actuation nasal spray,suspension food supplemt, lactose-reduced 1 ea PO DAILY 04/03/24 04/27/24 (Ensure oral liquid) ondansetron HCl 4 mg tablet 4 mg PO Q8H PRN NAUSEA/VOMITING 04/03/24 04/27/24 thiamine HCl (vitamin B1) 100 mg 100 mg PO DAILY 04/03/24 04/27/24 tablet Previous Rx's Medication Instructions Recorded cyanocobalamin (vitamin B-12) 1,000 mcg PO DAILY #30 caps 04/25/24 1,000 mcg capsule docusate sodium 50 mg/5 mL oral 100 mg (10 mL) PO BID #473 mL 04/25/24 liquid ferrous sulfate 325 mg (65 mg 325 mg PO DAILY #30 tabs 04/25/24 iron) tablet levothyroxine 112 mcg tablet 112 mcg PO DAILYBB #30 tabs 04/25/24 (Synthroid) metoprolol tartrate 25 mg tablet 12.5 mg (1/2 x 25 mg) PO BID #30 04/25/24 tabs polyethylene glycol 3350 17 gram 17 g PO DAILY Constipation #30 ea 04/25/24 oral powder packet (Miralax) Results & Data (ED) Vital Signs Vital Signs - 24 hr 04/27/24 09:23 04/27/24 09:28 04/27/24 09:34 Temperature 36.7 C Temperature Source Temporal Artery Scan Pulse Rate 60 102 H Pulse Rate [Right Brachial] Pulse Rate from SpO2 Sensor Pulse Rhythm Regular Pulse Rhythm [Right Brachial] Pulse Strength [Right Brachial] Respiratory Rate 20 22 Respiratory Effort / Characteristics Non-Labored Spontaneous Respiratory Depth Normal Respiratory Pattern Blood Pressure 160/81 H 145/95 H Blood Pressure [Right Arm] Blood Pressure Mean 107 104 Blood Pressure Mean [Right Arm] Blood Pressure Position [Right Arm] Pulse Oximetry 100 98 Oxygen Delivery Method Room Air Room Air Sepsis Recent Fever Within 48 Hours No Sepsis New/Unexplained Change in Mental Status N/A Sepsis Action Taken by Nursing No Action Required 04/27/24 09:40 04/27/24 09:42 04/27/24 09:54 Temperature Temperature Source Pulse Rate 106 H 105 H 107 H Pulse Rate [Right Brachial] Pulse Rate from SpO2 Sensor 87 Pulse Rhythm Pulse Rhythm [Right Brachial] Pulse Strength [Right Brachial] Respiratory Rate 30 H 29 H Respiratory Effort / Characteristics Respiratory Depth Respiratory Pattern Blood Pressure Blood Pressure [Right Arm] Blood Pressure Mean Blood Pressure Mean [Right Arm] Blood Pressure Position [Right Arm] Pulse Oximetry 98 Oxygen Delivery Method Sepsis Recent Fever Within 48 Hours Sepsis New/Unexplained Change in Mental Status Sepsis Action Taken by Nursing 04/27/24 10:00 04/27/24 10:03 04/27/24 10:27 Temperature Temperature Source Pulse Rate 103 H 93 H Pulse Rate [Right Brachial] Pulse Rate from SpO2 Sensor 101 H 92 H Pulse Rhythm Pulse Rhythm [Right Brachial] Pulse Strength [Right Brachial] Respiratory Rate 20 21 Respiratory Effort / Characteristics Respiratory Depth Respiratory Pattern Blood Pressure 148/90 H Blood Pressure [Right Arm] Blood Pressure Mean 118 Blood Pressure Mean [Right Arm] Blood Pressure Position [Right Arm] Pulse Oximetry 96 97 Oxygen Delivery Method Sepsis Recent Fever Within 48 Hours Sepsis New/Unexplained Change in Mental Status Sepsis Action Taken by Nursing 04/27/24 10:30 04/27/24 10:33 04/27/24 10:54 Temperature Temperature Source Pulse Rate 93 H 99 H Pulse Rate [Right Brachial] Pulse Rate from SpO2 Sensor 82 82 Pulse Rhythm Pulse Rhythm [Right Brachial] Pulse Strength [Right Brachial] Respiratory Rate 24 23 Respiratory Effort / Characteristics Respiratory Depth Respiratory Pattern Blood Pressure 136/79 Blood Pressure [Right Arm] Blood Pressure Mean 100 Blood Pressure Mean [Right Arm] Blood Pressure Position [Right Arm] Pulse Oximetry 92 98 Oxygen Delivery Method Sepsis Recent Fever Within 48 Hours Sepsis New/Unexplained Change in Mental Status Sepsis Action Taken by Nursing 04/27/24 11:00 04/27/24 12:45 04/27/24 13:00 Temperature Temperature Source Pulse Rate 101 H Pulse Rate [Right Brachial] 98 H 126 H Pulse Rate from SpO2 Sensor Pulse Rhythm Pulse Rhythm [Right Brachial] Regular Regular Pulse Strength [Right Brachial] Normal Normal Respiratory Rate 20 18 Respiratory Effort / Characteristics Non-Labored Non-Labored Respiratory Depth Normal Normal Respiratory Pattern Regular Regular Blood Pressure Blood Pressure [Right Arm] 132/80 140/92 Blood Pressure Mean Blood Pressure Mean [Right Arm] 97 108 Blood Pressure Position [Right Arm] Lying Lying Pulse Oximetry 99 99 Oxygen Delivery Method Room Air Room Air Sepsis Recent Fever Within 48 Hours Sepsis New/Unexplained Change in Mental Status Sepsis Action Taken by [facility] Medications Current Medication List: was personally reviewed by me Laboratory Data Attestation: I reviewed the patient's lab results. 04/27/24 09:40 04/27/24 09:40 Lab Results 04/27/24 04/27/24 Range/Units 09:40 11:06 WBC 4.32 L (4.8-10.8) K/ul RBC 3.61 L (4.70-6.10) M/uL Hgb 10.3 L (14.0-18.0) g/dl Hct 30.5 L (42.0-52.0) % MCV 84.5 (80.0-100.0) fL MCH 28.5 (25.0-34.0) pg MCHC 33.8 (32.0-36.0) g/dL RDW Std Deviation 51.2 H (36.4-46.3) fL RDW Coeff of Bisi 16.8 H (11.5-14.5) % Plt Count 239 (130-400) K/uL MPV 9.9 (9.4-12.4) fL Immature Gran % (Auto) 0.2 % Neut % (Auto) 81.1 % Lymph % (Auto) 7.9 % [place] % (Auto) 9.0 % Eos % (Auto) 1.6 % Baso % (Auto) 0.2 % Neut # (Auto) 3.50 (1.40-6.50) K/uL Lymph # (Auto) 0.34 L (1.20-3.40) K/uL [place] # (Auto) 0.39 (0.11-0.59) K/uL Eos # (Auto) 0.07 (0.00-0.50) K/uL Baso # (Auto) 0.01 (0.00-0.20) K/uL Immature Gran # (Auto) 0.01 (0.01-0.20) K/uL Sodium 129 L (136-145) mmol/L Potassium 3.8 (3.5-5.1) mmol/L Chloride 94 L (98-107) mmol/L Carbon Dioxide 27 (21-32) mmol/L Anion Gap 8 (3-11) BUN 9 (6-23) mg/dl Creatinine 0.77 (0.6-1.4) mg/dl Est Cr Clr Drug Dosing Not Reportable Est GFR ( Amer) 95.9 ml/min Est GFR (Non-Af Amer) 82.7 ml/min BUN/Creatinine Ratio 11.7 (10-20) Glucose 106 H (70-99(Fasting)) mg/dl Lactate 1.3 (0.4-2.0) mmol/L Calcium 9.1 (8.6-10.3) mg/dl Phosphorus 3.0 (2.5-4.9) mg/dl Magnesium 1.7 (1.7-2.4) mg/dl Total Bilirubin 0.6 (0.2-1.0) mg/dl AST 19 (13-39) U/L ALT 13 (7-52) U/L Alkaline Phosphatase 70 (34-104) U/L Total Creatine Kinase 50 (30-223) U/L Troponin I High Sens 13.4 (0-20) pg/ml Total Protein 6.5 (6.0-8.3) gm/dl Albumin 3.8 (3.4-5.0) gm/dl Globulin 2.7 (2.5-4.0) gm/dl Albumin/Globulin Ratio 1.4 (0.9-2) TSH 4.758 H (0.300-4.500) uIu/ml Free T4 1.25 (0.61-1.60) ng/dl Urine Color Yellow Urine Appearance Clear (Clear) Urine pH >= 9.0 H (4.5-7.5) Ur Specific [place] 1.020 (1.000-1.030) Urine Protein 1+ H (Negative) Urine Glucose (UA) Negative (Negative) Urine Ketones Trace H (Negative) Urine Blood Negative (Negative) Urine Nitrite Negative (Negative) Urine Bilirubin Negative (Negative) Urine Urobilinogen Negative (Negative) Ur Leukocyte Esterase Trace H (Negative) Urine WBC (Auto) 0-5 (0-5) /hpf Urine RBC (Auto) 0-2 (0-2) /hpf U Hyaline Cast (Auto) 0-2 (0-2) /lpf U Epithel Cells (Auto) 0-2 (0-2) /hpf Urine Bacteria (Auto) None Seen (None Seen) Administered Medications Magnesium Sulfate/Dextrose (Magnesium Sulfate / D5w) 1 gm in 100 mls @ 100 mls/hr IV Q1H DELMAR Stop: 04/27/24 14:20 Last Admin: 04/27/24 13:38 Dose: 100 mls/hr Documented By: Infusion: 04/27/24 13:36 Dose: Infused Documented By: Admin: 04/27/24 12:42 Dose: 100 mls/hr Documented By: KIERRA Discontinued Medications Diphenhydramine HCl (Diphenhydramine 50 Mg/Ml Vial) 12.5 mg IV NOW STA Stop: 04/27/24 11:41 Last Admin: 04/27/24 11:52 Dose: 12.5 mg Documented By: KIERRA Sodium Chloride (Nss) 500 mls @ 999 mls/hr IV .Q31M DELMAR Stop: 04/27/24 10:00 Last Infusion: 04/27/24 12:34 Dose: Infused Documented By: Admin: 04/27/24 09:54 Dose: 999 mls/hr Documented By: JESSICA Sodium Chloride (Nss) 500 mls @ 999 mls/hr IV .Q31M ONE Stop: 04/27/24 11:28 Last Infusion: 04/27/24 12:34 Dose: Infused Documented By: Admin: 04/27/24 11:38 Dose: 999 mls/hr Documented By: RIKKI Lorazepam (Lorazepam 1 Mg/1 Ml Syr Ed Inj Use) 0.5 mg IV ONE STA Stop: 04/27/24 11:41 Last Admin: 04/27/24 11:53 Dose: 0.5 mg Documented By: KIERRA Imaging Data Radiologist's Impression: Chest X-Ray 04/27/24 09:28 XR chest 1V portable CLINICAL HISTORY: weakness COMPARISON STUDY: Chest CT April 11, 2024. Chest radiograph April 24, 2024. FINDINGS: Left shoulder arthroplasty, postoperative findings within the thoracic spine and multilevel vertebroplasty are again noted. Low lung volumes are unchanged. Bibasilar linear densities represent atelectasis. There is no consolidation to suggest pneumonia. Cardiomediastinal silhouette is stable. There is no pneumothorax or pleural effusion. No evidence for pulmonary edema. IMPRESSION: 1. No acute cardiopulmonary findings. 2. No change in appearance of the chest. Low lung volumes with bibasilar densities suggestive of atelectasis. ACT 112: Negative or not required by law. Electronically signed by: Dylan Moscoso M.D. 04/27/2024 10:15 AM Discharge Plan Visit Data Chief Complaint: Abnormal Labs/Diagnostic Testing Stated Complaint: REF BY RAD, TINGLING/SPASM IN LEGS, AB LABS ED Provider: Anthony Beatty Discharge Problem: Tachycardia, Acute dehydration, Anemia, Weakness, Hyponatremia Patient Disposition: Admitted As Inpatient Condition: Fair Forms Stand Alone Forms: My [facility] Prescriptions Prescriptions: No Action lidocaine 5 % adhesive patch,medicated 1 patch TOP DAILY PRN (Reason: Pain) levetiracetam 500 mg tablet 500 mg PO BID albuterol sulfate [Proventil HFA] 90 mcg/actuation HFA aerosol inhaler 2 puff inhalation Q4H PRN (Reason: Shortness Of Breath Or Wheezing) sennosides [Senokot] 8.6 mg tablet 17.2 mg PO DAILY acetaminophen 325 mg tablet 975 mg PO TID tamsulosin 0.4 mg capsule 0.4 mg PO DAILY fluticasone propion-salmeterol [Advair Diskus] 250-50 mcg/dose blister with device 1 inh inhalation BID trazodone 100 mg tablet 200 mg PO HS bicalutamide 50 mg tablet 50 mg PO DAILY Ensure Liquid 1 ea PO DAILY ondansetron HCl 4 mg tablet 4 mg PO Q8H PRN (Reason: NAUSEA/VOMITING) ascorbate calcium (vitamin C) 500 mg tablet 500 mg PO DAILY cholecalciferol (vitamin D3) 10 mcg (400 unit) capsule 10 mcg PO DAILY fluticasone propionate 50 mcg/actuation spray,suspension 1 spray intranasal BID Rx Instructions: administer into each nostril thiamine HCl (vitamin B1) 100 mg tablet 100 mg PO DAILY diclofenac sodium [Arthritis Pain (diclofenac)] 1 % gel 2 g topical QID Rx Instructions: APPLY 2 GRAMS TO BILATERAL SHOULDERS QID, TOTAL NOT TO EXCEED 8 GRAMS/24 HOURS, APPLY 4 GRAMS TO LOWER EXTERMITY, TOTAL NOT TO EXCEED 16 GRAMS/24 HOURS finasteride 5 mg tablet 5 mg PO DAILY roflumilast 500 mcg tablet 500 mcg PO DAILY magnesium 250 mg Tablet 250 mg PO QAM venlafaxine 150 mg Capsule,Extended Release 24hr 150 mg PO QAM tiotropium bromide 2.5 mcg/actuation mist 2 inh INHALATION DAILY simvastatin 80 mg Tablet 40 mg PO HS levothyroxine [Synthroid] 112 mcg Tablet 112 mcg PO DAILYBB Qty: 30 0RF cyanocobalamin (vitamin B-12) 1,000 mcg capsule 1,000 mcg PO DAILY Qty: 30 0RF Rx Instructions: OTC docusate sodium 50 mg/5 mL liquid 100 mg PO BID Qty: 473 0RF polyethylene glycol 3350 [Miralax] 17 gram powder in packet 17 g PO DAILY Qty: 30 0RF metoprolol tartrate 25 mg tablet 12.5 mg PO BID Qty: 30 0RF ferrous sulfate 325 mg (65 mg iron) tablet 325 mg PO DAILY Qty: 30 0RF Rx Instructions: OTC Referrals Referrals: [facility],Hospital [Primary Care Provider] - Discharge Problem: Anemia Qualifiers: Anemia type: unspecified type Qualified Code(s): D64.9 - Anemia, unspecified
[2024-04-27] MEDS: SODIUM CHLORIDE 0.9% 500 ML IV SCH (09:54)
[2024-04-27 10:12] LABS: Basophils # (auto) 0.01 K/uL (0.00-0.20); Basophils % (auto) 0.2 %; Eosinophils # (auto) 0.07 K/uL (0.00-0.50); Eosinophils % (auto) 1.6 %; Hematocrit (blood only) 30.5 % (42.0-52.0); Hemoglobin 10.3 g/dl (14.0-18.0); Immature Granulocytes # (auto) 0.01 K/uL (0.01-0.20); Immature Granulocytes % (auto) 0.2 %; Lymphocytes # (auto) 0.34 K/uL (1.20-3.40); Lymphocytes % (auto) 7.9 %; Mean Corpuscular Hemoglobin 28.5 pg (25.0-34.0); Mean Corpuscular Hgb Conc 33.8 g/dL (32.0-36.0); Mean Corpuscular Volume 84.5 fL (80.0-100.0); Mean Platelet Volume 9.9 fL (9.4-12.4); Monocytes # (auto) 0.39 K/uL (0.11-0.59); Neutrophils % (auto) 81.1 %; Platelet Count 239 K/uL (130-400); RDW Coefficient of Variation 16.8 % (11.5-14.5); RDW Standard Deviation 51.2 fL (36.4-46.3); Red Blood Count 3.61 M/uL (4.70-6.10); White Blood Count 4.32 K/ul (4.8-10.8)
--- NOTE | 2024-04-27 10:16 | XRay Report ---
XR chest 1V portable CLINICAL HISTORY: weakness COMPARISON STUDY: Chest CT April 11, 2024. Chest radiograph April 24, 2024. FINDINGS: Left shoulder arthroplasty, postoperative findings within the thoracic spine and multilevel vertebroplasty are again noted. Low lung volumes are unchanged. Bibasilar linear densities represent atelectasis. There is no consolidation to suggest pneumonia. Cardiomediastinal silhouette is stable. There is no pneumothorax or pleural effusion. No evidence for pulmonary edema. IMPRESSION: 1. No acute cardiopulmonary findings. 2. No change in appearance of the chest. Low lung volumes with bibasilar densities suggestive of atel ectasis. ACT 112: Negative or not required by law. Electronically signed by: Dylan Moscoso M.D. 04/27/2024 10:15 AM
[2024-04-27 10:38] LABS: Alanine Aminotransferase 13 U/L (7-52); Albumin Globulin Ratio 1.4 (0.9-2); Albumin Level 3.8 gm/dl (3.4-5.0); Alkaline Phosphatase 70 U/L (34-104); Anion Gap 8 (3-11); Aspartate Aminotransferase 19 U/L (13-39); BUN Creatinine Ratio 11.7 (10-20); Bilirubin,Total 0.6 mg/dl (0.2-1.0); Blood Urea Nitrogen 9 mg/dl (6-23); Calcium 9.1 mg/dl (8.6-10.3); Carbon Dioxide 27 mmol/L (21-32); Chloride 94 mmol/L (98-107); Creatine Kinase 50 U/L (30-223); Est GFR (African American) 95.9 ml/min; Est GFR (Non-African American) 82.7 ml/min; Globulin 2.7 gm/dl (2.5-4.0); Glucose 106 mg/dl (70-99(Fasting)); Magnesium 1.7 mg/dl (1.7-2.4); Potassium 3.8 mmol/L (3.5-5.1); Sodium 129 mmol/L (136-145); Total Protein 6.5 gm/dl (6.0-8.3)
[2024-04-27 10:44] LABS: Troponin I High Sensitivity 13.4 pg/ml (0-20)
[2024-04-27 10:52] LABS: Thyroid Stimulating Hormone 4.758 uIu/ml (0.300-4.500)
[2024-04-27 11:28] LABS: T4 Free Thyroxine 1.25 ng/dl (0.61-1.60)
[2024-04-27 11:37] LABS: Appearance Urine Clear (Clear); Bacteria Urine Automated None Seen (None Seen); Bilirubin Urine Negative (Negative); Blood Urine Negative (Negative); Cast Urine Automated 0-2 /lpf (0-2); Color Urine Yellow; Epithelial Cell Urine Auto 0-2 /hpf (0-2); Glucose Urine UA Negative (Negative); Ketones Urine Trace (Negative); Leukocyte Esterase Urine Trace (Negative); Nitrite Urine Negative (Negative); Protein Urine 1+ (Negative); RBC Urine Automated 0-2 /hpf (0-2); Urobilinogen Urine Negative (Negative); WBC Urine Automated 0-5 /hpf (0-5); pH Urine >= 9.0 (4.5-7.5)
[2024-04-27] MEDS: SODIUM CHLORIDE 0.9% 500 ML IV ONE (11:38)
[2024-04-27] MEDS: diphenhydrAMINE 50 MG/ML VIAL IV STA (11:52)
[2024-04-27] MEDS: LORazepam 1 MG/1 ML SYR ED Inj Use IV STA (11:53)
--- NOTE | 2024-04-27 12:20 | Electrocardiogram Report ---
Test Reason : Blood Pressure : */* mmHG Vent. Rate : 107 BPM Atrial Rate : 107 BPM P-R Int : 156 ms QRS Dur : 98 ms QT Int : 344 ms P-R-T Axes : 44 -25 80 degrees QTcB Int : 459 ms Poor data quality, interpretation may be adversely affected Sinus tachycardia with frequent Premature ventricular complexes Septal infarct , age undetermined Abnormal ECG When compared with ECG of 19-Apr-2024 20:46, Premature ventricular complexes are now Present Septal infarct is now Present Confirmed by Stu Chance ([id number]) on 04/27/2024 12:19:45 PM Referred By: Confirmed By: Stu Chance
[2024-04-27] MEDS: MAGNESIUM SULFATE / D5W 1 GM/100 ML BAG IV SCH (12:42)
--- OUTSIDE RECORDS SUMMARY | 2024-04-27 12:47 | External Medical Summary | Summary of Care ---
Author Name Unknown Organization [facility] Address [address] [place] [address] Phone [phone] Care Team Providers Care Brand Specialist Name Role Phone Unavailable Primary Care Provider Unavailabl e Reason for Visit * Reason Comments Follow Up * Evaluate & Treat - Unlimited Visits (Within 30 days (routine)) - Authorized Specialty Diagnoses / Procedures Referred By Edgar mac Referred To Contact Hematology Oncology Diagnoses evaluate and treat Procedures evaluate and treat Krystal Meredith CRNP [address] [place] [address] Hem/Onc Noa Conte [address] [place] [address] Referral ID Status Reason Start Date Expiration Date Visits Requested Visits Authorized [id number] Authorized Specialty Services Required 03/15/2024 09/23/[phone] Encounter Details Date Type Department Care Team (Late st Contact Info) Description 04/26/2024 2:30 PM EDT Office Visit Hematology/Oncology [place] [facility] [address] [place] [phone] Lisandro Montes MD [address] [place] [address] Prostate cancer (HCC)* Allergies Active Allergy Reactions Criticality Noted Date Comments Diclofenac Sodium Rash 05/20/2022 Not sure documented as of this encounter (statuses as of 04/26/2024) Medications Medication Sig Dispensed Refills Start Date End Date Status LISINOPRIL 10 MG PO TABS Take 1 Tablet by mouth in the morning. 30 Tab 11 09/17/2014 Active albuterol (PROVENTIL HFA) 108 (90 BASE) MCG/ACT inhalerIndications:CO PD (chronic obstructive pulmonary disease) (HCC) Inhale 2 Puffs by mouth every 4 hours as needed for Wheezing. 1 Inhaler 5 08/20/2015 Active Saw Claremont 450 MG Capsule Take 1 Capsule by [...] topically on the skin daily. Active Tiotropium [place] Monohydrate 2.5 MCG/ACT Inhalation Aerosol Solution (Spiriva [...] in the morning. 21 Tablet 03/15/2024 Active Calcium Ascorbate 500 MG Oral Tablet Take by mouth. Active Ensure Complete Shake Oral Liquid Take by mouth. Active Ondansetron HCl 4 MG Oral Tablet (Zofran) Take 1 Tablet by mouth every 8 hours as needed for Nausea. Active Thiamine HCl 100 MG Oral Tablet (vitamin B-1) Take 1 Tablet by mouth in the morning. Active Meloxicam 15 MG Oral Tablet Disintegrating Take by mouth. Active documented as of this encounter (statuses as of 04/26/2024) Active Problems Problem Noted Date Diagnosed Date [...] MEDEROS Comment: - Cataract extraction and IOL, [facility], [place] Atherosclerosis of coronary artery 02/08/2024 Overview: Aug 29, 2018 Entered By: ASNDRA WELLER Comment: non obstructive [facility] [...] as of this encounter (statuses as of 04/26/2024) Resolved Problems Problem Noted Date Diagnosed Date Resolved Date Multiple falls 02/08/2024 02/09/2024 COPD (chronic obstructive pulmonary disease) 5 10/05/2017 Hypertension 02/27/2016 Overview: Per HTN Protocol documented as of this encounter (statuses as of 04/26/2024) Immunizations Name Administration Dates Next Due Pneumococcal [...] Former Pipe Smokeless Tobacco: Former Quit: 1979 Alcohol Use Standard Drinks/Week Comments No 0 [...] Sign Reading Time Taken Comments Blood Pressure 181/78 04/26/2024 2:25 PM EDT Pulse 58 04/26/2024 2:25 PM EDT Temperature 37 C (98.6 F) 04/26/2024 2:25 PM EDT Respiratory Rate - - Oxygen Saturation 96% 04/26/2024 2:25 PM EDT Inhaled Oxygen Concentration - - Weight 68 kg (150 lb) 04/26/2024 2:25 PM EDT Height - - Body Mass Index 22.81 04/12/2024 12:52 PM EDT documented in this [...] No 02/08/2024 documented as of this encounter Progress Notes * Lisandro Montes MD - 04/26/2024 2:30 PM EDT Outpatient Consult Note Data Source: Patient, Epic record. Data Source: Patient, Epic record. 04/26/2024 2:30 PM Brandierobin Veloz [id number] 84 year old Patient Encounter: HEMATOLOGY/ONCOLOGY [facility] Cancer Diagnosis: Metastatic prostate cancer Current Treatment: On radiation therapy to the spine He is supposed to receive Lupron but because of the delay in the insurance process he has not received Previous Treatment: None Oncologic History : 84-year-old male with a history of medical problems including hypertension, hypothyroidism, hyperlipidemia, COPD, depression, GERD and arthritis referred with the about diagnosis. He initially presented with complaint of increasing back pain and problem and instability of the gait and frequent episode fall. Had a CT scan of the cervical spine and brain done on 02/08/2024 which was negative for any acute changes. CT scan of the chest abdomen pelvis revealed sclerotic T7 vertebral body lesion with associated wage deformity likely metastasis, prostatomegaly and thick walled bladder likely outletobstruction. He also had MRI spine done which revealed interval progression of the osseous T7 lesion since the prior MRI of 02/12/2016 now with the development of soft tissue component extending to the spinal canal resulting in the cord compression, soft tissue tumor extends from T5-T6 through T7-T8 interspace. PSA was 33.46 on 02/08/2024. On 02/10/[address]-guided biopsy done from the T7 lesion and pathology was consistent for malignancy, metastatic carcinoma compatible with a prostate primary. Final Diagnosis A. Spine, Thoracic 7, CT guided core needle biopsy: Adequacy: Satisfactory for evaluation. Category: Positive for malignancy Interpretation: Metastatic carcinoma, compatible with prostatic primary. Other: Biopsy: The histological sections of the biopsy specimen contain fragments of bony tissue. On 02/16/2024 he underwent following procedure: 1) posterior thoracic segmental fusion with pedicle screws: Thoracic 5, 6, 7, 8, 9 levels 2) Cement augmentation of thoracic pedicle screws, thoracic 5, 6, 8, 9 3) Laminectomy, thoracic 7 and 8 4) Partial laminectomy, thoracic 6 5) Facetectomy bilaterally, thoracic 6-7, and 7-8 6) Pediculectomy bilaterally, thoracic 7 7) Partial corpectomy, thoracic 7 8) open reduction of thoracic fracture, thoracic 7 level . Final Diagnosis A. Spine, T7 epidural tumor, excision: Metastatic carcinoma consistent with prostate primary On 03/07/2024 he had a PET scan done which shows intense uptake in the left prostate from the best of the apex and extending to the seminal vesicle consistent with malignancy and oligometastatic disease with the PSMA positive lesion involving the T7 vertebrae. Patient was seen Radiation Oncologist Dr Uriel Sanchez on 02/29/2024 and planning for possible SBRT. He is complaining of generalized weakness, fatigue, back pain and numbness in the lower extremity. He quit smoking pipe about 40 years ago. Denies drinking. Family history is negative for any hematologic Oncology problem. Interval History: Currently he is receiving radiation therapy to the spine. His complaining generalized weakness and fatigue and poor appetite. Overall his pain has improved. LABS/IMAGING: Results for orders placed or performed in visit on 03/15/24 TESTOSTERONE, TOTAL Result Value Ref Range Testosterone, Total 227.9 193.0 - 740.0 ng/dL REVIEW OF SYSTEMS: General: No Fever, chills, night sweats HEENT: No change in visual acuity, blurred or double vision. No epistaxis, facial pain, nasal discharge or change in hearing. Denies dysphagia, no muscosal ulceration, or sores noted. Cardiovascular: No chest pain, HERNÁNDEZ, or palpitations Respiratory: No shortness of breath, cough, hemoptysis, or pleuritic chest pain Gastrointestinal: No abdominal pain, nausea, vomiting, diarrhea, rectal pain or bleeding Genitourinary: Denies Hematuria or dysuria Musculoskeletal: Generalized weakness and fatigue Psychiatric: No vegetative signs of depression Endocrine: No symptoms of hypothyroidism or hyperglycemia Hematologic: No bleeding or lymph nodes noted As mentioned above, all of the systems were reviewed in full and are unremarkable. Past Medical History: Diagnosis Date Aneurysm (HCC) Arthritis Depression GERD (gastroesophageal reflux disease) Hyperlipidemia Hypertension Hypothyroid Leg cramps Shortness of breath Sleep disorder Vertigo Current Outpatient Medications Medication Sig Dispense Refill LISINOPRIL 10 MG PO TABS Take 1 Tablet by mouth in the morning. 30 Tab 11 albuterol (PROVENTIL HFA) 108 (90 BASE) MCG/ACT inhaler Inhale 2 Puffs by mouth every 4 hours as needed for Wheezing. 1 Inhaler 5 Saw Claremont 450 MG Capsule Take 1 Capsule by mouth in the morning. 1 Cap 0 Magnesium 250 MG Tablet Take 1 Tablet by mouth in the morning. 1 Tab traMADol (ULTRAM) 50 MG Tablet Take 1 Tab by mouth 3 times a day as needed for Pain or Pain, Moderate. 60 Tab 0 Docusate Sodium 100 MG/10ML Oral Liquid TAKE 1 CAPSULE BY MOUTH EVERY DAY NEEDED Lidocaine 5 % External Patch (Lidoderm) Place 1 Patch topically on the skin daily. Tiotropium [place] Monohydrate 2.5 MCG/ACT Inhalation Aerosol Solution (Spiriva Respimat) Inhale 2 Puffs by mouth in the morning. Finasteride 5 MG Oral Tablet (Proscar) Take 1 Tablet by mouth in the morning. levETIRAcetam 500 MG Oral Tablet Disintegrating Soluble (Spritam) Take 500 mg by mouth in the morning and 500 mg before bedtime. Potassium 99 MG Oral Tablet Take 1 Tablet by mouth in the morning. Venlafaxine HCl ER 150 MG Oral Capsule Extended Release 24 Hour (Effexor XR) Take 1 Capsule by mouth in the morning. Budesonide-Formoterol Fumarate 160-4.5 MCG/ACT Inhalation Aerosol (Symbicort) Inhale 2 Puffs by mouth in the morning and 2 Puffs before bedtime. Diclofenac Sodium 2 % External Solution Apply 1 Application topically to affected area every 6 hours as needed for Other (Shoulder pain). Apply to shoulder as needed Fluticasone-Salmeterol 250-50 MCG/ACT Inhalation Aerosol Powder Breath Activated (Advair Diskus) Inhale 1 Puff by mouth in the morning and 1 Puff before bedtime. Roflumilast 500 MCG Oral Tablet (Daliresp) Take 1 Tablet by mouth in the morning. For COPD. Simvastatin 80 MG Oral Tablet (Zocor) Take 0.5 Tablets by mouth every evening. Tamsulosin HCl 0.4 MG Oral Capsule (Flomax) Take 1 Capsule by mouth at bedtime. traZODone HCl 100 MG Oral Tablet (Desyrel) Take 2 Tablets by mouth at bedtime. Levothyroxine Sodium 100 MCG Oral Tablet (Levoxyl) Take 1 Tablet by mouth daily first thing in the morning. (at least 30 min prior to breakfast or other meds) Mouth Kote Mouth/Throat Solution Take 4 Sprays by mouth every 2 hours as needed (Dry mouth). 59 mL 0 Acetaminophen 325 MG Oral Tablet (Tylenol) Take 3 Tablets by mouth in the morning and 3 Tablets at noon and 3 Tablets in the evening. 30 Tablet 0 Polyethylene Glycol 3350 17 GM Oral Packet (Miralax) Take 1 Packet by mouth in the morning. 30 Each0 Sennosides 8.6 MG Oral Tablet (Senokot) Take 2 Tablets by mouth in the morning. 60 Tablet 0 dexAMETHasone 4 MG Oral Tablet Take 0.5 Tablets by mouth 2 times a day with morning and evening meals. 2 Tablet 0 dexAMETHasone 4 MG Oral Tablet Take 0.5 Tablets by mouth in the morning. Do not start before February 25, 2024. 2 Tablet 0 Bicalutamide 50 MG Oral Tablet (Casodex) Take 1 Tablet by mouth in the morning. 21 Tablet 0 No current facility-administered medications for this visit. Social History Tobacco Use Smoking status: Former Types: Pipe Smokeless tobacco: Former Quit date: 1979 Vaping Use Vaping status: Never Used Substance Use Topics Alcohol use: No Drug use: No Review of patient's allergies indicates: Allergen Reactions Diclofenac Sodium Rash Not sure PHYSICAL EXAMINATION: General Appearance: Weak appearing patient in no acute distress BP 181/78 (BP Site: Left Arm, BP Position: Sitting, BP Cuff Size: Regular) | Pulse 58 | Temp 37 C(98.6 F) (Tympanic) | Wt 68 kg (150 lb) | SpO2 96% | BMI 22.81 kg/m | BSA 1.81 m Vitals reviewed. HEENT: No oral or pharyngeal masses, ulceration or thrush noted, no sinus tenderness. Neck is supple with no thyromegaly or JVD noted. Lymph Nodes: No lymphadenopathy noted in the occipital, pre and post auricular, cervical, supra andinfraclavicular, axillary, epitrochlear, inguinal, and popliteal region. Lungs/Thorax: Clear to auscultation, no accessory muscles of respiration being used. Heart: Regular rate and rhythm, normal S1, S2 Abdomen: Soft, nontender, bowel sounds present, no appreciable hepatosplenomegaly, no palpable masses Extremeties: Good pulses bilaterally, no peripheral edema. ASSESSMENT: 84-year-old male with a history of medical problems including hypertension, hypothyroidism, hyperlipidemia, COPD, depression, GERD and arthritis referred with the diagnosis of metastatic prostate cancer. He presented with complaint of increasing pain and difficulty in walking and had CT scan and MRI done which shows progressive T7 lesion with development of soft tissue component extending to the spinal canal result in the compression of the thecal sac and spinal cord, soft tissue extending fromT5 -6 and throat T7-T8. Patient had biopsy done which was consistent with metastatic prostate cancer. PSA level was elevated. Patient underwent debulking surgery on 02/16/2024 and pathology was consistent with metastatic carcinoma consistent with prostate primary. Currently he is receiving radiation therapy to the spine area. There is also a plan for the radiation therapy prostate which will start after the completion of radiation therapy to the spine area. He is complaining of generalized fatigue, weakness and poor appetite. He also supposed to start Lupron injection but there was a delay in the insurance process. Hopefully he will receive 1st dose soon. Discussed with the patient and family including son and about diagnosis. I will plan is to continue with radiation therapy to the spine area. He will also receive radiation therapy to the prostate area. In the meantime we will continue Lupron. After the completion of the radiation therapy I will start him on Xgeva and apalutamide. PLAN: As above. He will return clinic for follow-up in 6 weeks with the CBC, CMP and PSA. The patient voiced understanding of all of the above. All questions and concerns were addressed in an apparently satisfactory manner. Lisandro Montes MD (This note was completed using the dictation program Fluency Direct. As such, there may be misspellings, word substitutions, or other variations that should not change the essence of the clinical content of this encounter note. If there is need for further clarification, please direct questions to me.) documented in this encounter Nursing Notes * Rosalinda Marie MED ASSIST - 04/26/2024 2:36 PM EDT Patient identifed by name and [...] it for you? ALREADY ACTIVE Filed Vitals: 04/26/24 1425 BP: 181/78 Pulse: 58 Temp: 37 C (98.6 F) TempSrc: Tympanic SpO2: 96% Weight: 68 kg (150 lb) Patient was instructed to not get up [...] Care Team (Late st Contact Info) Description 05/03/2024 2:00 PM EDT Office Visit Palliative Medicine [facility] [address] [place] [id number] Brissa Rock MD [address] [place] [address] 05/04/2024 1:30 PM EDT Office Visit Urology, [place] [address] [place] [address] Jessica Marie MD [address] [place] [address] 06/07/2024 2:00 PM EDT Office Visit Hematology/Oncology Noa Conte [place] [address] [facility] [place] [phone] Lisandro Montes MD [address] [place] [id number] Scheduled Orders Name Type Priority Associated Diagnoses Orde r Schedule CBC WITH WBC DIFFERENTIAL Lab Routine Prostate cancer (HCC) Expected: 06/06/2024, Expires: 10/03/2024 COMPREHENSIVE METABOLIC PANEL Lab Routine Prostate cancer (HCC) Expected: 06/06/2024, Expires: 10/03/2024 PSA Lab Routine Prostate cancer ([facility]) Expected: 06/06/2024, Expires: 10/03/2024 Health Maintenance Due Date Last Done Comments [...] this encounter Medical Devices Implanted Type Area Automatic Car Wash Attendant Device Identifier Shelf Expiration Date Model / Serial / Lot Coil Emboli Donn [id number] - [id number] Implanted:Qty : 1 on 02/16/2024 at [facility] [employer] [id number] 09/24/2028 [id number] / / [id number] Set Screw Poly Atr Jasper - [id number] [place]planted:Qty : 8 on 02/16/2024 [place] Oumar [place] [facility] [place] Spine Thoracic SADA : SPINE [id number] / / Vitoss Bimodal Foam Pack 10cc - [id number] Implanted:Qty : 6 on 02/16/2024 by Oumar Rosa [place] [facility] [place] [place] Spine Thoracic SADA : SPINE / / Screw Poly 5.5x40mm Canltd Xt - [id number] Implanted:Qty : 2 on 02/16/2024 by Oumar Rosa [place] [facility] [place] Spine Thoracic SADA : SPINE [id number] 40 / / Screw Poly 5.5x45mm Canltd Xt - [id number] Implanted:Qty : 2 on 02/16/2024 by Oumar Rosa [place] [facility] [place] Spine Thoracic SADA : SPINE [id number] / / Jasper M: Xt Screw 6.5x40 Implanted:Qty : 2 on 02/16/2024 by Oumar Rosa [place] [facility] [place] Spine Thoracic SADA [id number] 40 / / Screw Poly 6.5x45mm Canltd Xt - [id number] Implanted:Qty : 2 on 02/16/2024 by Oumar Rosa [place] [facility] [place] Spine Thoracic SADA : SPINE [id number] 45 / / documented as of this encounter Visit Diagnoses Diagnosis Prostate cancer (HCC)- Primary Malignant neoplasm of prostate documented in this encounter Advance Directives Documents on File Type Date Recorded Patient Nipple Maker Expl anation Advance Directives and Living Will [...] Comments Discussion of Advance Directives occurred with: Patient"
--- OUTSIDE RECORDS SUMMARY | 2024-04-27 12:47 | External Medical Summary | Summary of Care ---
Author Name Unknown Organization [facility] Address [address] [place] [address] Phone [phone] Care Team Providers Care Paper Cone Maker Name Role Phone Unavailable Primary Care Provider Unavailabl e Reason for Visit * Reason Onset Date Comments Precert Future 03/15/2024 Lupron Encounter Details Date Type Department Care Team (Late st Contact Info) Description 03/15/2024 Telephone Hematology/Oncology Noa Conte [place] [address] [place] [address] Lisandro Montes MD [address] [place] [id number] Precert Future (Lupron) Allergies Active Allergy Reactions Criticality Noted Date Comments Diclofenac Sodium Rash 05/20/2022 Not sure documented as of this encounter (statuses as of 04/26/2024) Medications Medication Sig Dispensed Refills Start Date End Date Status LISINOPRIL 10 MG PO TABS Take 1 Tablet by mouth in the morning. 30 Tab 11 09/17/2014 Active albuterol (PROVENTIL HFA) 108 (90 BASE) MCG/ACT inhalerIndications: COPD (chronic obstructive pulmonary disease) (HCC) Inhale 2 Puffs by mouth every 4 hours as needed for Wheezing. 1 Inhaler 5 08/20/2015 Active Saw [place] 450 MG Capsule Take 1 Capsule by mouth in the morning. 1 Cap 04/30/2017 Active Magnesium 250 MG Tablet Take 1 Tablet by mouth in the morning. 1 Tab 04/30/2017 Active traMADol (ULTRAM) 50 MG TabletIndications:O steoarthritis of spine with radiculopathy, cervical region Take 1 Tab by mouth 3 times a day as needed for Pain or Pain, Moderate. 60 Tab 04/28/2018 Active Docusate Sodium 100 MG/10ML Oral Liquid TAKE 1 CAPSULE BY MOUTH EVERY DAY NEEDED Active Lidocaine 5 % External Patch (Lidoderm) Place 1 Patch topically on the skin daily. Active Tiotropium [place] Monohydrate 2.5 MCG/ACT Inhalation Aerosol Solution (Spiriva [...] Capsule by mouth in the morning. Active Budesonide-Formoter ol Fumarate 160-4.5 MCG/ACT Inhalation Aerosol (Symbicort) Inhale 2 Puffs by mouth in the morning and 2 Puffs before bedtime. Active Diclofenac Sodium 2 % External Solution Apply 1 Application topically to affected area every 6 hours as needed for Other (Shoulder pain). Apply to shoulder as needed Active Fluticasone-Salmete rol 250-50 MCG/ACT Inhalation Aerosol Powder Breath Activated [...] February 25, 2024. 2 Tablet 02/25/2024 Active Morphine Sulfate ER 15 MG Oral Tablet Extended Release (Ms Contin) Take 1 Tablet by mouth in the morning and 1 Tablet at noon and 1 Tablet before bedtime. 90 Tablet 02/23/2024 03/24/20 24 Gabapentin 300 MG Oral Capsule (Neurontin) Take 1 Capsule by mouth in the morning and 1 Capsule before bedtime. 60 Capsule 02/23/2024 03/24/20 24 Metoprolol Tartrate 25 MG Oral Tablet (Lopressor) Take 1 Tablet by mouth in the morning and 1 Tablet before bedtime. 60 Tablet 02/23/2024 03/24/20 24 Bicalutamide 50 MG Oral Tablet (Casodex)Indication s:Prostate cancer (HCC) Take 1 Tablet by mouth in the morning. 21 Tablet 03/15/2024 03/15/20 24 Discontinue d(Refill) documented as of this encounter (statuses as [...] Cataract extraction and IOL, [facility] of coronary artery 02/08/2024 Overview: Aug [...] on file documented as of this encounter Functional Status Functional Status Response [...] No 02/08/2024 documented as of this encounter Miscellaneous Notes * Telephone Encounter - Swati Britt RN - 04/26/2024 2:50 PM EDT Patient in office to see Dr Montes. Waiting to start lupron. Referral does not have any documentation in it. Per this encounter, looks like [facility] auth was needed; however, patient has referral to oncology scanned in 03/15/24 as well as medicare. Precert: can you please review this? * Telephone Encounter - Cristiane Barraza LPN - 03/21/2024 2:39 PM EDT Form completed and signed by provider. [phone] * Telephone Encounter - Alexandre Hadley RN - 03/20/2024 10:25 AM EDT Form printed and given to Sang Barraza LPN for review/complete. * Telephone Encounter - Alexandre Hadley RN - 03/20/2024 8:28 AM EDT Juanis Petersen is sending us the form to complete the request for Lupron coverage. This will need faxedwith recent office visit notes to accommodate please. * Telephone Encounter - Alexandre Hadley RN - 03/20/2024 8:24 AM EDT Per precert, pt with VA insurance, we will need to request authorization for this through the [facility]. Message sent to Trinity Mendez to see how this process is completed. * Telephone Encounter - Alexandre Hadley RN - 03/15/2024 2:26 PM EDT Orders received, plan built and routed to provider. Awaiting auth. Pt to start on Lupron after completing 2 weeks of Casodex. documented in this encounter Plan of Treatment Upcoming Encounters Date Type Department Care Team (Late st Contact Info) Description 05/03/2024 2:00 PM EDT Office Visit Palliative Medicine [facility] [address] [place] [address] Brissa Rock MD [address], [place] [id number] 05/04/2024 1:30 PM EDT Office Visit Urology, [place] [address] [place] [address] Jessica Marie MD [address], [place] [id number] Scheduled Orders Name Type Priority Associated Diagnoses Orde r Schedule PSA Lab Routine Prostate cancer (HCC) Every 3 Months for 4 Occurrences startin g 03/15/2024 until 03/15/2025 Health Maintenance Due Date Last Done Comments [...] this encounter Medical Devices Implanted Type Area Mailhouse Operator Device Identifier Shelf Expiration Date Model / Serial / Lot Coil Emboli Donn [id number] - [id number] Implanted:Qty : 1 on 02/16/2024 at [facility] [employer] [id number] 09/24/2028 [id number] / / [id number] Set Screw Poly Atr Mccoy - [id number] Implanted:Qty : 8 on 02/16/2024 by Oumar Rosa MD at [facility] [place] N/A: Spine Thoracic SADA : SPINE [id number] 1 / / Vitoss Bimodal Foam Pack 10cc - [id number] Implanted:Qty : 6 on 02/16/2024 by Oumar Rosa MD at [facility] [place] N/A: Spine Thoracic SADA : SPINE [id number] / / Screw Poly 5.5x40mm Canltd Xt - [id number] Implanted:Qty : 2 on 02/16/2024 by Oumar Rosa MD at [facility] [place] N/A: Spine Thoracic SADA : SPINE [id number] 40 / / Screw Poly 5.5x45mm Canltd Xt - [id number] Implanted:Qty : 2 on 02/16/2024 by Oumar Rosa MD at [facility] [place] N/A: Spine Thoracic SADA : SPINE [id number] 45 / / Mccoy M: Xt Screw 6.5x40 Implanted:Qty : 2 on 02/16/2024 by Oumar Rosa MD at [facility] [place] N/A: Spine Thoracic SADA [id number] 40 / / Screw Poly 6.5x45mm Canltd Xt - [id number] Implanted:Qty : 2 on 02/16/2024 by Oumar Rosa MD at [facility] [place] N/A: Spine Thoracic SADA : SPINE [id number] 45 / / documented as of this encounter Visit Diagnoses Diagnosis Prostate cancer (HCC)- Primary Malignant neoplasm of prostate documented in this encounter Advance Directives Documents on File Type Date Recorded Patient Operations Research Group Manager Expl anation Advance Directives and Living Will [...]
--- NOTE | 2024-04-27 13:42 | History & Physical Report ---
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 Previously thought to be from gabapentin and morphine both of which were stopped but symptoms continue Most likely from either restless legs from iron deficiency versus anxiety. Do not suspect neurological issue otherwise Increase magnesium 400 Mg p.o. twice daily Starting Ativan as needed Starting sertraline for anxiety as below Monitor for worsening (2) Depression with anxiety: Plan: On venlafaxine and trazodone at baseline, but with recent diagnosis of metastatic prostate cancer undergoing therapy, he has become significantly anxious, worsening insomnia, and with uncontrollable shaking at times of the legs and sometimes hands Patient is agreeable to starting sertraline 25 mg daily and titrate up from there Okay to start lorazepam 1 mg p.o. at bedtime scheduled and 0.5 Mg p.o. every 8 hours as needed anxiety during the day as a short-term solution while undergoing cancer treatments Do not recommend long-term use as discussed with patient and his (3) Hyponatremia: Plan: Sodium low at 129 but chronic and stable from previous, could be related to uncontrolled hypothyroidism Follow BMP especially after starting sertraline (4) Weakness: Plan: Secondary to recent metastatic prostate cancer with radiation treatment and poor p.o. intake multifactorial likely also influenced by significant anxiety. Recent brain MRI normal Encourage p.o. intake, treating anxiety as above PT/OT consults placed (5) Anemia: Plan: Baseline hemoglobin previously around 10-11 and trended downward to 7.9 during last admission, normocytic. Today is elevated from previous at 10 likely hemoconcentration B12, folate were normal, transferrin saturation only 7% and TSH mildly abnormal No bleeding from anywhere Continue iron replacement and treatment of hypothyroidism Follow CBC (6) Acute dehydration: Plan: Due to poor p.o. intake, with hemoconcentration with hemoglobin up 2-1/2 g from 2 days ago, along with sinus tachycardia Was given IV fluids in the ER Hold off on further IV fluids Encourage p.o. intake (7) Constipation: Plan: Was severe during previous admission due to opioid use-opioids were discontinued He is now moving his bowels regularly Continue daily MiraLAX, senna, docusate (8) Prostate cancer metastatic to multiple sites: Plan: Diagnosed with metastatic prostate cancer in March 2024. Has been undergoing radiation therapy for metastatic disease involving thoracic spine as well He has had weight loss from poor appetite Tylenol for pain Continued radiation while in house and resume as outpt after discharge Continue bicalutamide, Flomax, finasteride F/u with Oncology as scheduled Plan COPD-no acute issues, continue albuterol as needed, maintenance inhalers, and Roflumilast Hypothyroidism-TSH recently elevated at 9 during previous hospitalization and now down to 4. Continue levothyroxine 112 mcg which is a recent increase and follow-up as an outpatient HTN-BP is mildly elevated could be secondary to anxiety-continue home metopr olol, treat anxiety CAD-moderate, nonobstructive-continue metoprolol, statin. He is not on aspirin Thiamine deficiency-continue p.o. thiamine DVT prophylaxis-Lovenox Disposition-admit to medical/surgical unit, PT/OT consults placed to evaluate for need for rehab Discussed all care with his on the phone on 04/27 History of Present Illness Chief Complaint: Shaking, weakness Primary Care Provider: [facility] This patient is an 84-year-old male with a history of metastatic prostate cancer to the bones, idiopathic polyneuropathy, myoclonus, COPD, hypothyroidism HTN, depression with anxiety, and iron deficiency anemia presents to the ER for excessive shaking which caused him to not be able to sleep through the night. He reports feeling exhausted. He has not been eating and drinking much. He reports that he feels extremely anxious all the time. He was at radiation today and then was sent over here because he was slightly tachycardic and was having uncontrollable shaking in both legs periodically. He was just discharged from the hospital by myself 2 days ago. At that time, he was also having some intermittent uncontrollable jerks of the legs and sometimes arms which was thought to possibly be from excessive morphine and gabapentin use-these medications were stopped. He reports he has been moving his bowels since last discharge as he had severe constipation at that time. He has very minimal pain in his back now that he is undergoing radiation therapy to the bones. He reports he has been able to walk with his walker but has felt like the shaking is causing him to almost fall. In the ER, his hemoglobin was increased from previous, his sodium was low at 129 which is stable from previous, and there were no other significant lab abnormalities. No evidence of infection on urinalysis, with a normal WBC count, normal chest x-ray. He was afebrile vital signs were normal except for mild hypertension and mild sinus tachycardia. In the ER, he was given IV fluids, IV Ativan, IV Benadryl for anxiety. Patient will be admitted for shaking likely related to anxiety, generalized weakness, and reevaluation for rehab placement Allergies Allergy/AdvReac Type Severity Reaction Status Date / Time diclofenac [From Voltaren] Allergy Unknown ON [facility] Verified 04/14/24 14:55 LIST Home Medications Medication Instructions Recorded Confirmed Type magnesium 250 mg tablet 250 mg PO QAM 01/30/20 04/27/24 History lidocaine 5 % topical patch 1 patch topical DAILY PRN Pain 03/12/20 04/27/24 History trazodone 100 mg tablet 200 mg PO HS 12/11/20 04/27/24 History venlafaxine 150 mg 150 mg PO QAM 06/14/22 04/27/24 History capsule,extended release 24 hr tiotropium bromide 2.5 2 inh inhalation DAILY 03/19/23 04/27/24 History mcg/actuation mist for inhalation diclofenac sodium 1 % topical gel 2 g topical QID 08/04/23 04/27/24 History (Arthritis Pain (diclofenac)) finasteride 5 mg tablet 5 mg PO DAILY 08/04/23 04/27/24 History roflumilast 500 mcg tablet 500 mcg PO DAILY 08/04/23 04/27/24 History simvastatin 80 mg tablet 40 mg PO HS 10/08/23 04/27/24 History acetaminophen 325 mg tablet 975 mg PO TID 02/29/24 04/27/24 History albuterol sulfate 90 mcg/actuation 2 puff inhalation Q4H PRN 02/29/24 04/27/24 History aerosol inhaler (Proventil HFA) Shortness Of Breath Or Wheezing fluticasone 250 mcg-salmeterol 50 1 inh inhalation BID 02/29/24 04/27/24 History mcg/dose blistr powdr for inhalation (Advair Diskus) levetiracetam 500 mg tablet 500 mg PO BID 02/29/24 04/27/24 History sennosides 8.6 mg tablet (Senokot) 17.2 mg PO DAILY 02/29/24 04/27/24 History tamsulosin 0.4 mg capsule 0.4 mg PO DAILY 02/29/24 04/27/24 History ascorbate calcium (vitamin C) 500 500 mg PO DAILY 04/03/24 04/27/24 History mg tablet bicalutamide 50 mg tablet 50 mg PO DAILY 04/03/24 04/27/24 History cholecalciferol (vitamin D3) 10 10 mcg PO DAILY 04/03/24 04/27/24 History mcg (400 unit) capsule fluticasone propionate 50 1 spray intranasal BID 04/03/24 04/27/24 History mcg/actuation nasal spray,suspension food supplemt, lactose-reduced 1 ea PO DAILY 04/03/24 04/27/24 History (Ensure oral liquid) ondansetron HCl 4 mg tablet 4 mg PO Q8H PRN NAUSEA/VOMITING 04/03/24 04/27/24 History thiamine HCl (vitamin B1) 100 mg 100 mg PO DAILY 04/03/24 04/27/24 History tablet cyanocobalamin (vitamin B-12) 1,000 mcg PO DAILY #30 caps 04/25/24 04/27/24 Rx 1,000 mcg capsule docusate sodium 50 mg/5 mL oral 100 mg (10 mL) PO BID #473 mL 04/25/24 04/27/24 Rx liquid ferrous sulfate 325 mg (65 mg 325 mg PO DAILY #30 tabs 04/25/24 04/27/24 Rx iron) tablet levothyroxine 112 mcg tablet 112 mcg PO DAILYBB #30 tabs 04/25/24 04/27/24 Rx (Synthroid) metoprolol tartrate 25 mg tablet 12.5 mg (1/2 x 25 mg) PO BID #30 04/25/24 04/27/24 Rx tabs polyethylene glycol 3350 17 gram 17 g PO DAILY Constipation #30 ea 04/25/24 04/27/24 Rx oral powder packet (Miralax) Past Med/Surg History Problem List Depression with anxiety Hyponatremia (Acute) Weakness (Acute) Anemia (Acute) Acute dehydration (Acute) Tachycardia (Acute) Hyponatremia Constipation Acute respiratory failure with hypoxia Anemia Thiamine deficiency Prostate cancer metastatic to multiple sites (Acute) Acute dehydration (Acute) Generalized weakness (Acute) 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) (Chronic 02/10/24) Thoracic compression fracture T7 Thoracic spine pain BPH w urinary obs/LUTS Back pain (Acute) [place] positive Idiopathic polyneuropathy Disc degeneration, lumbar Scoliosis of lumbar region due to degenerative disease of spine in adult Orthostatic hypotension Sinus tachycardia CAD (coronary artery disease) Tobacco dependence Osteoporosis Hyperlipidemia Rotator cuff arthropathy of left shoulder Encounter for pre-operative examination Atypical chest pain (Acute) HERNÁNDEZ (dyspnea on exertion) (Acute) Hypophosphatemia (Acute) Hypocalcemia (Acute) Hypertension Low back pain Depression Myoclonus COPD (chronic obstructive pulmonary disease) Spinal stenosis, lumbar region with neurogenic claudication Lumbar spondylosis Spinal stenosis of thoracolumbar region Hypothyroidism Medical History Obesity Osteoarthritis DDD (degenerative disc disease) Hearing deficit Aneurysm Per remote [facility] records, hx of questionable thoracic aortic aneurysm under [facility] by [facility] every 2-3 years, no recent issues/not noted on 2019 echo Sleep apnea No device COPD (chronic obstructive pulmonary disease) Stable Hypertension Surgical History History of shoulder replacement Left History of laminectomy (02/16/24) 1) posterior thoracic segmental fusion with pedicle screws: Thoracic 5, 6, 7, 8, 9 levels 2) Cement augmentation of thoracic pedicle screws, thoracic 5, 6, 8, 9 3) Laminectomy, thoracic 7 and 8 4) Partial laminectomy, thoracic 6 5) Facetectomy bilaterally, thoracic 6-7, and 7-8 6) Pediculectomy bilaterally, thoracic 7 7) Partial corpectomy, thoracic 7 8) open reduction of thoracic fracture, thoracic 7 level 9) Arthrodesis, thoracic 5, 6, 7, 8, 9 10) use of allograft 11) use of intraoperative neurophysiologic monitoring 12) Use of intraoperative ultrasonography 13) use of fluoroscopy Surgeon: Oumar Rosa Co-surgeon: Renan Lopez Straight Knife Machine Cutter: Ramses Sheppard History of elbow surgery Right History of cataract surgery R/L Family History Father No problems noted. Mother No problems noted. Brother Breast cancer Surgery Brother No problems noted. Sister No problems noted. Sister No problems noted. Daughter No problems noted. Son No problems noted. Son No problems noted. Other No family history of adverse response to anesthesia Social History (Updated 04/27/24 @ 18:34 by Elda Aguilar MD) Smoking Status: Former smoker Tobacco Type: Cigarettes Age Quit Using Tobacco: 44; Second Hand Exposure: No; Do You Dip or Chew Tobacco: No; Hx Alcohol Use: No Hx Substance Use: No Preferred Language: Persian Communication Ability: Effective Visual Impairment: No Limitations Hearing Ability: Hard of Hearing Boom Cat Operator Required: No Beliefs That Will Affect Care: None marital status: Current Living Situation: Spouse current occupational status: retired How many Children do You have: 3 Feels Safe at Home: Yes Childhood Exposure to Second-Hand Smoke: No Diet: regular caffeine: Yes during the past year weight has: decreased > 10 lbs Dental Care, Regularly: No Assistive Devices: Denture - Upper, Denture - Lower and Walker Review of Systems Review of Systems: All systems reviewed & are unremarkable except as noted in HPI & below No fevers or chills Physical Exam Constitutional: WD/WN, vitals as above Eyes: PERRL, conjunctivae normal, anicteric sclerae ENMT: external ear and nose normal, oropharynx normal Neck: trachea midline, no thyromegaly Respiratory: normal respiratory effort, lungs clear to auscultation Cardiovascular: Rate/Rhythm: regular rate and regular rhythm Heart Sounds: + murmur (1/6 ANNA at the left lower sternal border) Gastrointestinal (Abdomen): normal bowel sounds, soft, nontender, no hepatosplenomegaly Musculoskeletal: Extremities: extremities normal to inspection; no cyanosis and no clubbing Skin: no rashes, warm and dry Neurologic: moves all extremities and awake; no focal motor deficits Motor/Sensory: + tremor (Intermittent shaking of bilateral legs) Psychiatric: Orientation: alert, oriented x 3 and cooperative Affect: + anxious affect Mood: + anxious mood Lymphatic: no lymphedema Results & Data Results & Data Vital Signs (Past 12 Hours) Vital Signs Temp Pulse Pulse Resp BP BP Pulse Ox 04/27/24 13:00 126 H 18 140/92 99 04/27/24 12:45 101 H 04/27/24 11:00 98 H 20 132/80 99 04/27/24 10:54 99 H 23 98 04/27/24 10:33 93 H 24 92 04/27/24 10:30 136/79 04/27/24 10:27 93 H 21 97 04/27/24 10:03 103 H 20 96 04/27/24 10:00 148/90 H 04/27/24 09:54 107 H 29 H 98 04/27/24 09:42 105 H 30 H 04/27/24 09:40 106 H 04/27/24 09:34 145/95 H 04/27/24 09:28 102 H 22 98 04/27/24 09:23 36.7 C 60 20 160/81 H 100 O2 Del Method 04/27/24 13:00 Room Air 04/27/24 12:45 04/27/24 11:00 Room Air 04/27/24 10:54 04/27/24 10:33 04/27/24 10:30 04/27/24 10:27 04/27/24 10:03 04/27/24 10:00 04/27/24 09:54 04/27/24 09:42 04/27/24 09:40 04/27/24 09:34 04/27/24 09:28 Room Air 04/27/24 09:23 Room Air Laboratory Results CBC, CMP, CK, troponin, TSH, UA reviewed Diagnostic Findings Chest X-Ray 04/27/24 09:28 XR chest 1V portable CLINICAL HISTORY: weakness COMPARISON STUDY: Chest CT April 11, 2024. Chest radiograph April 24, 2024. FINDINGS: Left shoulder arthroplasty, postoperative findings within the thoracic spine and multilevel vertebroplasty are again noted. Low lung volumes are unchanged. Bibasilar linear densities represent atelectasis. There is no consolidation to suggest pneumonia. Cardiomediastinal silhouette is stable. There is no pneumothorax or pleural effusion. No evidence for pulmonary edema. IMPRESSION: 1. No acute cardiopulmonary findings. 2. No change in appearance of the chest. Low lung volumes with bibasilar densities suggestive of atelectasis. ACT 112: Negative or not required by law. Electronically signed by: Dylan Moscoso M.D. 04/27/2024 10:15 AM ECG Additional Comments: ECG on 04/27/2024 at 9:41 AM with sinus tachycardia with frequent PVCs, artifact Code Status & VTE Plan Code Status Full code VTE Prophylaxis Plan VTE Prophylaxis will be ordered: Yes PG Care Time/CCT Total # of Minutes Spent Total Time Spent with Patient: Total time spent is greater than 50% in coordination of care (as documented) at patient's floor/unit and/or counseling patient: Coding Level of Care Code 74044 INT INP/OBS CARE 3/75MIN Diagnoses Myoclonus G25.3 Depression with anxiety F41.8 Hyponatremia E87.1 Weakness R53.1 Anemia D64.9 Anemia type: unspecified type Acute dehydration E86.0 Constipation K59.00 Prostate cancer metastatic to multiple sites C61 (5) Anemia Anemia type: unspecified type Qualified Code(s): D64.9 - Anemia, unspecified
[2024-04-27] MEDS ORDERED: ALUMINUM/MAGNESIUM SUSP 30 ML UDC PO PRN (14:58)
[2024-04-27] MEDS ORDERED: ONDANSETRON INJ 2 MG/ML 2 ML VIAL IV PRN (14:58)
[2024-04-27] MEDS ORDERED: MAGNESIUM HYDROXIDE SUSP 30 ML UDC PO PRN (14:58)
[2024-04-27] MEDS ORDERED: ALBUTEROL HFA 8 GM INHALER INH PRN (14:58)
[2024-04-27] MEDS ORDERED: LORazepam 0.5 MG TAB PO PRN (15:34)
[2024-04-27] MEDS: Patient's HEIGHT &/or WEIGHT Needed SCH (16:00)
[2024-04-27] MEDS: SERTRALINE HCL 50 MG TABLET PO SCH (16:36)
[2024-04-27] MEDS: DICLOFENAC SOD 1% GEL 100 GM TUBE EXT SCH (16:37)
[2024-04-27] MEDS: ACETAMINOPHEN 325 MG TAB PO SCH (16:37)
[2024-04-27] MEDS: MAGNESIUM OXIDE 400 MG TAB PO SCH (20:07)
[2024-04-27] MEDS: SIMVASTATIN 40 MG TAB PO SCH (20:07)
[2024-04-27] MEDS: ENOXAPARIN INJ 40 MG/0.4 ML SYR SQ SCH (20:07)
[2024-04-27] MEDS: METOPROLOL TARTRATE 25 MG TAB PO SCH (20:08)
[2024-04-27] MEDS: FLUTICASONE PROPIONATE NA SPR 16 GM BTL NAE SCH (20:10)
[2024-04-27] MEDS: levETIRAcetam 500 MG TAB PO SCH (20:11)
[2024-04-27] MEDS: DOCUSATE SODIUM 100 MG CAP PO SCH (20:12)
[2024-04-27] MEDS: traZODone HCL 100 MG TAB PO SCH (20:12)
[2024-04-27] MEDS: LORazepam 1 MG TAB PO SCH (20:14)
[2024-04-28] MEDS: LEVOTHYROXINE SODIUM 112 MCG TABLET PO SCH (06:17)
[2024-04-28 07:05] LABS: Basophils # (auto) 0.01 K/uL (0.00-0.20); Basophils % (auto) 0.3 %; Eosinophils # (auto) 0.15 K/uL (0.00-0.50); Eosinophils % (auto) 3.9 %; Hematocrit (blood only) 30.6 % (42.0-52.0); Hemoglobin 10.1 g/dl (14.0-18.0); Immature Granulocytes # (auto) 0.01 K/uL (0.01-0.20); Immature Granulocytes % (auto) 0.3 %; Lymphocytes # (auto) 0.48 K/uL (1.20-3.40); Lymphocytes % (auto) 12.3 %; Mean Corpuscular Hemoglobin 27.9 pg (25.0-34.0); Mean Corpuscular Volume 84.5 fL (80.0-100.0); Monocytes # (auto) 0.35 K/uL (0.11-0.59); Neutrophils # (auto) 2.89 K/uL (1.40-6.50); Neutrophils % (auto) 74.2 %; Platelet Count 231 K/uL (130-400); RDW Standard Deviation 52.6 fL (36.4-46.3); Red Blood Count 3.62 M/uL (4.70-6.10); White Blood Count 3.89 K/ul (4.8-10.8)
[2024-04-28 07:28] LABS: BUN Creatinine Ratio 10.6 (10-20); Calcium 8.7 mg/dl (8.6-10.3); Creatinine Clr Calc Pharmacy 61.5 ml/min; Est GFR (African American) 92.1 ml/min; Est GFR (Non-African American) 79.5 ml/min; Magnesium 1.8 mg/dl (1.7-2.4)
[2024-04-28 07:35] VITALS: BP 117/77; PULSE 81; RESP 16; TEMP 98.6; O2SAT 96
[2024-04-28] MEDS: CHOLECALCIFEROL 10 MCG (400 UNITS) TAB PO SCH (08:13)
[2024-04-28] MEDS: SENNA 8.6 MG TAB PO SCH (08:13)
[2024-04-28] MEDS: THIAMINE HCL 100 MG TAB PO SCH (08:13)
[2024-04-28] MEDS: ROFLUMILAST 500 MCG TAB PO SCH (08:14)
[2024-04-28] MEDS: ASCORBIC ACID 500 MG TAB PO SCH (08:14)
[2024-04-28] MEDS: TAMSULOSIN HCL 0.4 MG CAP PO SCH (08:14)
[2024-04-28] MEDS: FINASTERIDE 5 MG TAB PO SCH (08:14)
[2024-04-28] MEDS: VENLAFAXINE HCL XR 150 MG CAPXR PO SCH (08:14)
[2024-04-28] MEDS: FERROUS SULFATE 325 MG TAB PO SCH (08:15)
[2024-04-28] MEDS: CYANOCOBALAMIN (B-12) 500 MCG TABLET PO SCH (08:15)
[2024-04-28] MEDS: FLUTICASONE/VILANTEROL 100/25MCG 14 PUFFS/INHALER INH SCH (08:16)
[2024-04-28] MEDS: POLYETHYLENE (MIRALAX) 17 GM PACK PO SCH (08:16)
[2024-04-28] MEDS: BICALUTAMIDE 50 MG TAB PO SCH (08:17)
[2024-04-28] MEDS ORDERED: MAGNESIUM OXIDE 400 MG TAB PO SCH (09:00)
[2024-04-28] MEDS: MAGNESIUM SULFATE / D5W 1 GM/100 ML BAG IV ONE (09:46)
[2024-04-28] MEDS: UMECLIDINIUM BROMIDE 62.5MCG/BLISTER 7 PUFFS/INHALER INH SCH (10:43)
--- NOTE | 2024-04-28 14:44 | Discharge Summary ---
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 Previously thought to be from gabapentin and morphine both of which were stopped but symptoms continue Most likely from either restless legs from iron deficiency versus anxiety. Do not suspect neurological issue otherwise Increased magnesium to 250 Mg p.o. twice daily and did give some IV magnesium replacement here as well for low normal mag level Started Ativan 1mg po hs and 0.5mg po q8h prn anxiety or muscle twitching Started sertraline for anxiety as below Muscle twitching greatly improved within 24 hours and he is feeling much better Should remain off gabapentin and morphine from previous admission as well (2) Depression with anxiety: On venlafaxine and trazodone at baseline, but with recent diagnosis of metastatic prostate cancer undergoing therapy, he has become significantly anxious, worsening insomnia, and with uncontrollable shaking at times of the legs and sometimes hands Patient is agreeable to starting sertraline 25 mg daily and titrate up from there as outpt Okay to start lorazepam 1 mg p.o. at bedtime scheduled and 0.5 Mg p.o. every 8 hours as needed anxiety during the day as a short-term solution while undergoing cancer treatments Do not recommend long-term use as discussed with patient and his F/u with PCP closely after discharge for further management of these medications (3) Hyponatremia: Sodium low at 129-130 but chronic and stable from previous, could be related to uncontrolled hypothyroidism Follow BMP as an outpatient with starting sertraline which can cause SIADH (4) Weakness: Secondary to recent metastatic prostate cancer with radiation treatment and poor p.o. intake multifactorial likely also influenced by significant anxiety. Recent brain MRI normal Encourage p.o. intake, treating anxiety as above PT/OT consults placed and he did fairly well with them, is able to return home with home health (5) Anemia: Baseline hemoglobin previously around 10-11 and trended downward to 7.9 during last admission, normocytic. Now is improved from previous at 10 B12, folate were normal, transferrin saturation only 7% and TSH mildly abnormal No bleeding from anywhere Continue iron replacement and treatment of hypothyroidism Follow CBC as an outpt (6) Acute dehydration: Due to poor p.o. intake, with hemoconcentration with hemoglobin up 2-1/2 g from 2 days ago, along with sinus tachycardia Was given IV fluids in the ER and now improved Encouraged p.o. intake which actually greatly improved in 24 hrs with addition of anti-anxiety medication (7) Constipation: Was severe during previous admission due to opioid use-opioids were discontinued He is now moving his bowels regularly and his abdomen is no longer distended and he has no symptoms of bloating Continue daily MiraLAX, senna, docusate after discharge (8) Prostate cancer metastatic to multiple sites: Diagnosed with metastatic prostate cancer in March 2024. Has been undergoing radiation therapy for metastatic disease involving thoracic spine as well He has had weight loss from poor appetite Tylenol for pain He completed his radiation treatments for his spine on the day of discharge and will resume radiation tx for his prostate in 2 weeks Continue bicalutamide, Flomax, finasteride F/u with Oncology as scheduled Plan COPD-no acute issues, continue albuterol as needed, maintenance inhalers, and Roflumilast Hypothyroidism-TSH recently elevated at 9 during previous hospitalization and now down to 4. Continue levothyroxine 112 mcg which is a recent increase and follow-up TSH as an outpatient HTN-BP is mildly elevated could be secondary to anxiety and is now improved on day of discharge-continue home metoprolol, treating anxiety CAD-moderate, nonobstructive-continue metoprolol, statin. He is not on aspirin Thiamine deficiency-continue p.o. thiamine DVT prophylaxis-Lovenox Disposition-stable for discharge to home Discussed all care with his and son at bedside on day of discharge Notes For Next Care Provider Follow CBC, BMP in 1 week as outpt Follow for need for titration upwards of sertraline dose Medication Changes From Visit Added sertraline 25mg po daily Added lorazepam 1mg po hs and 0.5mg po q8h prn anxiety Admission HPI Per Admitting Provider This patient is an 84-year-old male with a history of metastatic prostate cancer to the bones, idiopathic polyneuropathy, myoclonus, COPD, hypothyroidism HTN, depression with anxiety, and iron deficiency anemia presents to the ER for excessive shaking which caused him to not be able to sleep through the night. He reports feeling exhausted. He has not been eating and drinking much. He reports that he feels extremely anxious all the time. He was at radiation today and then was sent over here because he was slightly tachycardic and was having uncontrollable shaking in both legs periodically. He was just discharged from the hospital by myself 2 days ago. At that time, he was also having some intermittent uncontrollable jerks of the legs and sometimes arms which was thought to possibly be from excessive morphine and gabapentin use-these medications were stopped. He reports he has been moving his bowels since last discharge as he had severe constipation at that time. He has very minimal pain in his back now that he is undergoing radiation therapy to the bones. He reports he has been able to walk with his walker but has felt like the shaking is causing him to almost fall. In the ER, his hemoglobin was increased from previous, his sodium was low at 129 which is stable from previous, and there were no other significant lab abnormalities. No evidence of infection on urinalysis, with a normal WBC count, normal chest x-ray. He was afebrile vital signs were normal except for mild hypertension and mild sinus tachycardia. In the ER, he was given IV fluids, IV Ativan, IV Benadryl for anxiety. Patient will be admitted for shaking likely related to anxiety, generalized weakness, and reevaluation for rehab placement Discharge Exam Constitutional WD/WN, vitals as above Neck trachea midline, no thyromegaly Respiratory normal respiratory effort, lungs clear to auscultation Cardiovascular Rate/Rhythm: regular rate and regular rhythm Heart Sounds: + murmur (1/6 ANNA at the left lower sternal border) Gastrointestinal (Abdomen) normal bowel sounds, soft, nontender, no hepatosplenomegaly Musculoskeletal Extremities: extremities normal to inspection; no cyanosis and no clubbing Skin no rashes, warm and dry Neurologic moves all extremities and awake; no focal motor deficits Psychiatric Orientation: alert, oriented x 3 and cooperative Affect: + anxious affect (but improved from previous) Mood: + anxious mood Lymphatic no lymphedema Discharge Plan Discharge Items Patient Disposition: Home - Home Health Services Reason For Visit: GENERALIZED WEAKNESS Discharge Diagnosis: Generalized anxiety disorder Weakness, muscle twitches-improving Condition on Discharge: Good Activity: As commented below Lifting: Gradually increase as tolerated Bathing: No limitations Exercise/Sports: Gradually increase as tolerated Exercise Comment: with home PT/OT Non-emergency contact: Primary Care Provider and Oncologist Call non-emergency contact if: you have any medication questions and your symptoms worsen [facility] [Primary Care Provider] - (Please follow up within 1- 2 weeks) Diet: Regular Addtl Attending Provider Instructions: You were admitted with muscle twitching, weakness, and insomnia with mild dehydration all thought to be due to significant anxiety. You were started on an antianxiety medication called sertraline (Zoloft) 25mg daily and this medication can take several weeks to reach its full effect. Your doctor can likely increase the dose to 50mg jonah yin a couple of weeks if needed. You were also started on lorazepam (Ativan) to be taken 1mg tablet at bedtime for sleep, and then 0.5mg (1/2 tablet) every 8 hours during the day only NEEDED for anxiety. Please follow up with your PCP within 1-2 weeks. Pending Studies at Discharge: Yes (final blood cultures-no growth to date) Stand-Alone Forms: My [facility], Smoking Cessation Medications and DC Order Prescriptions: New lorazepam 1 mg Tablet 1 mg PO HS Qty: 30 0RF Rx Instructions: and take 0.5mg every 8 hours as needed for anxiety during the daytime sertraline 25 mg tablet 25 mg PO DAILY Qty: 30 0RF Continued lidocaine 5 % adhesive patch,medicated 1 patch TOP DAILY PRN (Reason: Pain) levetiracetam 500 mg tablet 500 mg PO BID albuterol sulfate [Proventil HFA] 90 mcg/actuation HFA aerosol inhaler 2 puff inhalation Q4H PRN (Reason: Shortness Of Breath Or Wheezing) sennosides [Senokot] 8.6 mg tablet 17.2 mg PO DAILY acetaminophen 325 mg tablet 975 mg PO TID tamsulosin 0.4 mg capsule 0.4 mg PO DAILY fluticasone propion-salmeterol [Advair Diskus] 250-50 mcg/dose blister with device 1 inh inhalation BID trazodone 100 mg tablet 200 mg PO HS bicalutamide 50 mg tablet 50 mg PO DAILY Ensure Liquid 1 ea PO DAILY ondansetron HCl 4 mg tablet 4 mg PO Q8H PRN (Reason: NAUSEA/VOMITING) ascorbate calcium (vitamin C) 500 mg tablet 500 mg PO DAILY cholecalciferol (vitamin D3) 10 mcg (400 unit) capsule 10 mcg PO DAILY fluticasone propionate 50 mcg/actuation spray,suspension 1 spray intranasal BID Rx Instructions: administer into each nostril thiamine HCl (vitamin B1) 100 mg tablet 100 mg PO DAILY diclofenac sodium [Arthritis Pain (diclofenac)] 1 % gel 2 g topical QID Rx Instructions: APPLY 2 GRAMS TO BILATERAL SHOULDERS QID, TOTAL NOT TO EXCEED 8 GRAMS/24 HOURS, APPLY 4 GRAMS TO LOWER EXTERMITY, TOTAL NOT TO EXCEED 16 GRAMS/24 HOURS finasteride 5 mg tablet 5 mg PO DAILY roflumilast 500 mcg tablet 500 mcg PO DAILY venlafaxine 150 mg Capsule,Extended Release 24hr 150 mg PO QAM tiotropium bromide 2.5 mcg/actuation mist 2 inh INHALATION DAILY simvastatin 80 mg Tablet 40 mg PO HS levothyroxine [Synthroid] 112 mcg Tablet 112 mcg PO DAILYBB Qty: 30 0RF cyanocobalamin (vitamin B-12) 1,000 mcg capsule 1,000 mcg PO DAILY Qty: 30 0RF Rx Instructions: OTC docusate sodium 50 mg/5 mL liquid 100 mg PO BID Qty: 473 0RF polyethylene glycol 3350 [Miralax] 17 gram powder in packet 17 g PO DAILY Qty: 30 0RF metoprolol tartrate 25 mg tablet 12.5 mg PO BID Qty: 30 0RF ferrous sulfate 325 mg (65 mg iron) tablet 325 mg PO DAILY Qty: 30 0RF Rx Instructions: OTC Changed magnesium 250 mg Tablet 250 mg PO BID Qty: 60 0RF Discharge Orders: Discharge Order (Routine); Ordered 04/28/24 Ordered By: Elda Aguilar Admission Data Admit Date/Time: 04/27/24 13:41 Attending Provider: Elda Aguilar Admit Provider: Elda Aguilar Primary Care Provider: [facility] Other Providers: Elda Aguilar; [facility] Hospital Stay Data Consultations 04/27/24 13:35 ED Decision to Admit Stat Pending Results Patient Have Any Pending Studies at Discharge: Yes (final blood cultures-no growth to date) Discharge Instructions Given to Patient (Per Discharging Provider) You were admitted with muscle twitching, weakness, and insomnia with mild dehydration all thought to be due to significant anxiety. You were started on an antianxiety medication called sertraline (Zoloft) 25mg daily and this medication can take several weeks to reach its full effect. Your doctor can likely increase the dose to 50mg jonah yin a couple of weeks if needed. You were also started on lorazepam (Ativan) to be taken 1mg tablet at bedtime for sleep, and then 0.5mg (1/2 tablet) every 8 hours during the day only NEEDED for a nxiety. Please follow up with your PCP within 1-2 weeks. Total Time Total Time Spent Total Time Spent (In Minutes): 45 min Total Time Includes: Examination of the Patient, Discharge Planning and Medication Reconciliation Coding Level of Care Code 72923 INP/OBS DISCH >30 MIN Diagnoses Myoclonus G25.3 Depression with anxiety F41.8 Hyponatremia E87.1 Weakness R53.1 Anemia D64.9 Anemia type: unspecified type Acute dehydration E86.0 Constipation K59.00 Prostate cancer metastatic to multiple sites C61
== END 2024-04-28 17:02 | disposition home health service (06) | DRG 92 ==
LOC: SUATTDRO → ED 09:19 → 3N 13:41

== ENCOUNTER 2024-05-07 10:21 | Inpatient (IN) ==
--- OUTSIDE RECORDS SUMMARY | 2024-05-07 10:26 | External Medical Summary | Summary of Care ---
Author Name Unknown Organization [facility] Address [address] [place] [address] Phone [phone] Care Team Providers Care Larriman Name Role Phone Unavailable Primary Care Provider Unavailabl e Reason for Visit * Reason Onset Date Comments Advice 05/01/2024 Appointment 05/01/2024 Encounter Details Date Type Department Care Team ([facility] st Contact Info) Description 05/01/2024 Telephone Access Center, [address] [place] [address] [facility] *DO NOT REMOVE THIS DEPARTMENT* [place] [address] Services, Scheduling [address] [place] [address] Advice; Appointment Allergies Active Allergy Reactions Criticality Noted Date Comments Diclofenac Sodium Rash 05/20/2022 Not sure documented as of this encounter (statuses as of 05/05/2024) Medications Medication Sig Dispensed Refills Start Date End Date Status LISINOPRIL 10 MG PO TABS Take 1 Tablet by mouth in the morning. 30 Tab 11 09/17/2014 Active albuterol (PROVENTIL HFA) 108 (90 BASE) MCG/ACT inhalerIndications:CO PD (chronic obstructive pulmonary disease) ([facility]) Inhale 2 Puffs by mouth every 4 hours as needed for Wheezing. 1 Inhaler 5 08/20/2015 Active Saw Rover 450 MG Capsule Take 1 Capsule by [...] topically on the skin daily. Active Tiotropium [place] Monohydrate 2.5 MCG/ACT Inhalation Aerosol Solution (Spiriva [...] as of this encounter (statuses as of 05/05/2024) Active Problems Problem Noted Date Diagnosed Date [...] MEDEROS Comment: - Cataract extraction and IOL, [facility], [place] Atherosclerosis of coronary artery 02/08/2024 Overview: Aug 29, 2018 Entered By: SANDRA WELLER Comment: non obstructive cad [facility] cath 08/29/18, medical management Benign prostatic [...] as of this encounter (statuses as of 05/05/2024) Resolved Problems Problem Noted Date Diagnosed Date Resolved Date Multiple falls 02/08/2024 02/09/2024 COPD (chronic obstructive pulmonary disease) 5 10/05/2017 Hypertension 02/27/2016 Overview: Per HTN Protocol documented as of this encounter (statuses as of 05/05/2024) Immunizations Name Administration Dates Next Due Pneumococcal [...] Tobacco: Former Pipe Smokeless Tobacco: Former Quit: 1980 Alcohol Use Standard Drinks/Week Comments No 0 [...] encounter Miscellaneous Notes * Telephone Encounter - Janice Gardner RN - 05/05/2024 11:01 AM EDT Reviewed chart. Referral for urology is not ordered. Patient had a biopsy of the T7 lesion with pathology consistent for metastatic cancer compatible with prostate as primary. Patient is seeing Medical Oncology and received hormone injection yesterday. There is plans for radiation oncology to treatthe metastatic sites and prostate. Palliative care has also been consulted. Contacted patient and spouse to inquire if they still need to be scheduled with Urology. Spouse reports he had an appointment but needed to cancel due to patient not tolerating travel the distance to the appointment. Explained that a Urology appointment is not needed because he has tissue confirmation for cancer and a plan of care is in place. Spouse verbalized understanding. She states her daughter who is helping with appointments is not available but she will update her and if she has additional questions offered for her to call Urology. Spouse appreciated call. Janice Gardner RN, MSN 05/05/2024 11:15 AM * Telephone Encounter - Stacy Buckley OSA - 05/04/2024 3:47 PM EDT Please advise on the status of this request. Pt's daughter calling back due to hasn't heard from the office about this * Telephone Encounter - Stacy Buckley OSA - 05/01/2024 3:57 PM EDT Pt's daughter calling to reschedule appt due to pt recently discharged and needs time to recover. Please advise on a new appt. They are interested in possibly changing providers to someone at [place] and are wondering if they might be able to schedule the Biopsy with a provider at [place] or critical access hospital will need to establish care there first. Please reach out to discuss documented in this encounter Plan of Treatment Upcoming Encounters Date Type Department Care Team (Late st Contact Info) Description 06/07/2024 2:00 PM EDT Office Visit Hematology/Oncology [facility] [place] [address] [place] [address] [phone] Lisandro Montes MD [address] [place] [address] [id number] 08/02/2024 1:30 PM EST Laboratory Laboratory [facility] Atnon [address] [phone] [place], Lab [address] [place] [address] 08/02/2024 1:45 PM EST Immunization/Injecti on Hematology/Oncology Treatment, [address], [place] [phone] 08/03/2024 2:00 PM EST Immunization/Injecti on Hematology/Oncology Treatment, [address], [place] [phone] [place], Chair [address] Hem On[address] [place] [address] Health Maintenance Due Date Last Done Comments [...] this encounter Medical Devices Implanted Type Area Senior Sales Compensation Analyst Device Identifier Shelf Expiration Date Model / Serial / Lot Coil Emboli Donn [id number] - [id number] Implanted:Qty : 1 on 02/16/2024 at [facility] [employer] [id number] 09/24/2028 [id number] / / [id number] Set Screw Poly Atr [place] - [id number] Implanted:Qty : 8 on 02/16/2024 by Oumar Rosa [place] [facility] [place]: Spine Thoracic SADA : SPINE [id number] 1 / / Vitoss Bimodal Foam Pack 10cc - [id number] Implanted:Qty : 6 on 02/16/2024 by Oumar Rosa MD [place] [facility] [place]: Spine Thoracic SADA : SPINE / / Screw Poly 5.5x40mm Canltd Xt - [id number] Implanted:Qty : 2 on 02/16/2024 by Oumar Rosa MD [place] [facility] [place]A: Spine Thoracic SADA : SPINE [id number] 40 / / Screw Poly 5.5x45mm Canltd Xt - [id number] Implanted:Qty : 2 on 02/16/2024 by Oumar Rosa MD [place] [facility] [place]A: Spine Thoracic SADA : SPINE [id number] 45 / / [place] M: Xt Screw 6.5x40 Implanted:Qty : 2 on 02/16/2024 by Oumar Rosa MD [place] [facility] [place]A: Spine Thoracic SADA [id number] 40 / / Screw Poly 6.5x45mm Canltd Xt - [id number] Implanted:Qty : 2 on 02/16/2024 by Oumar Rosa MD at [place] [facility] [place]A: Spine Thoracic SADA : SPINE [id number] 45 / / documented as of this encounter Advance Directives Documents on File Type Date Recorded 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
--- OUTSIDE RECORDS SUMMARY | 2024-05-07 10:27 | External Medical Summary | Summary of Care ---
Author Name Unknown Organization [facility] Address [address] [place] [address] Phone [phone] Care Team Providers Care Drum Sealer Name Role Phone Unavailable Primary Care Provider Unavailabl e Encounter Details Date Type Department Care Team (Late st Contact Info) Description 05/02/2024 Orders Only Hematology/Oncology, [facility] [address] [place] [address] Lisandro Montes MD [address] [place] [address] Allergies Active Allergy Reactions Criticality Noted Date Comments Diclofenac Sodium Rash 05/20/2022 Not sure documented as of this encounter (statuses as of 05/02/2024) Medications Medication Sig Dispensed Refills Start Date End Date Status LISINOPRIL 10 MG PO TABS Take 1 Tablet by mouth in the morning. 30 Tab 11 09/17/2014 Active albuterol (PROVENTIL HFA) 108 (90 BASE) MCG/ACT inhalerIndications:CO PD (chronic obstructive pulmonary disease) (HCC) Inhale 2 Puffs by mouth every 4 hours as needed for Wheezing. 1 Inhaler 5 08/20/2015 Active Saw [place] 450 MG Capsule Take 1 Capsule by [...] topically on the skin daily. Active Tiotropium [place] Monohydrate 2.5 MCG/ACT Inhalation Aerosol Solution (Spiriva [...] as of this encounter (statuses as of 05/02/2024) Active Problems Problem Noted Date Diagnosed Date [...] MEDEROS Comment: - Cataract extraction and IOL, [facility], [place] Atherosclerosis of coronary artery 02/08/2024 Overview: Aug [...] as of this encounter (statuses as of 05/02/2024) Resolved Problems Problem Noted Date Diagnosed Date Resolved Date Multiple falls 02/08/2024 02/09/2024 COPD (chronic obstructive pulmonary disease) 5 10/05/2017 Hypertension 02/27/2016 Overview: Per HTN Protocol documented as of this encounter (statuses as of 05/02/2024) Immunizations Name Administration Dates Next Due Pneumococcal [...] No 02/08/2024 documented as of this encounter Plan of Treatment Upcoming Encounters Date Type Department Care Team (Late st Contact Info) Description 05/03/2024 1:45 PM EDT Immunization/Inje ction Hematology[address], [address] [phone] [place], Chair [address] Hem Onc [address] [address] 05/03/2024 2:00 PM EDT Office Visit Palliative Medicine [facility], [address] [place] [phone] Brissa Rock MD [address] [place] [phone] 06/07/2024 2:00 PM EDT Office Visit Hematology/Oncology [facility] [address] [facility] [place] [phone] Lisandro Montes MD [address] [facility] [place] [address] Health Maintenance Due Date Last Done Comments [...] this encounter Medical Devices Implanted Type Area Road Mechanic Device Identifier Shelf Expiration Date Model / Serial / Lot Coil Emboli Donn [id number] - [id number] Implanted:Qty : 1 on 02/16/2024 at [facility] [employer] [id number] 09/24/2028 [id number] / / [id number] Set Screw Poly Atr [place] - [id number] Implanted:Qty : 8 on 02/16/2024 by Oumar Rosa MD at [place] [facility] [place] N/A: Spine Thoracic SADA : SPINE [id number] 1 / / Vitoss Bimodal Foam Pack 10cc - [id number] Implanted:Qty : 6 on 02/16/2024 by Oumar Rosa MD at [place] [facility] [place] N/A: Spine Thoracic SADA : SPINE [id number] / / Screw Poly 5.5x40mm Canltd Xt - [id number] Implanted:Qty : 2 on 02/16/2024 by Oumar Rosa MD at [place] [facility] [place] N/A: Spine Thoracic SADA : SPINE [id number] 40 / / Screw Poly 5.5x45mm Canltd Xt - [id number] Implanted:Qty : 2 on 02/16/2024 by Oumar Rosa MD at [place] [facility] [place] N/A: Spine Thoracic SADA : SPINE [id number] 45 / / [place] M: Xt Screw 6.5x40 Implanted:Qty : 2 on 02/16/2024 by Oumar Rosa MD at [place] [facility] [place] N/A: Spine Thoracic SADA [id number] 40 / / Screw Poly 6.5x45mm Canltd Xt - [id number] Implanted:Qty : 2 on 02/16/2024 by Oumar Rosa MD at [place] [facility] [place] N/A: Spine Thoracic SADA : SPINE [id number] 45 / / documented as of this encounter Procedures Procedure Name Priority Date/Time Associated Diagnosis Comments XR CHEST 1 VIEW Routine 04/27/2024 documented in this encounter Results * XR CHEST 1 VIEW (04/27/2024) Anatomical Region Laterality Modality Chest Other 04/27/2024 Anthony Beatty MD RADIOLOGY (RAD GENER AL) documented in this encounter Advance Directives Documents on File Type Date Recorded Patient Ict Programmer Expl anation Advance Directives and Living Will [...]
--- OUTSIDE RECORDS SUMMARY | 2024-05-07 10:27 | External Medical Summary | Summary of Care ---
Author Name Unknown Organization [facility] Address [address] [place] [address] Phone [phone] Care Team Providers Care Pattern Grader Name Role Phone Unavailable Primary Care Provider Unavailabl e Reason for Visit * Reason Comments Follow Up Encounter Details Date Type Department Care Team (Late st Contact Info) Description 05/03/2024 2:00 PM EDT Office Visit Palliative Medicine [facility] [address] [place] [address] Brissa Rock MD [address] [place] [address] Cancer related pain*; Palliative care encounter; Prostate cancer ([facility]); Prostate cancer metastatic to bone ([facility]) Allergies Active Allergy Reactions Criticality Noted Date Comments Diclofenac Sodium Rash 05/20/2022 Not sure documented as of this encounter (statuses as of 05/03/2024) Medications Medication Sig Dispensed Refills Start Date End Date Status LISINOPRIL 10 MG PO TABS Take 1 Tablet by mouth in the morning. 30 Tab 11 09/17/2014 Active albuterol (PROVENTIL HFA) 108 (90 BASE) MCG/ACT inhalerIndications:CO PD (chronic obstructive pulmonary disease) ([facility]) Inhale 2 Puffs by mouth every 4 hours as needed for Wheezing. 1 Inhaler 5 08/20/2015 Active Saw [place] 450 MG Capsule Take 1 Capsule by [...] topically on the skin daily. Active Tiotropium Erin Monohydrate 2.5 MCG/ACT Inhalation Aerosol Solution (Spiriva [...] as of this encounter (statuses as of 05/03/2024) Active Problems Problem Noted Date Diagnosed Date [...] Cataract extraction and IOL, [facility], [place] Atherosclerosis of coronary artery 02/08/2024 Overview: Aug [...] as of this encounter (statuses as of 05/03/2024) Resolved Problems Problem Noted Date Diagnosed Date Resolved Date Multiple falls 02/08/2024 02/09/2024 COPD (chronic obstructive pulmonary disease) 5 10/05/2017 Hypertension 02/27/2016 Overview: Per HTN Protocol documented as of this encounter (statuses as of 05/03/2024) Immunizations Name Administration Dates Next Due Pneumococcal [...] Sign Reading Time Taken Comments Blood Pressure 128/77 05/03/2024 2:01 PM EDT Pulse 100 05/03/2024 2:01 PM EDT Temperature 37.3 C (99.1 F) 05/03/2024 2:01 PM ED T Respiratory Rate - - Oxygen Saturation 96% 05/03/2024 2:01 PM EDT Inhaled Oxygen Concentration - - Weight 68.9 kg (152 lb) 05/03/2024 2:01 PM EDT Height - - Body Mass Index 23.11 04/12/2024 12:52 PM EDT documented in this [...] as of this encounter Progress Notes * Brissa Rock MD - 05/03/2024 1:55 PM EDT Palliative Medicine Outpatient Progress Note [facility] Palliative Medicine Outreach [address] [place] [address] Name: Brandie Veloz Date: 05/03/2024 HPI: Brandie Veloz is a 84 year old male with metastatic prostate cancer, to spine, seen in follow-up for goals of care and symptom management. At last visit, he was going to get radiation therapy andcontinued the gabapentin for pain. He was previously on morphine / oxycodone but stopped it due to side effects. Has been in and out of the hospital 4 times since February, another for esophageal issues and feels sick in stomach. Was in the ER yesterday, doesn't have the list of medications but its a liquid after eating to help. Unsure if it worked. Forgot to take Tylenol before coming so is in a lot of pain Morphine really made him constipated, does not want to try again [facility] per he refuses to eat Will start radiation to prostate at [facility] w/Dr Sanchez, Examination: BP 128/77 (BP Site: Left Arm, BP Position: Sitting, BP Cuff Size: Regular) | Pulse 100 | Temp 37.3 C (99.1 F) (Tympanic) | Wt 68.9 kg (152 lb) | SpO2 96% | BMI 23.11 kg/m | BSA 1.82 m Constitutional: no acute distress, chronically ill HENT: normocephalic, atraumatic. Eyes: anicteric, sclera and conjunctiva normal. Neck: no stridor Chest: normal respiratory effort Abdominal: nondistended Extremities: no edema Data Review: External notes reviewed: - Reviewed notes from [facility] DC Summary by Hospitalist, admitted for myoclonus on 04/28, also started on ativan for anxiety - Reviewed notes from Dr Montes on 04/26, plan was to start Lupron and see him in 6 weeks Lab / Imaging Results: Cr 0.8, normal Information obtained from for collateral history Discussion with other team members: I discussed patient with hem onc nursing Decision-making Capacity: Does Patient have Decisional Capacity? Yes Does Patient have a Healthcare Agent? Yes, Advanced Care Planning (see ACP Tab): AD in EMR: no POLST in EMR:No prior ACP Discussion: Asked permission to discuss ACP Reviewed 3 pathways of care - full vs limited vs comfort. He is ok with limited tx for now, but if declines wants to be comfortable. Goal is to pass away at home. Reviewed CPR and poor success rates in setting of serious illness. He is clear he is a DNR He is ok with LIMITED tx He is ok with abx for comfort Does not want artificial nutrition, ok with IV hydration POLST completed, original given to patient, copy taken to be put into EMR under ACP docs but also scanned into Chart Review --> Scans was tearful completing this, we talked about how letting him be comfortable and dignified is the priority ASSESSMENT/PLAN: Brandie Veloz is a 84 year old male seen in follow-up for goals of care and pain and symptom management. Metastatic prostate CA, to bone - Finished radiation to spine, plan to start to prostate soon Cancer related pain - Previously tried Morphine and Oxycodone, reports it made him too constipated so he stopped - He was complaining of severe pain, I offered a fentanyl patch 12mcg/hr, he declines - says he is actually fine when he has Tylenol - I asked staff, we are unable to give Tylenol in office, he can either go to [facility] or [facility] and get it Goals of care - He is clear he does NOT want CPR, ok with LIMITED tx - was crying signing POLST but seemed to agree - Code status if admitted: DNR Follow up PRN. Willl try to transition him to [facility] since he will go there for radiation. They are not able to do video visits. . I spent a total of 32 minutes on the date of service in preparation, delivery, and documentation ofthe care provided to Brandie Veloz excluding any time spent in the performance of separately billed services. Brissa Rock MD [facility] Palliative Medicine [phone] documented in this encounter Nursing Notes * Rosalinda Marie MED ASSIST - 05/03/2024 2:02 PM EDT Patient identifed by name and birthdate Do you have any concerns about pain management for today's visit? Yes. Patient instructed to discuss pain concerns with provider during the visit today Living Will or Advance Directive for Health Care as noted on the problem list. [facility] is a way you can talk to your provider on line through e-mail. Would you like to sign up? I can activate it for you? ALREADY ACTIVE Filed Vitals: 05/03/24 1401 BP: 128/77 Pulse: 100 Temp: 37.3 C (99.1 F) TempSrc: Tympanic SpO2: 96% Weight: 68.9 kg (152 lb) Patient was instructed to not get [...] 06/07/2024 2:00 PM EDT Office Visit Hematology/Oncology [place] [address] [address] [place] [phone] Lisandro Montes MD 200 [facility] [place] [address] 08/02/2024 1:30 PM EST Laboratory Laboratory [facility] [address] [place] [phone] Park [facility] [place] [address] [place] [address] 08/02/2024 1:45 PM EST Immunization/Injecti on Hematology/Oncology [address], [address] [phone] 08/03/2024 2:00 PM EST Immunization/Injecti on Hematology/Oncology Treatment, [place] [address] [facility] [place] [phone] Park, Chair 3 Hem Onc [address] [place] [address] Health Maintenance Due Date Last Done Comments [...] this encounter Medical Devices Implanted Type Area Water Analyst Device Identifier Shelf Expiration Date Model / Serial / Lot Coil Emboli Donn [id number] - [id number] Implanted:Qty : 1 on 02/16/2024 at [facility] [employer] [id number] 09/24/2028 [id number] / / [id number] Set Screw Poly Atr [place] - [id number] Implanted:Qty : 8 on 02/16/2024 by Oumar Rosa MD at [place] [facility] N/A: Spine Thoracic SADA : SPINE [id number] 1 / / Vitoss Bimodal Foam Pack 10cc - [id number] Implanted:Qty : 6 on 02/16/2024 by Oumar Rosa MD at OR [facility] N/A: Spine Thoracic SADA : SPINE [id number] / / Screw Poly 5.5x40mm Canltd Xt - [id number] Implanted:Qty : 2 on 02/16/2024 by Oumar Rosa MD at OR [facility] N/A: Spine Thoracic SADA : SPINE [id number] 40 / / Screw Poly 5.5x45mm Canltd Xt - [id number] Implanted:Qty : 2 on 02/16/2024 by Oumar Rosa MD at OR [facility] N/A: Spine Thoracic SADA : SPINE [id number] 45 / / [place] M: Xt Screw 6.5x40 Implanted:Qty : 2 on 02/16/2024 by Oumar Rosa MD at OR [facility] N/A: Spine Thoracic SADA [id number] 40 / / Screw Poly 6.5x45mm Canltd Xt - [id number] Implanted:Qty : 2 on 02/16/2024 by Oumar Rosa MD at OR [facility] N/A: Spine Thoracic SADA : SPINE [id number] 45 / / documented as of this encounter Visit Diagnoses Diagnosis Cancer related pain- Primary Neoplasm related pain (acute) (chronic) Palliative care encounter Encounter for palliative care Prostate cancer (HCC) Malignant neoplasm of prostate Prostate cancer metastatic to bone (HCC) documented in this encounter Advance Directives Documents on File Type Date Recorded Patient Driver/Guide Expl anation Advance Directives and Living Will [...]
--- OUTSIDE RECORDS SUMMARY | 2024-05-07 10:27 | External Medical Summary | Summary of Care ---
Author Name Unknown Organization [facility] Address [address] [place] [address] Phone [phone] Care Team Providers Care Cleaner Housekeeping Name Role Phone Unavailable Primary Care Provider Unavailabl e Reason for Visit * Reason Comments Medication Administration Lupron 22.5mg * Episode Based Medications (Routine) - Authorized Specialty Diagnoses / Procedures Referred By Contmali t Referred To Contact Diagnoses Prostate cancer (HCC) Procedures AR LEUPROLIDE ACETATE SUSPNSION Lisandro Montes MD [address] [place] [address] [place] [address] Anc Hem/Onc [address] [phone] Referral ID Status Reason Start Date Expiration Date V isits Requested Visits Authorized [id number] Authorized 03/15/2024 09/23/2024 999 [id number] Encounter Details Date Type Department Care Team (Late st Contact Info) Description 05/03/2024 1:45 PM EDT Immunization/I njection Hematology/Oncology Treatment, [address] [address] [place], Chair [address] Hem On[address] [place] [address] Prostate cancer (HCC)* Allergies Active Allergy Reactions [...] Wheezing. 1 Inhaler 5 08/20/2015 Active Saw [place] 450 MG Capsule Take 1 Capsule by [...] topically on the skin daily. Active Tiotropium [place] Monohydrate 2.5 MCG/ACT Inhalation Aerosol Solution (Spiriva [...] Cataract extraction and IOL, [facility], [facility] of coronary artery 02/08/2024 Overview: Aug 29, [...] No 02/08/2024 documented as of this encounter Nursing Notes * Yvonne Guan LPN - 05/03/2024 2:46 PM EDT Lupron 22.5mg administered IM into the right dorsogluteal muscle per standing order. Patient tolerated injection and will return in 3 months. documented in this encounter Plan of Treatment Upcoming Encounters Date Type Department Care Team (Late st Contact Info) Description 06/07/2024 2:00 PM EDT Office Visit Hematology/Oncology [facility] [address] [place] [phone] Lisandro Montes MD 200 [facility] [place] [address] 08/02/2024 1:30 PM EST Laboratory Laboratory [facility] [address] [place] [address] nIés, Lab [address] [facility] [place] [address] 08/02/2024 1:45 PM EST Immunization/Injecti on Hematology/Oncology Treatment, [address] [address] 08/03/2024 2:00 PM EST Immunization/Injecti on Hematology/Oncology Treatment, [address] [address] [place], Chair 3 Hem Onc [place] [address] [place] [address] Health Maintenance Due Date Last Done Comments [...] this encounter Medical Devices Implanted Type Area Flat Knitter Device Identifier Shelf Expiration Date Model / Serial / Lot Coil Emboli Donn [id number] - [id number] Implanted:Qty : 1 on 02/16/2024 at [facility] [employer] [id number] 09/24/2028 [id number] / / [id number] Set Screw Poly Atr [place] - [id number] Implanted:Qty : 8 on 02/16/2024 by Oumar Rosa MD at [place] [facility] N/A: Spine Thoracic SADA : SPINE 1196-3667 1 / / Vitoss Bimodal Foam Pack 10cc - [id number] Implanted:Qty : 6 on 02/16/2024 by Oumar Rosa MD at OR [facility] N/A: Spine Thoracic SADA : SPINE [id number] / / Screw Poly 5.5x40mm Canltd Xt - [id number] Implanted:Qty : 2 on 02/16/2024 by Oumar Rosa MD at OR [facility] N/A: Spine Thoracic SADA : SPINE [id number] 40 / / Screw Poly 5.5x45mm Canltd Xt - [id number] Implanted:Qty : 2 on 02/16/2024 by Oumar Rosa MD at [place] [facility] N/A: Spine Thoracic SADA : SPINE [id number] 45 / / [place] M: Xt Screw 6.5x40 Implanted:Qty : 2 on 02/16/2024 by Oumar Rosa MD at OR [facility] N/A: Spine Thoracic SADA [id number] 40 / / Screw Poly 6.5x45mm Canltd Xt - [id number] Implanted:Qty : 2 on 02/16/2024 by Oumar Rosa MD at [place] [facility] N/A: Spine Thoracic SADA : SPINE [id number] 45 / / documented as of this encounter Visit Diagnoses Diagnosis Prostate cancer (HCC)- Primary Malignant neoplasm of prostate documented in this encounter Administered Medications Inactive Administered Medications - up to 3 most recent administrations Medication Order MAR Action Action Date Dose Rate Site Leuprolide Acetate (3 Month) (Lupron) inj 22.5 mg 22.5 mg, Intramuscular, ONCE, On Wed05/03/24 at 1500, For 1 dose Given 05/03/2024 2:29 PM EDT 22.5 mg Dorsogluteal Right documented in this encounter Advance Directives Documents on File Type Date Recorded Patient Global President Expl anation Advance Directives and Living Will [...]
--- OUTSIDE RECORDS SUMMARY | 2024-05-07 10:27 | External Medical Summary | Summary of Care ---
Author Name Unknown Organization [facility] Address [address] [place] [address] Phone [phone] Care Team Providers Care Compotype Operator Name Role Phone Unavailable Primary Care Provider Unavailabl e Encounter Details Date Type Department Care Team (Late st Contact Info) Description 04/27/2024 Result Scan Unspecified Department <No scans attached> Allergies Active Allergy Reactions Criticality Noted Date [...] MCG/ACT inhalerIndications:CO PD (chronic obstructive pulmonary disease) ([facility]) Inhale 2 Puffs by mouth every 4 hours as needed for Wheezing. 1 Inhaler 5 08/20/2015 Active Saw [place] 450 MG Capsule Take 1 Capsule by [...] topically on the skin daily. Active Tiotropium [place] Monohydrate 2.5 MCG/ACT Inhalation Aerosol Solution (Spiriva [...] Cataract extraction and IOL, [facility] [place] Atherosclerosis of coronary artery 02/08/2024 Overview: Aug [...] 1:45 PM EDT Immunization/Inje ction Hematology/Oncology Treatment, [address] [address] [place], Chair 3 Hem Onc [address] [address] 05/03/2024 2:00 PM EDT Office Visit Palliative Medicine [facility] [place] [address] [address] Brissa Rock MD [address] [place] [address] [place] [address] 06/07/2024 2:00 PM EDT Office Visit Hematology/Oncology [facility] [address] [place] [address] Lisandro Montes MD 200 [facility] [place] [address] Health Maintenance Due Date Last Done Comments [...] this encounter Medical Devices Implanted Type Area Sheet Metal Contractor Device Identifier Shelf Expiration Date Model / Serial / Lot Coil Emboli Donn [id number] - [id number] Implanted:Qty : 1 on 02/16/2024 at [facility] [employer] [id number] 09/24/2028 [id number] / / [id number] Set Screw Poly Atr [place] - [id number] Implanted:Qty : 8 on 02/16/2024 by Oumar Rosa MD at [place] [facility] N/A: Spine Thoracic SADA : SPINE 1193-5538 1 / / Vitoss Bimodal Foam Pack 10cc - [id number] Implanted:Qty : 6 on 02/16/2024 by Oumar Rosa MD at [place] [facility] N/A: Spine Thoracic SADA : SPINE [id number] / / Screw Poly 5.5x40mm Canltd Xt - [id number] Implanted:Qty : 2 on 02/16/2024 by Oumar Rosa MD at [place] [facility] N/A: Spine Thoracic SADA : SPINE [id number] 40 / / Screw Poly 5.5x45mm Canltd Xt - [id number] Implanted:Qty : 2 on 02/16/2024 by Oumar Rosa MD at [place] [facility] N/A: Spine Thoracic SADA : SPINE [id number] 45 / / [place] M: Xt Screw 6.5x40 Implanted:Qty : 2 on 02/16/2024 by Oumar Rosa MD at [place] [facility] N/A: Spine Thoracic SADA [id number] 40 / / Screw Poly 6.5x45mm Canltd Xt - [id number] Implanted:Qty : 2 on 02/16/2024 by Oumar Rosa MD at [place] [facility] N/A: Spine Thoracic SADA : SPINE [id number] 45 / / documented as of this encounter Procedures Procedure Name Priority Date/Time Associated Diagnosis Comments EKG SCANNED RESULT 04/27/2024 documented in this encounter Results * EKG SCANNED RESULT (04/27/2024) 04/27/2024 No Physician Data Unknown EKG documented in this encounter Advance Directives Documents on File Type Date Recorded Patient Proof Load Mechanic Expl anation Advance Directives and Living [...]
--- NOTE | 2024-05-07 11:28 | Emergency Department Note ---
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 Patient evidently fell out of the bed briefly last night. Did not sleep well last night according to which has not been uncommon but finally got to bed around 3 AM. She states that she woke up and heard him fall to the ground went and found him tangled over the walker landing on his right side. Was awake. Patient denies any his head complains of pain in the right chest and shoulder. Denies dizziness or nausea. Denies significant hip or abdominal or lower extremity pain. Denies injury to the left arm. Pain again around the right shoulder and right chest wall. Maybe a little soreness in the right neck. Not on blood thinners by their knowledge. Denies feeling dizzy or lightheaded. Has been more weak and hospitalized several times in the last several weeks. PAST MEDICAL HISTORY: As noted above MEDICATIONS: Reviewed home medications no blood thinners noted. SOCIAL HISTORY: PHYSICAL EXAM: GENERAL: alert and oriented in no acute distress on stretcher fatigued in appearance family at bedside Head: normocephalic and atraumatic EYES: No injection, discharge or icterus. PERRL, EOMI. NECK: Trachea midline. Supple without midline cervical tenderness with some tenderness just to the right of the posterior neck. ENT: Mucous membranes pink and moist. LUNGS: Airway patent. No retractions. Breath sounds clear HEART: Irregular tachycardic rate and rhythm. Some mild right sided chest wall tenderness without crepitus ABDOMEN: Soft and non-tender, without guarding or rebound. SKIN: Acyanotic, warm, dry, without rashes, and with ER wound care technician assistance rolled and there are 2 approximately 4 to 5 cm grade 1-2 pressure ulcers on the bilateral buttocks. No discharge. EXTREMITIES: Without swelling or deformity with some mild tenderness to the right shoulder but able to extend and range fairly well. No obvious dislocation or significant tenderness or swelling of the elbow or forearm. NEUROLOGICAL: No focal deficits generally weak but moves all extremities. No aphasia. No facial droop or slurred speech. Sensation to gross touch normal. EK beats minute sinus tachycardia PVC noted. No acute ST segment elevation or depression noted with a left axis and incomplete right bundle branch block. CONTINUOUS CARDIAC MONITORING: was ordered and showed a heart rate of 90s-120s bpm in sinus tachycardia/normal sinus rhythm GCS 15. Patient's laboratory studies and imaging reviewed. Differential includes Fracture, dislocation, contusion, intra-abdominal, pneumothorax, intrathoracic, intracranial, neurologic, compartment syndrome, rhabdomyolysis, infectious, generalized weakness, pneumonia as well as other pathologies. IMPRESSION/MEDICAL DECISION MAKING: Patient unfortunately with extensive past medical history including recent treatment of radiation for metastatic prostate cancer and surgery of the spine in February. Reports that he tripped and fell with his walker today. Not been sleeping well according to . Lost his balance last night fell into the bed and is likely injure himself. No significant head trauma reported or nausea or dizziness. Reports little bit of soreness of the right neck and main soreness of the right shoulder and right chest. No obvious deformity doubt dislocation. No evidence of compartment syndrome exam or significant tenderness of the right elbow forearm wrist or hand. No large lacerations or bleeding appreciable. Reportedly does have some sores on his sacrum and on exam has some grade 1-2 mild pressure sores. Will get DuoDERM on these but do not appear grossly infected. Has some chronic tachycardia issues as well this has been documented multiple times in the past. Has been seen in the hospital here several times and admitted at least twice in the past month or so. Reviewed those prior admissions including his ER visit this past week. Basic blood work is obtained. Given some Tylenol for pain and a small mount IV fluid as he has not had much to eat or drink yet today. Blood work here today without significant anemia or leukocytosis. Hypokalemia of 2.8 noted with very mild hyponatremia. Normal renal function. No evidence of hepatitis. CK and troponin normal. Urine without findings of infection. Shoulder and chest x-ray per radiology without findings of fracture or pneumothorax. CT of the chest does show what appears to be a scattered opacities per radiology consistent with pneumonia. No leukocytosis again however is noted. Not hypoxic here. Hyponatremia is noted on blood work and given some IV supplementation. No other significant traumatic injury noted the head, cervical spine, chest abdomen pelvis. Discussed with family and patient the findings. Was recently treated with antibiotics. Question at this is more reaction to his recent radiation therapy. As he is not exhibiting infectious symptoms recently treated we will hold off antibiotics. Discussed with the patient and findings. is concerned as he is quite verbal with her at home. She does not feel that he is safe at home and believes he likely needs placement. Discussed with case management. Course on Wednesday very difficult with [facility] to get direct placement. In discussion with the patient as well as discussed options of trial at home and outpatient coordination but is again concerned with his safety and wishes for him to stay overnight. Hospitalist was consulted. DIAGNOSIS: Hypokalemia, falls, metastatic prostate cancer DISPOSITION: Hospitalist will evaluate Patient was agreeable with this plan. 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) (Chronic 02/10/24) Thoracic compression fracture T7 Thoracic spine pain BPH w urinary obs/LUTS Back pain (Acute) AUSTIN positive Idiopathic polyneuropathy Disc degeneration, lumbar Scoliosis of lumbar region due to degenerative disease of spine in adult Orthostatic hypotension Sinus tachycardia CAD (coronary artery disease) Tobacco dependence Osteoporosis Hyperlipidemia Rotator cuff arthropathy of left shoulder Encounter for pre-operative examination Atypical chest pain (Acute) HERNÁNDEZ (dyspnea on exertion) (Acute) Hypophosphatemia (Acute) Hypocalcemia (Acute) Hypertension Low back pain Depression Myoclonus COPD (chronic obstructive pulmonary disease) (Acute) Spinal stenosis, lumbar region with neurogenic claudication Lumbar spondylosis Spinal stenosis of thoracolumbar region Hypothyroidism Medical History Obesity Osteoarthritis DDD (degenerative disc disease) Hearing deficit Aneurysm Per remote [facility] records, hx of questionable thoracic aortic aneurysm under [facility] by [facility] every 2-3 years, no recent issues/not noted on 2019 echo Sleep apnea No device COPD (chronic obstructive pulmonary disease) Stable Hypertension Surgical History History of shoulder replacement Left History of laminectomy (02/16/24) 1) posterior thoracic segmental fusion with pedicle screws: Thoracic 5, 6, 7, 8, 9 levels 2) Cement augmentation of thoracic pedicle screws, thoracic 5, 6, 8, 9 3) Laminectomy, thoracic 7 and 8 4) Partial laminectomy, thoracic 6 5) Facetectomy bilaterally, thoracic 6-7, and 7-8 6) Pediculectomy bilaterally, thoracic 7 7) Partial corpectomy, thoracic 7 8) open reduction of thoracic fracture, thoracic 7 level 9) Arthrodesis, thoracic 5, 6, 7, 8, 9 10) use of allograft 11) use of intraoperative neurophysiologic monitoring 12) Use of intraoperative ultrasonography 13) use of fluoroscopy Surgeon: Oumar Rosa Co-surgeon: Renan Lopez [employer] Center Coordinator: Ramses Sheppard History of elbow surgery Right History of cataract surgery R/L Family History Father No problems noted. Mother No problems noted. Brother Breast cancer Surgery Brother No problems noted. Sister No problems noted. Sister No problems noted. Daughter No problems noted. Son No problems noted. Son No problems noted. Other No family history of adverse response to anesthesia Social History Smoking Status: Never smoker Tobacco Type: Cigarettes Age Quit Using Tobacco: 44; Second Hand Exposure: No; Do You Dip or Chew Tobacco: No; Hx Alcohol Use: No Hx Substance Use: No Preferred Language: Spanish Communication Ability: Effective Visual Impairment: No Limitations Hearing Ability: Hard of Hearing Client Success Specialist Required: No Beliefs That Will Affect Care: None marital status: Current Living Situation: Spouse current occupational status: retired How many Children do You have: 3 Feels Safe at Home: Yes Childhood Exposure to Second-Hand Smoke: No Diet: regular caffeine: Yes during the past year weight has: decreased > 10 lbs Dental Care, Regularly: No Assistive Devices: Walker Allergies Allergies Allergy/AdvReac Type Severity Reaction Status Date / Time diclofenac [From Voltaren] Allergy Unknown ON [facility] Verified 05/07/24 17:23 LIST Home Meds Home Medications Medication Instructions Recorded Confirmed lidocaine 5 % topical patch 1 patch topical DAILY PRN Pain 03/12/20 05/07/24 trazodone 100 mg tablet 200 mg PO HS 12/11/20 05/07/24 venlafaxine 150 mg 150 mg PO QAM 06/14/22 05/07/24 capsule,extended release 24 hr tiotropium bromide 2.5 2 inh inhalation DAILY 03/19/23 05/07/24 mcg/actuation mist for inhalation finasteride 5 mg tablet 5 mg PO DAILY 08/04/23 05/07/24 roflumilast 500 mcg tablet 500 mcg PO DAILY 08/04/23 05/07/24 simvastatin 80 mg tablet 40 mg PO HS 10/08/23 05/07/24 albuterol sulfate 90 mcg/actuation 2 puff inhalation Q4H PRN 02/29/24 05/07/24 aerosol inhaler (Proventil HFA) Shortness Of Breath Or Wheezing fluticasone 250 mcg-salmeterol 50 1 inh inhalation BID 02/29/24 05/07/24 mcg/dose blistr powdr for inhalation (Advair Diskus) levetiracetam 500 mg tablet 750 mg PO QAM 02/29/24 05/07/24 sennosides 8.6 mg tablet (Senokot) 17.2 mg PO DAILY 02/29/24 05/07/24 tamsulosin 0.4 mg capsule 0.4 mg PO DAILY 02/29/24 05/07/24 ascorbate calcium (vitamin C) 500 500 mg PO DAILY 04/03/24 05/07/24 mg tablet bicalutamide 50 mg tablet 50 mg PO DAILY 04/03/24 05/07/24 cholecalciferol (vitamin D3) 10 10 mcg PO DAILY 04/03/24 05/07/24 mcg (400 unit) capsule fluticasone propionate 50 1 spray intranasal BID 04/03/24 05/07/24 mcg/actuation nasal spray,suspension food supplemt, lactose-reduced 1 ea PO DAILY 04/03/24 05/07/24 (Ensure oral liquid) ondansetron HCl 4 mg tablet 4 mg PO Q8H PRN NAUSEA/VOMITING 04/03/24 05/07/24 thiamine HCl (vitamin B1) 100 mg 100 mg PO DAILY 04/03/24 05/07/24 tablet acetaminophen 500 mg tablet 500 mg PO .Q4-6HR PRN Pain 05/07/24 05/07/24 (Tylenol Extra Strength) docusate sodium 100 mg capsule 100 mg PO DAILY PRN Constipation 05/07/24 05/07/24 levetiracetam 500 mg tablet 1,000 mg PO HS 05/07/24 05/07/24 lorazepam 1 mg tablet 0.5 mg PO Q8 PRN Anxiety 05/07/24 05/07/24 Previous Rx's Medication Instructions Recorded cyanocobalamin (vitamin B-12) 1,000 mcg PO DAILY #30 caps 04/25/24 1,000 mcg capsule ferrous sulfate 325 mg (65 mg 325 mg PO DAILY #30 tabs 04/25/24 iron) tablet levothyroxine 112 mcg tablet 112 mcg PO DAILYBB #30 tabs 04/25/24 (Synthroid) metoprolol tartrate 25 mg tablet 12.5 mg (1/2 x 25 mg) PO BID #30 04/25/24 tabs polyethylene glycol 3350 17 gram 17 g PO DAILY Constipation #30 ea 04/25/24 oral powder packet (Miralax) lorazepam 1 mg tablet 1 mg PO HS #30 tabs 04/28/24 magnesium 250 mg tablet 250 mg PO BID #60 tabs 04/28/24 sertraline 25 mg tablet 25 mg PO DAILY #30 tabs 04/28/24 sucralfate 100 mg/mL oral 10 ml PO QID #420 mL 05/01/24 suspension (Carafate) Results & Data (ED) Vital Signs Vital Signs - 24 hr 05/07/24 10:30 05/07/24 10:46 05/07/24 12:00 Temperature 36.4 C L Temperature Source Temporal Artery Scan Pulse Rate 120 H 129 H Pulse Rate [Left Finger] 60 Pulse Rhythm [Left Finger] Respiratory Rate 18 18 Respiratory Effort / Characteristics Non-Labored Respiratory Depth Normal Blood Pressure 129/89 Blood Pressure [Left Arm] 130/103 H Blood Pressure Mean 102 Blood Pressure Mean [Left Arm] 112 Pulse Oximetry 98 98 Oxygen Delivery Method Sepsis Recent Fever Within 48 Hours No Sepsis New/Unexplained Change in Mental Status No Sepsis Action Taken by Nursing No Action Required 05/07/24 14:00 05/07/24 15:14 05/07/24 16:00 Temperature Temperature Source Pulse Rate 96 H Pulse Rate [Left Finger] 103 H 103 H Pulse Rhythm [Left Finger] Regular Respiratory Rate 22 18 Respiratory Effort / Characteristics Non-Labored Respiratory Depth Normal Blood Pressure Blood Pressure [Left Arm] 137/79 132/96 Blood Pressure Mean Blood Pressure Mean [Left Arm] 98 108 Pulse Oximetry 98 95 Oxygen Delivery Method Room Air Sepsis Recent Fever Within 48 Hours Sepsis New/Unexplained Change in Mental Status Sepsis Action Taken by Nursing 05/07/24 18:00 Temperature Temperature Source Pulse Rate Pulse Rate [Left Finger] 110 H Pulse Rhythm [Left Finger] Respiratory Rate 18 Respiratory Effort / Characteristics Non-Labored Respiratory Depth Normal Blood Pressure Blood Pressure [Left Arm] 138/114 H Blood Pressure Mean Blood Pressure Mean [Left Arm] 122 Pulse Oximetry 97 Oxygen Delivery Method Room Air Sepsis Recent Fever Within 48 Hours Sepsis New/Unexplained Change in Mental Status Sepsis Action Taken by Nursing Laboratory Data 05/07/24 11:48 05/07/24 11:48 Lab Results 05/07/24 05/07/24 05/07/24 Range/Units 11:48 11:52 11:55 WBC 5.15 (4.8-10.8) K/ul RBC 4.09 L (4.70-6.10) M/uL Hgb 11.4 L (14.0-18.0) g/dl POC Hgb 10.5 L (14.0-18.0) g/dl Hct 35.7 L (42.0-52.0) % POC Hct 31 L (42-52) % MCV 87.3 (80.0-100.0) fL MCH 27.9 (25.0-34.0) pg MCHC 31.9 L (32.0-36.0) g/dL RDW Std Deviation 56.5 H (36.4-46.3) fL RDW Coeff of Bisi 17.9 H (11.5-14.5) % Plt Count 272 (130-400) K/uL MPV 9.4 (9.4-12.4) fL Immature Gran % (Auto) 0.4 % Neut % (Auto) 77.6 % Lymph % (Auto) 5.2 % Luna % (Auto) 11.7 % Eos % (Auto) 4.7 % Baso % (Auto) 0.4 % Neut # (Auto) 4.00 (1.40-6.50) K/uL Lymph # (Auto) 0.27 L (1.20-3.40) K/uL Luna # (Auto) 0.60 H (0.11-0.59) K/uL Eos # (Auto) 0.24 (0.00-0.50) K/uL Baso # (Auto) 0.02 (0.00-0.20) K/uL Immature Gran # (Auto) 0.02 (0.01-0.20) K/uL POC Sodium 134 L (135-144) mmol/L Sodium 134 L (136-145) mmol/L POC Potassium 3.1 L (3.3-5.0) mmol/L Potassium 2.8 L (3.5-5.1) mmol/L POC Chloride 96 L (101-112) mmol/L Chloride 99 (98-107) mmol/L Carbon Dioxide 27 (21-32) mmol/L POC Total CO2 28 (24-31) mmol/L Anion Gap 8 (3-11) POC Anion Gap 14.0 L (16-25) mmol/L POC BUN 16 (7-18) mg/dl BUN 16 (6-23) mg/dl Creatinine 0.75 (0.6-1.4) mg/dl POC Creatinine 0.7 (0.6-1.3) mg/dl Est Cr Clr Drug Dosing Not Reportable Est GFR ( Amer) 96.9 ml/min Est GFR (Non-Af Amer) 83.6 ml/min BUN/Creatinine Ratio 21.3 H (10-20) Glucose 112 H (70-99(Fasting)) mg/dl POC Glucose (other) 110 H (70-99) mg/dl Calcium 9.6 (8.6-10.3) mg/dl POC Ioniz Calcium Miguel 1.16 (1.12-1.32) mmol/l Magnesium 1.7 (1.7-2.4) mg/dl Total Bilirubin 0.5 (0.2-1.0) mg/dl AST 17 (13-39) U/L ALT 10 (7-52) U/L Alkaline Phosphatase 65 (34-104) U/L Total Creatine Kinase 58 (30-223) U/L Troponin I High Sens 17.4 (0-20) pg/ml Total Protein 6.5 (6.0-8.3) gm/dl Albumin 3.8 (3.4-5.0) gm/dl Globulin 2.7 (2.5-4.0) gm/dl Albumin/Globulin Ratio 1.4 (0.9-2) Urine Color Dark Yellow Urine Appearance Clear (Clear) Urine pH 5.5 (4.5-7.5) Ur Specific Bulan 1.023 (1.000-1.030) Urine Protein 1+ H (Negative) Urine Glucose (UA) Negative (Negative) Urine Ketones 1+ H (Negative) Urine Blood Negative (Negative) Urine Nitrite Negative (Negative) Urine Bilirubin Negative (Negative) Urine Urobilinogen Negative (Negative) Ur Leukocyte Esterase Trace H (Negative) Urine WBC (Auto) 0-5 (0-5) /hpf Urine RBC (Auto) 0-2 (0-2) /hpf U Hyaline Cast (Auto) 0-2 (0-2) /lpf U Epithel Cells (Auto) 0-2 (0-2) /hpf Urine Bacteria (Auto) None Seen (None Seen) Administered Medications Magnesium Sulfate/Dextrose (Magnesium Sulfate / D5w) 1 gm in 100 mls @ 50 mls/hr IV Q2H DELMAR Stop: 05/07/24 20:59 Last Infusion: 05/07/24 17:59 Dose: Infused Documented By: Admin: 05/07/24 17:48 Dose: 50 mls/hr Documented By: LAVINIA Discontinued Medications Acetaminophen (Ofirmev) 1,000 mg in 100 mls @ 400 mls/hr IV NOW STA Stop: 05/07/24 11:23 Last Infusion: 05/07/24 12:21 Dose: Infused Documented By: Admin: 05/07/24 12:06 Dose: 400 mls/hr Documented By: LAVINIA Sodium Chloride (Nss) 500 mls @ 999 mls/hr IV .Q31M ONE Stop: 05/07/24 11:57 Last Infusion: 05/07/24 12:37 Dose: Infused Documented By: Admin: 05/07/24 12:06 Dose: 999 mls/hr Documented By: LAVINIA Potassium Chloride (K Benjamin / Wtr) 10 meq in 100 mls @ 100 mls/hr IV ONE ONE Stop: 05/07/24 13:43 Last Infusion: 05/07/24 13:55 Dose: Infused Documented By: Admin: 05/07/24 12:55 Dose: 100 mls/hr Documented By: LAVINIA Potassium Chloride (K Benjamin / Wtr) 10 meq in 100 mls @ 100 mls/hr IV ONE ONE Stop: 05/07/24 16:33 Last Infusion: 05/07/24 17:01 Dose: Infused Documented By: Admin: 05/07/24 15:49 Dose: 100 mls/hr Documented By: RENATO Ceftriaxone Sodium (Rocephin) 2,000 mg in 50 mls @ 100 mls/hr IV NOW STA Stop: 05/07/24 16:58 Last Admin: 05/07/24 17:00 Dose: Not Given Documented By: RENATO Ampicillin Sodium/Sulbactam Sodium (Unasyn) 3,000 mg in 100 mls @ 200 mls/hr IV NOW STA Stop: 05/07/24 17:20 Last Infusion: 05/07/24 17:59 Dose: Infused Documented By: Admin: 05/07/24 17:12 Dose: 200 mls/hr Documented By: RENATO Ioversol (Optiray 320 100ml) 93 ml IV ONCE ONE Stop: 05/07/24 13:22 Last Admin: 05/07/24 13:22 Dose: 93 ml Documented By: SIRIA Potassium Chloride (Potassium Chloride Crtab 20 Meq Tabcr) 20 meq PO NOW STA Stop: 05/07/24 15:35 Last Admin: 05/07/24 15:49 Dose: 20 meq Documented By: RENATO Imaging Data Radiologist's Impression: Chest X-Ray 05/07/24 10:36 XR chest 2V PA/lateral HISTORY: Right Rib and Shoulder Pain s/p fall COMPARISON: Chest CTA 05/01/2024. FINDINGS: Posterior fusion hardware again noted within the thoracic spine. There is a left shoulder prosthesis. No acute fractures identified. There are low lung volumes. No pneumothorax. No pleural effusions. The heart is mildly enlarged. Bibasilar linear densities favor subsegmental atelectasis. IMPRESSION: 1. Low lung volumes with bibasilar linear densities suggesting subsegmental atelectasis. 2. No acute fractures. No pneumothorax. ACT 112: Negative or not required by law. Electronically signed by: Alexandre Mcfarland M.D. 05/07/2024 11:43 AM Shoulder X-Ray 05/07/24 10:57 RIGHT SHOULDER 3 VIEWS HISTORY: fall COMPARISON: None. FINDINGS: There is no fracture or dislocation. Soft tissues are unremarkable. No radiopaque foreign bodies. IMPRESSION: No fractures. ACT 112: Negative or not required by law. Electronically signed by: Alexandre Mcfarland M.D. 05/07/2024 11:47 AM Abdomen/Pelvis CT 05/07/24 11:[address] WITH IV CONTRAST CT DOSE: HISTORY: falls, R pain, prostate pain TECHNIQUE: Multiaxial CT images of the abdomen and pelvis were performed following the use of intravenous contrast. A dose lowering technique was utilized adhering to the principles of ALARA. COMPARISON STUDY: Abdomen and pelvis CT 05/01/2024 FINDINGS: The lung bases will be reported on the same day chest CT. No pneumoperitoneum. No pneumatosis. No acute fractures identified. Healing right anterior fourth and fifth rib fractures are again noted. Stable scattered hypodense lesions within the liver and kidneys. These favor cysts. Normal gallbladder. The pancreas, spleen, adrenal glands are unremarkable. No retroperitoneal hematoma or lymphadenopathy. 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 Mild body wall edema is noted. Thickened bladder wall remains unchanged and may be due to chronic outlet obstruction. Prostate gland remains enlarged. Nodular appearance to left side of the prostate gland again noted. Represent a prostate lesion. There is mild circumferential thickening of the rectum with mild perirectal fat stranding. This is consistent with a nonspecific proctitis. Colonic diverticulosis. No evidence for acute diverticulitis. No evidence for a bowel obstruction. IMPRESSION: 1. No acute traumatic process within the abdomen or pelvis. 2. Mild nonspecific proctitis. 3. Nodularity within the left side of the prostate gland, unchanged. This may represent a prostate lesion. 4. Additional findings as described above. ACT 112: Negative or not required by law. Electronically signed by: Alexandre Mcfarland M.D. 05/07/2024 2:[address] 05/07/24 11:[address] DOSE: 3238.84 mGy.cm HISTORY: falls TECHNIQUE: Multiaxial CT images of the cervical spine were performed and reformatted in the sagittal and coronal plane without the use of contrast. A dose lowering technique was utilized adhering to the principles of ALARA. COMPARISON: None. FINDINGS: No fractures. No subluxation. Prevertebral soft tissues and the C1-C2 interval are intact. No pneumothorax. IMPRESSION: No fractures within the cervical spine. ACT 112: Negative or not required by law. Electronically signed by: Alexandre Mcfarland M.D. 05/07/2024 2:[address] 05/07/24 11:[address] WITH CONTRAST CT DOSE: HISTORY: falls, R sided pain TECHNIQUE: Multiaxial CT images of the chest were performed following the intravenous administration of contrast. A dose lowering technique was utilized adhering to the principles of ALARA. COMPARISON: Chest CTA 05/01/2024 FINDINGS: Mild aneurysmal dilatation of the ascending thoracic aorta measuring up to 4.2 cm in diameter. No evidence for an aortic dissection. The heart is normal in size. No pleural or pericardial effusions. No mediastinal hematoma or lymphadenopathy identified. The abdominal structures will be reported separately. The central pulmonary arteries are patent. No pneumothorax. Mild circumferential thickening of the midesophagus again noted. Moderate coronary artery calcifications. Mild body wall edema. Stable 4 mm subpleural nodule within the left lung apex. Scattered patchy groundglass airspace opacities have progressed and favor a pneumonia.. There is a left shoulder prosthesis. Old bilateral rib fractures again noted. Healing right anterior fourth and fifth rib fractures, unchanged. No acute fractures identified. Posterior fusion from T5 through T9 with pedicle screws, rods, and vertebroplasty at multiple levels. Moderate pathologic compression deformity at T7 remains unchanged. There is persistent destruction the posterior cortex of T7 with abnormal soft tissue at the laminectomy site resulting in central canal narrowing at this level. This is similar to the prior study and corresponds the patient's known metastatic disease. IMPRESSION: 1. No acute traumatic process within the chest. 2. Progressive scattered groundglass airspace opacities consistent with a pneumonia. 3. No change in the pathologic compression fracture T7 with destruction of the posterior cortex and abnormal soft tissue at the laminectomy site resulting in central canal narrowing. This is consistent the patient's known metastatic disease ACT 112: Negative or not required by law. Electronically signed by: Alexandre Mcfarland M.D. 05/07/2024 2:[address] 05/07/24 11:[address] DOSE: HISTORY: falls TECHNIQUE: Multiaxial CT images of the head were performed without the use of intravenous contrast. Automated exposure control was utilized for this study. A dose lowering technique was utilized adhering to the principles of ALARA. Comparison: Head CT 04/14/2024. Findings: The paranasal sinuses and mastoid air cells are clear. The calvarium and skull base are intact. The ventricles and sulci are within normal limits. There is no mass, hematoma, midline shift, or acute infarct. Impression: No acute intracranial abnormality. ACT 112: Negative or not required by law. Electronically signed by: Alexandre Mcfarland M.D. 05/07/2024 2:32 PM Discharge Plan Visit Data Chief Complaint: Fall Stated Complaint: FALL, RIGHT RIB PAIN - REF BY EMT ED Provider: Cade Newby Discharge Problem: Fall, Prostate cancer metastatic to multiple sites, Hypokalemia Patient Disposition: Being Evaluated by Hospitalist Forms [facility] Prescriptions Prescriptions: No Action lidocaine 5 % adhesive patch,medicated 1 patch TOP DAILY PRN (Reason: Pain) levetiracetam 500 mg tablet 750 mg PO QAM Rx Instructions: TAKE 1 & 1/2 TAB IN AM albuterol sulfate [Proventil HFA] 90 mcg/actuation HFA aerosol inhaler 2 puff inhalation Q4H PRN (Reason: Shortness Of Breath Or Wheezing) sennosides [Senokot] 8.6 mg tablet 17.2 mg PO DAILY tamsulosin 0.4 mg capsule 0.4 mg PO DAILY fluticasone propion-salmeterol [Advair Diskus] 250-50 mcg/dose blister with device 1 inh inhalation BID trazodone 100 mg tablet 200 mg PO HS bicalutamide 50 mg tablet 50 mg PO DAILY Ensure Liquid 1 ea PO DAILY ondansetron HCl 4 mg tablet 4 mg PO Q8H PRN (Reason: NAUSEA/VOMITING) ascorbate calcium (vitamin C) 500 mg tablet 500 mg PO DAILY cholecalciferol (vitamin D3) 10 mcg (400 unit) capsule 10 mcg PO DAILY fluticasone propionate 50 mcg/actuation spray,suspension 1 spray intranasal BID Rx Instructions: administer into each nostril thiamine HCl (vitamin B1) 100 mg tablet 100 mg PO DAILY finasteride 5 mg tablet 5 mg PO DAILY roflumilast 500 mcg tablet 500 mcg PO DAILY venlafaxine 150 mg Capsule,Extended Release 24hr 150 mg PO QAM tiotropium bromide 2.5 mcg/actuation mist 2 inh INHALATION DAILY simvastatin 80 mg Tablet 40 mg PO HS lorazepam 1 mg Tablet 1 mg PO HS Qty: 30 0RF Rx Instructions: and take 0.5mg every 8 hours as needed for anxiety during the daytime sertraline 25 mg tablet 25 mg PO DAILY Qty: 30 0RF magnesium 250 mg Tablet 250 mg PO BID Qty: 60 0RF sucralfate [Carafate] 100 mg/mL suspension 10 ml PO QID Qty: 420 0RF Rx Instructions: swish in mouth and swallow; use after food/drink: May substitute tablets as a slurry. levothyroxine [Synthroid] 112 mcg Tablet 112 mcg PO DAILYBB Qty: 30 0RF cyanocobalamin (vitamin B-12) 1,000 mcg capsule 1,000 mcg PO DAILY Qty: 30 0RF Rx Instructions: OTC polyethylene glycol 3350 [Miralax] 17 gram powder in packet 17 g PO DAILY Qty: 30 0RF metoprolol tartrate 25 mg tablet 12.5 mg PO BID Qty: 30 0RF ferrous sulfate 325 mg (65 mg iron) tablet 325 mg PO DAILY Qty: 30 0RF Rx Instructions: OTC levetiracetam 500 mg Tablet 1,000 mg PO HS Rx Instructions: TAKE 2 TABS HS acetaminophen [Tylenol Extra Strength] 500 mg Tablet 500 mg PO .Q4-6HR PRN (Reason: Pain) Rx Instructions: PER ID docusate sodium 100 mg Capsule 100 mg PO DAILY PRN (Reason: Constipation) lorazepam 1 mg tablet 0.5 mg PO Q8 PRN (Reason: Anxiety) Rx Instructions: DURING DAY Referrals Referrals: [facility] [Primary Care Provider] -
--- NOTE | 2024-05-07 11:45 | XRay Report ---
XR chest 2V PA/lateral HISTORY: Right Rib and Shoulder Pain s/p fall COMPARISON: Chest CTA 05/01/2024. FINDINGS: Posterior fusion hardware again noted within the thoracic spine. There is a left shoulder p rosthesis. No acute fractures identified. There are low lung volumes. No pneumothorax. No pleural eff usions. The heart is mildly enlarged. Bibasilar linear densities favor subsegmental atelectasis. IMPRESSION: 1. Low lung volumes with bibasilar linear densities suggesting subsegmental atelectasis. 2. No acute fractures. No pneumothorax. ACT 112: Negative or not required by law. Electronically signed by: Alexandre Mcfarland M.D. 05/07/2024 11:43 AM
--- NOTE | 2024-05-07 11:49 | XRay Report ---
RIGHT SHOULDER 3 VIEWS HISTORY: fall COMPARISON: None. FINDINGS: There is no fracture or dislocation. Soft tissues are unremarkable. No radiopaque foreign b odies. IMPRESSION: No fractures. ACT 112: Negative or not required by law. Electronically signed by: Alexandre Mcfarland M.D. 05/07/2024 11:47 AM
[2024-05-07 12:06] LABS: Appearance Urine Clear (Clear); Bacteria Urine Automated None Seen (None Seen); Bilirubin Urine Negative (Negative); Blood Urine Negative (Negative); Cast Urine Automated 0-2 /lpf (0-2); Color Urine Dark Yellow; Epithelial Cell Urine Auto 0-2 /hpf (0-2); Glucose Urine UA Negative (Negative); Ketones Urine 1+ (Negative); Leukocyte Esterase Urine Trace (Negative); Nitrite Urine Negative (Negative); Protein Urine 1+ (Negative); RBC Urine Automated 0-2 /hpf (0-2); Specific Gravity Urine 1.023 (1.000-1.030); Urobilinogen Urine Negative (Negative); WBC Urine Automated 0-5 /hpf (0-5); pH Urine 5.5 (4.5-7.5)
[2024-05-07] MEDS: SODIUM CHLORIDE 0.9% 500 ML IV ONE (12:06)
[2024-05-07] MEDS: ACETAMINOPHEN 1,000 MG/100 ML VIAL IV STA (12:06)
[2024-05-07 12:07] LABS: Basophils # (auto) 0.02 K/uL (0.00-0.20); Basophils % (auto) 0.4 %; Eosinophils # (auto) 0.24 K/uL (0.00-0.50); Eosinophils % (auto) 4.7 %; Hematocrit (blood only) 35.7 % (42.0-52.0); Hemoglobin 11.4 g/dl (14.0-18.0); Immature Granulocytes # (auto) 0.02 K/uL (0.01-0.20); Immature Granulocytes % (auto) 0.4 %; Lymphocytes # (auto) 0.27 K/uL (1.20-3.40); Lymphocytes % (auto) 5.2 %; Mean Corpuscular Hemoglobin 27.9 pg (25.0-34.0); Mean Corpuscular Hgb Conc 31.9 g/dL (32.0-36.0); Mean Corpuscular Volume 87.3 fL (80.0-100.0); Mean Platelet Volume 9.4 fL (9.4-12.4); Monocytes % (auto) 11.7 %; Neutrophils % (auto) 77.6 %; Platelet Count 272 K/uL (130-400); RDW Coefficient of Variation 17.9 % (11.5-14.5); RDW Standard Deviation 56.5 fL (36.4-46.3); Red Blood Count 4.09 M/uL (4.70-6.10); White Blood Count 5.15 K/ul (4.8-10.8)
[2024-05-07 12:09] LABS: iSTAT Creatinine 0.7 mg/dl (0.6-1.3); iSTAT Hemoglobin 10.5 g/dl (14.0-18.0); iSTAT Ionized Calcium 1.16 mmol/l (1.12-1.32); iSTAT Potassium 3.1 mmol/L (3.3-5.0)
[2024-05-07 12:26] LABS: Alanine Aminotransferase 10 U/L (7-52); Albumin Globulin Ratio 1.4 (0.9-2); Albumin Level 3.8 gm/dl (3.4-5.0); Alkaline Phosphatase 65 U/L (34-104); Anion Gap 8 (3-11); Aspartate Aminotransferase 17 U/L (13-39); BUN Creatinine Ratio 21.3 (10-20); Bilirubin,Total 0.5 mg/dl (0.2-1.0); Blood Urea Nitrogen 16 mg/dl (6-23); Calcium 9.6 mg/dl (8.6-10.3); Carbon Dioxide 27 mmol/L (21-32); Chloride 99 mmol/L (98-107); Creatine Kinase 58 U/L (30-223); Est GFR (African American) 96.9 ml/min; Est GFR (Non-African American) 83.6 ml/min; Globulin 2.7 gm/dl (2.5-4.0); Glucose 112 mg/dl (70-99(Fasting)); Potassium 2.8 mmol/L (3.5-5.1); Sodium 134 mmol/L (136-145); Total Protein 6.5 gm/dl (6.0-8.3)
[2024-05-07 12:30] LABS: Troponin I High Sensitivity 17.4 pg/ml (0-20)
[2024-05-07] MEDS: POTASSIUM CHLORIDE / WTR 10 MEQ/100 ML PLCT IV ONE ×2 (12:55→15:49)
[2024-05-07 13:03] LABS: Magnesium 1.7 mg/dl (1.7-2.4)
[2024-05-07] MEDS: OPTIRAY 320 100ml IV ONE (13:22)
--- NOTE | 2024-05-07 14:33 | CT Scan Report ---
HEAD CT NONCONTRAST CT DOSE: HISTORY: falls TECHNIQUE: Multiaxial CT images of the head were performed without the use of intravenous contrast. A utomated exposure control was utilized for this study. A dose lowering technique was utilized adheri ng to the principles of ALARA. Comparison: Head CT 04/14/2024. Findings: The paranasal sinuses and mastoid air cells are clear. The calvarium and skull base are int act. The ventricles and sulci are within normal limits. There is no mass, hematoma, midline shift, or acute infarct. Impression: No acute intracranial abnormality. ACT 112: Negative or not required by law. Electronically signed by: Alexandre Mcfarland M.D. 05/07/2024 2:32 PM
--- NOTE | 2024-05-07 14:38 | CT Scan Report ---
CERVICAL SPINE CT CT DOSE: 3238.84 mGy.cm HISTORY: falls TECHNIQUE: Multiaxial CT images of the cervical spine were performed and reformatted in the sagittal and coronal plane without the use of contrast. A dose lowering technique was utilized adhering to th e principles of ALARA. COMPARISON: None. FINDINGS: No fractures. No subluxation. Prevertebral soft tissues and the C1-C2 interval are intact. No pneumothorax. IMPRESSION: No fractures within the cervical spine. ACT 112: Negative or not required by law. Electronically signed by: Alexandre Mcfarland M.D. 05/07/2024 2:36 PM
--- NOTE | 2024-05-07 14:45 | CT Scan Report ---
CHEST CT WITH CONTRAST CT DOSE: HISTORY: falls, R sided pain TECHNIQUE: Multiaxial CT images of the chest were performed following the intravenous administration of contrast. A dose lowering technique was utilized adhering to the principles of ALARA. COMPARISON: Chest CTA 05/01/2024 FINDINGS: Mild aneurysmal dilatation of the ascending thoracic aorta measuring up to 4.2 cm in diamet er. No evidence for an aortic dissection. The heart is normal in size. No pleural or pericardial effu sions. No mediastinal hematoma or lymphadenopathy identified. The abdominal structures will be report ed separately. The central pulmonary arteries are patent. No pneumothorax. Mild circumferential thick ening of the midesophagus again noted. Moderate coronary artery calcifications. Mild body wall edema. Stable 4 mm subpleural nodule within the left lung apex. Scattered patchy groundglass airspace opaci ties have progressed and favor a pneumonia.. There is a left shoulder prosthesis. Old bilateral rib f ractures again noted. Healing right anterior fourth and fifth rib fractures, unchanged. No acute frac tures identified. Posterior fusion from T5 through T9 with pedicle screws, rods, and vertebroplasty a t multiple levels. Moderate pathologic compression deformity at T7 remains unchanged. There is persis tent destruction the posterior cortex of T7 with abnormal soft tissue at the laminectomy site resulti ng in central canal narrowing at this level. This is similar to the prior study and corresponds the p atient's known metastatic disease. IMPRESSION: 1. No acute traumatic process within the chest. 2. Progressive scattered groundglass airspace opacities consistent with a pneumonia. 3. No change in the pathologic compression fracture T7 with destruction of the posterior cortex and a bnormal soft tissue at the laminectomy site resulting in central canal narrowing. This is consistent the patient's known metastatic disease ACT 112: Negative or not required by law. Electronically signed by: Alexandre Mcfarland M.D. 05/07/2024 2:43 PM
--- NOTE | 2024-05-07 14:51 | CT Scan Report ---
ABDOMEN AND PELVIS CT WITH IV CONTRAST CT DOSE: HISTORY: falls, R pain, prostate pain TECHNIQUE: Multiaxial CT images of the abdomen and pelvis were performed following the use of intrave nous contrast. A dose lowering technique was utilized adhering to the principles of ALARA. COMPARISON STUDY: Abdomen and pelvis CT 05/01/2024 FINDINGS: The lung bases will be reported on the same day chest CT. No pneumoperitoneum. No pneumatos is. No acute fractures identified. Healing right anterior fourth and fifth rib fractures are again no dewayne. Stable scattered hypodense lesions within the liver and kidneys. These favor cysts. Normal gallb ladder. The pancreas, spleen, adrenal glands are unremarkable. No retroperitoneal hematoma or lymphad enopathy. 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 Mild body wa ll edema is noted. Thickened bladder wall remains unchanged and may be due to chronic outlet obstruct ion. Prostate gland remains enlarged. Nodular appearance to left side of the prostate gland again not ed. Represent a prostate lesion. There is mild circumferential thickening of the rectum with mild per irectal fat stranding. This is consistent with a nonspecific proctitis. Colonic diverticulosis. No ev idence for acute diverticulitis. No evidence for a bowel obstruction. IMPRESSION: 1. No acute traumatic process within the abdomen or pelvis. 2. Mild nonspecific proctitis. 3. Nodularity within the left side of the prostate gland, unchanged. This may represent a prostate le lor. 4. Additional findings as described above. ACT 112: Negative or not required by law. Electronically signed by: Alexandre Mcfarland M.D. 05/07/2024 2:49 PM
[2024-05-07] MEDS: POTASSIUM CHLORIDE CRTAB 20 MEQ TABCR PO STA (15:49)
--- NOTE | 2024-05-07 16:30 | History & Physical Report ---
Date of Service May 07, 2024 Assessment & Plan (1) Fall: Plan: Admit to med telemetry Currently stable nontoxic-appearing Presented to the ED with recurrent falls and inability for to safely take care of him at home with increased cognitive decline and generalized weakness No acute trauma on imaging Suspect recurrent falls or combination of chronic polyneuropathy, deconditioning from recurrent admissions and known cancer, electrolyte abnormalities, decreased p.o. intake, and possible aspiration pneumonia Fall/aspiration precautions have been ordered PT/OT/case management consults placed as patient will likely need placement at time of discharge Bilateral CATIE stockings for DVT prophylaxis Heart healthy diet with easy to 2 texture AM CBC, BMP, mag, (2) Hypokalemia: Plan: Potassium noted to be 2.8 in the ED, is 1.7 Likely due to poor p.o. intake Status post 2 bags 10 mEq IV KCl and 20M EQ p.o. KCl Will give 2 bags 1 g IV mag sulfate on admission Will repeat potassium level this evening Continue to monitor on telemetry and monitor daily electrolytes (3) Aspiration pneumonia: Plan: Patient reports increased difficulty swallowing solids over the past few weeks CT of the chest with contrast today notes findings consistent with pneumonia Patient does have a cough on exam Will obtain Pro-Aria and cover with Unasyn and azithromycin for now Will obtain COVID-19/influenza/RSV screen now as well Aspiration precautions and speech therapy consult have been placed Incentive spirometry, continue as needed albuterol (4) Depression with anxiety: Plan: Per previous admission documentation, the patient has been experiencing increased depressive symptoms and anxiety after his prostate cancer diagnosis Patient does have a flat affect on exam and mentioned his anxiety Was started on sertraline last admission approximately 10 days ago in addition to his previous venlafaxine and at bedtime trazodone Continue sertraline, venlafaxine, and trazodone Patient had started on a short course of as needed Ativan at the time of her last admission, will hold this for now to prevent ongoing confusion and sedation (5) Prostate cancer metastatic to multiple sites: Plan: Continue Casodex, (6) Hypertension: Plan: Currently stable Continue metoprolol (7) COPD (chronic obstructive pulmonary disease): Plan: Currently stable on room air Continue albuterol, fluticasone/salmeterol (8) Myoclonus: Plan: Continue Keppra Plan Patient was discussed with Dr. Davis time admission History of Present Illness Chief Complaint: Recurrent falls Primary Care Provider: [facility] Brandie is an 84-year-old male with a history of metastatic prostate cancer to the bones, idiopathic polyneuropathy, myoclonus, COPD, hypothyroidism HTN, depression with anxiety, and iron deficiency anemia who presented to the [facility] ED on 05/07/2024 due to multiple falls over the past 24 hours. He was noted to be tachycardic on arrival with heart rate in the 120s but otherwise stable. Labs were significant for a potassium of 2.8, mag of 1.7, UA with 1+ protein, 1+ ketones, and trace leukocyte Estrace. CT of the head and brain without contrast and cervical spine were read as negative for acute findings. CT of the chest with contrast was negative for traumatic process but did show progressive scattered groundglass airspace opacities consistent with pneumonia. No change in the pathologic compression fracture at T7 with destruction of the posterior cortex and abnormal soft tissue at the laminectomy site resulting in central canal narrowing. This is consistent with the patient's known metastatic disease. CT of the abdomen and pelvis with IV contrast was read as negative for acute trauma but did note mild nonspecific proctitis and noted his known prostate cancer. Prior to admission the patient was given 1 g IV Tylenol, 2 doses of 10 mEq IV KCl, 20M EQ p.o. KCl, and 500 mL NSS. Patient was lying in bed in no acute distress at the time of exam, unfortunate family had left prior to my arrival. History is somewhat limited due to due to patient's baseline cognitive status. When asked what brought him to the hospital, he states that he fell this afternoon. I asked if he has fallen any other times recently and he did not believe he had. When I explained that we were told he had a fall last night as well he states, "I cannot remember anything these days". States that he feels generally weak and that his legs will give out on him while he is trying to walk. Denies hitting his head r ecently or losing consciousness. No current pain. He has a nonproductive cough during exam which she states he has had for the past few days. When asked if he has had any episodes of choking recently he states "recently of had a lot of trouble getting food down". He explains that he has been having ongoing issues swallowing. Denies recent fever, chills, chest pain, nausea/vomiting, abdominal pain, dysuria, hematuria, diarrhea, lower extremity swelling. For now we will keep the patient a full code as per the last admission as family was not there to discuss and did not pick pulling machine tender on tempted to call. Would recommend ongoing goals of care discussion. Please for Dr. Davis's attestation for any changes to treatment plan Allergies Allergy/AdvReac Type Severity Reaction Status Date / Time diclofenac [From Voltaren] Allergy Unknown [facility] Verified 05/07/24 17:23 LIST Home Medications Medication Instructions Recorded Confirmed Type lidocaine 5 % topical patch 1 patch topical DAILY PRN Pain 03/12/20 05/07/24 History trazodone 100 mg tablet 200 mg PO HS 12/11/20 05/07/24 History venlafaxine 150 mg 150 mg PO QAM 06/14/22 05/07/24 History capsule,extended release 24 hr tiotropium bromide 2.5 2 inh inhalation DAILY 03/19/23 05/07/24 History mcg/actuation mist for inhalation finasteride 5 mg tablet 5 mg PO DAILY 08/04/23 05/07/24 History roflumilast 500 mcg tablet 500 mcg PO DAILY 08/04/23 05/07/24 History simvastatin 80 mg tablet 40 mg PO HS 10/08/23 05/07/24 History albuterol sulfate 90 mcg/actuation 2 puff inhalation Q4H PRN 02/29/24 05/07/24 History aerosol inhaler (Proventil HFA) Shortness Of Breath Or Wheezing fluticasone 250 mcg-salmeterol 50 1 inh inhalation BID 02/29/24 05/07/24 History mcg/dose blistr powdr for inhalation (Advair Diskus) levetiracetam 500 mg tablet 750 mg PO QAM 02/29/24 05/07/24 History sennosides 8.6 mg tablet (Senokot) 17.2 mg PO DAILY 02/29/24 05/07/24 History tamsulosin 0.4 mg capsule 0.4 mg PO DAILY 02/29/24 05/07/24 History ascorbate calcium (vitamin C) 500 500 mg PO DAILY 04/03/24 05/07/24 History mg tablet bicalutamide 50 mg tablet 50 mg PO DAILY 04/03/24 05/07/24 History cholecalciferol (vitamin D3) 10 10 mcg PO DAILY 04/03/24 05/07/24 History mcg (400 unit) capsule fluticasone propionate 50 1 spray intranasal BID 04/03/24 05/07/24 History mcg/actuation nasal spray,suspension food supplemt, lactose-reduced 1 ea PO DAILY 04/03/24 05/07/24 History (Ensure oral liquid) ondansetron HCl 4 mg tablet 4 mg PO Q8H PRN NAUSEA/VOMITING 04/03/24 05/07/24 History thiamine HCl (vitamin B1) 100 mg 100 mg PO DAILY 04/03/24 05/07/24 History tablet cyanocobalamin (vitamin B-12) 1,000 mcg PO DAILY #30 caps 04/25/24 05/07/24 Rx 1,000 mcg capsule ferrous sulfate 325 mg (65 mg 325 mg PO DAILY #30 tabs 04/25/24 05/07/24 Rx iron) tablet levothyroxine 112 mcg tablet 112 mcg PO DAILYBB #30 tabs 04/25/24 05/07/24 Rx (Synthroid) metoprolol tartrate 25 mg tablet 12.5 mg (1/2 x 25 mg) PO BID #30 04/25/24 05/07/24 Rx tabs polyethylene glycol 3350 17 gram 17 g PO DAILY Constipation #30 ea 04/25/24 05/07/24 Rx oral powder packet (Miralax) lorazepam 1 mg tablet 1 mg PO HS #30 tabs 04/28/24 05/07/24 Rx magnesium 250 mg tablet 250 mg PO BID #60 tabs 04/28/24 05/07/24 Rx sertraline 25 mg tablet 25 mg PO DAILY #30 tabs 04/28/24 05/07/24 Rx sucralfate 100 mg/mL oral 10 ml PO QID #420 mL 05/01/24 05/07/24 Rx suspension (Carafate) acetaminophen 500 mg tablet 500 mg PO .Q4-6HR PRN Pain 05/07/24 05/07/24 History (Tylenol Extra Strength) docusate sodium 100 mg capsule 100 mg PO DAILY PRN Constipation 05/07/24 05/07/24 History levetiracetam 500 mg tablet 1,000 mg PO HS 05/07/24 05/07/24 History lorazepam 1 mg tablet 0.5 mg PO Q8 PRN Anxiety 05/07/24 05/07/24 History 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) (Chronic 02/10/24) Thoracic compression fracture T7 Thoracic spine pain BPH w urinary obs/LUTS Back pain (Acute) [place] positive Idiopathic polyneuropathy Disc degeneration, lumbar Scoliosis of lumbar region due to degenerative disease of spine in adult Orthostatic hypotension Sinus tachycardia CAD (coronary artery disease) Tobacco dependence Osteoporosis Hyperlipidemia Rotator cuff arthropathy of left shoulder Encounter for pre-operative examination Atypical chest pain (Acute) HERNÁNDEZ (dyspnea on exertion) (Acute) Hypophosphatemia (Acute) Hypocalcemia (Acute) Hypertension Low back pain Depression Myoclonus COPD (chronic obstructive pulmonary disease) (Acute) Spinal stenosis, lumbar region with neurogenic claudication Lumbar spondylosis Spinal stenosis of thoracolumbar region Hypothyroidism Medical History Obesity Osteoarthritis DDD (degenerative disc disease) Hearing deficit Aneurysm Per remote [facility] records, hx of questionable thoracic aortic aneurysm [facility], no recent issues/not noted on 2019 echo Sleep apnea No device COPD (chronic obstructive pulmonary disease) Stable Hypertension Surgical History History of shoulder replacement Left History of laminectomy (02/16/24) 1) posterior thoracic segmental fusion with pedicle screws: Thoracic 5, 6, 7, 8, 9 levels 2) Cement augmentation of thoracic pedicle screws, thoracic 5, 6, 8, 9 3) Laminectomy, thoracic 7 and 8 4) Partial laminectomy, thoracic 6 5) Facetectomy bilaterally, thoracic 6-7, and 7-8 6) Pediculectomy bilaterally, thoracic 7 7) Partial corpectomy, thoracic 7 8) open reduction of thoracic fracture, thoracic 7 level 9) Arthrodesis, thoracic 5, 6, 7, 8, 9 10) use of allograft 11) use of intraoperative neurophysiologic monitoring 12) Use of intraoperative ultrasonography 13) use of fluoroscopy Surgeon: Oumar Rosa Co-surgeon: Renan Lopez [employer] Worker: Ramses Sheppard History of elbow surgery Right History of cataract surgery R/L Family History Father No problems noted. Mother No problems noted. Brother Breast cancer Surgery Brother No problems noted. Sister No problems noted. Sister No problems noted. Daughter No problems noted. Son No problems noted. Son No problems noted. Other No family history of adverse response to anesthesia Social History Smoking Status: Never smoker Tobacco Type: Cigarettes Age Quit Using Tobacco: 44; Second Hand Exposure: No; Do You Dip or Chew Tobacco: No; Hx Alcohol Use: No Hx Substance Use: No Preferred Language: Albanian Communication Ability: Effective Visual Impairment: No Limitations Hearing Ability: Hard of Hearing Internet Specialist Required: No Beliefs That Will Affect Care: None marital status: Current Living Situation: Spouse current occupational status: retired How many Children do You have: 3 Feels Safe at Home: Yes Safety Concerns: Feels Safe At This Time Childhood Exposure to Second-Hand Smoke: No Diet: regular caffeine: Yes during the past year weight has: decreased > 10 lbs Dental Care, Regularly: No Assistive Devices: Denture - Upper, Denture - Lower and Walker Physical Exam Physical Exam: Physical Exam: General: In no acute distress, stated age, nontoxic-appearing HEENT: Normocephalic, atraumatic, no scleral icterus, pupils around round, symmetrical, and reactive to light, moist mucus membranes, trachea midline, no thyromegaly Chest/Pulm: No respiratory distress, symmetrical chest expansion, scattered expiratory wheezing Cardiac: RRR, no murmurs noted Abdomen: Negative for ascites and bruising, normoactive bowel sounds, soft, non-tender to palpation throughout Musculoskeletal: Symmetrical and without signs of acute trauma, upper and lower extremities with full ROM, no atrophy, spasticity, or flaccidity Extremities: Radial, dorsalis pedis, and posterior tibial pulses are intact and symmetrical, no edema noted in the BL LE's Skin: Right anterior tong bruising in various stages of healing otherwise no other signs of skin abnormality Neuro: Alert and oriented to person, place, but not to month or year, no fo aria defects, CN II-XII tested and intact, no tremors noted Psych: No acute distress, flat affect, intermittently confused, but calm and cooperative during the exam Results & Data Results & Data Vital Signs (Past 12 Hours) Vital Signs Temp Pulse Pulse Resp BP BP Pulse Ox 05/07/24 16:00 103 H 18 132/96 95 05/07/24 15:14 96 H 05/07/24 14:00 103 H 22 137/79 98 05/07/24 12:00 60 18 130/103 H 98 05/07/24 10:46 129 H 05/07/24 10:30 36.4 C L 120 H 18 129/89 98 O2 Del Method 05/07/24 16:00 Room Air 05/07/24 15:14 05/07/24 14:00 05/07/24 12:00 05/07/24 10:46 05/07/24 10:30 Laboratory Results Abnormal lab results 05/07/24 05/07/24 05/07/24 Range/Units 11:48 11:52 11:55 RBC 4.09 L (4.70-6.10) M/uL Hgb 11.4 L (14.0-18.0) g/dl POC Hgb 10.5 L (14.0-18.0) g/dl Hct 35.7 L (42.0-52.0) % POC Hct 31 L (42-52) % MCHC 31.9 L (32.0-36.0) g/dL RDW Std Deviation 56.5 H (36.4-46.3) fL RDW Coeff of Bisi 17.9 H (11.5-14.5) % Lymph # (Auto) 0.27 L (1.20-3.40) K/uL Hardee # (Auto) 0.60 H (0.11-0.59) K/uL POC Sodium 134 L (135-144) mmol/L Sodium 134 L (136-145) mmol/L POC Potassium 3.1 L (3.3-5.0) mmol/L Potassium 2.8 L (3.5-5.1) mmol/L POC Chloride 96 L (101-112) mmol/L POC Anion Gap 14.0 L (16-25) mmol/L BUN/Creatinine Ratio 21.3 H (10-20) Glucose 112 H (70-99(Fasting)) mg/dl POC Glucose (other) 110 H (70-99) mg/dl Urine Protein 1+ H (Negative) Urine Ketones 1+ H (Negative) Ur Leukocyte Esterase Trace H (Negative) Diagnostic Findings Chest X-Ray 05/07/24 10:36 XR chest 2V PA/lateral HISTORY: Right Rib and Shoulder Pain s/p fall COMPARISON: Chest CTA 05/01/2024. FINDINGS: Posterior fusion hardware again noted within the thoracic spine. There is a left shoulder prosthesis. No acute fractures identified. There are low lung volumes. No pneumothorax. No pleural effusions. The heart is mildly enlarged. Bibasilar linear densities favor subsegmental atelectasis. IMPRESSION: 1. Low lung volumes with bibasilar linear densities suggesting subsegmental atelectasis. 2. No acute fractures. No pneumothorax. ACT 112: Negative or not required by law. Electronically signed by: Alexandre Mcfarland M.D. 05/07/2024 11:43 AM Shoulder X-Ray 05/07/24 10:57 RIGHT SHOULDER 3 VIEWS HISTORY: fall COMPARISON: None. FINDINGS: There is no fracture or dislocation. Soft tissues are unremarkable. No radiopaque foreign bodies. IMPRESSION: No fractures. ACT 112: Negative or not required by law. Electronically signed by: Alexandre Mcfarland M.D. 05/07/2024 11:47 AM Abdomen/Pelvis CT 05/07/24 11:[address] WITH IV CONTRAST CT DOSE: HISTORY: falls, R pain, prostate pain TECHNIQUE: Multiaxial CT images of the abdomen and pelvis were performed following the use of intravenous contrast. A dose lowering technique was utilized adhering to the principles of ALARA. COMPARISON STUDY: Abdomen and pelvis CT 05/01/2024 FINDINGS: The lung bases will be reported on the same day chest CT. No pneumoperitoneum. No pneumatosis. No acute fractures identified. Healing right anterior fourth and fifth rib fractures are again noted. Stable scattered hypodense lesions within the liver and kidneys. These favor cysts. Normal gallbladder. The pancreas, spleen, adrenal glands are unremarkable. No retroperitoneal hematoma or lymphadenopathy. 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 Mild body wall edema is noted. Thickened bladder wall remains unchanged and may be due to chronic outlet obstruction. Prostate gland remains enlarged. Nodular appearance to left side of the prostate gland again noted. Represent a prostate lesion. There is mild circumferential thickening of the rectum with mild perirectal fat stranding. This is consistent with a nonspecific proctitis. Colonic diverticulosis. No e vidence for acute diverticulitis. No evidence for a bowel obstruction. IMPRESSION: 1. No acute traumatic process within the abdomen or pelvis. 2. Mild nonspecific proctitis. 3. Nodularity within the left side of the prostate gland, unchanged. This may represent a prostate lesion. 4. Additional findings as described above. ACT 112: Negative or not required by law. Electronically signed by: Alexandre Mcfarland M.D. 05/07/2024 2:[address] 05/07/24 11:[address] DOSE: 3238.84 mGy.cm HISTORY: falls TECHNIQUE: Multiaxial CT images of the cervical spine were performed and reformatted in the sagittal and coronal plane without the use of contrast. A dose lowering technique was utilized adhering to the principles of ALARA. COMPARISON: None. FINDINGS: No fractures. No subluxation. Prevertebral soft tissues and the C1-C2 interval are intact. No pneumothorax. IMPRESSION: No fractures within the cervical spine. ACT 112: Negative or not required by law. Electronically signed by: Alexandre Mcfarland M.D. 05/07/2024 2:[address] 05/07/24 11:[address] WITH CONTRAST CT DOSE: HISTORY: falls, R sided pain TECHNIQUE: Multiaxial CT images of the chest were performed following the intravenous administration of contrast. A dose lowering technique was utilized adhering to the principles of ALARA. COMPARISON: Chest CTA 05/01/2024 FINDINGS: Mild aneurysmal dilatation of the ascending thoracic aorta measuring up to 4.2 cm in diameter. No evidence for an aortic dissection. The heart is normal in size. No pleural or pericardial effusions. No mediastinal hematoma or lymphadenopathy identified. The abdominal structures will be reported separately. The central pulmonary arteries are patent. No pneumothorax. Mild circumferential thickening of the midesophagus again noted. Moderate coronary artery calcifications. Mild body wall edema. Stable 4 mm subpleural nodule within the left lung apex. Scattered patchy groundglass airspace opacities have progressed and favor a pneumonia.. There is a left shoulder prosthesis. Old bilateral rib fractures again noted. Healing right anterior fourth and fifth rib fractures, unchanged. No acute fractures identified. Posterior fusion from T5 through T9 with pedicle screws, rods, and vertebroplasty at multiple levels. Mod erate pathologic compression deformity at T7 remains unchanged. There is persistent destruction the posterior cortex of T7 with abnormal soft tissue at the laminectomy site resulting in central canal narrowing at this level. This is similar to the prior study and corresponds the patient's known metastatic disease. IMPRESSION: 1. No acute traumatic process within the chest. 2. Progressive scattered groundglass airspace opacities consistent with a pneumonia. 3. No change in the pathologic compression fracture T7 with destruction of the posterior cortex and abnormal soft tissue at the laminectomy site resulting in central canal narrowing. This is consistent the patient's known metastatic disease ACT 112: Negative or not required by law. Electronically signed by: Alexandre Mcfarland M.D. 05/07/2024 2:[address] 05/07/24 11:[address] DOSE: HISTORY: falls TECHNIQUE: Multiaxial CT images of the head were performed without the use of intravenous contrast. Automated exposure control was utilized for this study. A dose lowering technique was utilized adhering to the principles of ALARA. Comparison: Head CT 04/14/2024. Findings: The paranasal sinuses and mastoid air cells are clear. The calvarium and skull base are intact. The ventricles and sulci are within normal limits. There is no mass, hematoma, midline shift, or acute infarct. Impression: No acute intracranial abnormality. ACT 112: Negative or not required by law. Electronically signed by: Alexandre Mcfarland M.D. 05/07/2024 2:32 PM Code Status & VTE Plan Code Status Full code VTE Prophylaxis Plan VTE Prophylaxis will be ordered: Yes Supervising Physician Co-Signing Physician Notes I personally saw and examined the patient. I verified all burr points and agree with Spencer Wheeler PA-C with the following exceptions and/or additions: 84 year old male presents to the ER with recurrent falls and unable to stay at home by himself at this time. He is unable to provide me with any history as he thinks he is in the basement of his house. Family had left his bedside when seen. Denies any pain in chest, abdomen, back or extremities O/E Alert - orientated to person only, HS RRR, no murmurs, Chest CTAB, Abdo SNT, no pedal edema A/P Fall - possible pneumonia contributing, PT/OT to assess safety on returning home Pneumonia - possible diagnosis but mainly based on imaging, biofire negative, Unasyn + Azithromycin PG Care Time/CCT Total # of Minutes Spent Total Time Spent with Patient: Total time spent is greater than 50% in coordination of care (as documented) at patient's floor/unit and/or counseling patient: Coding [place] [address] INT INP/OBS CARE 2/55MIN Patient Type Established Medical Decision Making Moderate Complexity Diagnoses Fall W19.XXXA Hypokalemia E87.6 Aspiration pneumonia J69.0 Depression with anxiety F41.8 Prostate cancer metastatic to multiple sites C61 Hypertension I10 COPD (chronic obstructive pulmonary disease) J44.9 Myoclonus G25.3
[2024-05-07] MEDS: cefTRIAXone SODIUM 2,000 MG/50 ML BAG IV STA (17:00)
[2024-05-07] MEDS: AMPICILLIN/SULBACTAM SOD 3,000 MG/100 ML BAG IV STA (17:12)
[2024-05-07] MEDS: MAGNESIUM SULFATE / D5W 1 GM/100 ML BAG IV SCH (17:48)
[2024-05-07] MEDS: AZITHROMYCIN 500 MG in DEXTROSE 5% 250 ML IV STA (18:41)
[2024-05-07 18:59] LABS: Influenza A virus by PCR Negative (Neg); Influenza B virus by PCR Negative (Neg); RSV by PCR Negative (Neg); SARS CoV2 RNA(COVID-19) Ceph NEGATIVE (Negative)
[2024-05-07] MEDS ORDERED: DOCUSATE SODIUM 100 MG CAP PO PRN (19:59)
[2024-05-07] MEDS: Patient's WEIGHT Needed SCH (21:18)
[2024-05-07] MEDS: FLUTICASONE/VILANTEROL 200/25MCG 14 PUFFS/INHALER INH SCH (21:28)
[2024-05-07] MEDS: traZODone HCL 100 MG TAB PO SCH (21:29)
[2024-05-07] MEDS: SIMVASTATIN 40 MG TAB PO SCH (21:29)
[2024-05-07] MEDS: SUCRALFATE 1 GM/10 ML UDC PO SCH (21:29)
[2024-05-07] MEDS: METOPROLOL TARTRATE 25 MG TAB PO SCH (21:30)
[2024-05-07] MEDS: MAGNESIUM OXIDE 400 MG TAB PO SCH (21:31)
[2024-05-07] MEDS: levETIRAcetam 500 MG TAB PO SCH (21:32)
[2024-05-08] MEDS: AMPICILLIN/SULBACTAM SOD 3,000 MG/100 ML BAG IV SCH (01:39)
[2024-05-08 04:22] LABS: Basophils # (auto) 0.02 K/uL (0.00-0.20); Basophils % (auto) 0.4 %; Eosinophils # (auto) 0.24 K/uL (0.00-0.50); Hematocrit (blood only) 31.1 % (42.0-52.0); Hemoglobin 10.3 g/dl (14.0-18.0); Immature Granulocytes # (auto) 0.01 K/uL (0.01-0.20); Immature Granulocytes % (auto) 0.2 %; Lymphocytes # (auto) 0.33 K/uL (1.20-3.40); Lymphocytes % (auto) 6.8 %; Mean Corpuscular Hemoglobin 28.3 pg (25.0-34.0); Mean Corpuscular Hgb Conc 33.1 g/dL (32.0-36.0); Mean Corpuscular Volume 85.4 fL (80.0-100.0); Mean Platelet Volume 9.5 fL (9.4-12.4); Monocytes # (auto) 0.53 K/uL (0.11-0.59); Neutrophils % (auto) 76.6 %; Platelet Count 233 K/uL (130-400); RDW Coefficient of Variation 17.8 % (11.5-14.5); RDW Standard Deviation 56.1 fL (36.4-46.3); Red Blood Count 3.64 M/uL (4.70-6.10); White Blood Count 4.83 K/ul (4.8-10.8)
[2024-05-08] MEDS: ACETAMINOPHEN 325 MG TAB PO PRN (04:34)
[2024-05-08] MEDS: ALBUTEROL HFA 8 GM INHALER INH PRN (04:35)
[2024-05-08 04:38] LABS: BUN Creatinine Ratio 19.3 (10-20); Calcium 8.4 mg/dl (8.6-10.3); Creatinine Clr Calc Pharmacy 91.7 ml/min; Est GFR (African American) 108.5 ml/min; Est GFR (Non-African American) 93.6 ml/min; Magnesium 1.8 mg/dl (1.7-2.4); Potassium 3.2 mmol/L (3.5-5.1)
[2024-05-08] MEDS: LEVOTHYROXINE SODIUM 112 MCG TABLET PO SCH (06:35)
[2024-05-08] MEDS: FINASTERIDE 5 MG TAB PO SCH (08:52)
[2024-05-08] MEDS: UMECLIDINIUM BROMIDE 62.5MCG/BLISTER 7 PUFFS/INHALER INH SCH (08:52)
[2024-05-08] MEDS: POTASSIUM CHLORIDE CRTAB 20 MEQ TABCR PO STA (08:52)
[2024-05-08] MEDS: BICALUTAMIDE 50 MG TAB PO SCH (08:52)
[2024-05-08] MEDS: levETIRAcetam 250 MG TAB PO SCH (08:53)
[2024-05-08] MEDS: TAMSULOSIN HCL 0.4 MG CAP PO SCH (08:53)
[2024-05-08] MEDS: ROFLUMILAST 500 MCG TAB PO SCH (08:53)
[2024-05-08] MEDS: VENLAFAXINE HCL XR 150 MG CAPXR PO SCH (08:53)
[2024-05-08] MEDS: FERROUS SULFATE 325 MG TAB PO SCH (08:54)
[2024-05-08] MEDS: SERTRALINE HCL 50 MG TABLET PO SCH (08:55)
[2024-05-08] MEDS: LORazepam 0.5 MG TAB PO PRN (12:38)
--- NOTE | 2024-05-08 15:24 | Hospitalist Progress Note ---
<Statement entered by Lucina Vegas MD - 05/08/24 16:54> Has had a lot of anxiety, depression and also falls. Recently was on lorazepam which can worsen his falls. Now on both sertraline and effexor which is a duplication of an SSRI and an SNRI, which could be more effective than monotherapy but also on signficant dose of trazodone and combination of the three elevates risk of serotonin syndrome. Also on trazodone at 200 mg HS as well as necessary prostate meds such as tamsulosin which will both provoke orthostatic hypotension and contribute to falls. Would choose one or the other (SSRI or SNRI) and if significant orthostasis is present eventually replace trazodone with mirtazapine. Date of Service May 08, 2024 Assessment & Plan (1) Fall: Plan: Presented to the ED with recurrent falls and inability for to safely take care of him at home with increased cognitive decline and generalized weakness No acute trauma on imaging Suspect recurrent falls or combination of chronic polyneuropathy, deconditioning from recurrent admissions and known cancer, electrolyte abnormalities, possible aspiration pneumonia and polypharmacy PT/OT - PT recommending rehab, OT pending - CM following AM CBC, BMP, mag, (2) Hypokalemia: Plan: Potassium noted to be 2.8 on admission - received PO and IV replacement, now up to 3.2 40meq PO given today Recheck AM (3) Aspiration pneumonia: Plan: Patient reports increased difficulty swallowing solids over the past few weeks CT chest: concerns for pneumonia - patient denies worsening cough (hx of copd), fevers and chills - Continue Unasyn and azithromycin - COVID-19/influenza/RSV screen negative - speech therapy saw pt - recommend GI or dietary consult. family reports recent GI workup. (4) Depression with anxiety: Plan: Per previous admission documentation, the patient has been experiencing increased depressive symptoms and anxiety after his prostate cancer diagnosis Was started on sertraline last admission approximately 10 days ago in addition to his previous venlafaxine and at bedtime trazodone Patient had started on a short course of as needed Ativan last admission, will hold scheduled dose, but allow for prn dose with patient agitation (5) Prostate cancer metastatic to multiple sites: Plan: Continue Casodex, Likely contributing to poor PO intake and malnutrition Plan Chronic stable medical problem: * myoclonus - continue keppra * COPD - continue albuterol, fluticasone/salmetrol * HTN - continue metoprolol Dispo: continued inpatient stay, family wanting placement, currently patient not agreeable DVT proh: Crystal Admission and Anticipated Discharge Date Admission Date: May 07, 2024 Subjective Patient seen multiple times throughout the day with family present at bedside. Brandie is very frustrated with having to be in the hospital and wanting to be able to go home and go for a drive in the sun. I explained to him that we are worried about his safety and his falling at home. he has been redirectable, but has frequently asked the nurses for the AMA papers He is agreeable [facility]. Review of Systems Review of Systems: All systems reviewed & are unremarkable except as noted in Subjective Physical Exam Physical Exam: General: NAD, VS as above, irritable but redirectable Resp: normal respiratory effort, lungs clear to auscultation CV: tachycardic , no murmur, Extremities: Moves all extremities, 1+ edema Skin: intact, no lesions noted Results & Data Results & Data Vital Signs (Past 12 Hours) Vital Signs Pulse Pulse Resp BP Pulse Ox O2 Del Method 05/08/24 14:31 106 H 20 136/90 95 Room Air 05/08/24 10:40 87 05/08/24 09:14 Room Air 05/08/24 07:16 106 H 20 150/82 H 95 Room Air 05/08/24 04:46 117 H 20 164/110 H 93 Room Air Laboratory Results CBC and chemistry reviewed PG Care Time/CCT Total # of Minutes Spent Total Time Spent with Patient: Total time spent is greater than 50% in coordination of care (as documented) at patient's floor/unit and/or counseling patient: Coding Level of Care Code 98686 SUB INP/OBS CARE 3/50MIN Diagnoses Fall W19.XXXA Hypokalemia E87.6 Aspiration pneumonia J69.0 Depression with anxiety F41.8 Prostate cancer metastatic to multiple sites C61
[2024-05-08] MEDS: AZITHROMYCIN 500 MG in DEXTROSE 5% 250 ML IV SCH (17:35)
[2024-05-08 18:00] VITALS: RESP 18
[2024-05-08] MEDS: MAGNESIUM OXIDE 400 MG TAB PO SCH (20:32)
[2024-05-09 08:05] VITALS: O2SAT 94
[2024-05-09 08:45] LABS: Basophils # (auto) 0.04 K/uL (0.00-0.20); Basophils % (auto) 0.8 %; Eosinophils # (auto) 0.27 K/uL (0.00-0.50); Eosinophils % (auto) 5.1 %; Hematocrit (blood only) 31.5 % (42.0-52.0); Hemoglobin 10.4 g/dl (14.0-18.0); Immature Granulocytes # (auto) 0.02 K/uL (0.01-0.20); Immature Granulocytes % (auto) 0.4 %; Lymphocytes # (auto) 0.38 K/uL (1.20-3.40); Lymphocytes % (auto) 7.2 %; Mean Corpuscular Hemoglobin 28.2 pg (25.0-34.0); Mean Corpuscular Volume 85.4 fL (80.0-100.0); Mean Platelet Volume 9.7 fL (9.4-12.4); Monocytes # (auto) 0.64 K/uL (0.11-0.59); Monocytes % (auto) 12.1 %; Neutrophils # (auto) 3.96 K/uL (1.40-6.50); Neutrophils % (auto) 74.4 %; Platelet Count 214 K/uL (130-400); RDW Coefficient of Variation 17.7 % (11.5-14.5); RDW Standard Deviation 55.1 fL (36.4-46.3); Red Blood Count 3.69 M/uL (4.70-6.10); White Blood Count 5.31 K/ul (4.8-10.8)
[2024-05-09] MEDS: POTASSIUM CHLORIDE CRTAB 20 MEQ TABCR PO SCH (09:02)
[2024-05-09 09:17] LABS: BUN Creatinine Ratio 19.4 (10-20); Calcium 8.1 mg/dl (8.6-10.3); Creatinine Clr Calc Pharmacy 84.3 ml/min; Est GFR (African American) 104.8 ml/min; Est GFR (Non-African American) 90.5 ml/min; Magnesium 1.7 mg/dl (1.7-2.4); Potassium 3.3 mmol/L (3.5-5.1)
--- NOTE | 2024-05-09 14:33 | Discharge Summary ---
Discharge Summary Date of Service May 09, 2024 Principal Dx & Hospital Course #1 = Principal Diagnosis (1) Fall: Presented to the ED with recurrent falls and inability for to safely take care of him at home with increased cognitive decline and generalized weakness No acute trauma on imaging Suspect recurrent falls or combination of chronic polyneuropathy, deconditioning from recurrent admissions and known cancer, electrolyte abnormalities, possible aspiration pneumonia and polypharmacy PT/OT - recommending rehab - CM following - [facility] (2) Hypokalemia: Potassium noted to be 2.8 on admission - received PO and IV replacement, now up to 3.3 40meq PO given today Recommend recheck in the next 1-2 days (3) Aspiration pneumonia: Patient reports increased difficulty swallowing solids over the past few weeks - was evaluated by BOXING AND PRESSING SUPERVISOR no concerns for aspiration -speech therapy saw pt - recommend GI or dietary consult. family reports recent GI workup. - Fruit Harvester Machine Operator recommends PO supplementations BID CT chest: concerns for pneumonia - patient denies worsening cough (hx of copd), fevers and chills - just completed outpatient course of abx - will not continue abx at discharge - COVID-19/influenza/RSV screen negative (4) Depression with anxiety: Per previous admission documentation, the patient has been experiencing increased depressive symptoms and anxiety after his prostate cancer diagnosis Was started on sertraline last admission approximately 10 days ago in addition to his previous venlafaxine and at bedtime trazodone Patient had started on a short course of as needed Ativan last admission, will hold scheduled dose, but allow for prn dose with patient agitation Had discussed with patient changing around these medications, however a rehab bed has become available and he was discharged today. I recommend considering addition of Seroquel or Remeron to aid in sleep, mental health and hopefully be able to decrease trazadone (5) Prostate cancer metastatic to multiple sites: Likely contributing to poor PO intake and malnutrition Continue Casodex, Plan Chronic stable medical problem: * myoclonus - continue keppra * COPD - continue albuterol, fluticasone/salmetrol * HTN - continue metoprolol - increased to 25mg BID Dispo: [facility] today Notes For Next Care Provider Recommend continued adjustment of mental health medication hypokalemia needs rechecked Medication Changes From Visit Metoprolol increased to 25mg BID Admission HPI Per Admitting Provider Brandie is an 84-year-old male with a history of metastatic prostate cancer to the bones, idiopathic polyneuropathy, myoclonus, COPD, hypothyroidism HTN, depression with anxiety, and iron deficiency anemia who presented to the [facility] ED on 05/07/2024 due to multiple falls over the past 24 hours. He was noted to be tachycardic on arrival with heart rate in the 120s but otherwise stable. Labs were significant for a potassium of 2.8, mag of 1.7, UA with 1+ protein, 1+ ketones, and trace leukocyte Estrace. CT of the head and brain without contrast and cervical spine were read as negative for acute findings. CT of the chest with contrast was negative for traumatic process but did show progressive scattered groundglass airspace opacities consistent with pneumonia. No change in the pathologic compression fracture at T7 with destruction of the posterior cortex and abnormal soft tissue at the laminectomy site resulting in central canal narrowing. This is consistent with the patient's known metastatic disease. CT of the abdomen and pelvis with IV contrast was read as negative for acute trauma but did note mild nonspecific proctitis and noted his known prostate cancer. Prior to admission the patient was given 1 g IV Tylenol, 2 doses of 10 mEq IV KCl, 20M EQ p.o. KCl, and 500 mL NSS. Patient was lying in bed in no acute distress at the time of exam, unfortunate family had left prior to my arrival. History is somewhat limited due to due to patient's baseline cognitive status. When asked what brought him to the hospital, he states that he fell this afternoon. I asked if he has fallen any other times recently and he did not believe he had. When I explained that we were told he had a fall last night as well he states, "I cannot remember anything these days". States that he feels generally weak and that his legs will give out on him while he is trying to walk. Denies hitting his head recently or losing consciousness. No current pain. He has a nonproductive cough during exam which she states he has had for the past few days. When asked if he has had any episodes of choking recently he states "recently of had a lot of trouble getting food down". He explains that he has been having ongoing issues swallowing. Denies recent fever, chills, chest pain, nausea/vomiting, abdominal pain, dysuria, hematuria, diarrhea, lower extremity swelling. For now we will keep the patient a full code as per the last admission as family was not there to discuss and did not orange picker machine operator on tempted to call. Would recommend ongoing goals of care discussion. Please for Dr. Davis's attestation for any changes to treatment plan Discharge Exam General: NAD, VS as above, more pleasant today but not wanting to participate in care Resp: normal respiratory effort, lungs clear to auscultation CV: tachycardic , no murmur, Extremities: Moves all extremities, 1+ edema Skin: intact, no lesions noted Discharge Plan Discharge Items Patient Disposition: Transfer Inpatient Rehab Fac Reason For Visit: RECURRENT FALLS, INTERMITTENT CONFUSION, NEED FOR Discharge Diagnosis: Recurrent Falls Activity: As commented below Activity Comment: work with therapy to get stronger Non-emergency contact: Primary Care Provider Call non-emergency contact if: you have any medication questions, your symptoms worsen, your pain is worsening and your temperature is above 101 Follow-up/Referrals: [facility],Hospital [Primary Care Provider] - (follow up after discharge from Rehab ) Diet: Heart Healthy Diet Texture: Easy to Chew Addtl Attending Provider Instructions: Mr. Veloz, You were hospitalized after falls and weakness at home. Therapy has recommend you go to rehab and get stronger - [facility] will be going [facility]. You had a persistently elevated heart rate while you were here and I have increased the dose of your metoprolol. Since you wont be here overnight for monitoring I did not change any of the anxiety/depression meds, but I will give my recommendations to [facility]. [facility] will give you an updated med list at discharge [facility]: - patient had addition of Zoloft to chronic Effexor about 2 weeks ago, has not noticed a difference and also two medications of the same class. Has been relying on the ativan. Was considering a low dose Seroquel or Remeron at night to help and also help his poor appetite (and potentially be able to also scale back his trazadone) - however no adjustments were made prior to discharge - metoprolol increased - if persistent tachycardia would consider echo - pneumonia treatment stopped - no clinical signs, fevers or WBC - hypokalemic while here, 3.3 on day of discharge. received 40meq this morning, recommend recheck Pending Studies at Discharge: No Stand-Alone Forms: My [facility] Skilled Items Patient informed of condition?: Yes DNR: No Discharge Level of Care: Acute rehab Communicable Disease: No Discharge Prognosis: Stable Lines: None Urinary Catheter: No Medications and DC Order Prescriptions: New metoprolol tartrate 25 mg Tablet 25 mg PO BID Qty: 30 0RF Continued lidocaine 5 % adhesive patch,medicated 1 patch TOP DAILY PRN (Reason: Pain) levetiracetam 500 mg tablet 750 mg PO QAM Rx Instructions: TAKE 1 & 1/2 TAB IN AM albuterol sulfate [Proventil HFA] 90 mcg/actuation HFA aerosol inhaler 2 puff inhalation Q4H PRN (Reason: Shortness Of Breath Or Wheezing) sennosides [Senokot] 8.6 mg tablet 17.2 mg PO DAILY fluticasone propion-salmeterol [Advair Diskus] 250-50 mcg/dose blister with device 1 inh inhalation BID trazodone 100 mg tablet 200 mg PO HS bicalutamide 50 mg tablet 50 mg PO DAILY Ensure Liquid 1 ea PO DAILY ondansetron HCl 4 mg tablet 4 mg PO Q8H PRN (Reason: NAUSEA/VOMITING) ascorbate calcium (vitamin C) 500 mg tablet 500 mg PO DAILY cholecalciferol (vitamin D3) 10 mcg (400 unit) capsule 10 mcg PO DAILY fluticasone propionate 50 mcg/actuation spray,suspension 1 spray intranasal BID Rx Instructions: administer into each nostril thiamine HCl (vitamin B1) 100 mg tablet 100 mg PO DAILY finasteride 5 mg tablet 5 mg PO DAILY roflumilast 500 mcg tablet 500 mcg PO DAILY venlafaxine 150 mg Capsule,Extended Release 24hr 150 mg PO QAM tiotropium bromide 2.5 mcg/actuation mist 2 inh INHALATION DAILY simvastatin 80 mg Tablet 40 mg PO HS sertraline 25 mg tablet 25 mg PO DAILY Qty: 30 0RF sucralfate [Carafate] 100 mg/mL suspension 10 ml PO QID Qty: 420 0RF Rx Instructions: swish in mouth and swallow; use after food/drink: May substitute tablets as a slurry. levothyroxine [Synthroid] 112 mcg Tablet 112 mcg PO DAILYBB Qty: 30 0RF cyanocobalamin (vitamin B-12) 1,000 mcg capsule 1,000 mcg PO DAILY Qty: 30 0RF Rx Instructions: OTC polyethylene glycol 3350 [Miralax] 17 gram powder in packet 17 g PO DAILY Qty: 30 0RF ferrous sulfate 325 mg (65 mg iron) tablet 325 mg PO DAILY Qty: 30 0RF Rx Instructions: OTC levetiracetam 500 mg Tablet 1,000 mg PO HS Rx Instructions: TAKE 2 TABS HS acetaminophen [Tylenol Extra Strength] 500 mg Tablet 500 mg PO .Q4-6HR PRN (Reason: Pain) Rx Instructions: PER VA docusate sodium 100 mg Capsule 100 mg PO DAILY PRN (Reason: Constipation) lorazepam 1 mg tablet 0.5 mg PO Q8 PRN (Reason: Anxiety) Rx Instructions: DURING DAY Changed tamsulosin 0.4 mg capsule 0.4 mg PO HS Qty: 0 0RF Discontinued lorazepam 1 mg Tablet 1 mg PO HS Qty: 30 0RF Rx Instructions: and take 0.5mg every 8 hours as needed for anxiety during the daytime metoprolol tartrate 25 mg tablet 12.5 mg PO BID Qty: 30 0RF No Action ampicillin-sulbactam 1.5 gram recon soln 3 g IV Q8H atorvastatin 20 mg tablet 20 mg PO DAILY azithromycin 500 mg tablet 500 mg PO DAILY magnesium 250 mg tablet 200 mg PO BID Discharge Orders: Discharge Order (Routine); Ordered 05/09/24 Ordered By: Swati Romero Admission Data Admit Date/Time: 05/07/24 16:47 Attending Provider: Ronal Sosa Admit Provider: Ronal Davis Primary Care Provider: [facility] Other Providers: [facility]; [facility] Hospital Stay Data Consultations 05/07/24 15:57 ED Decision to Admit Stat Diagnostic Imagining Performed Chest X-Ray 05/07/24 10:36 XR chest 2V PA/lateral HISTORY: Right Rib and Shoulder Pain s/p fall COMPARISON: Chest CTA 05/01/2024. FINDINGS: Posterior fusion hardware again noted within the thoracic spine. There is a left shoulder prosthesis. No acute fractures identified. There are low lung volumes. No pneumothorax. No pleural effusions. The heart is mildly enlarged. Bibasilar linear densities favor subsegmental atelectasis. IMPRESSION: 1. Low lung volumes with bibasilar linear densities suggesting subsegmental atelectasis. 2. No acute fractures. No pneumothorax. ACT 112: Negative or not required by law. Electronically signed by: Alexandre Mcfarland M.D. 05/07/2024 11:43 AM Shoulder X-Ray 05/07/24 10:57 RIGHT SHOULDER 3 VIEWS HISTORY: fall COMPARISON: None. FINDINGS: There is no fracture or dislocation. Soft tissues are unremarkable. No radiopaque foreign bodies. IMPRESSION: No fractures. ACT 112: Negative or not required by law. Electronically signed by: Alexandre Mcfarland M.D. 05/07/2024 11:47 AM Abdomen/Pelvis CT 05/07/24 11:[address] WITH IV CONTRAST CT DOSE: HISTORY: falls, R pain, prostate pain TECHNIQUE: Multiaxial CT images of the abdomen and pelvis were performed following the use of intravenous contrast. A dose lowering technique was utilized adhering to the principles of ALARA. COMPARISON STUDY: Abdomen and pelvis CT 05/01/2024 FINDINGS: The lung bases will be reported on the same day chest CT. No pneumoperitoneum. No pneumatosis. No acute fractures identified. Healing right anterior fourth and fifth rib fractures are again noted. Stable scattered hypodense lesions within the liver and kidneys. These favor cysts. Normal gallbladder. The pancreas, spleen, adrenal glands are unremarkable. No retroperitoneal hematoma or lymphadenopathy. 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 Mild body wall edema is noted. Thickened bladder wall remains unchanged and may be due to chronic outlet obstruction. Prostate gland remains enlarged. Nodular appearance to left side of the prostate gland again noted. Represent a prostate lesion. There is mild circumferential thickening of the rectum with mild perirectal fat stranding. This is consistent with a nonspecific proctitis. Colonic diverticulosis. No evidence for acute diverticulitis. No evidence for a bowel obstruction. IMPRESSION: 1. No acute traumatic process within the abdomen or pelvis. 2. Mild nonspecific proctitis. 3. Nodularity within the left side of the prostate gland, unchanged. This may represent a prostate lesion. 4. Additional findings as described above. ACT 112: Negative or not required by law. Electronically signed by: Alexandre Mcfarland M.D. 05/07/2024 2:[address] 05/07/24 11:[address] DOSE: 3238.84 mGy.cm HISTORY: falls TECHNIQUE: Multiaxial CT images of the cervical spine were performed and reformatted in the sagittal and coronal plane without the use of contrast. A dose lowering technique was utilized adhering to the principles of ALARA. COMPARISON: None. FINDINGS: No fractures. No subluxation. Prevertebral soft tissues and the C1-C2 interval are intact. No pneumothorax. IMPRESSION: No fractures within the cervical spine. ACT 112: Negative or not required by law. Electronically signed by: Alexandre Mcfarland M.D. 05/07/2024 2:[address] 05/07/24 11:[address] WITH CONTRAST CT DOSE: HISTORY: falls, R sided pain TECHNIQUE: Multiaxial CT images of the chest were performed following the intravenous administration of contrast. A dose lowering technique was utilized adhering to the principles of ALARA. COMPARISON: Chest CTA 05/01/2024 FINDINGS: Mild aneurysmal dilatation of the ascending thoracic aorta measuring up to 4.2 cm in diameter. No evidence for an aortic dissection. The heart is normal in size. No pleural or pericardial effusions. No mediastinal hematoma or lymphadenopathy identified. The abdominal structures will be reported separately. The central pulmonary arteries are patent. No pneumothorax. Mild circumferential thickening of the midesophagus again noted. Moderate coronary artery calcifications. Mild body wall edema. Stable 4 mm subpleural nodule within the left lung apex. Scattered patchy groundglass airspace opacities have progressed and favor a pneumonia.. There is a left shoulder prosthesis. Old bilateral rib fractures again noted. Healing right anterior fourth and fifth rib fractures, unchanged. No acute fractures identified. Posterior fusion from T5 through T9 with pedicle screws, rods, and vertebroplasty at multiple levels. Moderate pathologic compression deformity at T7 remains unchanged. There is persistent destruction the posterior cortex of T7 with abnormal soft tissue at the laminectomy site resulting in central canal narrowing at this level. This is similar to the prior study and corresponds the patient's known metastatic disease. IMPRESSION: 1. No acute traumatic process within the chest. 2. Progressive scattered groundglass airspace opacities consistent with a pneumonia. 3. No change in the pathologic compression fracture T7 with destruction of the posterior cortex and abnormal soft tissue at the laminectomy site resulting in central canal narrowing. This is consistent the patient's known metastatic disease ACT 112: Negative or not required by law. Electronically signed by: Alexandre Mcfarland M.D. 05/07/2024 2:[address] 05/07/24 11:[address] DOSE: HISTORY: falls TECHNIQUE: Multiaxial CT images of the head were performed without the use of intravenous contrast. Automated exposure control was utilized for this study. A dose lowering technique was utilized adhering to the principles of ALARA. Comparison: Head CT 04/14/2024. Findings: The paranasal sinuses and mastoid air cells are clear. The calvarium and skull base are intact. The ventricles and sulci are within normal limits. There is no mass, hematoma, midline shift, or acute infarct. Impression: No acute intracranial abnormality. ACT 112: Negative or not required by law. Electronically signed by: Alexandre Mcfarland M.D. 05/07/2024 2:32 PM Pending Results Patient Have Any Pending Studies at Discharge: No Discharge Instructions Given to Patient (Per Discharging Provider) Mr. Veloz, Rigo were hospitalized after falls and weakness at home. Therapy has recommend you go to rehab and get stronger - [facility] will [facility]. You had a persistently elevated heart rate while you were here and I have increased the dose of your metoprolol. Since you wont be here overnight for monitoring I did not change any of the anxiety/depression meds, but I will give my recommendations to [facility]. [facility] will give you an updated med list at discharge [facility]: - patient had addition of Zoloft to chronic Effexor about 2 weeks ago, has not noticed a difference and also two medications of the same class. Has been r elying on the ativan. Was considering a low dose Seroquel or Remeron at night to help and also help his poor appetite (and potentially be able to also scale back his trazadone) - however no adjustments were made prior to discharge - metoprolol increased - if persistent tachycardia would consider echo - pneumonia treatment stopped - no clinical signs, fevers or WBC - hypokalemic while here, 3.3 on day of discharge. received 40meq this morning, recommend recheck Supervising Physician Co-Signing Physician Notes Attending Attestation & Discharge Note: Pt seen/examined, chart reviewed, discharge care plan d/w RAJ Romero. I agree w/ the burr components of her documentation with the following addition -- * SINUS TACHYCARDIA -- increase metoprolol tartrate to 25mg BID * no evidence of PE on recent CTA chest study * H/H stable Thus, tachycardia 2nd to pain? 2nd to agitation? 2nd to anxiety? 2nd to COPD? 84yo male with metastatic prostate cancer with mets to the bones, COPD, HTN - presented to [facility] with recurrent falls. Imaging with b/l pneumonia, chronic T7 pathological compression fracture, and healing rib fractures. Treated with antibiotics. Never had O2 requirement. Discharge exam - gen - lying in bed, mild confusion, no distress neck - no JVD heart - tachy, s1 s2, no murmur lungs - b/l basilar rales, no wheeze, no distress abd - soft NT ND BS+ ext - no edema, pulses 2+ b/l neuro - strength b/l legs 5/5 Agree that if tachycardia continues to obtain echo as outpatient. Ronal Sosa MD Total Time Total Time Spent Total Time Spent (In Minutes): Time spent day of discharge 40 minutes including direct patient care, medication reconciliation, documentation, review of labs and images, and coordination of care. Coding Level of Care Code 70699 INP/OBS DISCH >30 MIN Diagnoses Fall W19.XXXA Hypokalemia E87.6 Aspiration pneumonia J69.0 Depression with anxiety F41.8 Prostate cancer metastatic to multiple sites C61
[2024-05-09 15:17] VITALS: BP 152/89; PULSE 91; TEMP 98.6
[2024-05-09] MEDS ORDERED: TAMSULOSIN HCL 0.4 MG CAP PO SCH (21:00)
[2024-05-09] MEDS ORDERED: METOPROLOL TARTRATE 25 MG TAB PO SCH (21:00)
--- NOTE | 2024-05-10 15:41 | Electrocardiogram Report ---
Test Reason : Blood Pressure : */* mmHG Vent. Rate : 124 BPM Atrial Rate : 124 BPM P-R Int : 164 ms QRS Dur : 98 ms QT Int : 324 ms P-R-T Axes : 34 -34 88 degrees QTcB Int : 465 ms Sinus tachycardia with occasional Premature ventricular complexes and Fusion complexes Left atrial enlargement Left axis deviation Incomplete right bundle branch block Abnormal ECG When compared with ECG of 01-May-2024 10:34, Fusion complexes are now Present Confirmed by Clara Desai (Mohan) on 05/07/2024 7:18:16 PM Referred By: Confirmed By: Clara Desai
== END 2024-05-09 17:00 | DRG 640 ==
LOC: ED 10:21 → SUATTDRO 16:47 → EDINP 16:47 → 3N 19:59
DX: Y92.003 Bedroom of unspecified non-institutional (private) residence as the place of occurrence of the external cause; Z79.890 Hormone replacement therapy; R29.6 Repeated falls; E87.6 Hypokalemia; G25.3 Myoclonus; F32.A Depression, unspecified; C61 Malignant neoplasm of prostate; C79.51 Secondary malignant neoplasm of bone; Z88.8 Allergy status to other drugs, medicaments and biological substances; G60.9 Hereditary and idiopathic neuropathy, unspecified; Z79.51 Long term (current) use of inhaled steroids; R53.1 Weakness; W06.XXXA Fall from bed, initial encounter; I10 Essential (primary) hypertension; I25.10 Atherosclerotic heart disease of native coronary artery without angina pectoris; D50.9 Iron deficiency anemia, unspecified; L89.152 Pressure ulcer of sacral region, stage 2; E87.1 Hypo-osmolality and hyponatremia; E03.9 Hypothyroidism, unspecified; J69.0 Pneumonitis due to inhalation of food and vomit; R41.81 Age-related cognitive decline; Z79.899 Other long term (current) drug therapy; J44.9 Chronic obstructive pulmonary disease, unspecified; F41.9 Anxiety disorder, unspecified